=== PATIENT | female | born 1980 | race Caucasian/White ===

== ENCOUNTER 2019-10-17 09:12 | Emergency (ER) | payer OTHER ==
--- NOTE | 2019-10-17 09:59 | EDM.PDOC ---
ED [facility] GENERAL MEDICAL PROBLEM - General Chief Complaint: General Stated Complaint: DETOX Time Seen by Provider: 10/17/19 09:40 Source of Information: Reports: Patient History Limitations: Reports: No Limitations - History of Present Illness INITIAL COMMENTS - FREE TEXT/NARRATIVE: Patient is a 38-year-old female with a past medical history of pancreatitis and alcohol abuse. Patient is here requesting alcohol detox. Patient states that she is a recovering alcoholic and recently relapsed 5 days ago. Patient states that she is been dealing with anxiety from a recent move and job change. Patient states that she trinity with her anxiety by drinking alcohol. Patient states she has been drinking 2 pints of alcohol per day and her most recent drink was 5 hours ago. Patient states that outpatient detox does not work for her and that she needs inpatient. Patient is denying headaches, nausea, vomiting, paresthesias, depression, suicidal ideations, homicidal ideations. Pmhx: Pancreatitis Pshx: None Family Hx: noncontributory Smoking history? no Etoh use? No daily alcohol Drug use? none In addition to that documented in the HPI above, the additional ROS was obtained : Constitutional: Denies fevers or chills Eyes: Denies vision changes ENMT: Denies sore throat CV: Denies chest pain Resp: Denies SOB GI: Denies vomiting or diarrhea : Denies painful urination MSK: Denies recent trauma Skin: Denies new rashes Neuro: Denies new numbness or tingling or weakness Endocrine: Denies unexpected weight loss Heme: Denies bleeding disorders I have reviewed the triage vital signs Const: Well nourished, well developed, appears stated age. No slurring of speech no alcohol on breath. Eyes: PERRL, no conjunctival injection HENT: NCAT, Neck supple without meningismus CV: RRR, Warm, well-perfused extremities RESP: CTAB, Unlabored respiratory effort GI: soft, non-tender, non-distended, no masses MSK: No gross deformities appreciated Skin: Warm, dry. No rashes Neuro: Alert and oriented x3., professor of surgery II-XII grossly intact. Sensation and motor function of extremities grossly intact. No tremors noted. Gait is normal Psych: Appropriate mood and affect Assessment and plan: Patient is 38-year-old female presenting with a chief complaint of alcohol dependence requesting detox. Patient is not demonstrating any evidence of alcohol withdrawal at this time and is clinically sober. Patient is slightly tachycardic but is regular rate. At this point, patient has no indication for inpatient admission for alcohol withdrawal. There are no inpatient detox beds at this facility. Patient was educated on the importance of cessation of alcohol. Patient was referred to [facility] for inpatient detox. At this period in time, patient does not have any other evidence of medical emergency requiring intervention. Patient is medically stable and cleared for discharge. - Related Data Allergies Allergy/AdvReac Type Severity Reaction Status Date / Time No Known Allergies Allergy Verified 10/17/19 09:30 Home Meds: Home Meds Desvenlafaxine Succinate [Pristiq ER] 25 mg PO ASDIRECTED 10/17/19 [History] Ibuprofen [Motrin] 800 mg PO DAILY 10/17/19 [History] Past Medical History HEENT History: Reports: None Cardiovascular History: Reports: None Respiratory History: Reports: None Gastrointestinal History: Reports: Cirrhosis, Pancreatitis WIRE TESTER History: Reports: Other WIRE TESTER History: X2 Musculoskeletal History: Reports: None Neurological History: Reports: None Psychiatric History: Reports: Anxiety, Depression Endocrine/Metabolic History: Reports: None Hematologic History: Reports: None Immunologic History: Reports: None Oncologic (Cancer) History: Reports: None Dermatologic History: Reports: None - Infectious Disease History Infectious Disease History: Reports: C-Difficile - Past Surgical History Head Surgeries/Procedures: Reports: None Social & Family History - Family History Family Medical History: Noncontributory - Tobacco Use Smoking Status *Q: Current Every Day Smoker Years of Tobacco use: 20 Packs/Tins Daily: 1 Used Tobacco, but Quit: No Second Hand Smoke Exposure: Yes - Caffeine Use Caffeine Use: Reports: Tea - Alcohol Use Days Per Week of Alcohol Use: 5 Number of Drinks Per Day: 10 Total Drinks Per Week: 50 - Recreational Drug Use Recreational Drug Use: No ED ROS GENERAL - Review of Systems Review Of Systems: See Below ED EXAM, GENERAL - Physical Exam Exam: See Below Course - Vital Signs Last Recorded V/S: Last Vital Signs Temp 35.6 C L 10/17/19 09:32 Pulse 108 H 10/17/19 09:32 Resp 18 10/17/19 09:32 BP 127/88 10/17/19 09:32 Pulse Ox 96 10/17/19 09:32 Departure - Departure Time of Disposition: 09:58 Disposition: Home, Self-Care 01 Clinical Impression: Alcohol abuse - Discharge Information Instructions: Alcohol Use Disorder Referrals: PCP,None [Primary Care Provider] - Forms: ED Department Discharge Additional Instructions: The following information is given to patients seen in the emergency department who are being discharged to home. This information is to outline your options for follow-up care. We provide all patients seen in our emergency department with a follow-up referral. The need for follow-up, as well as the timing and circumstances, are variable depending upon the specifics of your emergency department visit. If you don't have a primary care physician on staff, we will provide you with a referral. We always advise you to contact your personal physician following an emergency department visit to inform them of the circumstance of the visit and for follow-up with them and/or the need for any referrals to a consulting specialist. The emergency department will also refer you to a specialist when appropriate. This referral assures that you have the opportunity for follow-up care with a specialist. All of these measure are taken in an effort to provide you with optimal care, which includes your follow-up. Under all circumstances we always encourage you to contact your private physician who remains a resource for coordinating your care. When calling for follow-up care, please make the office aware that this follow-up is from your recent emergency room visit. If for any reason you are refused follow-up, please contact the [facility] Emergency Department at and asked to speak to the emergency department charge nurse. The closest facility for inpatient detox is in [facility]. Please go there soon as possible for treatment of your alcohol use disorder. Please return to the ER since possible if symptoms worsen or if you have any additional concerns. Sepsis Event Note - Evaluation Sepsis Screening Result: No Definite Risk - Focused Exam Vital Signs: Vital Signs Temp Pulse Resp BP Pulse Ox 10/17/19 09:32 35.6 C L 108 H 18 127/88 96 Date Exam was Performed: 10/17/19 Time Exam was Performed: 10:01
== END 2019-10-17 10:07 | disposition home or self-care (01) ==
LOC: MW.ED 09:12
DX: F10.10 Alcohol abuse, uncomplicated (principal); F41.9 Anxiety disorder, unspecified; F32.9 Major depressive disorder, single episode, unspecified; F17.210 Nicotine dependence, cigarettes, uncomplicated; Z79.899 Other long term (current) drug therapy
CPT/HCPCS: 99282; 99283

== ENCOUNTER 2019-12-16 12:30 | Inpatient (IN) | payer OTHER ==
[2019-12-16] MEDS ORDERED: Ondansetron 4 MG/2 ML SDV IVPUSH ONE (12:49)
[2019-12-16] MEDS ORDERED: Sodium Chloride 0.9% 10 ML Syringe FLUSH PRN (12:49)
[2019-12-16] MEDS ORDERED: Morphine 4 MG/ML Syringe IVPUSH ONE ×4 (12:49→16:26)
[2019-12-16] MEDS ORDERED: Ketorolac 15 MG/ML SDV IVPUSH ONE (12:49)
[2019-12-16] MEDS ORDERED: Sodium Chloride 0.9% 1,000 ML IV ONE ×3 (12:49→17:46)
[2019-12-16] MEDS ORDERED: Sodium Chloride 0.9% 2.5 ML Syringe FLUSH PRN (12:49)
--- NOTE | 2019-12-16 12:53 | EDM.PDOC ---
ED [facility]PI GENERAL MEDICAL PROBLEM - General Chief Complaint: Gastrointestinal Problem Stated Complaint: PANCREATITIS Time Seen by Provider: 12/16/19 12:43 - History of Present Illness INITIAL COMMENTS - FREE TEXT/NARRATIVE: History of present illness: 39-year-old female presenting with right upper quadrant pain radiating to the epigastric area that has been worsening over the last 3 days. She has also been nauseated and vomited 7 times today. She reports that she is an alcoholic and a heavy daily drinker and that she has had prior episodes of pancreatitis which have felt exactly like this episode. She also reports that she knows pancreatitis because every time that happens she notices her urine has a color change and smells differently. Last menstrual period started 2 days ago. No diarrhea. No fevers or chills. Review of systems: As per history of present illness and below otherwise all systems reviewed and negative. Past medical history: As per history of present illness and as reviewed below otherwise nonc ontributory. Alcoholic hepatitis, pancreatitis Surgical history: As per history of present illness and as reviewed below otherwise noncontributory. Social history: No reported history of drug abuse. Does report daily alcohol abuse and tobacco Family history: As per history of present illness and as reviewed below otherwise noncontributory. Physical exam: GEN: no acute distress, well appearing HEENT: Atraumatic, normocephalic, mucous membranes moist, Neck: supple, nontender, trachea midline. Lungs: No respiratory distress. Heart: RRR Abdomen: Soft, nondistended, tender to palpation right upper quadrant and epigastric area. No rebound or guarding Back: nontender Extremities: Atraumatic. Neurovascularly intact. Neuro: Awake, alert, oriented. Neuro Exam nonfocal. Skin: warm, dry, no lesions Diagnostics: Labs Therapeutics: IV fluids, Zofran, morphine for pain MDM: Symptoms similar to prior episodes of pancreatitis. She is a daily drinker. At risk for pancreatitis. Will check labs. Impression: [] Plan: [] Definitive disposition and diagnosis as appropriate pending reevaluation and review of above. Right Upper Abdomen Pain Score (Numeric/FACES): 10 - Related Data Allergies Allergy/AdvReac Type Severity Reaction Status Date / Time No Known Allergies Allergy Verified 12/16/19 17:47 Home Meds: Home Meds Desvenlafaxine Succinate [Pristiq ER] 100 mg PO ASDIRECTED 10/17/19 [History] Past Medical History HEENT History: Reports: None Cardiovascular History: Reports: None Respiratory History: Reports: None Gastrointestinal History: Reports: Cirrhosis, Hepatitis, Pancreatitis Genitourinary History: Reports: None RN GYN History: Reports: Other RN GYN History: X2 Musculoskeletal History: Reports: None Neurological History: Reports: None Psychiatric History: Reports: Anxiety, Depression Endocrine/Metabolic History: Reports: None Hematologic History: Reports: None Immunologic History: Reports: None Oncologic (Cancer) History: Reports: None Dermatologic History: Reports: None - Infectious Disease History Infectious Disease History: Reports: Chicken Pox, Hepatitis non A,B,C - Past Surgical History Head Surgeries/Procedures: Reports: None Female Surgical History: Reports: Tubal Ligation Social & Family History - Family History Family Medical History: Noncontributory - Tobacco Use Smoking Status *Q: Current Every Day Smoker Years of Tobacco use: 20 Packs/Tins Daily: 1.5 - Caffeine Use Caffeine Use: Reports: Tea - Recreational Drug Use Recreational Drug Use: No ED ROS GENERAL - Review of Systems Review Of Systems: See Below (See HPI) ED EXAM, GI/ABD - Physical Exam Exam: See Below (See HPI) Course - Vital Signs Text/Narrative:: Upper abdominal pain, primarily epigastric and right upper quadrant. History of alcohol abuse and pancreatitis with similar symptoms. Lipase 4000. LFTs and bilirubin also elevated. Patient afebrile and otherwise well-appearing. Given IV fluids and multiple doses of pain medications. Will admit the patient. Patient agrees with the plan. Last Recorded V/S: Last Vital Signs Temp 99.4 F 12/17/19 07:00 Pulse 119 H 12/17/19 07:00 Resp 16 12/17/19 07:00 BP 119/87 12/17/19 07:00 Pulse Ox 97 12/17/19 07:00 - Orders/Labs/Meds Orders: Active Orders 24 hr Category Date Time Status CIWAA Assessment [RC] Q4H Care 12/16/19 15:56 Active Up ad Vanessa [RC] ASDIRECTED Care 12/16/19 15:56 Active Vital Signs [RC] Q4H Care 12/16/19 15:56 Active Nothing Per Oral Diet [DIET] Diet 12/16/19 Dinner Active Folic Acid Med 12/16/19 16:00 Active 1 mg IV DAILY LORazepam [Ativan] Med 12/16/19 15:56 Active See Protocol IVPUSH Q4H PRN Morphine Med 12/16/19 15:56 Active 2 mg IVPUSH Q3H PRN Sodium Chloride 0.9% [Normal Saline] 1,000 ml Med 12/16/19 16:00 Active IV ASDIRECTED Sodium Chloride 0.9% [Saline Flush] Med 12/16/19 12:49 Active 10 ml FLUSH ASDIRECTED PRN Sodium Chloride 0.9% [Saline Flush] Med 12/16/19 12:49 Active 2.5 ml FLUSH ASDIRECTED PRN Thiamine [Vitamin B-1] 100 mg Med 12/16/19 16:00 Active Sodium Chloride 0.9% [Normal Saline] 100 ml IV DAILY Saline Lock Insert [OM.PC] Stat Oth 12/16/19 12:49 Ordered Medication Orders Folic Acid (Folic Acid) 1 mg IV DAILY [facility] Last Admin: 12/16/19 17:26 Dose: 1 mg Documented by: RENATO Sodium Chloride (Normal Saline) 1,000 mls @ 200 mls/hr IV ASDIRECTED [facility] Last Admin: 12/17/19 05:37 Dose: 200 mls/hr Documented by: Infusion: 12/17/19 05:37 Dose: 200 mls/hr Documented by: Admin: 12/17/19 00:45 Dose: 200 mls/hr Documented by: Infusion: 12/16/19 22:10 Dose: 200 mls/hr Documented by: Admin: 12/16/19 17:10 Dose: 200 mls/hr Documented by: RENATO Thiamine HCl 100 mg/ Sodium (Chloride) 101 mls @ 202 mls/hr IV DAILY [facility] Last Admin: 12/16/19 17:38 Dose: Not Given Documented by: CELESTINOFRYosi Lorazepam (Ativan) 0 mg IVPUSH Q4H PRN; Protocol PRN Reason: Agitation Last Admin: 12/17/19 07:32 Dose: 1 mg Documented by: Admin: 12/17/19 03:20 Dose: 1 mg Documented by: Admin: 12/16/19 21:40 Dose: 1 mg Documented by: Admin: 12/16/19 17:22 Dose: 2 mg Documented by: RENATO Morphine Sulfate (Morphine) 2 mg IVPUSH Q3H PRN PRN Reason: Pain Last Admin: 12/17/19 05:12 Dose: 2 mg Documented by: Admin: 12/17/19 01:43 Dose: 2 mg Documented by: Admin: 12/16/19 22:33 Dose: 2 mg Documented by: Admin: 12/16/19 19:28 Dose: 2 mg Documented by: RENATO Nicotine (Habitrol) 14 mg TRDERM DAILY [facility] Last Admin: 12/16/19 21:26 Dose: 14 mg Documented by: BRITT Ondansetron HCl (Zofran) 4 mg IVPUSH Q4H PRN PRN Reason: Nausea/Vomiting Last Admin: 12/17/19 05:17 Dose: 4 mg Documented by: Admin: 12/16/19 21:20 Dose: 4 mg Documented by: BRITT Sodium Chloride (Saline Flush) 10 ml FLUSH ASDIRECTED PRN PRN Reason: Keep Vein Open Last Admin: 12/16/19 13:16 Dose: 10 ml Documented by: JOHN Sodium Chloride (Saline Flush) 2.5 ml FLUSH ASDIRECTED PRN PRN Reason: Keep Vein Open Last Admin: 12/16/19 13:16 Dose: 2.5 ml Documented by: [email or web address] Labs: Laboratory Tests 12/16/19 12/16/19 12/16/19 Range/Units 13:05 13:05 13:05 WBC 9.22 (4.0-11.0) K/uL RBC 3.99 L (4.30-5.90) M/uL Hgb 14.3 (12.0-16.0) g/dL Hct 40.9 (36.0-46.0) % MCV 102.5 H (80.0-98.0) fL MCH 35.8 H (27.0-32.0) pg MCHC 35.0 (31.0-37.0) g/dL RDW Std Deviation 70.1 H (28.0-62.0) fl RDW Coeff of Tea 19 H (11.0-15.0) % Plt Count 148 L (150-400) K/uL MPV 10.00 (7.40-12.00) fL Neut % (Auto) 81.3 H (48.0-80.0) % Lymph % (Auto) 10.2 L (16.0-40.0) % [place] % (Auto) 7.9 (0.0-15.0) % Eos % (Auto) 0.1 (0.0-7.0) % Baso % (Auto) 0.5 (0.0-1.5) % Neut # (Auto) 7.5 H (1.4-5.7) K/uL Lymph # (Auto) 0.9 (0.6-2.4) K/uL [place] # (Auto) 0.7 (0.0-0.8) K/uL Eos # (Auto) 0.0 (0.0-0.7) K/uL Baso # (Auto) 0.1 (0.0-0.1) K/uL Nucleated RBC % 0.0 /100WBC Nucleated RBCs # 0 K/uL Sodium 136 (136-145) mmol/L Potassium 3.1 L (3.5-5.1) mmol/L Chloride 95 L (98-107) mmol/L Carbon Dioxide 15.1 L (21.0-32.0) mmol/L BUN 10 (7.0-18.0) mg/dL Creatinine 0.7 (0.6-1.0) mg/dL Est Cr Clr Drug Dosing 89.98 mL/min Estimated GFR (MDRD) > 60.0 ml/min Glucose 121 H (74-106) mg/dL Calcium 8.7 (8.5-10.1) mg/dL Total Bilirubin 2.2 H (0.2-1.0) mg/dL AST 410 H (15-37) IU/L ALT 204 H (14-63) IU/L Alkaline Phosphatase 122 H (46-116) U/L Total Protein 8.2 (6.4-8.2) g/dL Albumin 4.1 (3.4-5.0) g/dL Globulin 4.1 H (2.6-4.0) g/dL Albumin/Globulin Ratio 1.0 (0.9-1.6) Lipase 4164 H (73-393) U/L HCG, Qual NEGATIVE (NEG) SARS Virus RNA (PCR) (NEGATIVE) 12/16/19 Range/Units 14:45 WBC (4.0-11.0) K/uL RBC (4.30-5.90) M/uL Hgb (12.0-16.0) g/dL Hct (36.0-46.0) % MCV (80.0-98.0) fL MCH (27.0-32.0) pg MCHC (31.0-37.0) g/dL RDW Std Deviation (28.0-62.0) fl RDW Coeff of Tea (11.0-15.0) % Plt Count (150-400) K/uL MPV (7.40-12.00) fL Neut % (Auto) (48.0-80.0) % Lymph % (Auto) (16.0-40.0) % [place] % (Auto) (0.0-15.0) % Eos % (Auto) (0.0-7.0) % Baso % (Auto) (0.0-1.5) % Neut # (Auto) (1.4-5.7) K/uL Lymph # (Auto) (0.6-2.4) K/uL [place] # (Auto) (0.0-0.8) K/uL Eos # (Auto) (0.0-0.7) K/uL Baso # (Auto) (0.0-0.1) K/uL Nucleated RBC % /100WBC Nucleated RBCs # K/uL Sodium (136-145) mmol/L Potassium (3.5-5.1) mmol/L Chloride (98-107) mmol/L Carbon Dioxide (21.0-32.0) mmol/L BUN (7.0-18.0) mg/dL Creatinine (0.6-1.0) mg/dL Est Cr Clr Drug Dosing mL/min Estimated GFR (MDRD) ml/min Glucose (74-106) mg/dL Calcium (8.5-10.1) mg/dL Total Bilirubin (0.2-1.0) mg/dL AST (15-37) IU/L ALT (14-63) IU/L Alkaline Phosphatase (46-116) U/L Total Protein (6.4-8.2) g/dL Albumin (3.4-5.0) g/dL Globulin (2.6-4.0) g/dL Albumin/Globulin Ratio (0.9-1.6) Lipase (73-393) U/L HCG, Qual (NEG) SARS Virus RNA (PCR) NEGATIVE (NEGATIVE) Meds: Medications Generic Name Dose Route Start Last Admin Trade Name Ry PRN Reason Stop Dose Admin Folic Acid 1 mg 12/16/19 16:00 12/16/19 17:26 Folic Acid IV 1 mg DAILY [facility] Administration Sodium Chloride 1,000 mls @ 200 mls/hr 12/16/19 16:00 12/17/19 05:37 Normal Saline IV 200 mls/hr ASDIRECTED [facility] Administration Thiamine HCl 100 mg/ Sodium 101 mls @ 202 mls/hr 12/16/19 16:00 12/16/19 17:38 Chloride IV Not Given DAILY [facility] Lorazepam 0 mg 12/16/19 15:56 12/17/19 07:32 Ativan IVPUSH 1 mg Q4H PRN Administration Agitation Protocol Morphine Sulfate 2 mg 12/16/19 15:56 12/17/19 05:12 Morphine IVPUSH 2 mg Q3H PRN Administration Pain Nicotine 14 mg 12/16/19 21:15 12/16/19 21:26 Habitrol TRDERM 14 mg DAILY [facility] Administration Ondansetron HCl 4 mg 12/16/19 21:12 12/17/19 05:17 Zofran IVPUSH 4 mg Q4H PRN Administration Nausea/Vomiting Sodium Chloride 10 ml 12/16/19 12:49 12/16/19 13:16 Saline Flush FLUSH 10 ml ASDIRECTED PRN Administration Keep Vein Open Sodium Chloride 2.5 ml 12/16/19 12:49 12/16/19 13:16 Saline Flush FLUSH 2.5 ml ASDIRECTED PRN Administration Keep Vein Open Discontinued Medications Generic Name Dose Route Start Last Admin Trade Name Ry PRN Reason Stop Dose Admin Sodium Chloride 1,000 mls @ 999 mls/hr 12/16/19 12:49 12/16/19 13:15 Normal Saline IV 12/16/19 13:49 999 mls/hr .Bolus ONE Administration Sodium Chloride 1,000 mls @ 999 mls/hr 12/16/19 14:50 12/16/19 16:12 Normal Saline IV 12/16/19 15:50 999 mls/hr .Bolus ONE Administration Sodium Chloride 1,000 mls @ 999 mls/hr 12/16/19 17:46 12/16/19 18:18 Normal Saline IV 12/16/19 18:46 999 mls/hr .Bolus ONE Administration Potassium Chloride/Sodium Chloride 1,000 mls @ 200 mls/hr 12/16/19 18:00 12/16/19 19:35 Normal Saline With 40 Meq Kcl IV 12/16/19 22:59 200 mls/hr ASDIRECTED [facility] Administration Magnesium Sulfate 2 gm/ Premix 50 mls @ 50 mls/hr 12/16/19 23:08 12/17/19 00:19 IV 12/17/19 00:07 50 mls/hr ONETIME ONE Administration Ketorolac Tromethamine 15 mg 12/16/19 12:49 12/16/19 13:15 Toradol IVPUSH 12/16/19 12:50 15 mg ONETIME ONE Administration Lidocaine HCl 5 ml 12/16/19 15:26 12/16/19 15:58 Xylocaine-Mpf 4% NEB 12/16/19 15:27 Not Given ONETIME ONE Morphine Sulfate 4 mg 12/16/19 12:49 12/16/19 13:15 Morphine IVPUSH 12/16/19 12:50 4 mg ONETIME ONE Administration Morphine Sulfate 4 mg 12/16/19 13:50 12/16/19 14:23 Morphine IVPUSH 12/16/19 13:51 4 mg ONETIME ONE Administration Morphine Sulfate 4 mg 12/16/19 16:04 12/16/19 16:13 Morphine IVPUSH 12/16/19 16:05 4 mg ONETIME ONE Administration Morphine Sulfate Confirm 12/16/19 16:06 12/16/19 16:17 Morphine Administered 12/16/19 16:07 Not Given Dose 4 mg .ROUTE .STK-MED ONE Morphine Sulfate 4 mg 12/16/19 16:26 12/16/19 17:26 Morphine IVPUSH 12/16/19 16:27 Not Given ONETIME ONE Ondansetron HCl 4 mg 12/16/19 12:49 12/16/19 13:15 Zofran IVPUSH 12/16/19 12:50 4 mg ONETIME ONE Administration Ondansetron HCl Confirm 12/16/19 21:16 12/16/19 21:20 Zofran Administered 12/16/19 21:17 Not Given Dose 4 mg .ROUTE .STK-MED ONE Thiamine HCl Confirm 12/16/19 17:17 12/16/19 17:35 Vitamin B-1 Administered 12/16/19 17:18 100 mg Dose Administration 200 mg .ROUTE .STK-MED ONE - Re-Assessments/Exams Free Text/Narrative Re-Assessment/Exam: 12/16/19 14:57 Dr. Gross called back, we discussed the case, he agrees with plan for admission. Requests to make the patient observation. I reevaluated the patient. She is feeling better. Discussed need for admission. She agrees with this plan. She is still having pain. Additional pain medication will be ordered. Departure - Departure Time of Disposition: 15:05 Disposition: Refer to Observation Clinical Impression: Pancreatitis, alcoholic, acute - Discharge Information Sepsis Event Note (ED) - Evaluation Sepsis Screening Result: No Definite Risk - My Orders Last 24 Hours: My Active Orders 12/16/19 12:49 Sodium Chloride 0.9% [Saline Flush] 10 ml FLUSH ASDIRECTED PRN Sodium Chloride 0.9% [Saline Flush] 2.5 ml FLUSH ASDIRECTED PRN Saline Lock Insert [OM.PC] Stat - Assessment/Plan Last 24 Hours: My Active Orders 12/16/19 12:49 Sodium Chloride 0.9% [Saline Flush] 10 ml FLUSH ASDIRECTED PRN Sodium Chloride 0.9% [Saline Flush] 2.5 ml FLUSH ASDIRECTED PRN Saline Lock Insert [OM.PC] Stat
[2019-12-16 13:36] LABS: BLOOD UREA NITROGEN,BUN 10 mg/dL (7.0-18.0); CARBON DIOXIDE,CO2 15.1 mmol/L (21.0-32.0); CHLORIDE,CL 95 mmol/L (98-107); GLUCOSE RANDOM 121 mg/dL (74-106); POTASSIUM,K 3.1 mmol/L (3.5-5.1); SODIUM,NA 136 mmol/L (136-145)
[2019-12-16 13:52] LABS: LIPASE 4164 U/L (73-393)
[2019-12-16] MEDS ORDERED: Lidocaine 4% 5 ML Amp NEB ONE (15:26)
[2019-12-16] MEDS ORDERED: Morphine 4 MG/ML Syringe ONE (16:06)
[2019-12-16] MEDS: Sodium Chloride 0.9% 1,000 ML IV SCH (17:10)
[2019-12-16] MEDS ORDERED: Thiamine 200 MG/2 ML MDV ONE (17:17)
[2019-12-16] MEDS: LORazepam 2 MG/ML SDV IVPUSH PRN ×2 (17:22→21:40)
[2019-12-16] MEDS: Folic Acid 50 MG/10 ML MDV IV SCH (17:26)
[2019-12-16] MEDS: Thiamine 100 MG in Sodium Chloride 0.9% 100 ML IV SCH ×2 (17:29→17:38)
--- NOTE | 2019-12-16 17:54 | PCM.HP.2 ---
H&P History of Present Illness - General Date of Service: 12/16/19 Admit Problem/Dx: Admission Diagnosis/Problem Admission Diagnosis/Problem Pancreatitis - History of Present Illness Initial Comments - Free Text/Narative: 39 yo female with pmh of pancreatitis and ETOH abuse who presents to the ED with complaints of abdominal pain. Abdominal pain started several days ago and is epigastric and radiates to RUQ. Patient denied any fever, diarrhea or shortness of breath. Patient reports she has been trying to quit drinking for two months. She drinks a pint of liquor a day. Her last drink was this morning. Right Upper Abdomen Pain Score (Numeric/FACES): 10 - Related Data Allergies/Adverse Reactions: Allergies Allergy/AdvReac Type Severity Reaction Status Date / Time No Known Allergies Allergy Verified 12/16/19 17:47 Home Medications: Home Meds Desvenlafaxine [Desvenlafaxine ER] 50 mg PO DAILY 12/17/19 [History] Past Medical History HEENT History: Reports: None Cardiovascular History: Reports: None Respiratory History: Reports: None Gastrointestinal History: Reports: Cirrhosis, Hepatitis, Pancreatitis Genitourinary History: Reports: None STONEHAND History: Reports: Other OB/BYN History: X2 Musculoskeletal History: Reports: None Neurological History: Reports: None Psychiatric History: Reports: Anxiety, Depression Endocrine/Metabolic History: Reports: None Hematologic History: Reports: None Immunologic History: Reports: None Oncologic (Cancer) History: Reports: None Dermatologic History: Reports: None - Infectious Disease History Infectious Disease History: Reports: Chicken Pox, Hepatitis non A,B,C - Past Surgical History Head Surgeries/Procedures: Reports: None Female Surgical History: Reports: Tubal Ligation Social & Family History - Family History Family Medical History: Noncontributory - Tobacco Use Smoking Status *Q: Current Every Day Smoker Years of Tobacco use: 20 Packs/Tins Daily: 1.5 - Caffeine Use Caffeine Use: Reports: Tea - Recreational Drug Use Recreational Drug Use: No H&P Review of Systems - Review of Systems: Review Of Systems: Comprehensive ROS is negative, except as noted in HPI. Exam - Exam Exam: See Below - Vital Signs Vital Signs: Last Vital Signs Temp 35.9 C L 12/16/19 12:38 Pulse 96 12/16/19 16:00 Resp 16 12/16/19 16:00 BP 119/74 12/16/19 16:00 Pulse Ox 95 12/16/19 16:00 Weight: 51.8 kg - Exam General: Alert, Oriented HEENT: Conjunctiva Clear, Mucosa Moist & [place] Neck: Supple Lungs: Clear to Auscultation, Normal Respiratory Effort Cardiovascular: Regular Rate, Regular Rhythm GI/Abdominal Exam: Normal Bowel Sounds, Soft, Non-Tender, No Organomegaly, No Distention, Tender (mild tenderness in episatrum). No: Guarding, Rigid, Rebound Extremities: Non-Tender, No Pedal Edema Skin: Warm, Dry, Intact - Patient Data Lab Results Last 24 hrs: Laboratory Results - last 24 hr 12/16/19 12/16/19 12/16/19 Range/Units 13:05 13:05 13:05 WBC 9.22 (4.0-11.0) K/uL RBC 3.99 L (4.30-5.90) M/uL Hgb 14.3 (12.0-16.0) g/dL Hct 40.9 (36.0-46.0) % MCV 102.5 H (80.0-98.0) fL MCH 35.8 H (27.0-32.0) pg MCHC 35.0 (31.0-37.0) g/dL RDW Std Deviation 70.1 H (28.0-62.0) fl RDW Coeff of Tea 19 H (11.0-15.0) % Plt Count 148 L (150-400) K/uL MPV 10.00 (7.40-12.00) fL Neut % (Auto) 81.3 H (48.0-80.0) % Lymph % (Auto) 10.2 L (16.0-40.0) % [place] % (Auto) 7.9 (0.0-15.0) % Eos % (Auto) 0.1 (0.0-7.0) % Baso % (Auto) 0.5 (0.0-1.5) % Neut # (Auto) 7.5 H (1.4-5.7) K/uL Lymph # (Auto) 0.9 (0.6-2.4) K/uL [place] # (Auto) 0.7 (0.0-0.8) K/uL Eos # (Auto) 0.0 (0.0-0.7) K/uL Baso # (Auto) 0.1 (0.0-0.1) K/uL Nucleated RBC % 0.0 /100WBC Nucleated RBCs # 0 K/uL Sodium 136 (136-145) mmol/L Potassium 3.1 L (3.5-5.1) mmol/L Chloride 95 L (98-107) mmol/L Carbon Dioxide 15.1 L (21.0-32.0) mmol/L BUN 10 (7.0-18.0) mg/dL Creatinine 0.7 (0.6-1.0) mg/dL Est Cr Clr Drug Dosing 89.98 mL/min Estimated GFR (MDRD) > 60.0 ml/min Glucose 121 H (74-106) mg/dL Calcium 8.7 (8.5-10.1) mg/dL Total Bilirubin 2.2 H (0.2-1.0) mg/dL AST 410 H (15-37) IU/L ALT 204 H (14-63) IU/L Alkaline Phosphatase 122 H (46-116) U/L Total Protein 8.2 (6.4-8.2) g/dL Albumin 4.1 (3.4-5.0) g/dL Globulin 4.1 H (2.6-4.0) g/dL Albumin/Globulin Ratio 1.0 (0.9-1.6) Lipase 4164 H (73-393) U/L HCG, Qual NEGATIVE (NEG) SARS Virus RNA (PCR) (NEGATIVE) 12/16/19 Range/Units 14:45 WBC (4.0-11.0) K/uL RBC (4.30-5.90) M/uL Hgb (12.0-16.0) g/dL Hct (36.0-46.0) % MCV (80.0-98.0) fL MCH (27.0-32.0) pg MCHC (31.0-37.0) g/dL RDW Std Deviation (28.0-62.0) fl RDW Coeff of Tea (11.0-15.0) % Plt Count (150-400) K/uL MPV (7.40-12.00) fL Neut % (Auto) (48.0-80.0) % Lymph % (Auto) (16.0-40.0) % [place] % (Auto) (0.0-15.0) % Eos % (Auto) (0.0-7.0) % Baso % (Auto) (0.0-1.5) % Neut # (Auto) (1.4-5.7) K/uL Lymph # (Auto) (0.6-2.4) K/uL [place] # (Auto) (0.0-0.8) K/uL Eos # (Auto) (0.0-0.7) K/uL Baso # (Auto) (0.0-0.1) K/uL Nucleated RBC % /100WBC Nucleated RBCs # K/uL Sodium (136-145) mmol/L Potassium (3.5-5.1) mmol/L Chloride (98-107) mmol/L Carbon Dioxide (21.0-32.0) mmol/L BUN (7.0-18.0) mg/dL Creatinine (0.6-1.0) mg/dL Est Cr Clr Drug Dosing mL/min Estimated GFR (MDRD) ml/min Glucose (74-106) mg/dL Calcium (8.5-10.1) mg/dL Total Bilirubin (0.2-1.0) mg/dL AST (15-37) IU/L ALT (14-63) IU/L Alkaline Phosphatase (46-116) U/L Total Protein (6.4-8.2) g/dL Albumin (3.4-5.0) g/dL Globulin (2.6-4.0) g/dL Albumin/Globulin Ratio (0.9-1.6) Lipase (73-393) U/L HCG, Qual (NEG) SARS Virus RNA (PCR) NEGATIVE (NEGATIVE) Result Diagrams: 12/18/19 05:30 12/18/19 05:30 Sepsis Event Note - Evaluation Sepsis Screening Result: No Definite Risk - Focused Exam Vital Signs: Vital Signs Temp Pulse Resp BP Pulse Ox 12/16/19 16:00 96 16 119/74 95 12/16/19 14:41 100 16 91 L 12/16/19 12:38 35.9 C L 112 H 20 145/93 H 97 Date Exam was Performed: 12/18/19 Time Exam was Performed: 10:03 Problem List Initiated/Reviewed/Updated: Yes Orders Last 24hrs: Active Orders 24 hr Category Date Time Status Patient Status [ADT] Routine ADT 12/16/19 17:52 Ordered Antiembolic Devices [RC] PER UNIT ROUTINE Care 12/16/19 17:52 Ordered CIWAA Assessment [RC] Q4H Care 12/16/19 15:56 Active Oxygen Therapy [RC] PRN Care 12/16/19 17:52 Ordered Up ad Vanessa [RC] ASDIRECTED Care 12/16/19 15:56 Active Up to Chair [RC] ASDIRECTED Care 12/16/19 17:51 Ordered VTE/DVT Education [RC] PER UNIT ROUTINE Care 12/16/19 17:52 Ordered Vital Signs [RC] Q4H Care 12/16/19 15:56 Active Vital Signs [RC] Q4H Care 12/16/19 17:52 Ordered Nothing Per Oral Diet [DIET] Diet 12/16/19 Dinner Active CBC WITH AUTO DIFF [HEME] AM Lab 12/17/19 05:11 Ordered CMP [COMPREHENSIVE METABOLIC PN,CMP] [CHEM] AM Lab 12/17/19 05:11 Ordered INR,PT,PROTHROMBIN TIME [COAG] Routine Lab 12/16/19 17:48 Ordered LACTATE WITH REFLEX [BG] Stat Lab 12/16/19 17:48 Ordered MAGNESIUM [CHEM] AM Lab 12/16/19 05:11 Ordered MAGNESIUM [CHEM] AM Lab 12/17/19 05:11 Ordered MAGNESIUM [CHEM] Routine Lab 12/16/19 17:50 Ordered PHOSPHORUS [CHEM] AM Lab 12/17/19 05:11 Ordered PHOSPHORUS [CHEM] Routine Lab 12/16/19 17:49 Ordered UA W/RENE RFLX IF INDICATED [URIN] Stat Lab 12/16/19 12:49 Ordered Folic Acid Med 12/16/19 16:00 Active 1 mg IV DAILY LORazepam [Ativan] Med 12/16/19 15:56 Active See Protocol IVPUSH Q4H PRN Morphine Med 12/16/19 15:56 Active 2 mg IVPUSH Q3H PRN Sodium Chloride 0.9% [Normal Saline] 1,000 ml Med 12/16/19 17:46 Ordered IV .Bolus Sodium Chloride 0.9% [Normal Saline] 1,000 ml Med 12/16/19 16:00 Active IV ASDIRECTED Sodium Chloride 0.9% [Saline Flush] Med 12/16/19 12:49 Active 10 ml FLUSH ASDIRECTED PRN Sodium Chloride 0.9% [Saline Flush] Med 12/16/19 12:49 Active 2.5 ml FLUSH ASDIRECTED PRN Sodium Chloride 0.9% with KCl [Normal Saline with 40 Med 12/16/19 18:00 Ordered mEq KCl] 1,000 ml IV ASDIRECTED Thiamine [Vitamin B-1] 100 mg Med 12/16/19 16:00 Active Sodium Chloride 0.9% [Normal Saline] 100 ml IV DAILY Saline Lock Insert [OM.PC] Stat Ot 12/16/19 12:49 Ordered Sequential Compression Device [OM.PC] Per Unit Routine Oth 12/16/19 17:52 Ordered Resuscitation Status Routine Resus Stat 12/16/19 17:51 Ordered Medication Orders Folic Acid (Folic Acid) 1 mg IV DAILY [facility] Last Admin: 12/16/19 17:26 Dose: 1 mg Documented by: MENSFRA Sodium Chloride (Normal Saline) 1,000 mls @ 200 mls/hr IV ASDIRECTED [facility] Last Admin: 12/16/19 17:10 Dose: 200 mls/hr Documented by: MENSFRA Thiamine HCl 100 mg/ Sodium (Chloride) 101 mls @ 202 mls/hr IV DAILY [facility] Last Admin: 12/16/19 17:38 Dose: Not Given Documented by: MENSFRA Sodium Chloride (Normal Saline) 1,000 mls @ 999 mls/hr IV .Bolus ONE Stop: 12/16/19 18:46 Potassium Chloride/Sodium Chloride (Normal Saline With 40 Meq Kcl) 1,000 mls @ 200 mls/hr IV ASDIRECTED LESLY Stop: 12/16/19 22:59 Lorazepam (Ativan) 0 mg IVPUSH Q4H PRN; Protocol PRN Reason: Agitation Last Admin: 12/16/19 17:22 Dose: 2 mg Documented by: MENSFRA Morphine Sulfate (Morphine) 2 mg IVPUSH Q3H PRN PRN Reason: Pain Sodium Chloride (Saline Flush) 10 ml FLUSH ASDIRECTED PRN PRN Reason: Keep Vein Open Last Admin: 12/16/19 13:16 Dose: 10 ml Documented by: JOHN Sodium Chloride (Saline Flush) 2.5 ml FLUSH ASDIRECTED PRN PRN Reason: Keep Vein Open Last Admin: 12/16/19 13:16 Dose: 2.5 ml Documented by: [id number] Assessment/Plan Comment:: 39 yo female admitted for acute ETOH pancreatitis. Pancreatitis: will check RUQ ultrasound, hydrate with IV fluids and bowel rest ETOH abuse: thiamin and folic acid. Patient is wanting detox. Will place on CIWA protocol.
[2019-12-16] MEDS ORDERED: Sodium Chloride 0.9% with KCl 1,000 ML IV SCH (18:00)
[2019-12-16] MEDS: Morphine 2 MG/ML SYRINGE IVPUSH PRN ×2 (19:28→22:33)
[2019-12-16] MEDS ORDERED: Ondansetron 4 MG/2 ML SDV ONE (21:16)
[2019-12-16] MEDS: Ondansetron 4 MG/2 ML SDV IVPUSH PRN (21:20)
[2019-12-16] MEDS: Nicotine 14 MG/24 Hr Patch TRDERM SCH (21:26)
[2019-12-16] MEDS ORDERED: Magnesium Sulfate/Water 2 GM in Premix Bag 1 BAG IV ONE (23:08)
--- NOTE | 2019-12-17 00:29 | CT ---
INDICATION: Abdominal pain TECHNIQUE: Axial images were obtained from the diaphragm to the pubic symphysis. Reformats were obtained in the coronal and sagittal plane. IV Contrast: None Oral Contrast: None COMPARISON: None. FINDINGS: Lower chest: No acute consolidation. Bilateral breast implants. Liver: Markedly decreased density of the liver without focal lesion. Hepatomegaly. Gallbladder and bile ducts: Unremarkable. No stones or inflammation. No biliary dilatation. Spleen: Unremarkable. Normal in size without mass. Pancreas: Mild peripancreatic fat stranding with trace fluid extending into the pericolic gutter. 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 Inseparable from the pancreatic tail is a focal fluid collection which is seen to the level of the left hemidiaphragm medial to the spleen and posterior to the stomach measuring up to 6.1 x 4.1 x 5.6 centimeters (201, 23; 203, 61). Adrenal glands: Unremarkable. No nodules. Kidneys: Unremarkable. No masses, stones, or hydronephrosis. GI tract: Stomach is unremarkable. No dilated loops of large or small intestine. Vasculature: No evidence of abdominal aortic aneurysm. Pelvis: Unremarkable. Bones: Unremarkable for age. IMPRESSION: 1. Peripancreatic fat stranding consistent with pancreatitis with an irregular, likely loculated, fluid collection extending from the level of the pancreatic tail to the left hemidiaphragm measuring up to 6.1 centimeters. Appearance is suggestive of a pseudocyst. 2. Hepatomegaly with fatty infiltration of the liver. Please note that all CT scans at this facility use dose modulation, iterative reconstruction, and/or weight-based dosing when appropriate to reduce radiation dose to as low as reasonably achievable. Dictated by Sean Lan MD @ Dec 17 2019 12:19AM Signed by Dr. Sean Lan @ Dec 17 2019 12:28AM
[2019-12-17] MEDS: Sodium Chloride 0.9% 1,000 ML IV SCH ×5 (00:45→22:08)
[2019-12-17] MEDS: Morphine 2 MG/ML SYRINGE IVPUSH PRN ×4 (01:43→20:34)
[2019-12-17] MEDS: LORazepam 2 MG/ML SDV IVPUSH PRN ×3 (03:20→11:55)
[2019-12-17] MEDS: Ondansetron 4 MG/2 ML SDV IVPUSH PRN ×2 (05:17→11:54)
[2019-12-17 05:52] LABS: BLOOD UREA NITROGEN,BUN 2 mg/dL (7.0-18.0); CARBON DIOXIDE,CO2 18.8 mmol/L (21.0-32.0); CHLORIDE,CL 96 mmol/L (98-107); GLUCOSE RANDOM 90 mg/dL (74-106); POTASSIUM,K 3.8 mmol/L (3.5-5.1); SODIUM,NA 131 mmol/L (136-145)
[2019-12-17] MEDS: Folic Acid 50 MG/10 ML MDV IV SCH (08:46)
[2019-12-17] MEDS: Nicotine 14 MG/24 Hr Patch TRDERM SCH (08:46)
[2019-12-17] MEDS: Thiamine 100 MG in Sodium Chloride 0.9% 100 ML IV SCH (08:47)
[2019-12-17] MEDS ORDERED: Magnesium Sulfate/Water 2 GM in Premix Bag 1 BAG IV ONE (11:04)
--- NOTE | 2019-12-17 11:08 | PCM.PN ---
- General Info Date of Service: 12/17/19 - Review of Systems Systems Review Comment:: abdominal pain improving - Patient Data Vitals - Most Recent: Last Vital Signs Temp 37.4 C 12/17/19 07:00 Pulse 119 H 12/17/19 07:00 Resp 16 12/17/19 07:00 BP 119/87 12/17/19 07:00 Pulse Ox 97 12/17/19 07:00 Weight - Most Recent: 51.8 kg I&O - Last 24 Hours: Intake & Output 12/16/19 12/17/19 12/17/19 22:59 06:59 14:59 Intake Total 1040 100 Output Total 2650 Balance -1610 100 Lab Results Last 24 Hours: Laboratory Results - last 24 hr 12/16/19 12/16/19 12/16/19 Range/Units 13:05 13:05 13:05 WBC 9.22 (4.0-11.0) K/uL RBC 3.99 L (4.30-5.90) M/uL Hgb 14.3 (12.0-16.0) g/dL Hct 40.9 (36.0-46.0) % MCV 102.5 H (80.0-98.0) fL MCH 35.8 H (27.0-32.0) pg MCHC 35.0 (31.0-37.0) g/dL RDW Std Deviation 70.1 H (28.0-62.0) fl RDW Coeff of Tea 19 H (11.0-15.0) % Plt Count 148 L (150-400) K/uL MPV 10.00 (7.40-12.00) fL Neut % (Auto) 81.3 H (48.0-80.0) % Lymph % (Auto) 10.2 L (16.0-40.0) % [place] % (Auto) 7.9 (0.0-15.0) % Eos % (Auto) 0.1 (0.0-7.0) % Baso % (Auto) 0.5 (0.0-1.5) % Neut # (Auto) 7.5 H (1.4-5.7) K/uL Lymph # (Auto) 0.9 (0.6-2.4) K/uL Marin # (Auto) 0.7 (0.0-0.8) K/uL Eos # (Auto) 0.0 (0.0-0.7) K/uL Baso # (Auto) 0.1 (0.0-0.1) K/uL Nucleated RBC % 0.0 /100WBC Nucleated RBCs # 0 K/uL INR Lactate (0.20-2.00) mmol/L Sodium 136 (136-145) mmol/L Potassium 3.1 L (3.5-5.1) mmol/L Chloride 95 L (98-107) mmol/L Carbon Dioxide 15.1 L (21.0-32.0) mmol/L BUN 10 (7.0-18.0) mg/dL Creatinine 0.7 (0.6-1.0) mg/dL Est Cr Clr Drug Dosing 89.98 mL/min Estimated GFR (MDRD) > 60.0 ml/min Glucose 121 H (74-106) mg/dL Calcium 8.7 (8.5-10.1) mg/dL Phosphorus (2.6-4.7) mg/dL Magnesium (1.8-2.4) mg/dL Total Bilirubin 2.2 H (0.2-1.0) mg/dL AST 410 H (15-37) IU/L ALT 204 H (14-63) IU/L Alkaline Phosphatase 122 H (46-116) U/L Total Protein 8.2 (6.4-8.2) g/dL Albumin 4.1 (3.4-5.0) g/dL Globulin 4.1 H (2.6-4.0) g/dL Albumin/Globulin Ratio 1.0 (0.9-1.6) Lipase 4164 H (73-393) U/L HCG, Qual NEGATIVE (NEG) Urine Color Urine Appearance Urine pH (5.0-8.0) Ur Specific [place] (1.001-1.035) Urine Protein (NEGATIVE) mg/dL Urine Glucose (UA) (NEGATIVE) mg/dL Urine Ketones (NEGATIVE) mg/dL Urine Occult Blood (NEGATIVE) Urine Nitrite (NEGATIVE) Urine Bilirubin (NEGATIVE) Urine Urobilinogen (<2.0) EU/dL Ur Leukocyte Esterase (NEGATIVE) Urine RBC (0-2/HPF) Urine WBC (0-5/HPF) Ur Epithelial Cells (NONE-FEW) Urine Bacteria (NEGATIVE) Urine Mucus (NONE-MOD) SARS Virus RNA (PCR) (NEGATIVE) 12/16/19 12/16/19 12/16/19 Range/Units 14:45 18:07 18:07 WBC (4.0-11.0) K/uL RBC (4.30-5.90) M/uL Hgb (12.0-16.0) g/dL Hct (36.0-46.0) % MCV (80.0-98.0) fL MCH (27.0-32.0) pg MCHC (31.0-37.0) g/dL RDW Std Deviation (28.0-62.0) fl RDW Coeff of Tea (11.0-15.0) % Plt Count (150-400) K/uL MPV (7.40-12.00) fL Neut % (Auto) (48.0-80.0) % Lymph % (Auto) (16.0-40.0) % Marin % (Auto) (0.0-15.0) % Eos % (Auto) (0.0-7.0) % Baso % (Auto) (0.0-1.5) % Neut # (Auto) (1.4-5.7) K/uL Lymph # (Auto) (0.6-2.4) K/uL Marin # (Auto) (0.0-0.8) K/uL Eos # (Auto) (0.0-0.7) K/uL Baso # (Auto) (0.0-0.1) K/uL Nucleated RBC % /100WBC Nucleated RBCs # K/uL INR 1.16 Lactate 2.3 H* (0.20-2.00) mmol/L Sodium (136-145) mmol/L Potassium (3.5-5.1) mmol/L Chloride (98-107) mmol/L Carbon Dioxide (21.0-32.0) mmol/L BUN (7.0-18.0) mg/dL Creatinine (0.6-1.0) mg/dL Est Cr Clr Drug Dosing mL/min Estimated GFR (MDRD) ml/min Glucose (74-106) mg/dL Calcium (8.5-10.1) mg/dL Phosphorus (2.6-4.7) mg/dL Magnesium (1.8-2.4) mg/dL Total Bilirubin (0.2-1.0) mg/dL AST (15-37) IU/L ALT (14-63) IU/L Alkaline Phosphatase (46-116) U/L Total Protein (6.4-8.2) g/dL Albumin (3.4-5.0) g/dL Globulin (2.6-4.0) g/dL Albumin/Globulin Ratio (0.9-1.6) Lipase (73-393) U/L HCG, Qual (NEG) Urine Color Urine Appearance Urine pH (5.0-8.0) Ur Specific [place] (1.001-1.035) Urine Protein (NEGATIVE) mg/dL Urine Glucose (UA) (NEGATIVE) mg/dL Urine Ketones (NEGATIVE) mg/dL Urine Occult Blood (NEGATIVE) Urine Nitrite (NEGATIVE) Urine Bilirubin (NEGATIVE) Urine Urobilinogen (<2.0) EU/dL Ur Leukocyte Esterase (NEGATIVE) Urine RBC (0-2/HPF) Urine WBC (0-5/HPF) Ur Epithelial Cells (NONE-FEW) Urine Bacteria (NEGATIVE) Urine Mucus (NONE-MOD) SARS Virus RNA (PCR) NEGATIVE (NEGATIVE) 12/16/19 12/16/19 12/16/19 Range/Units 18:07 19:18 22:39 WBC (4.0-11.0) K/uL RBC (4.30-5.90) M/uL Hgb (12.0-16.0) g/dL Hct (36.0-46.0) % MCV (80.0-98.0) fL MCH (27.0-32.0) pg MCHC (31.0-37.0) g/dL RDW Std Deviation (28.0-62.0) fl RDW Coeff of Tea (11.0-15.0) % Plt Count (150-400) K/uL MPV (7.40-12.00) fL Neut % (Auto) (48.0-80.0) % Lymph % (Auto) (16.0-40.0) % Marin % (Auto) (0.0-15.0) % Eos % (Auto) (0.0-7.0) % Baso % (Auto) (0.0-1.5) % Neut # (Auto) (1.4-5.7) K/uL Lymph # (Auto) (0.6-2.4) K/uL Marin # (Auto) (0.0-0.8) K/uL Eos # (Auto) (0.0-0.7) K/uL Baso # (Auto) (0.0-0.1) K/uL Nucleated RBC % /100WBC Nucleated RBCs # K/uL INR Lactate 2.4 H* (0.20-2.00) mmol/L Sodium (136-145) mmol/L Potassium (3.5-5.1) mmol/L Chloride (98-107) mmol/L Carbon Dioxide (21.0-32.0) mmol/L BUN (7.0-18.0) mg/dL Creatinine (0.6-1.0) mg/dL Est Cr Clr Drug Dosing mL/min Estimated GFR (MDRD) ml/min Glucose (74-106) mg/dL Calcium (8.5-10.1) mg/dL Phosphorus 3.6 (2.6-4.7) mg/dL Magnesium 1.6 L (1.8-2.4) mg/dL Total Bilirubin (0.2-1.0) mg/dL AST (15-37) IU/L ALT (14-63) IU/L Alkaline Phosphatase (46-116) U/L Total Protein (6.4-8.2) g/dL Albumin (3.4-5.0) g/dL Globulin (2.6-4.0) g/dL Albumin/Globulin Ratio (0.9-1.6) Lipase (73-393) U/L HCG, Qual (NEG) Urine Color YELLOW Urine Appearance SLT CLOUDY Urine pH 6.0 (5.0-8.0) Ur Specific [place] >= 1.030 (1.001-1.035) Urine Protein TRACE H (NEGATIVE) mg/dL Urine Glucose (UA) NEGATIVE (NEGATIVE) mg/dL Urine Ketones >=80 (NEGATIVE) mg/dL Urine Occult Blood LARGE H (NEGATIVE) Urine Nitrite NEGATIVE (NEGATIVE) Urine Bilirubin NEGATIVE (NEGATIVE) Urine Urobilinogen 1.0 (<2.0) EU/dL Ur Leukocyte Esterase NEGATIVE (NEGATIVE) Urine RBC 1-3 (0-2/HPF) Urine WBC 0-4 (0-5/HPF) Ur Epithelial Cells FEW (NONE-FEW) Urine Bacteria FEW (NEGATIVE) Urine Mucus LIGHT (NONE-MOD) SARS Virus RNA (PCR) (NEGATIVE) 12/17/19 12/17/19 12/17/19 Range/Units 00:20 05:17 05:17 WBC 9.89 (4.0-11.0) K/uL RBC 3.38 L (4.30-5.90) M/uL Hgb 11.8 L (12.0-16.0) g/dL Hct 35.5 L (36.0-46.0) % MCV 105.0 H (80.0-98.0) fL MCH 34.9 H (27.0-32.0) pg MCHC 33.2 (31.0-37.0) g/dL RDW Std Deviation 70.8 H (28.0-62.0) fl RDW Coeff of Tea 19 H (11.0-15.0) % Plt Count 105 L (150-400) K/uL MPV 10.30 (7.40-12.00) fL Neut % (Auto) 82.3 H (48.0-80.0) % Lymph % (Auto) 8.5 L (16.0-40.0) % [place] % (Auto) 8.6 (0.0-15.0) % Eos % (Auto) 0.4 (0.0-7.0) % Baso % (Auto) 0.2 (0.0-1.5) % Neut # (Auto) 8.1 H (1.4-5.7) K/uL Lymph # (Auto) 0.8 (0.6-2.4) K/uL Marin # (Auto) 0.9 H (0.0-0.8) K/uL Eos # (Auto) 0.0 (0.0-0.7) K/uL Baso # (Auto) 0.0 (0.0-0.1) K/uL Nucleated RBC % 0.0 /100WBC Nucleated RBCs # 0 K/uL INR Lactate 1.3 (0.20-2.00) mmol/L Sodium 131 L (136-145) mmol/L Potassium 3.8 (3.5-5.1) mmol/L Chloride 96 L (98-107) mmol/L Carbon Dioxide 18.8 L (21.0-32.0) mmol/L BUN 2 L (7.0-18.0) mg/dL Creatinine 0.6 (0.6-1.0) mg/dL Est Cr Clr Drug Dosing 104.98 mL/min Estimated GFR (MDRD) > 60.0 ml/min Glucose 90 (74-106) mg/dL Calcium 6.8 L (8.5-10.1) mg/dL Phosphorus 1.9 L (2.6-4.7) mg/dL Magnesium 1.8 (1.8-2.4) mg/dL Total Bilirubin 2.5 H (0.2-1.0) mg/dL AST 227 H (15-37) IU/L ALT 139 H (14-63) IU/L Alkaline Phosphatase 98 (46-116) U/L Total Protein 6.8 (6.4-8.2) g/dL Albumin 3.4 (3.4-5.0) g/dL Globulin 3.4 (2.6-4.0) g/dL Albumin/Globulin Ratio 1.0 (0.9-1.6) Lipase (73-393) U/L HCG, Qual (NEG) Urine Color Urine Appearance Urine pH (5.0-8.0) Ur Specific [place] (1.001-1.035) Urine Protein (NEGATIVE) mg/dL Urine Glucose (UA) (NEGATIVE) mg/dL Urine Ketones (NEGATIVE) mg/dL Urine Occult Blood (NEGATIVE) Urine Nitrite (NEGATIVE) Urine Bilirubin (NEGATIVE) Urine Urobilinogen (<2.0) EU/dL Ur Leukocyte Esterase (NEGATIVE) Urine RBC (0-2/HPF) Urine WBC (0-5/HPF) Ur Epithelial Cells (NONE-FEW) Urine Bacteria (NEGATIVE) Urine Mucus (NONE-MOD) SARS Virus RNA (PCR) (NEGATIVE) 12/17/19 Range/Units 05:17 WBC (4.0-11.0) K/uL RBC (4.30-5.90) M/uL Hgb (12.0-16.0) g/dL Hct (36.0-46.0) % MCV (80.0-98.0) fL MCH (27.0-32.0) pg MCHC (31.0-37.0) g/dL RDW Std Deviation (28.0-62.0) fl RDW Coeff of Tea (11.0-15.0) % Plt Count (150-400) K/uL MPV (7.40-12.00) fL Neut % (Auto) (48.0-80.0) % Lymph % (Auto) (16.0-40.0) % [place] % (Auto) (0.0-15.0) % Eos % (Auto) (0.0-7.0) % Baso % (Auto) (0.0-1.5) % Neut # (Auto) (1.4-5.7) K/uL Lymph # (Auto) (0.6-2.4) K/uL [place] # (Auto) (0.0-0.8) K/uL Eos # (Auto) (0.0-0.7) K/uL Baso # (Auto) (0.0-0.1) K/uL Nucleated RBC % /100WBC Nucleated RBCs # K/uL INR Lactate (0.20-2.00) mmol/L Sodium (136-145) mmol/L Potassium (3.5-5.1) mmol/L Chloride (98-107) mmol/L Carbon Dioxide (21.0-32.0) mmol/L BUN (7.0-18.0) mg/dL Creatinine (0.6-1.0) mg/dL Est Cr Clr Drug Dosing mL/min Estimated GFR (MDRD) ml/min Glucose (74-106) mg/dL Calcium (8.5-10.1) mg/dL Phosphorus (2.6-4.7) mg/dL Magnesium (1.8-2.4) mg/dL Total Bilirubin (0.2-1.0) mg/dL AST (15-37) IU/L ALT (14-63) IU/L Alkaline Phosphatase (46-116) U/L Total Protein (6.4-8.2) g/dL Albumin (3.4-5.0) g/dL Globulin (2.6-4.0) g/dL Albumin/Globulin Ratio (0.9-1.6) Lipase 3608 H (73-393) U/L HCG, Qual (NEG) Urine Color Urine Appearance Urine pH (5.0-8.0) Ur Specific [place] (1.001-1.035) Urine Protein (NEGATIVE) mg/dL Urine Glucose (UA) (NEGATIVE) mg/dL Urine Ketones (NEGATIVE) mg/dL Urine Occult Blood (NEGATIVE) Urine Nitrite (NEGATIVE) Urine Bilirubin (NEGATIVE) Urine Urobilinogen (<2.0) EU/dL Ur Leukocyte Esterase (NEGATIVE) Urine RBC (0-2/HPF) Urine WBC (0-5/HPF) Ur Epithelial Cells (NONE-FEW) Urine Bacteria (NEGATIVE) Urine Mucus (NONE-MOD) SARS Virus RNA (PCR) (NEGATIVE) Med Orders - Current: Current Medications Folic Acid (Folic Acid) 1 mg IV DAILY [facility] Last Admin: 12/17/19 08:46 Dose: 1 mg Documented by: Sodium Chloride (Normal Saline) 1,000 mls @ 200 mls/hr IV ASDIRECTED [facility] Last Admin: 12/17/19 05:37 Dose: 200 mls/hr Documented by: Thiamine HCl 100 mg/ Sodium (Chloride) 101 mls @ 202 mls/hr IV DAILY [facility] Last Admin: 12/17/19 08:47 Dose: 202 mls/hr Documented by: Magnesium Sulfate 2 gm/ Premix 50 mls @ 50 mls/hr IV ONETIME ONE Stop: 12/17/19 12:03 Lorazepam (Ativan) 0 mg IVPUSH Q4H PRN; Protocol PRN Reason: Agitation Last Admin: 12/17/19 07:32 Dose: 1 mg Documented by: Morphine Sulfate (Morphine) 2 mg IVPUSH Q3H PRN PRN Reason: Pain Last Admin: 12/17/19 08:47 Dose: 2 mg Documented by: Nicotine (Habitrol) 14 mg TRDERM DAILY [facility] Last Admin: 12/17/19 08:46 Dose: 14 mg Documented by: Ondansetron HCl (Zofran) 4 mg IVPUSH Q4H PRN PRN Reason: Nausea/Vomiting Last Admin: 12/17/19 05:17 Dose: 4 mg Documented by: Sodium Chloride (Saline Flush) 10 ml FLUSH ASDIRECTED PRN PRN Reason: Keep Vein Open Last Admin: 12/16/19 13:16 Dose: 10 ml Documented by: Sodium Chloride (Saline Flush) 2.5 ml FLUSH ASDIRECTED PRN PRN Reason: Keep Vein Open Last Admin: 12/16/19 13:16 Dose: 2.5 ml Documented by: Sodium Phosphate (Neutra-Phos) 250 mg PO QID LESLY Discontinued Medications Sodium Chloride (Normal Saline) 1,000 mls @ 999 mls/hr IV .Bolus ONE Stop: 12/16/19 13:49 Last Admin: 12/16/19 13:15 Dose: 999 mls/hr Documented by: Sodium Chloride (Normal Saline) 1,000 mls @ 999 mls/hr IV .Bolus ONE Stop: 12/16/19 15:50 Last Admin: 12/16/19 16:12 Dose: 999 mls/hr Documented by: Sodium Chloride (Normal Saline) 1,000 mls @ 999 mls/hr IV .Bolus ONE Stop: 12/16/19 18:46 Last Admin: 12/16/19 18:18 Dose: 999 mls/hr Documented by: Potassium Chloride/Sodium Chloride (Normal Saline With 40 Meq Kcl) 1,000 mls @ 200 mls/hr IV ASDIRECTED LESLY Stop: 12/16/19 22:59 Last Admin: 12/16/19 19:35 Dose: 200 mls/hr Documented by: Magnesium Sulfate 2 gm/ Premix 50 mls @ 50 mls/hr IV ONETIME ONE Stop: 12/17/19 00:07 Last Admin: 12/17/19 00:19 Dose: 50 mls/hr Documented by: Ketorolac Tromethamine (Toradol) 15 mg IVPUSH ONETIME ONE Stop: 12/16/19 12:50 Last Admin: 12/16/19 13:15 Dose: 15 mg Documented by: Lidocaine HCl (Xylocaine-Mpf 4%) 5 ml NEB ONETIME ONE Stop: 12/16/19 15:27 Last Admin: 12/16/19 15:58 Dose: Not Given Documented by: Morphine Sulfate (Morphine) 4 mg IVPUSH ONETIME ONE Stop: 12/16/19 12:50 Last Admin: 12/16/19 13:15 Dose: 4 mg Documented by: Morphine Sulfate (Morphine) 4 mg IVPUSH ONETIME ONE Stop: 12/16/19 13:51 Last Admin: 12/16/19 14:23 Dose: 4 mg Documented by: Morphine Sulfate (Morphine) 4 mg IVPUSH ONETIME ONE Stop: 12/16/19 16:05 Last Admin: 12/16/19 16:13 Dose: 4 mg Documented by: Morphine Sulfate (Morphine) Confirm Administered Dose 4 mg .ROUTE .STK-MED ONE Stop: 12/16/19 16:07 Last Admin: 12/16/19 16:17 Dose: Not Given Documented by: Morphine Sulfate (Morphine) 4 mg IVPUSH ONETIME ONE Stop: 12/16/19 16:27 Last Admin: 12/16/19 17:26 Dose: Not Given Documented by: Ondansetron HCl (Zofran) 4 mg IVPUSH ONETIME ONE Stop: 12/16/19 12:50 Last Admin: 12/16/19 13:15 Dose: 4 mg Documented by: Ondansetron HCl (Zofran) Confirm Administered Dose 4 mg .ROUTE .STK-MED ONE Stop: 12/16/19 21:17 Last Admin: 12/16/19 21:20 Dose: Not Given Documented by: Thiamine HCl (Vitamin B-1) Confirm Administered Dose 200 mg .ROUTE .STK-MED ONE Stop: 12/16/19 17:18 Last Admin: 12/16/19 17:35 Dose: 100 mg Documented by: - Exam General: Alert, Oriented Neck: Supple Lungs: Clear to Auscultation, Normal Respiratory Effort Cardiovascular: Regular Rate, Regular Rhythm GI/Abdominal Exam: Normal Bowel Sounds, Soft, Non-Tender, No Distention Extremities: Non-Tender, No Pedal Edema Skin: Warm, Dry, Intact Neurological: No New Focal Deficit Sepsis Event Note - Evaluation Sepsis Screening Result: No Definite Risk - Focused Exam Vital Signs: Vital Signs Temp Pulse Resp BP Pulse Ox 12/17/19 07:00 37.4 C 119 H 16 119/87 97 12/17/19 03:10 36.7 C 118 H 15 140/88 96 12/16/19 23:42 37.3 C 109 H 14 145/90 H 96 Date Exam was Performed: 12/17/19 Time Exam was Performed: 11:06 - Problem List Review Problem List Initiated/Reviewed/Updated: Yes - My Orders Last 24 Hours: My Active Orders 12/16/19 15:56 CIWAA Assessment [RC] Q4H Up ad Vanessa [RC] ASDIRECTED Vital Signs [RC] Q4H LORazepam [Ativan] See Protocol IVPUSH Q4H PRN Morphine 2 mg IVPUSH Q3H PRN 12/16/19 Dinner Nothing Per Oral Diet [DIET] Folic Acid 1 mg IV DAILY Sodium Chloride 0.9% [Normal Saline] 1,000 ml IV ASDIRECTED Thiamine [Vitamin B-1] 100 mg Sodium Chloride 0.9% [Normal Saline] 100 ml IV DAILY 12/16/19 17:51 Up to Chair [RC] ASDIRECTED Resuscitation Status Routine 12/16/19 17:52 Patient Status [ADT] Routine Antiembolic Devices [RC] PER UNIT ROUTINE Oxygen Therapy [RC] PRN VTE/DVT Education [RC] PER UNIT ROUTINE Vital Signs [RC] Q4H Sequential Compression Device [OM.PC] Per Unit Routine 12/16/19 21:12 Ondansetron [Zofran] 4 mg IVPUSH Q4H PRN 12/16/19 21:15 Nicotine [Habitrol] 14 mg TRDERM DAILY 12/17/19 Abdomen Comp [US] Routine 12/17/19 11:04 Magnesium Sulfate/Water [Magnesium Sulfate in Water Premix] 2 gm Premix Bag 1 bag IV ONETIME 12/17/19 12:00 Phosphorus #1 [Neutra-Phos] 250 mg PO QID 12/18/19 05:11 CBC WITH AUTO DIFF [HEME] AM CMP [COMPREHENSIVE METABOLIC PN,CMP] [CHEM] AM MAGNESIUM [CHEM] AM PHOSPHORUS [CHEM] AM 12/19/19 05:11 CBC WITH AUTO DIFF [HEME] AM CMP [COMPREHENSIVE METABOLIC PN,CMP] [CHEM] AM MAGNESIUM [CHEM] AM PHOSPHORUS [CHEM] AM 12/20/19 05:11 CBC WITH AUTO DIFF [HEME] AM CMP [COMPREHENSIVE METABOLIC PN,CMP] [CHEM] AM MAGNESIUM [CHEM] AM PHOSPHORUS [CHEM] AM - Plan Plan:: 39 yo female admitted for acute ETOH pancreatitis. Pancreatitis: RUQ ultrasound pending, hydrate with IV fluids, bowel rest, morphine prn. replacing electrolytes as needed. ETOH abuse: thiamin and folic acid. Will continue on CIWA protocol. patient received Ativan this morning
[2019-12-17] MEDS: Phosphorus #1 250 MG Tab PO SCH ×3 (11:54→23:46)
--- NOTE | 2019-12-17 11:58 | US ---
Abdominal ultrasound: Multiple real-time images of the abdomen were obtained. Comparison: No previous abdominal imaging is available. Findings: Liver is enlarged and shows a coarse echo pattern most likely representing severe fatty infiltration. Spleen size is normal. Inferior vena cava is patent. Complicated cyst or solid abnormality is noted off the left kidney measuring 3.8 cm. Kidneys are otherwise unremarkable. Right kidney length is 11.6 cm and left kidney length is 10.0 cm. Pancreas not seen due to bowel gas. Gallbladder shows no gallstones. No gallbladder wall thickening or biliary duct dilatation is seen. Aorta shows no aneurysm. Impression: 1. Enlarged liver showing very coarse echo pattern presumably representing severe fatty infiltration. 2. Complicated cyst or solid abnormality off the left kidney measuring 3.8 cm. MRI without and with contrast is recommended to further evaluate. 3. Nonvisualized pancreas. Other portions of the abdominal ultrasound are unremarkable. Diagnostic code #9 This report was dictated in MDT
[2019-12-17] MEDS ORDERED: Calcium Gluconate 10% 1 GM/10 ML SDV IV ONE (17:28)
[2019-12-18] MEDS: Sodium Chloride 0.9% 1,000 ML IV SCH (03:16)
[2019-12-18] MEDS: Morphine 2 MG/ML SYRINGE IVPUSH PRN (03:51)
[2019-12-18] MEDS: Phosphorus #1 250 MG Tab PO SCH ×2 (05:36→12:19)
[2019-12-18 06:35] LABS: BLOOD UREA NITROGEN,BUN 2 mg/dL (7.0-18.0); CARBON DIOXIDE,CO2 14.6 mmol/L (21.0-32.0); CHLORIDE,CL 98 mmol/L (98-107); GLUCOSE RANDOM 74 mg/dL (74-106); SODIUM,NA 136 mmol/L (136-145)
[2019-12-18 06:39] LABS: POTASSIUM,K 2.4 mmol/L (3.5-5.1)
[2019-12-18] MEDS ORDERED: Potassium Chloride 20 MEQ Tab.ER PO ONE (06:44)
[2019-12-18] MEDS ORDERED: Sodium Chloride 0.9% with KCl 1,000 ML IV SCH (06:45)
[2019-12-18] MEDS: Folic Acid 50 MG/10 ML MDV IV SCH (09:15)
[2019-12-18] MEDS: Nicotine 14 MG/24 Hr Patch TRDERM SCH (09:15)
[2019-12-18] MEDS: Thiamine 100 MG in Sodium Chloride 0.9% 100 ML IV SCH (09:42)
--- NOTE | 2019-12-18 10:03 | PCM.PN ---
- General Info Date of Service: 12/18/19 - Review of Systems Systems Review Comment:: abdominal pain improved - Patient Data Vitals - Most Recent: Last Vital Signs Temp 37.0 C 12/18/19 07:15 Pulse 100 12/18/19 07:15 Resp 16 12/18/19 07:15 BP 127/56 L 12/18/19 07:15 Pulse Ox 96 12/18/19 07:15 Weight - Most Recent: 51.8 kg I&O - Last 24 Hours: Intake & Output 12/17/19 12/18/19 12/18/19 22:59 06:59 14:59 Intake Total 2965 2050 Output Total 2650 1850 Balance 315 200 Lab Results Last 24 Hours: Laboratory Results - last 24 hr 12/17/19 12/18/19 12/18/19 Range/Units 17:18 05:30 05:30 WBC 6.49 (4.0-11.0) K/uL RBC 3.10 L (4.30-5.90) M/uL Hgb 10.9 L (12.0-16.0) g/dL Hct 32.4 L (36.0-46.0) % MCV 104.5 H (80.0-98.0) fL MCH 35.2 H (27.0-32.0) pg MCHC 33.6 (31.0-37.0) g/dL RDW Std Deviation 69.2 H (28.0-62.0) fl RDW Coeff of Tea 18 H (11.0-15.0) % Plt Count 96 L (150-400) K/uL MPV 10.60 (7.40-12.00) fL Neut % (Auto) 72.7 (48.0-80.0) % Lymph % (Auto) 16.2 (16.0-40.0) % [place] % (Auto) 7.9 (0.0-15.0) % Eos % (Auto) 2.9 (0.0-7.0) % Baso % (Auto) 0.3 (0.0-1.5) % Neut # (Auto) 4.7 (1.4-5.7) K/uL Lymph # (Auto) 1.1 (0.6-2.4) K/uL [place] # (Auto) 0.5 (0.0-0.8) K/uL Eos # (Auto) 0.2 (0.0-0.7) K/uL Baso # (Auto) 0.0 (0.0-0.1) K/uL Nucleated RBC % 0.0 /100WBC Nucleated RBCs # 0 K/uL Ionized Calcium 3.7 L (4.6-5.1) mg/dL Sodium 136 (136-145) mmol/L Potassium 2.4 L* (3.5-5.1) mmol/L Chloride 98 (98-107) mmol/L Carbon Dioxide 14.6 L (21.0-32.0) mmol/L BUN 2 L (7.0-18.0) mg/dL Creatinine 0.5 L (0.6-1.0) mg/dL Est Cr Clr Drug Dosing 125.97 mL/min Estimated GFR (MDRD) > 60.0 ml/min Glucose 74 (74-106) mg/dL Calcium 7.4 L (8.5-10.1) mg/dL Phosphorus 1.6 L (2.6-4.7) mg/dL Magnesium 1.8 (1.8-2.4) mg/dL Total Bilirubin 2.2 H (0.2-1.0) mg/dL AST 171 H (15-37) IU/L ALT 107 H (14-63) IU/L Alkaline Phosphatase 92 (46-116) U/L Total Protein 6.1 L (6.4-8.2) g/dL Albumin 2.9 L (3.4-5.0) g/dL Globulin 3.2 (2.6-4.0) g/dL Albumin/Globulin Ratio 0.9 (0.9-1.6) Med Orders - Current: Current Medications Folic Acid (Folic Acid) 1 mg IV DAILY [facility] Last Admin: 12/18/19 09:15 Dose: 1 mg Documented by: Sodium Chloride (Normal Saline) 1,000 mls @ 200 mls/hr IV ASDIRECTED [facility] Last Admin: 12/18/19 03:16 Dose: 200 mls/hr Documented by: Thiamine HCl 100 mg/ Sodium (Chloride) 101 mls @ 202 mls/hr IV DAILY [facility] Last Admin: 12/18/19 09:42 Dose: 202 mls/hr Documented by: Potassium Chloride/Sodium Chloride (Normal Saline With 40 Meq Kcl) 1,000 mls @ 150 mls/hr IV ASDIRECTED [facility] Last Admin: 12/18/19 07:27 Dose: 150 mls/hr Documented by: Lorazepam (Ativan) 0 mg IVPUSH Q4H PRN; Protocol PRN Reason: Agitation Last Admin: 12/17/19 11:55 Dose: 1 mg Documented by: Nicotine (Habitrol) 14 mg TRDERM DAILY [facility] Last Admin: 12/18/19 09:15 Dose: 14 mg Documented by: Ondansetron HCl (Zofran) 4 mg IVPUSH Q4H PRN PRN Reason: Nausea/Vomiting Last Admin: 12/17/19 11:54 Dose: 4 mg Documented by: Sodium Chloride (Saline Flush) 10 ml FLUSH ASDIRECTED PRN PRN Reason: Keep Vein Open Last Admin: 12/16/19 13:16 Dose: 10 ml Documented by: Sodium Chloride (Saline Flush) 2.5 ml FLUSH ASDIRECTED PRN PRN Reason: Keep Vein Open Last Admin: 12/16/19 13:16 Dose: 2.5 ml Documented by: Sodium Phosphate (Neutra-Phos) 250 mg PO QID [facility] Last Admin: 12/18/19 05:36 Dose: 250 mg Documented by: Discontinued Medications Calcium Gluconate (Calcium Gluconate) 1 gm IV ONETIME ONE Stop: 12/17/19 17:29 Last Admin: 12/17/19 18:24 Dose: 1 gm Documented by: Sodium Chloride (Normal Saline) 1,000 mls @ 999 mls/hr IV .Bolus ONE Stop: 12/16/19 13:49 Last Admin: 12/16/19 13:15 Dose: 999 mls/hr Documented by: Sodium Chloride (Normal Saline) 1,000 mls @ 999 mls/hr IV .Bolus ONE Stop: 12/16/19 15:50 Last Admin: 12/16/19 16:12 Dose: 999 mls/hr Documented by: Sodium Chloride (Normal Saline) 1,000 mls @ 999 mls/hr IV .Bolus ONE Stop: 12/16/19 18:46 Last Admin: 12/16/19 18:18 Dose: 999 mls/hr Documented by: Potassium Chloride/Sodium Chloride (Normal Saline With 40 Meq Kcl) 1,000 mls @ 200 mls/hr IV ASDIRECTED [facility] Stop: 12/16/19 22:59 Last Admin: 12/16/19 19:35 Dose: 200 mls/hr Documented by: Magnesium Sulfate 2 gm/ Premix 50 mls @ 50 mls/hr IV ONETIME ONE Stop: 12/17/19 00:07 Last Admin: 12/17/19 00:19 Dose: 50 mls/hr Documented by: Magnesium Sulfate 2 gm/ Premix 50 mls @ 50 mls/hr IV ONETIME ONE Stop: 12/17/19 12:03 Last Admin: 12/17/19 11:54 Dose: 50 mls/hr Documented by: Ketorolac Tromethamine (Toradol) 15 mg IVPUSH ONETIME ONE Stop: 12/16/19 12:50 Last Admin: 12/16/19 13:15 Dose: 15 mg Documented by: Lidocaine HCl (Xylocaine-Mpf 4%) 5 ml NEB ONETIME ONE Stop: 12/16/19 15:27 Last Admin: 12/16/19 15:58 Dose: Not Given Documented by: Morphine Sulfate (Morphine) 4 mg IVPUSH ONETIME ONE Stop: 12/16/19 12:50 Last Admin: 12/16/19 13:15 Dose: 4 mg Documented by: Morphine Sulfate (Morphine) 4 mg IVPUSH ONETIME ONE Stop: 12/16/19 13:51 Last Admin: 12/16/19 14:23 Dose: 4 mg Documented by: Morphine Sulfate (Morphine) 2 mg IVPUSH Q3H PRN PRN Reason: Pain Last Admin: 12/17/19 08:47 Dose: 2 mg Documented by: Morphine Sulfate (Morphine) 4 mg IVPUSH ONETIME ONE Stop: 12/16/19 16:05 Last Admin: 12/16/19 16:13 Dose: 4 mg Documented by: Morphine Sulfate (Morphine) Confirm Administered Dose 4 mg .ROUTE .STK-MED ONE Stop: 12/16/19 16:07 Last Admin: 12/16/19 16:17 Dose: Not Given Documented by: Morphine Sulfate (Morphine) 4 mg IVPUSH ONETIME ONE Stop: 12/16/19 16:27 Last Admin: 12/16/19 17:26 Dose: Not Given Documented by: Morphine Sulfate (Morphine) 1 mg IVPUSH Q4H PRN PRN Reason: Severe pain Last Admin: 12/18/19 03:51 Dose: 1 mg Documented by: Ondansetron HCl (Zofran) 4 mg IVPUSH ONETIME ONE Stop: 12/16/19 12:50 Last Admin: 12/16/19 13:15 Dose: 4 mg Documented by: Ondansetron HCl (Zofran) Confirm Administered Dose 4 mg .ROUTE .STK-MED ONE Stop: 12/16/19 21:17 Last Admin: 12/16/19 21:20 Dose: Not Given Documented by: Potassium Chloride (Klor-Con M20) 40 meq PO ONETIME ONE Stop: 12/18/19 06:45 Last Admin: 12/18/19 07:27 Dose: 40 meq Documented by: Thiamine HCl (Vitamin B-1) Confirm Administered Dose 200 mg .ROUTE .STK-MED ONE Stop: 12/16/19 17:18 Last Admin: 12/16/19 17:35 Dose: 100 mg Documented by: - Exam General: Alert, Oriented Neck: Supple Lungs: Clear to Auscultation, Normal Respiratory Effort Cardiovascular: Regular Rate, Regular Rhythm Extremities: Non-Tender, No Pedal Edema Skin: Warm, Dry, Intact Neurological: No New Focal Deficit Sepsis Event Note - Evaluation Sepsis Screening Result: No Definite Risk - Focused Exam Vital Signs: Vital Signs Temp Pulse Resp BP Pulse Ox 12/18/19 07:15 37.0 C 100 16 127/56 L 96 12/18/19 04:00 36.9 C 95 16 127/81 98 12/18/19 00:00 36.9 C 94 15 123/86 99 Date Exam was Performed: 12/18/19 Time Exam was Performed: 09:59 - Problem List Review Problem List Initiated/Reviewed/Updated: Yes - My Orders Last 24 Hours: My Active Orders 12/17/19 12:00 Phosphorus #1 [Neutra-Phos] 250 mg PO QID 12/18/19 06:45 Sodium Chloride 0.9% with KCl [Normal Saline with 40 mEq KCl] 1,000 ml IV ASDIRECTED 12/19/19 05:11 CBC WITH AUTO DIFF [HEME] AM CMP [COMPREHENSIVE METABOLIC PN,CMP] [CHEM] AM MAGNESIUM [CHEM] AM PHOSPHORUS [CHEM] AM 12/20/19 05:11 CBC WITH AUTO DIFF [HEME] AM CMP [COMPREHENSIVE METABOLIC PN,CMP] [CHEM] AM MAGNESIUM [CHEM] AM PHOSPHORUS [CHEM] AM - Plan Plan:: 39 yo female admitted for acute ETOH pancreatitis. Pancreatitis: Improving, will advance diet today Hypokalemia: replacing, will recheck this afternoon. ETOH abuse: thiamin and folic acid. Will continue on CIWA protocol.
--- NOTE | 2019-12-19 11:48 | PCM.DCSUM1 ---
Discharge Summary - Discharge Data Discharge Date: 12/18/19 Discharge Disposition: Against Medical Advice 07 Condition: Fair - Referral to Home Health Primary Care Physician: PCP Not In Area - Patient Summary/Data Hospital Course: 39 yo female with pmh of pancreatitis and ETOH abuse who was admitted for acute alcoholic pancreatitis. She presents to the ED with complaint of abdominal pain for several days. She . Patient reports she has been trying to quit drinking for two months. She consumes a pint of liquor a day. Initial work up with significant for a lipase of 4,[address] scan of abdomen reported peripancreatic fat stranding, likley loculate fluid collection extending from the pancreatic tail measuring up to 6.1 cm. She was treated with IV fluids and bowel rest. Her abdominal pain did resolve after two days and she was advance to a soft diet which she tolerated. During her stay she did require several doses of ativan, but her withdrawal symptoms were relative mild after first day. She was noted to have hypokalemia which was supplemented IV and orally. Today she had a low potassium of 2.4 she was given oral supplementation but she refused to stay for further treatment of her hypokalemia and left AMA. - Discharge Plan Home Medications: Home Meds Desvenlafaxine [Desvenlafaxine ER] 50 mg PO DAILY 12/17/19 [History] Patient Handouts: Alcohol Use Disorder, Alcohol Abuse and Dependence Information, Adult, Acute Pancreatitis, [id number] Referrals: Edith Martin NP [Nurse Practitioner] - 12/25/19 10:30 am (Arrive 15 minutes early with a photo ID, insurance card, and a mask. ) - Discharge Summary/Plan Comment DC Time >30 min.: No - Patient Data Vitals - Most Recent: Last Vital Signs Temp 37.2 C 12/18/19 11:20 Pulse 97 12/18/19 11:20 Resp 17 12/18/19 11:20 BP 127/82 12/18/19 11:20 Pulse Ox 95 12/18/19 11:20 Weight - Most Recent: 51.8 kg Med Orders - Current: Current Medications Discontinued Medications Calcium Gluconate (Calcium Gluconate) 1 gm IV ONETIME ONE Stop: 12/17/19 17:29 Last Admin: 12/17/19 18:24 Dose: 1 gm Documented by: Folic Acid (Folic Acid) 1 mg IV DAILY [facility] Last Admin: 12/18/19 09:15 Dose: 1 mg Documented by: Sodium Chloride (Normal Saline) 1,000 mls @ 999 mls/hr IV .Bolus ONE Stop: 12/16/19 13:49 Last Admin: 12/16/19 13:15 Dose: 999 mls/hr Documented by: Sodium Chloride (Normal Saline) 1,000 mls @ 999 mls/hr IV .Bolus ONE Stop: 12/16/19 15:50 Last Admin: 12/16/19 16:12 Dose: 999 mls/hr Documented by: Sodium Chloride (Normal Saline) 1,000 mls @ 200 mls/hr IV ASDIRECTED [facility] Last Admin: 12/18/19 03:16 Dose: 200 mls/hr Documented by: Thiamine HCl 100 mg/ Sodium (Chloride) 101 mls @ 202 mls/hr IV DAILY [facility] Last Admin: 12/18/19 09:42 Dose: 202 mls/hr Documented by: Sodium Chloride (Normal Saline) 1,000 mls @ 999 mls/hr IV .Bolus ONE Stop: 12/16/19 18:46 Last Admin: 12/16/19 18:18 Dose: 999 mls/hr Documented by: Potassium Chloride/Sodium Chloride (Normal Saline With 40 Meq Kcl) 1,000 mls @ 200 mls/hr IV ASDIRECTED [facility] Stop: 12/16/19 22:59 Last Admin: 12/16/19 19:35 Dose: 200 mls/hr Documented by: Magnesium Sulfate 2 gm/ Premix 50 mls @ 50 mls/hr IV ONETIME ONE Stop: 12/17/19 00:07 Last Admin: 12/17/19 00:19 Dose: 50 mls/hr Documented by: Magnesium Sulfate 2 gm/ Premix 50 mls @ 50 mls/hr IV ONETIME ONE Stop: 12/17/19 12:03 Last Admin: 12/17/19 11:54 Dose: 50 mls/hr Documented by: Potassium Chloride/Sodium Chloride (Normal Saline With 40 Meq Kcl) 1,000 mls @ 150 mls/hr IV ASDIRECTED [facility] Last Admin: 12/18/19 07:27 Dose: 150 mls/hr Documented by: Ketorolac Tromethamine (Toradol) 15 mg IVPUSH ONETIME ONE Stop: 12/16/19 12:50 Last Admin: 12/16/19 13:15 Dose: 15 mg Documented by: Lidocaine HCl (Xylocaine-Mpf 4%) 5 ml NEB ONETIME ONE Stop: 12/16/19 15:27 Last Admin: 12/16/19 15:58 Dose: Not Given Documented by: Lorazepam (Ativan) 0 mg IVPUSH Q4H PRN; Protocol PRN Reason: Agitation Last Admin: 12/17/19 11:55 Dose: 1 mg Documented by: Morphine Sulfate (Morphine) 4 mg IVPUSH ONETIME ONE Stop: 12/16/19 12:50 Last Admin: 12/16/19 13:15 Dose: 4 mg Documented by: Morphine Sulfate (Morphine) 4 mg IVPUSH ONETIME ONE Stop: 12/16/19 13:51 Last Admin: 12/16/19 14:23 Dose: 4 mg Documented by: Morphine Sulfate (Morphine) 2 mg IVPUSH Q3H PRN PRN Reason: Pain Last Admin: 12/17/19 08:47 Dose: 2 mg Documented by: Morphine Sulfate (Morphine) 4 mg IVPUSH ONETIME ONE Stop: 12/16/19 16:05 Last Admin: 12/16/19 16:13 Dose: 4 mg Documented by: Morphine Sulfate (Morphine) Confirm Administered Dose 4 mg .ROUTE .STK-MED ONE Stop: 12/16/19 16:07 Last Admin: 12/16/19 16:17 Dose: Not Given Documented by: Morphine Sulfate (Morphine) 4 mg IVPUSH ONETIME ONE Stop: 12/16/19 16:27 Last Admin: 12/16/19 17:26 Dose: Not Given Documented by: Morphine Sulfate (Morphine) 1 mg IVPUSH Q4H PRN PRN Reason: Severe pain Last Admin: 12/18/19 03:51 Dose: 1 mg Documented by: Nicotine (Habitrol) 14 mg TRDERM DAILY [facility] Last Admin: 12/18/19 09:15 Dose: 14 mg Documented by: Ondansetron HCl (Zofran) 4 mg IVPUSH ONETIME ONE Stop: 12/16/19 12:50 Last Admin: 12/16/19 13:15 Dose: 4 mg Documented by: Ondansetron HCl (Zofran) 4 mg IVPUSH Q4H PRN PRN Reason: Nausea/Vomiting Last Admin: 12/17/19 11:54 Dose: 4 mg Documented by: Ondansetron HCl (Zofran) Confirm Administered Dose 4 mg .ROUTE .STK-MED ONE Stop: 12/16/19 21:17 Last Admin: 12/16/19 21:20 Dose: Not Given Documented by: Potassium Chloride (Klor-Con M20) 40 meq PO ONETIME ONE Stop: 12/18/19 06:45 Last Admin: 12/18/19 07:27 Dose: 40 meq Documented by: Sodium Chloride (Saline Flush) 10 ml FLUSH ASDIRECTED PRN PRN Reason: Keep Vein Open Last Admin: 12/16/19 13:16 Dose: 10 ml Documented by: Sodium Chloride (Saline Flush) 2.5 ml FLUSH ASDIRECTED PRN PRN Reason: Keep Vein Open Last Admin: 12/16/19 13:16 Dose: 2.5 ml Documented by: Sodium Phosphate (Neutra-Phos) 250 mg PO QID [facility] Last Admin: 12/18/19 12:19 Dose: Not Given Documented by: Thiamine HCl (Vitamin B-1) Confirm Administered Dose 200 mg .ROUTE .STK-MED ONE Stop: 12/16/19 17:18 Last Admin: 12/16/19 17:35 Dose: 100 mg Documented by:
== END 2019-12-18 12:00 | disposition left against medical advice (07) | DRG 440 ==
LOC: MW.ED 12:30 → MW.MS 14:52 → UNDOADMOB 15:26 → OBSVTOIN 17:51 → MW.MS 23:38
PROVIDERS: ADMIT Internal Medicine; ATTEND Internal Medicine
DX: K85.20 Alcohol induced acute pancreatitis without necrosis or infection (principal); F10.10 Alcohol abuse, uncomplicated; E87.6 Hypokalemia; K74.60 Unspecified cirrhosis of liver; F41.9 Anxiety disorder, unspecified; F32.9 Major depressive disorder, single episode, unspecified; F17.210 Nicotine dependence, cigarettes, uncomplicated; Z79.899 Other long term (current) drug therapy; Z98.51 Tubal ligation status; Z20.828 Contact with and (suspected) exposure to other viral communicable diseases
CPT/HCPCS: 36415; 74176; 74176-26; 76700; 76700-26; 80053; 81001; 82330; 83605; 83690; 83735; 84100; 84703; 85025; 85610; 96361; 96374; 96375; 96376; 99285-25; A9270-GY; J0610; J1885; J2060; J2270; J2405; J3411; J3475; J3480; J7030; J7050; U0002

== ENCOUNTER 2020-03-03 19:00 | Emergency (ER) | payer OTHER ==
[2020-03-03] MEDS ORDERED: Sodium Chloride 0.9% 10 ML Syringe FLUSH PRN (19:21)
[2020-03-03] MEDS ORDERED: Sodium Chloride 0.9% 2.5 ML Syringe FLUSH PRN (19:21)
[2020-03-03] MEDS ORDERED: MVI, Adult with Vitamin K 10 ML, Thiamine 100 MG, Folic Acid 1 MG in Sodium Chloride 0.... IV ONE ×4 (19:22)
[2020-03-03] MEDS ORDERED: LORazepam 2 MG/ML SDV IVPUSH ONE (19:23)
[2020-03-03 20:54] LABS: BLOOD UREA NITROGEN,BUN 8 mg/dL (7.0-18.0); CARBON DIOXIDE,CO2 21.8 mmol/L (21.0-32.0); CHLORIDE,CL 90 mmol/L (98-107); GLUCOSE RANDOM 73 mg/dL (74-106); LIPASE 411 U/L (73-393); POTASSIUM,K 3.1 mmol/L (3.5-5.1); SODIUM,NA 130 mmol/L (136-145)
[2020-03-03] MEDS ORDERED: 50% Dextrose in Water 50 ML Syringe ONE (21:33)
[2020-03-03] MEDS ORDERED: 50% Dextrose in Water 50 ML Syringe IVPUSH ONE (21:37)
[2020-03-03 21:57] LABS: ACETAMINOPHEN <2.0 ug/mL
[2020-03-03] MEDS ORDERED: Dextrose 5%-0.9% NaCl 1,000 ML IV SCH (22:15)
[2020-03-03] MEDS ORDERED: Iopamidol 755 Mg/ML 100 ML Bottle IVPUSH STA (22:43)
--- NOTE | 2020-03-03 23:22 | EDM.PDOC ---
ED HPI GENERAL MEDICAL PROBLEM - General Chief Complaint: General Stated Complaint: SICK Time Seen by Provider: 03/03/20 19:03 Source of Information: Reports: Patient History Limitations: Reports: No Limitations - History of Present Illness INITIAL COMMENTS - FREE TEXT/NARRATIVE: HISTORY AND PHYSICAL: History of present illness: Patient is a 39-year-old female who presents to the ED today via EMS for concern of not feeling well, abdominal pain, and per her boyfriend's report to EMS "acting funny ". Patient states that she has a history of alcoholic hepatitis and states that over the past 1 to 2 days she has noticed her abdomen beginning to swell. Patient states she does have a history of pancreatitis in the past and that her symptoms today do feel similar to past pancreatitis episodes. Patient states she drinks about 10 large alcoholic beverages per day and states that her last drink was 3 to 4 hours prior to arrival to the ED. Patient states she does get withdraw symptoms if she does not continue to drink alcohol. Patient states her last drink of alcohol was approximately 8 ounces of vodka 3 to 4 hours prior to arrival to the ED. Denies any hematemesis or blood in her stools. Denies any other symptoms or concerns. Patient denies fever, chills, chest pain, shortness of breath, or cough. Denies headache, neck stiff ness, change in vision, syncope, or near syncope. Denies nausea, vomiting, abdominal pain, diarrhea, constipation, or dysuria. Has not noted any blood in urine or stool. Patient has been eating and drinking appropriately. Review of systems: As per history of present illness and below otherwise all systems reviewed and negative. Past medical history: As per history of present illness and as reviewed below otherwise noncontributory. Surgical history: As per history of present illness and as reviewed below otherwise noncontributory. Social history: See social history for further information Family history: As per history of present illness and as reviewed below otherwise noncontributory. Physical exam: General: Patient is alert, oriented, and in no acute distress. Patient laying comfortably on exam table but ill appearing. Vitals stable and reviewed by me. HEENT: Atraumatic, normocephalic, pupils equal and reactive bilaterally, negative for conjunctival pallor but scleral icterus is present, mucous membranes moist, throat clear, neck supple, nontender, trachea midline. No drooling or trismus noted. No meningeal signs. No hot potato voice noted. Lungs: Patient speaking clearly without breathlessness, no wheezing or stridor, no accessory muscle use or respiratory distress. Auscultation deferred due to current COV-ID 19 outbreak. Heart: Auscultation deferred due to current COV-ID 19 outbreak. Abdomen: Distended with diffuse tenderness of the abdomen. Negative for costovertebral tenderness. Pelvis: Stable nontender. Genitourinary: Deferred. Rectal: Deferred. Skin: Diffuse jaundice. Otherwise, Intact, warm, dry. No lesions or rashes noted. Extremities: Atraumatic, negative for cords or calf pain. Neurovascular unremarkable. Neuro: Awake, alert, oriented. Cranial nerves II through XII unremarkable. Cereb ellum unremarkable. Motor and sensory unremarkable throughout. Exam nonfocal. Notes: Initial arrival to the ED, patient was alert and fully orientated to person, place, time, and situation. She is tired appearing, severely jaundice, and does appear ill but comfortable on exam. Pending diagnostics, I was called back into patient room by nursing staff as patient attempted to ambulate and fell and hit her head on the side of the bed. At this time of reassessment, patient is confused, altered, but protecting airway. No longer answering questions appropriately but is making incoherent sentences. Additional labwork added and head CT put in for altered mental status. Dr. España made aware and asked to co-manage patient and directly involved in patient care. Imaging delayed, however labwork shows marked transaminitis, elevated bilirubin, elevated lactate. Blood cultures obtained and antibiotics started empirically for presumed SBP at this time. She is having intermittent hypoglycemia so d5NS started with close monitoring of blood glucose. While pending imaging results, I did call multiple hospitals with anticipated transfer of patient with flight on stand by. After being directed to the [facility], I spoke to test tech, Dr. Weber, at [facility] who does not feel that patient needs transplant consideration at this time. Dr. Weber suggest starting GILLES empirically for possible tylenol overdose as patient has underlying liver disease and labwork is suggestive of possible tylenol overdose. Dr. Weber does not feel that patient needs to be transferred for transplant consideration and the hospital there is currently at capacity and unable to accept transfers. Dr. España approval starting NAC. Call to who will return call with possibility of transfer. Dr. España has assumed care of patient at 23:00 pending all imaging and further treatment/disposition, patient stable at this time. Diagnostics: CBC, CMP, UA, lipase, ammonia, PT/INR, abd/pelvic ct w cont, RUQ US, TSH, salicylate, acetaminophen, head ct,cxr, EKG, lactate, blood culture x 2, UDS, ethanol, Magnesium Therapeutics: Banana bag, D5NS, Rocephin, N-acetylcysteine, Ativan Impression: Alcoholic hepatitis, acute Altered mental status, presumed hepatic encephalopathy Pancreatitis Microcytic anemia Thrombocytopenia Lactic acidosis, acute Critical care time in addition to Dr. España 60minutes. Plan: Definitive disposition and diagnosis as appropriate pending reevaluation and review of above. - Related Data Allergies Allergy/AdvReac Type Severity Reaction Status Date / Time No Known Allergies Allergy Verified 03/03/20 19:02 Home Meds: Home Meds QUEtiapine Fumarate [Seroquel] 100 mg PO BEDTIME 03/03/20 [History] Past Medical History HEENT History: Reports: None Cardiovascular History: Reports: None Respiratory History: Reports: None Gastrointestinal History: Reports: Cirrhosis, Hepatitis, Pancreatitis Genitourinary History: Reports: None HEALTH PROGRAM MANAGER History: Reports: Other HEALTH PROGRAM MANAGER History: X2 Musculoskeletal History: Reports: None Neurological History: Reports: None Psychiatric History: Reports: Anxiety, Depression Endocrine/Metabolic History: Reports: None Hematologic History: Reports: None Immunologic History: Reports: None Oncologic (Cancer) History: Reports: None Dermatologic History: Reports: None - Infectious Disease History Infectious Disease History: Reports: Chicken Pox, Hepatitis non A,B,C - Past Surgical History Head Surgeries/Procedures: Reports: None Female Surgical History: Reports: Tubal Ligation Social & Family History - Family History Family Medical History: Noncontributory - Tobacco Use Smoking Status *Q: Current Every Day Smoker Years of Tobacco use: 12 Packs/Tins Daily: 1 - Caffeine Use Caffeine Use: Reports: Tea - Recreational Drug Use Recreational Drug Use: No ED ROS GENERAL - Review of Systems Review Of Systems: Comprehensive ROS is negative, except as noted in HPI. ED EXAM, GENERAL - Physical Exam Exam: See Below (see dictation) Course - Vital Signs Last Recorded V/S: Last Vital Signs Temp 99.6 F 10/06/20 00:18 Pulse 122 H 03/04/20 00:18 Resp 16 03/04/20 00:18 BP 115/69 03/04/20 00:18 Pulse Ox 96 03/04/20 00:18 - Orders/Labs/Meds Orders: Active Orders 24 hr Category Date Time Status CULTURE BLOOD [BC] Stat Lab 03/03/20 21:50 Results CULTURE BLOOD [BC] Stat Lab 03/03/20 23:50 Received CULTURE URINE [RM] Stat Lab 03/04/20 00:09 Received Blood Culture x2 Reflex Set [OM.PC] Stat Oth 03/03/20 21:31 Ordered Saline Lock Insert [OM.PC] Stat Oth 03/03/20 19:21 Ordered Labs: Laboratory Tests 03/03/20 03/03/20 03/03/20 Range/Units 20:00 20:00 20:00 WBC 8.34 (4.0-11.0) K/uL RBC 2.36 L (4.30-5.90) M/uL Hgb 9.7 L (12.0-16.0) g/dL Hct 27.8 L (36.0-46.0) % MCV 117.8 H (80.0-98.0) fL MCH 41.1 H (27.0-32.0) pg MCHC 34.9 (31.0-37.0) g/dL RDW Std Deviation 86.9 H (28.0-62.0) fl RDW Coeff of Tea 20 H (11.0-15.0) % Plt Count 144 L (150-400) K/uL MPV 10.80 (7.40-12.00) fL Neut % (Auto) 80.0 (48.0-80.0) % Lymph % (Auto) 9.0 L (16.0-40.0) % [place] % (Auto) 10.7 (0.0-15.0) % Eos % (Auto) 0.1 (0.0-7.0) % Baso % (Auto) 0.2 (0.0-1.5) % Neut # (Auto) 6.7 H (1.4-5.7) K/uL Lymph # (Auto) 0.8 (0.6-2.4) K/uL [place] # (Auto) 0.9 H (0.0-0.8) K/uL Eos # (Auto) 0.0 (0.0-0.7) K/uL Baso # (Auto) 0.0 (0.0-0.1) K/uL Nucleated RBC % 0.0 /100WBC Nucleated RBCs # 0 K/uL INR Lactate (0.20-2.00) mmol/L Sodium (136-145) mmol/L Potassium (3.5-5.1) mmol/L Chloride (98-107) mmol/L Carbon Dioxide (21.0-32.0) mmol/L BUN (7.0-18.0) mg/dL Creatinine (0.6-1.0) mg/dL Est Cr Clr Drug Dosing mL/min Estimated GFR (MDRD) ml/min Glucose (74-106) mg/dL POC Glucose (60-110) mg/dL Calcium (8.5-10.1) mg/dL Magnesium 2.0 (1.8-2.4) mg/dL Total Bilirubin (0.2-1.0) mg/dL AST (15-37) IU/L ALT (14-63) IU/L Alkaline Phosphatase (46-116) U/L Ammonia 46 (19-54) ug/dL Total Protein (6.4-8.2) g/dL Albumin (3.4-5.0) g/dL Globulin (2.6-4.0) g/dL Albumin/Globulin Ratio (0.9-1.6) Lipase (73-393) U/L TSH 3rd Generation 0.86 (0.36-3.74) uIU/mL Urine Color Urine Appearance Urine pH (5.0-8.0) Ur Specific [place] (1.001-1.035) Urine Protein (NEGATIVE) mg/dL Urine Glucose (UA) (NEGATIVE) mg/dL Urine Ketones (NEGATIVE) mg/dL Urine Occult Blood (NEGATIVE) Urine Nitrite (NEGATIVE) Urine Bilirubin (NEGATIVE) Urine Ictotest Urine Urobilinogen (<2.0) EU/dL Ur Leukocyte Esterase (NEGATIVE) Urine RBC (0-2/HPF) Urine WBC (0-5/HPF) Ur Epithelial Cells (NONE-FEW) Urine Bacteria (NEGATIVE) Urine Mucus (NONE-MOD) Urine HCG, Qual (NEGATIVE) Salicylates <0.2 (0-20) mg/dL Urine Opiates Screen (NEGATIVE) Ur Oxycodone Screen (NEGATIVE) Urine Methadone Screen (NEGATIVE) Acetaminophen <2.0 ug/mL Ur Barbiturates Screen (NEGATIVE) Ur Phencyclidine Scrn (NEGATIVE) Ur Amphetamine Screen (NEGATIVE) U Methamphetamines Scrn (NEGATIVE) U Benzodiazepines Scrn (NEGATIVE) U Cocaine Metab Screen (NEGATIVE) U Marijuana (THC) Screen (NEGATIVE) Ethyl Alcohol 80 mg/dL SARS CoV-2 RNA Rapid CLAUDIA (NEGATIVE) 03/03/20 03/03/20 03/03/20 Range/Units 20:19 20:19 21:50 WBC (4.0-11.0) K/uL RBC (4.30-5.90) M/uL Hgb (12.0-16.0) g/dL Hct (36.0-46.0) % MCV (80.0-98.0) fL MCH (27.0-32.0) pg MCHC (31.0-37.0) g/dL RDW Std Deviation (28.0-62.0) fl RDW Coeff of Tea (11.0-15.0) % Plt Count (150-400) K/uL MPV (7.40-12.00) fL Neut % (Auto) (48.0-80.0) % Lymph % (Auto) (16.0-40.0) % [place] % (Auto) (0.0-15.0) % Eos % (Auto) (0.0-7.0) % Baso % (Auto) (0.0-1.5) % Neut # (Auto) (1.4-5.7) K/uL Lymph # (Auto) (0.6-2.4) K/uL [place] # (Auto) (0.0-0.8) K/uL Eos # (Auto) (0.0-0.7) K/uL Baso # (Auto) (0.0-0.1) K/uL Nucleated RBC % /100WBC Nucleated RBCs # K/uL INR 1.85 Lactate 4.6 H* (0.20-2.00) mmol/L Sodium 130 L (136-145) mmol/L Potassium 3.1 L (3.5-5.1) mmol/L Chloride 90 L (98-107) mmol/L Carbon Dioxide 21.8 (21.0-32.0) mmol/L BUN 8 (7.0-18.0) mg/dL Creatinine 0.5 L (0.6-1.0) mg/dL Est Cr Clr Drug Dosing 138.62 mL/min Estimated GFR (MDRD) > 60.0 ml/min Glucose 73 L (74-106) mg/dL POC Glucose (60-110) mg/dL Calcium 7.3 L (8.5-10.1) mg/dL Magnesium (1.8-2.4) mg/dL Total Bilirubin 10.7 H (0.2-1.0) mg/dL AST 697 H (15-37) IU/L ALT 257 H (14-63) IU/L Alkaline Phosphatase 354 H (46-116) U/L Ammonia (19-54) ug/dL Total Protein 5.1 L (6.4-8.2) g/dL Albumin 1.9 L (3.4-5.0) g/dL Globulin 3.2 (2.6-4.0) g/dL Albumin/Globulin Ratio 0.6 L (0.9-1.6) Lipase 411 H (73-393) U/L TSH 3rd Generation (0.36-3.74) uIU/mL Urine Color Urine Appearance Urine pH (5.0-8.0) Ur Specific [place] (1.001-1.035) Urine Protein (NEGATIVE) mg/dL Urine Glucose (UA) (NEGATIVE) mg/dL Urine Ketones (NEGATIVE) mg/dL Urine Occult Blood (NEGATIVE) Urine Nitrite (NEGATIVE) Urine Bilirubin (NEGATIVE) Urine Ictotest Urine Urobilinogen (<2.0) EU/dL Ur Leukocyte Esterase (NEGATIVE) Urine RBC (0-2/HPF) Urine WBC (0-5/HPF) Ur Epithelial Cells (NONE-FEW) Urine Bacteria (NEGATIVE) Urine Mucus (NONE-MOD) Urine HCG, Qual (NEGATIVE) Salicylates (0-20) mg/dL Urine Opiates Screen (NEGATIVE) Ur Oxycodone Screen (NEGATIVE) Urine Methadone Screen (NEGATIVE) Acetaminophen ug/mL Ur Barbiturates Screen (NEGATIVE) Ur Phencyclidine Scrn (NEGATIVE) Ur Amphetamine Screen (NEGATIVE) U Methamphetamines Scrn (NEGATIVE) U Benzodiazepines Scrn (NEGATIVE) U Cocaine Metab Screen (NEGATIVE) U Marijuana (THC) Screen (NEGATIVE) Ethyl Alcohol mg/dL SARS CoV-2 RNA Rapid CLAUDIA (NEGATIVE) 03/03/20 03/04/20 03/04/20 Range/Units 22:57 00:09 00:09 WBC (4.0-11.0) K/uL RBC (4.30-5.90) M/uL Hgb (12.0-16.0) g/dL Hct (36.0-46.0) % MCV (80.0-98.0) fL MCH (27.0-32.0) pg MCHC (31.0-37.0) g/dL RDW Std Deviation (28.0-62.0) fl RDW Coeff of Tea (11.0-15.0) % Plt Count (150-400) K/uL MPV (7.40-12.00) fL Neut % (Auto) (48.0-80.0) % Lymph % (Auto) (16.0-40.0) % [place] % (Auto) (0.0-15.0) % Eos % (Auto) (0.0-7.0) % Baso % (Auto) (0.0-1.5) % Neut # (Auto) (1.4-5.7) K/uL Lymph # (Auto) (0.6-2.4) K/uL [place] # (Auto) (0.0-0.8) K/uL Eos # (Auto) (0.0-0.7) K/uL Baso # (Auto) (0.0-0.1) K/uL Nucleated RBC % /100WBC Nucleated RBCs # K/uL INR Lactate (0.20-2.00) mmol/L Sodium (136-145) mmol/L Potassium (3.5-5.1) mmol/L Chloride (98-107) mmol/L Carbon Dioxide (21.0-32.0) mmol/L BUN (7.0-18.0) mg/dL Creatinine (0.6-1.0) mg/dL Est Cr Clr Drug Dosing mL/min Estimated GFR (MDRD) ml/min Glucose (74-106) mg/dL POC Glucose 89 (60-110) mg/dL Calcium (8.5-10.1) mg/dL Magnesium (1.8-2.4) mg/dL Total Bilirubin (0.2-1.0) mg/dL AST (15-37) IU/L ALT (14-63) IU/L Alkaline Phosphatase (46-116) U/L Ammonia (19-54) ug/dL Total Protein (6.4-8.2) g/dL Albumin (3.4-5.0) g/dL Globulin (2.6-4.0) g/dL Albumin/Globulin Ratio (0.9-1.6) Lipase (73-393) U/L TSH 3rd Generation (0.36-3.74) uIU/mL Urine Color YELLOW Urine Appearance SLT CLOUDY Urine pH 6.0 (5.0-8.0) Ur Specific [place] 1.020 (1.001-1.035) Urine Protein NEGATIVE (NEGATIVE) mg/dL Urine Glucose (UA) NEGATIVE (NEGATIVE) mg/dL Urine Ketones >=80 (NEGATIVE) mg/dL Urine Occult Blood TRACE-INTACT H (NEGATIVE) Urine Nitrite POSITIVE H (NEGATIVE) Urine Bilirubin LARGE H (NEGATIVE) Urine Ictotest POSITIVE Urine Urobilinogen 0.2 (<2.0) EU/dL Ur Leukocyte Esterase NEGATIVE (NEGATIVE) Urine RBC NONE SEEN (0-2/HPF) Urine WBC 0-1 (0-5/HPF) Ur Epithelial Cells RARE (NONE-FEW) Urine Bacteria 3+ H (NEGATIVE) Urine Mucus LIGHT (NONE-MOD) Urine HCG, Qual NEGATIVE (NEGATIVE) Salicylates (0-20) mg/dL Urine Opiates Screen (NEGATIVE) Ur Oxycodone Screen (NEGATIVE) Urine Methadone Screen (NEGATIVE) Acetaminophen ug/mL Ur Barbiturates Screen (NEGATIVE) Ur Phencyclidine Scrn (NEGATIVE) Ur Amphetamine Screen (NEGATIVE) U Methamphetamines Scrn (NEGATIVE) U Benzodiazepines Scrn (NEGATIVE) U Cocaine Metab Screen (NEGATIVE) U Marijuana (THC) Screen (NEGATIVE) Ethyl Alcohol mg/dL SARS CoV-2 RNA Rapid CLAUDIA (NEGATIVE) 03/04/20 03/04/20 03/04/20 Range/Units 00:09 00:36 00:51 WBC (4.0-11.0) K/uL RBC (4.30-5.90) M/uL Hgb (12.0-16.0) g/dL Hct (36.0-46.0) % MCV (80.0-98.0) fL MCH (27.0-32.0) pg MCHC (31.0-37.0) g/dL RDW Std Deviation (28.0-62.0) fl RDW Coeff of Tea (11.0-15.0) % Plt Count (150-400) K/uL MPV (7.40-12.00) fL Neut % (Auto) (48.0-80.0) % Lymph % (Auto) (16.0-40.0) % [place] % (Auto) (0.0-15.0) % Eos % (Auto) (0.0-7.0) % Baso % (Auto) (0.0-1.5) % Neut # (Auto) (1.4-5.7) K/uL Lymph # (Auto) (0.6-2.4) K/uL [place] # (Auto) (0.0-0.8) K/uL Eos # (Auto) (0.0-0.7) K/uL Baso # (Auto) (0.0-0.1) K/uL Nucleated RBC % /100WBC Nucleated RBCs # K/uL INR Lactate (0.20-2.00) mmol/L Sodium (136-145) mmol/L Potassium (3.5-5.1) mmol/L Chloride (98-107) mmol/L Carbon Dioxide (21.0-32.0) mmol/L BUN (7.0-18.0) mg/dL Creatinine (0.6-1.0) mg/dL Est Cr Clr Drug Dosing mL/min Estimated GFR (MDRD) ml/min Glucose (74-106) mg/dL POC Glucose 164 H (60-110) mg/dL Calcium (8.5-10.1) mg/dL Magnesium (1.8-2.4) mg/dL Total Bilirubin (0.2-1.0) mg/dL AST (15-37) IU/L ALT (14-63) IU/L Alkaline Phosphatase (46-116) U/L Ammonia (19-54) ug/dL Total Protein (6.4-8.2) g/dL Albumin (3.4-5.0) g/dL Globulin (2.6-4.0) g/dL Albumin/Globulin Ratio (0.9-1.6) Lipase (73-393) U/L TSH 3rd Generation (0.36-3.74) uIU/mL Urine Color Urine Appearance Urine pH (5.0-8.0) Ur Specific [place] (1.001-1.035) Urine Protein (NEGATIVE) mg/dL Urine Glucose (UA) (NEGATIVE) mg/dL Urine Ketones (NEGATIVE) mg/dL Urine Occult Blood (NEGATIVE) Urine Nitrite (NEGATIVE) Urine Bilirubin (NEGATIVE) Urine Ictotest Urine Urobilinogen (<2.0) EU/dL Ur Leukocyte Esterase (NEGATIVE) Urine RBC (0-2/HPF) Urine WBC (0-5/HPF) Ur Epithelial Cells (NONE-FEW) Urine Bacteria (NEGATIVE) Urine Mucus (NONE-MOD) Urine HCG, Qual (NEGATIVE) Salicylates (0-20) mg/dL Urine Opiates Screen NEGATIVE (NEGATIVE) Ur Oxycodone Screen NEGATIVE (NEGATIVE) Urine Methadone Screen NEGATIVE (NEGATIVE) Acetaminophen ug/mL Ur Barbiturates Screen NEGATIVE (NEGATIVE) Ur Phencyclidine Scrn NEGATIVE (NEGATIVE) Ur Amphetamine Screen NEGATIVE (NEGATIVE) U Methamphetamines Scrn NEGATIVE (NEGATIVE) U Benzodiazepines Scrn NEGATIVE (NEGATIVE) U Cocaine Metab Screen NEGATIVE (NEGATIVE) U Marijuana (THC) Screen NEGATIVE (NEGATIVE) Ethyl Alcohol mg/dL SARS CoV-2 RNA Rapid CLAUDIA NEGATIVE (NEGATIVE) Meds: Medications Discontinued Medications Generic Name Dose Route Start Last Admin Trade Name Ry PRN Reason Stop Dose Admin Dextrose/Water Confirm 03/03/20 21:33 03/03/20 21:38 Dextrose 50% In Water Administered 03/03/20 21:34 Not Given Dose 50 ml .ROUTE .STK-MED ONE Dextrose/Water 25 ml 03/03/20 21:37 03/03/20 21:40 Dextrose 50% In Water IVPUSH 03/03/20 21:38 25 ml ONETIME ONE Administration Multivitamins/Minerals 10 ml/ 1,011.2 mls @ 999 mls/hr 03/03/20 19:22 03/03/20 20:11 Thiamine HCl 100 mg/ Folic IV 03/03/20 20:22 999 mls/hr Acid 1 mg/ Sodium Chloride ONETIME ONE Administration Dextrose/Sodium Chloride 1,000 mls @ 100 mls/hr 03/03/20 22:15 03/03/20 23:09 Dextrose 5%-Normal Saline IV 100 mls/hr ASDIRECTED LESLY Administration Acetylcysteine 3,000 mg/ 515 mls @ 128.75 mls/hr 03/03/20 23:53 03/04/20 00:39 Dextrose/Water IV 03/04/20 03:52 128.75 mls/hr ONETIME ONE Administration Protocol Acetylcysteine 6,000 mg/ 1,030 mls @ 64.375 mls/hr 03/04/20 04:00 Dextrose/Water IV 03/04/20 19:59 ONETIME ONE Protocol Acetylcysteine 8,800 mg/ 244 mls @ 244 mls/hr 03/03/20 22:53 03/03/20 23:25 Dextrose/Water IV 03/03/20 23:52 244 mls/hr STAT STA Administration Protocol Iopamidol 75 ml 03/03/20 22:43 03/03/20 22:44 Isovue-370 (76%) IVPUSH 03/03/20 22:44 75 ml ONETIME STA Administration Lorazepam 1 mg 03/03/20 19:23 03/03/20 20:15 Ativan IVPUSH 03/03/20 19:24 1 mg ONETIME ONE Administration Sodium Chloride 10 ml 03/03/20 19:21 03/03/20 21:37 Saline Flush FLUSH 10 ml ASDIRECTED PRN Administration Keep Vein Open Sodium Chloride 2.5 ml 03/03/20 19:21 03/03/20 21:37 Saline Flush FLUSH 2.5 ml ASDIRECTED PRN Administration Keep Vein Open Departure - Departure Time of Disposition: 11:08 Disposition: DC/Tfer to [facility] 02 Clinical Impression: Alcohol abuse, Acute alcoholic hepatitis, Microcytic anemia, Thrombocytopenia, Lactic acidosis Pancreatitis, alcoholic, acute Qualifiers: Acute pancreatitis complication: unspecified Qualified Code(s): K85.20 - Alcohol induced acute pancreatitis without necrosis or infection Altered mental status Qualifiers: Altered mental status type: unspecified Qualified Code(s): R41.82 - Altered mental status, unspecified - Discharge Information Referrals: PCP,Unknown [Ordering Only Provider] - Forms: ED Department Discharge Sepsis Event Note (ED) - Evaluation Sepsis Screening Result: No Definite Risk - Focused Exam Vital Signs: Vital Signs Temp Pulse Resp BP Pulse Ox 03/04/20 00:18 99.6 F 122 H 16 115/69 96 - My Orders Last 24 Hours: My Active Orders 03/03/20 19:21 Saline Lock Insert [OM.PC] Stat 03/03/20 21:31 Blood Culture x2 Reflex Set [OM.PC] Stat 03/03/20 21:50 CULTURE BLOOD [BC] Stat 03/03/20 23:50 CULTURE BLOOD [BC] Stat 03/04/20 00:09 CULTURE URINE [RM] Stat - Assessment/Plan Last 24 Hours: My Active Orders 03/03/20 19:21 Saline Lock Insert [OM.PC] Stat 03/03/20 21:31 Blood Culture x2 Reflex Set [OM.PC] Stat 03/03/20 21:50 CULTURE BLOOD [BC] Stat 03/03/20 23:50 CULTURE BLOOD [BC] Stat 03/04/20 00:09 CULTURE URINE [RM] Stat
--- NOTE | 2020-03-03 23:34 | CT ---
INDICATION: Transient alteration of awareness TECHNIQUE: CT Head without i.v. contrast. COMPARISON: None FINDINGS: CSF space: The ventricles are normal for age. Brain: No evidence of mass, acute infarction or hemorrhage is seen. No mass-effect or midline shift is seen. The brain parenchyma is otherwise normal in appearance with preservation of the romano-white matter junction. Calvarium: The visualized paranasal sinuses are well aerated. The mastoid air cells are clear. The visualized orbits are grossly unremarkable. The calvarium is unremarkable in appearance with no fractures identified. IMPRESSION: 1. No evidence of acute infarction, intracranial hemorrhage, or mass-effect seen. Please note that all CT scans at this facility use dose modulation, iterative reconstruction, and/or weight-based dosing when appropriate to reduce radiation dose to as low as reasonably achievable. Dictated by: Tee Correa MD @ 03/03/2020 23:32:40 (Electronically Signed)
--- NOTE | 2020-03-03 23:42 | CT ---
INDICATION: Abdominal pain TECHNIQUE: CT Abdomen and pelvis with i.v. contrast. Coronal and sagittal reformats were obtained. CONTRAST: 75 mL Isovue 370 COMPARISON: 12/16/2019 FINDINGS: Lower chest: Patchy areas of ground-glass infiltrates are present in both lower lobes. Bilateral breast implants are present and unremarkable in appearancebut only partially visualized. Liver: Profound diffuse fatty infiltration of the liver and hepatomegaly noted without interval change. Spleen: Unremarkable. Pancreas: There is a multiloculated, septated and heterogeneous density extending from the pancreatic tail to the bare area of the spleen. There is a lobulated collection anterior to the pancreatic body measuring 5.8 x 4 cm. Gallbladder: Unremarkable. Kidney: Unremarkable. No kidney or ureteral stones or obstruction seen. Adrenal: Unremarkable. Bowel: Mild wall thickening of the ascending colon and hepatic flexure are present. The appendix is normal in appearance and size. Vascular: Unremarkable. Lymph: Multiple peripancreatic lymph nodes are present, similar to prior exam measuring up to 1.2 cm. Peritoneum: Unremarkable. No pneumoperitoneum is seen. A small amount of abdominal ascites is present. Pelvis: Massive distention of the bladder is noted. Soft tissue: Unremarkable. Bone: Unremarkable for age. IMPRESSIONS: 1. Patchy areas of ground-glass infiltrates are present in both lower lobes. Clinical correlation is recommended to exclude COVID-19 infection. 2. Profound diffuse fatty infiltration of the liver and hepatomegaly noted without interval change. 3. There is a multiloculated, septated and heterogeneous density extending from the pancreatic tail to the bare area of the spleen. There is a lobulated collection anterior to the pancreatic body measuring 5.8 x 4 cm. The appearance is similar to prior examination and may represent a pancreatic pseudocyst. 4. Mild wall thickening of the ascending colon and hepatic flexure are present. Findings may be due to infectious colitis or inflammatory bowel disease. 5. A small amount of abdominal ascites is present. 6. Massive distention of the bladder is noted. 7. Multiple peripancreatic lymph nodes are present, similar to prior exam measuring up to 1.2 cm. The findings were discussed with Dr. Higgins at 11:41 PM. Dictated by Tee Correa MD @ 03/03/2020 11:38:02 PM Please note that all CT scans at this facility use dose modulation, iterative reconstruction, and/or weight-based dosing when appropriate to reduce radiation dose to as low as reasonably achievable. Dictated by: Tee Correa MD @ 03/03/2020 23:41:23 (Electronically Signed)
--- NOTE | 2020-03-03 23:48 | US ---
INDICATION: Abdominal pain. Jaundice. TECHNIQUE: Ultrasound abdomen limited. Sonographic images of the right upper quadrant were obtained using romano-scale and color Doppler images. COMPARISON: None FINDINGS: Liver: The liver is enlarged. Echotexture is diffusely increased consistent with fatty infiltration.. No masses. No intrahepatic biliary dilatation. Gallbladder: No gallstones identified. There does appear to be sludge. Wall thickness is upper limits of normal measuring nearly 3 mm. Small amount of pericholecystic fluid.. Sonographic Gomez sign could not be assessed. Common bile duct: Normal in caliber measuring 4-5 mm. Pancreas: Obscured Right kidney: Measures 12.5 cm in length. Normal echotexture and cortex. No masses, stones, or hydronephrosis. Miscellaneous: The bladder is distended. There is debris within the bladder. IMPRESSION: 1. Gallbladder sludge without gallstones. Wall thickness is upper limits of normal. Small amount of pericholecystic fluid is nonspecific and could be secondary to generalized free fluid in the abdomen. The sonographic Gomez sign could not be accessed secondary to non communicative patient. 2. Hepatomegaly with steatosis. 3. Distention of the urinary bladder which contains debris. Dictated by Terry Parra MD @ Mar 03 2020 11:40PM Signed by Dr. Terry Parra @ Mar 03 2020 11:47PM
--- NOTE | 2020-03-04 00:09 | CR ---
INDICATION: Chest pain, shortness of breath. Sent TECHNIQUE: Chest radiograph 1 view COMPARISON: None FINDINGS: Mediastinum: The mediastinum is normal in appearance. The heart silhouette is normal in size and morphology. Lung: Both lungs are unremarkable in appearance with small lung volumes. No sign of pleural effusion seen. No pneumothorax is identified. Bone and Soft tissue: Unremarkable for age. IMPRESSION: 1. No acute cardiopulmonary disease is seen. Dictated by: Tee Correa MD @ 03/04/2020 00:07:19 (Electronically Signed)
--- NOTE | 2020-03-04 05:20 | PCM.SN.2 ---
- Free Text/Narrative Note: Patient was signed out to me by MIRA Shea pending CT abdomen pelvis and transfer. [facility] was pending at this time. This is a 39-year-old woman who presented and was seen by PA for abdominal pain and distention. Per the boyfriend the patient was acting funny. On my evaluation the patient was drowsy and intermittently arousable but protecting her airway. She was severely jaundiced. The radiological images were viewed by myself along with reading the report from the radiologist. CT head without contrast does not reveal any acute intracranial abnormality. CT abdomen pelvis with IV contrast reveals patchy groundglass infiltrates in the lower lobes. There is profound diffusely fatty infiltration of the liver and hepatomegaly. There is a multiloculated septated heterogenous density extending from the pancreatic tail to the bare area of the spleen. There is a locked related collection anterior to the pancreatic body measuring 5.8 x 4 cm this appears similar to prior exam however may represent pancreatic pseudocyst. There is mild wall thickening of the ascending colon and hepatic flexure. There is a small amount of abdominal ascites and distention of the bladder is noted. Abdominal ultrasound reveals hepatomegaly with gallbladder sludge without any evidence of cholecystitis. Patient has acute alcoholic hepatitis and pancreatitis with a CT showing possible pseudocyst formation and colitis. Disposition was pending at this time per [place]. The PA did contact train operations manager there who recommended N- acetylcysteine. The patient will need to be transfered to higher institution secondary to no GI or Hepatology services here. Laboratory analysis was reviewed which did reveal a macrocytic anemia with a hemoglobin of 9.7 and hematocrit of 27.8, thrombocytopenia at 144. INR was normal at 1.85. Lactic acid was elevated at 4.6. CMP reveals hyponatremia at 130, hypokalemia 3.1, hypochloremia at 90, hypoglycemia at 73, transaminitis with an AST of 697 and ALT of 257. Lipase is elevated at 411. Urinalysis was found to be positive for hyperbilirubinemia. UDS, Tylenol, and salicylates were negative. Serum alcohol level was 80. Patient was COVID negative. [facility] did contact us and they do not have an available bed for the patient. Therefore I contacted [facility] and spoke with Dr. Mcallister and Dr. Epps who accepted the transfer. The patient will be transferred via fixed wing. DISPOSITION: The patient was transferred to [facility] emergency department in stable but serious condition CONDITION: Serious PROCEDURES: None FINAL IMPRESSION(S)/DIAGNOSES: 1. Acute alcoholic hepatitis 2. Acute pancreatitis with possible pseudocyst formation 3. Acute encephalopathy likely secondary to hepatic encephalopathy 4. Microcytic anemia likely secondary to chronic liver dysfunction 5. Thrombocytopenia likely secondary to liver dysfunction 6. Acute lactic acidosis likely secondary to liver dysfunction 7. Acute hyperbilirubinemia likely secondary to alcoholic hepatitis 8. Acute transaminitis likely secondary to alcoholic hepatitis 9. Acute alcohol intoxication Andre España M.D.
== END 2020-03-04 01:25 ==
LOC: MW.ED 19:00
DX: K70.10 Alcoholic hepatitis without ascites (principal); R41.82 Altered mental status, unspecified; K85.20 Alcohol induced acute pancreatitis without necrosis or infection; D69.6 Thrombocytopenia, unspecified; E87.2 Acidosis; F41.9 Anxiety disorder, unspecified; F32.9 Major depressive disorder, single episode, unspecified; F17.210 Nicotine dependence, cigarettes, uncomplicated; Z79.899 Other long term (current) drug therapy; Z20.828 Contact with and (suspected) exposure to other viral communicable diseases
CPT/HCPCS: 36415; 70450; 71045; 74177; 76705; 80053; 80305; 80307; 81001; 81025; 82140; 82962; 83605; 83690; 83735; 84443; 85025; 85610; 87040; 87086; 87088; 87186; 87635; 93005; 96365; 96366; 96367; 96375; 99285; J0132; J2060; J3411; J7030; J7042; J7060; Q9967; 99291; U0002

== ENCOUNTER 2020-04-01 16:29 | Inpatient (IN) | payer BC ==
[2020-04-01] MEDS ORDERED: Sodium Chloride 0.9% 10 ML Syringe FLUSH PRN (16:40)
[2020-04-01] MEDS ORDERED: HYDROmorphone 1 MG/ML Syringe IVPUSH ONE ×2 (16:40→17:59)
--- NOTE | 2020-04-01 16:45 | EDM.PDOC ---
ED HPI GENERAL MEDICAL PROBLEM - General Chief Complaint: General Stated Complaint: PAIN IN BOTH THIGHS Time Seen by Provider: 04/01/20 16:29 Source of Information: Reports: Patient History Limitations: Reports: No Limitations - History of Present Illness INITIAL COMMENTS - FREE TEXT/NARRATIVE: 39-year-old female past medical history alcohol abuse, alcoholic liver failure, alcoholic pancreatitis, ascites, jaundice recently discharged from [facility] 2 days ago after extended stay presents for leg pain. Patient is very poor historian. She is crying and screaming that her legs hurt. She states this started this afternoon. She denies any chest pain or shortness of breath. She denies fevers. She notes extensive swelling and pain in her abdomen. Bilateral Leg Pain Score (Numeric/FACES): 10 Generalized Pain Score (Numeric/FACES): 5 - Related Data Allergies Allergy/AdvReac Type Severity Reaction Status Date / Time No Known Allergies Allergy Verified 04/01/20 16:48 Home Meds: Home Meds Cholecalciferol (Vitamin D3) [Vitamin D] 5,000 unit PO DAILY 04/01/20 [History] Enoxaparin [Lovenox] 40 mg SQ BID 04/01/20 [History] Ferrous Sulfate [Iron] 325 mg PO DAILY 04/01/20 [History] Fluconazole [Diflucan] 400 mg PO DAILY 04/01/20 [History] Folic Acid 1 mg PO DAILY 04/01/20 [History] Furosemide 20 mg PO DAILY 04/01/20 [History] Hydrocodone/Acetaminophen [[place] 5-325 Tablet] 1 each PO BID PRN 04/01/20 [History] Lactulose 10 gm PO BID 04/01/20 [History] Lipase/Protease/Amylase [[place] Dr 36,000 Units Capsule] 2 each PO TID 04/01/20 [History] Magnesium Oxide 400 mg PO DAILY 04/01/20 [History] Pantoprazole [ProTONIX] 40 mg PO DAILY 04/01/20 [History] Potassium Chloride [Klor-Con 10] 20 meq PO DAILY 04/01/20 [History] QUEtiapine [SEROquel] 100 mg PO BEDTIME 04/01/20 [History] Rifaximin [Xifaxan] 550 mg PO BID 04/01/20 [History] Spironolactone [Aldactone] 50 mg PO DAILY 04/01/20 [History] Thiamine [Vitamin B-1] 100 mg PO DAILY 04/01/20 [History] Lactulose [Chronulac] 10 gm PO Q4H cup 04/06/20 [Rx] Morphine 2 mg IVPUSH Q4H PRN syringe 04/06/20 [Rx] Pharmacy to Dose - Vancomycin 1 dose .XX ASDIRECTED 10 Days each 04/06/20 [Rx] Past Medical History HEENT History: Reports: None Cardiovascular History: Reports: None Respiratory History: Reports: None Gastrointestinal History: Reports: Cirrhosis, Hepatitis, Pancreatitis Genitourinary History: Reports: None [place] History: Reports: Other [place] History: X2 Musculoskeletal History: Reports: None Neurological History: Reports: None Psychiatric History: Reports: Anxiety, Depression Endocrine/Metabolic History: Reports: None Hematologic History: Reports: None Immunologic History: Reports: None Oncologic (Cancer) History: Reports: None Dermatologic History: Reports: None - Infectious Disease History Infectious Disease History: Reports: Chicken Pox, Hepatitis non A,B,C - Past Surgical History Head Surgeries/Procedures: Reports: None Female Surgical History: Reports: Tubal Ligation Social & Family History - Family History Family Medical History: Noncontributory - Caffeine Use Caffeine Use: Reports: Tea ED ROS GENERAL - Review of Systems Review Of Systems: Comprehensive ROS is negative, except as noted in HPI. ED EXAM, GENERAL - Physical Exam Exam: See Below Exam Limited By: Uncooperative General Appearance: Alert, WD/WN, Anxious Throat/Mouth: Normal Voice, No Airway Compromise Head: Atraumatic, Normocephalic Neck: Normal Inspection Respiratory/Chest: No Respiratory Distress, Lungs Clear, Normal Breath Sounds, No Accessory Muscle Use Cardiovascular: Normal Peripheral Pulses, Regular Rate, Rhythm GI/Abdominal: Other (Distended, positive fluid wave) Extremities: Normal Inspection Neurological: Alert, Oriented Psychiatric: Anxious Skin Exam: Warm, Dry, Other (Jaundice, extensive bruising) #1 Interpretation EKG Date: 04/01/20 Time: 17:25 Rhythm: Other (sinus tachycardia) Rate (Beats/Min): 115 [place]: Normal P-Wave: Present QRS: Normal ST-T: Normal QT: Prolonged (536) DC/PQ Interval: 112 Comparison: NA - No Prior EKG Course - Vital Signs Last Recorded V/S: Last Vital Signs Temp 99 F 04/06/20 15:33 Pulse 115 H 04/06/20 16:21 Resp 29 H 04/06/20 16:21 BP 105/47 L 04/06/20 16:21 Pulse Ox 90 L 04/06/20 16:21 - Orders/Labs/Meds Labs: Laboratory Tests 04/01/20 04/01/20 04/01/20 Range/Units 16:56 17:07 17:07 WBC 32.52 H (4.0-11.0) K/uL RBC 2.77 L (4.30-5.90) M/uL Hgb 9.9 L (12.0-16.0) g/dL Hct 30.7 L (36.0-46.0) % MCV 110.8 H (80.0-98.0) fL MCH 35.7 H (27.0-32.0) pg MCHC 32.2 (31.0-37.0) g/dL RDW Std Deviation 70.0 H (28.0-62.0) fl RDW Coeff of Tea 17 H (11.0-15.0) % Plt Count 263 (150-400) K/uL MPV 11.30 (7.40-12.00) fL Add Manual Diff YES Neutrophils % (Manual) 82 H (48.0-80.0) % Band Neutrophils % 4 % Lymphocytes % (Manual) 10 L (16.0-40.0) % Monocytes % (Manual) 4 (0.0-15.0) % Nucleated RBC % 0.2 /100WBC Absolute Seg Neuts 26.7 H (1.4-5.7) Band Neutrophils # 1.3 Lymphocytes # (Manual) 3.3 H (0.6-2.4) Monocytes # (Manual) 1.3 H (0.0-0.8) Nucleated RBCs # 0 K/uL INR APTT (18.6-31.3) SEC ABG pH (7.35-7.45) ABG pCO2 (35-45) mmHG ABG pO2 (75-100) mmHG ABG HCO3 (22-26) mEq/L ABG Total CO2 ABG Base Excess (-2.0-2.0) Lactate 8.6 H* (0.20-2.00) mmol/L Sodium (136-145) mmol/L Potassium (3.5-5.1) mmol/L Chloride (98-107) mmol/L Carbon Dioxide (21.0-32.0) mmol/L BUN (7.0-18.0) mg/dL Creatinine (0.6-1.0) mg/dL Est Cr Clr Drug Dosing mL/min Estimated GFR (MDRD) ml/min Glucose (74-106) mg/dL POC Glucose 113 H (60-110) mg/dL Calcium (8.5-10.1) mg/dL Magnesium (1.8-2.4) mg/dL Total Bilirubin (0.2-1.0) mg/dL AST (15-37) IU/L ALT (14-63) IU/L Alkaline Phosphatase (46-116) U/L Ammonia (19-54) ug/dL Troponin I (0.000-0.056) ng/mL Total Protein (6.4-8.2) g/dL Albumin (3.4-5.0) g/dL Globulin (2.6-4.0) g/dL Albumin/Globulin Ratio (0.9-1.6) Lipase (73-393) U/L HCG, Qual (NEG) Urine Color Urine Appearance Urine pH (5.0-8.0) Ur Specific [place] (1.001-1.035) Urine Protein (NEGATIVE) mg/dL Urine Glucose (UA) (NEGATIVE) mg/dL Urine Ketones (NEGATIVE) mg/dL Urine Occult Blood (NEGATIVE) Urine Nitrite (NEGATIVE) Urine Bilirubin (NEGATIVE) Urine Ictotest Urine Urobilinogen (<2.0) EU/dL Ur Leukocyte Esterase (NEGATIVE) Urine RBC (0-2/HPF) Urine WBC (0-5/HPF) Ur Epithelial Cells (NONE-FEW) Urine Bacteria (NEGATIVE) Fluid Type Fluid Color Fluid Appearance Fluid WBC /uL Fluid RBC /uL Fluid Mononuclear Cell % Fl Polymorphonucl Cell % Fluid Glucose mg/dL Fluid Total Protein g/dL Urine Opiates Screen (NEGATIVE) Ur Oxycodone Screen (NEGATIVE) Urine Methadone Screen (NEGATIVE) Ur Barbiturates Screen (NEGATIVE) Ur Phencyclidine Scrn (NEGATIVE) Ur Amphetamine Screen (NEGATIVE) U Methamphetamines Scrn (NEGATIVE) U Benzodiazepines Scrn (NEGATIVE) U Cocaine Metab Screen (NEGATIVE) U Marijuana (THC) Screen (NEGATIVE) Ethyl Alcohol mg/dL SARS-CoV-2 (PCR) (NOT DETECT) SARS CoV-2 RNA Rapid CLAUDIA (NEGATIVE) 04/01/20 04/01/20 04/01/20 Range/Units 17:07 17:07 17:07 WBC (4.0-11.0) K/uL RBC (4.30-5.90) M/uL Hgb (12.0-16.0) g/dL Hct (36.0-46.0) % MCV (80.0-98.0) fL MCH (27.0-32.0) pg MCHC (31.0-37.0) g/dL RDW Std Deviation (28.0-62.0) fl RDW Coeff of Tea (11.0-15.0) % Plt Count (150-400) K/uL MPV (7.40-12.00) fL Add Manual Diff Neutrophils % (Manual) (48.0-80.0) % Band Neutrophils % % Lymphocytes % (Manual) (16.0-40.0) % Monocytes % (Manual) (0.0-15.0) % Nucleated RBC % /100WBC Absolute Seg Neuts (1.4-5.7) Band Neutrophils # Lymphocytes # (Manual) (0.6-2.4) Monocytes # (Manual) (0.0-0.8) Nucleated RBCs # K/uL INR 1.93 APTT 40.9 H (18.6-31.3) SEC ABG pH (7.35-7.45) ABG pCO2 (35-45) mmHG ABG pO2 (75-100) mmHG ABG HCO3 (22-26) mEq/L ABG Total CO2 ABG Base Excess (-2.0-2.0) Lactate (0.20-2.00) mmol/L Sodium 131 L (136-145) mmol/L Potassium 4.6 (3.5-5.1) mmol/L Chloride 94 L (98-107) mmol/L Carbon Dioxide 16.2 L (21.0-32.0) mmol/L BUN 7 (7.0-18.0) mg/dL Creatinine 1.8 H (0.6-1.0) mg/dL Est Cr Clr Drug Dosing 35.85 mL/min Estimated GFR (MDRD) 31.7 ml/min Glucose 102 (74-106) mg/dL POC Glucose (60-110) mg/dL Calcium 8.2 L (8.5-10.1) mg/dL Magnesium 2.0 (1.8-2.4) mg/dL Total Bilirubin 4.3 H (0.2-1.0) mg/dL AST 190 H (15-37) IU/L ALT 64 H (14-63) IU/L Alkaline Phosphatase 263 H (46-116) U/L Ammonia (19-54) ug/dL Troponin I < 0.050 (0.000-0.056) ng/mL Total Protein 5.7 L (6.4-8.2) g/dL Albumin 0.7 L (3.4-5.0) g/dL Globulin 5.0 H (2.6-4.0) g/dL Albumin/Globulin Ratio 0.1 L (0.9-1.6) Lipase 47 L (73-393) U/L HCG, Qual NEGATIVE (NEG) Urine Color Urine Appearance Urine pH (5.0-8.0) Ur Specific [place] (1.001-1.035) Urine Protein (NEGATIVE) mg/dL Urine Glucose (UA) (NEGATIVE) mg/dL Urine Ketones (NEGATIVE) mg/dL Urine Occult Blood (NEGATIVE) Urine Nitrite (NEGATIVE) Urine Bilirubin (NEGATIVE) Urine Ictotest Urine Urobilinogen (<2.0) EU/dL Ur Leukocyte Esterase (NEGATIVE) Urine RBC (0-2/HPF) Urine WBC (0-5/HPF) Ur Epithelial Cells (NONE-FEW) Urine Bacteria (NEGATIVE) Fluid Type Fluid Color Fluid Appearance Fluid WBC /uL Fluid RBC /uL Fluid Mononuclear Cell % Fl Polymorphonucl Cell % Fluid Glucose mg/dL Fluid Total Protein g/dL Urine Opiates Screen (NEGATIVE) Ur Oxycodone Screen (NEGATIVE) Urine Methadone Screen (NEGATIVE) Ur Barbiturates Screen (NEGATIVE) Ur Phencyclidine Scrn (NEGATIVE) Ur Amphetamine Screen (NEGATIVE) U Methamphetamines Scrn (NEGATIVE) U Benzodiazepines Scrn (NEGATIVE) U Cocaine Metab Screen (NEGATIVE) U Marijuana (THC) Screen (NEGATIVE) Ethyl Alcohol < 3.0 mg/dL SARS-CoV-2 (PCR) (NOT DETECT) SARS CoV-2 RNA Rapid CLAUDIA (NEGATIVE) 04/01/20 04/01/20 04/01/20 Range/Units 17:35 18:28 18:28 WBC (4.0-11.0) K/uL RBC (4.30-5.90) M/uL Hgb (12.0-16.0) g/dL Hct (36.0-46.0) % MCV (80.0-98.0) fL MCH (27.0-32.0) pg MCHC (31.0-37.0) g/dL RDW Std Deviation (28.0-62.0) fl RDW Coeff of Tea (11.0-15.0) % Plt Count (150-400) K/uL MPV (7.40-12.00) fL Add Manual Diff Neutrophils % (Manual) (48.0-80.0) % Band Neutrophils % % Lymphocytes % (Manual) (16.0-40.0) % Monocytes % (Manual) (0.0-15.0) % Nucleated RBC % /100WBC Absolute Seg Neuts (1.4-5.7) Band Neutrophils # Lymphocytes # (Manual) (0.6-2.4) Monocytes # (Manual) (0.0-0.8) Nucleated RBCs # K/uL INR APTT (18.6-31.3) SEC ABG pH (7.35-7.45) ABG pCO2 (35-45) mmHG ABG pO2 (75-100) mmHG ABG HCO3 (22-26) mEq/L ABG Total CO2 ABG Base Excess (-2.0-2.0) Lactate (0.20-2.00) mmol/L Sodium (136-145) mmol/L Potassium (3.5-5.1) mmol/L Chloride (98-107) mmol/L Carbon Dioxide (21.0-32.0) mmol/L BUN (7.0-18.0) mg/dL Creatinine (0.6-1.0) mg/dL Est Cr Clr Drug Dosing mL/min Estimated GFR (MDRD) ml/min Glucose (74-106) mg/dL POC Glucose (60-110) mg/dL Calcium (8.5-10.1) mg/dL Magnesium (1.8-2.4) mg/dL Total Bilirubin (0.2-1.0) mg/dL AST (15-37) IU/L ALT (14-63) IU/L Alkaline Phosphatase (46-116) U/L Ammonia (19-54) ug/dL Troponin I (0.000-0.056) ng/mL Total Protein (6.4-8.2) g/dL Albumin (3.4-5.0) g/dL Globulin (2.6-4.0) g/dL Albumin/Globulin Ratio (0.9-1.6) Lipase (73-393) U/L HCG, Qual (NEG) Urine Color Urine Appearance Urine pH (5.0-8.0) Ur Specific [place] (1.001-1.035) Urine Protein (NEGATIVE) mg/dL Urine Glucose (UA) (NEGATIVE) mg/dL Urine Ketones (NEGATIVE) mg/dL Urine Occult Blood (NEGATIVE) Urine Nitrite (NEGATIVE) Urine Bilirubin (NEGATIVE) Urine Ictotest Urine Urobilinogen (<2.0) EU/dL Ur Leukocyte Esterase (NEGATIVE) Urine RBC (0-2/HPF) Urine WBC (0-5/HPF) Ur Epithelial Cells (NONE-FEW) Urine Bacteria (NEGATIVE) Fluid Type PER Fluid Color YELLOW Fluid Appearance CLOUDY Fluid WBC 1094 /uL Fluid RBC < 3000 /uL Fluid Mononuclear Cell 29 % Fl Polymorphonucl Cell 71 % Fluid Glucose 101 mg/dL Fluid Total Protein 0.4 g/dL Urine Opiates Screen (NEGATIVE) Ur Oxycodone Screen (NEGATIVE) Urine Methadone Screen (NEGATIVE) Ur Barbiturates Screen (NEGATIVE) Ur Phencyclidine Scrn (NEGATIVE) Ur Amphetamine Screen (NEGATIVE) U Methamphetamines Scrn (NEGATIVE) U Benzodiazepines Scrn (NEGATIVE) U Cocaine Metab Screen (NEGATIVE) U Marijuana (THC) Screen (NEGATIVE) Ethyl Alcohol mg/dL SARS-CoV-2 (PCR) NOT DETECTED (NOT DETECT) SARS CoV-2 RNA Rapid CLAUDIA NEGATIVE (NEGATIVE) 04/01/20 04/01/20 04/01/20 Range/Units 19:31 19:31 20:25 WBC (4.0-11.0) K/uL RBC (4.30-5.90) M/uL Hgb (12.0-16.0) g/dL Hct (36.0-46.0) % MCV (80.0-98.0) fL MCH (27.0-32.0) pg MCHC (31.0-37.0) g/dL RDW Std Deviation (28.0-62.0) fl RDW Coeff of Tea (11.0-15.0) % Plt Count (150-400) K/uL MPV (7.40-12.00) fL Add Manual Diff Neutrophils % (Manual) (48.0-80.0) % Band Neutrophils % % Lymphocytes % (Manual) (16.0-40.0) % Monocytes % (Manual) (0.0-15.0) % Nucleated RBC % /100WBC Absolute Seg Neuts (1.4-5.7) Band Neutrophils # Lymphocytes # (Manual) (0.6-2.4) Monocytes # (Manual) (0.0-0.8) Nucleated RBCs # K/uL INR APTT (18.6-31.3) SEC ABG pH 7.347 L (7.35-7.45) ABG pCO2 29 L (35-45) mmHG ABG pO2 71 L (75-100) mmHG ABG HCO3 16 L (22-26) mEq/L ABG Total CO2 15.2 ABG Base Excess -8.6 L (-2.0-2.0) Lactate 6.0 H* (0.20-2.00) mmol/L Sodium (136-145) mmol/L Potassium (3.5-5.1) mmol/L Chloride (98-107) mmol/L Carbon Dioxide (21.0-32.0) mmol/L BUN (7.0-18.0) mg/dL Creatinine (0.6-1.0) mg/dL Est Cr Clr Drug Dosing mL/min Estimated GFR (MDRD) ml/min Glucose (74-106) mg/dL POC Glucose (60-110) mg/dL Calcium (8.5-10.1) mg/dL Magnesium (1.8-2.4) mg/dL Total Bilirubin (0.2-1.0) mg/dL AST (15-37) IU/L ALT (14-63) IU/L Alkaline Phosphatase (46-116) U/L Ammonia (19-54) ug/dL Troponin I (0.000-0.056) ng/mL Total Protein (6.4-8.2) g/dL Albumin (3.4-5.0) g/dL Globulin (2.6-4.0) g/dL Albumin/Globulin Ratio (0.9-1.6) Lipase (73-393) U/L HCG, Qual (NEG) Urine Color YELLOW Urine Appearance CLEAR Urine pH 6.0 (5.0-8.0) Ur Specific [place] 1.020 (1.001-1.035) Urine Protein NEGATIVE (NEGATIVE) mg/dL Urine Glucose (UA) NEGATIVE (NEGATIVE) mg/dL Urine Ketones NEGATIVE (NEGATIVE) mg/dL Urine Occult Blood TRACE-INTACT H (NEGATIVE) Urine Nitrite POSITIVE H (NEGATIVE) Urine Bilirubin MODERATE H (NEGATIVE) Urine Ictotest POSITIVE Urine Urobilinogen 0.2 (<2.0) EU/dL Ur Leukocyte Esterase SMALL H (NEGATIVE) Urine RBC 1-2 (0-2/HPF) Urine WBC 8-10 (0-5/HPF) Ur Epithelial Cells MODERATE (NONE-FEW) Urine Bacteria 2+ H (NEGATIVE) Fluid Type Fluid Color Fluid Appearance Fluid WBC /uL Fluid RBC /uL Fluid Mononuclear Cell % Fl Polymorphonucl Cell % Fluid Glucose mg/dL Fluid Total Protein g/dL Urine Opiates Screen (NEGATIVE) Ur Oxycodone Screen (NEGATIVE) Urine Methadone Screen (NEGATIVE) Ur Barbiturates Screen (NEGATIVE) Ur Phencyclidine Scrn (NEGATIVE) Ur Amphetamine Screen (NEGATIVE) U Methamphetamines Scrn (NEGATIVE) U Benzodiazepines Scrn (NEGATIVE) U Cocaine Metab Screen (NEGATIVE) U Marijuana (THC) Screen (NEGATIVE) Ethyl Alcohol mg/dL SARS-CoV-2 (PCR) (NOT DETECT) SARS CoV-2 RNA Rapid CLAUDIA (NEGATIVE) 04/01/20 04/01/20 Range/Units 20:25 22:03 WBC (4.0-11.0) K/uL RBC (4.30-5.90) M/uL Hgb (12.0-16.0) g/dL Hct (36.0-46.0) % MCV (80.0-98.0) fL MCH (27.0-32.0) pg MCHC (31.0-37.0) g/dL RDW Std Deviation (28.0-62.0) fl RDW Coeff of Tea (11.0-15.0) % Plt Count (150-400) K/uL MPV (7.40-12.00) fL Add Manual Diff Neutrophils % (Manual) (48.0-80.0) % Band Neutrophils % % Lymphocytes % (Manual) (16.0-40.0) % Monocytes % (Manual) (0.0-15.0) % Nucleated RBC % /100WBC Absolute Seg Neuts (1.4-5.7) Band Neutrophils # Lymphocytes # (Manual) (0.6-2.4) Monocytes # (Manual) (0.0-0.8) Nucleated RBCs # K/uL INR APTT (18.6-31.3) SEC ABG pH (7.35-7.45) ABG pCO2 (35-45) mmHG ABG pO2 (75-100) mmHG ABG HCO3 (22-26) mEq/L ABG Total CO2 ABG Base Excess (-2.0-2.0) Lactate (0.20-2.00) mmol/L Sodium (136-145) mmol/L Potassium (3.5-5.1) mmol/L Chloride (98-107) mmol/L Carbon Dioxide (21.0-32.0) mmol/L BUN (7.0-18.0) mg/dL Creatinine (0.6-1.0) mg/dL Est Cr Clr Drug Dosing mL/min Estimated GFR (MDRD) ml/min Glucose (74-106) mg/dL POC Glucose (60-110) mg/dL Calcium (8.5-10.1) mg/dL Magnesium (1.8-2.4) mg/dL Total Bilirubin (0.2-1.0) mg/dL AST (15-37) IU/L ALT (14-63) IU/L Alkaline Phosphatase (46-116) U/L Ammonia 80 H (19-54) ug/dL Troponin I (0.000-0.056) ng/mL Total Protein (6.4-8.2) g/dL Albumin (3.4-5.0) g/dL Globulin (2.6-4.0) g/dL Albumin/Globulin Ratio (0.9-1.6) Lipase (73-393) U/L HCG, Qual (NEG) Urine Color Urine Appearance Urine pH (5.0-8.0) Ur Specific [place] (1.001-1.035) Urine Protein (NEGATIVE) mg/dL Urine Glucose (UA) (NEGATIVE) mg/dL Urine Ketones (NEGATIVE) mg/dL Urine Occult Blood (NEGATIVE) Urine Nitrite (NEGATIVE) Urine Bilirubin (NEGATIVE) Urine Ictotest Urine Urobilinogen (<2.0) EU/dL Ur Leukocyte Esterase (NEGATIVE) Urine RBC (0-2/HPF) Urine WBC (0-5/HPF) Ur Epithelial Cells (NONE-FEW) Urine Bacteria (NEGATIVE) Fluid Type Fluid Color Fluid Appearance Fluid WBC /uL Fluid RBC /uL Fluid Mononuclear Cell % Fl Polymorphonucl Cell % Fluid Glucose mg/dL Fluid Total Protein g/dL Urine Opiates Screen NEGATIVE (NEGATIVE) Ur Oxycodone Screen NEGATIVE (NEGATIVE) Urine Methadone Screen NEGATIVE (NEGATIVE) Ur Barbiturates Screen NEGATIVE (NEGATIVE) Ur Phencyclidine Scrn NEGATIVE (NEGATIVE) Ur Amphetamine Screen NEGATIVE (NEGATIVE) U Methamphetamines Scrn NEGATIVE (NEGATIVE) U Benzodiazepines Scrn NEGATIVE (NEGATIVE) U Cocaine Metab Screen NEGATIVE (NEGATIVE) U Marijuana (THC) Screen NEGATIVE (NEGATIVE) Ethyl Alcohol mg/dL SARS-CoV-2 (PCR) (NOT DETECT) SARS CoV-2 RNA Rapid CLAUDIA (NEGATIVE) Meds: Medications Discontinued Medications Generic Name Dose Route Start Last Admin Trade Name Freq PRN Reason Stop Dose Admin Lipase/Protease/Amylase 3 cap 04/02/20 08:00 04/02/20 14:02 [place] 24,000 Units PO Not Given TIDMEALS [facility] Enoxaparin Sodium 40 mg 04/01/20 23:15 04/03/20 09:16 Lovenox SUBCUT 40 mg BID LESLY Administration Ferrous Sulfate 325 mg 04/03/20 09:00 04/05/20 09:34 Ferrous Sulfate PO 325 mg DAILY LESLY Administration Folic Acid 1 mg 04/03/20 09:00 04/06/20 09:18 Folic Acid PO Not Given DAILY LESLY Furosemide 40 mg 04/04/20 15:51 04/05/20 14:24 Lasix IVPUSH 04/04/20 15:52 Not Given NOW ONE Gabapentin 300 mg 04/02/20 14:00 04/05/20 21:06 Neurontin PO 300 mg TID LESLY Administration Hydromorphone HCl 1 mg 04/01/20 16:40 04/01/20 16:55 Dilaudid IVPUSH 04/01/20 16:41 1 mg ONETIME ONE Administration Hydromorphone HCl 1 mg 04/01/20 17:59 04/01/20 18:08 Dilaudid IVPUSH 04/01/20 18:00 1 mg ONETIME ONE Administration Albumin Human 12.5 gm in 50 mls @ 100 mls/hr 04/01/20 16:57 04/01/20 17:56 Flexbumin 25% IV 04/01/20 17:26 Not Given ONETIME ONE Albumin Human 12.5 gm in 50 mls @ 100 mls/hr 04/01/20 16:59 04/01/20 17:25 Flexbumin 25% IV 04/01/20 17:28 100 mls/hr ONETIME ONE Administration Sodium Chloride 1,000 mls @ 999 mls/hr 04/01/20 17:05 04/01/20 17:24 Normal Saline IV 04/01/20 18:05 999 mls/hr .Bolus ONE Administration Piperacillin Sod/Tazobactam 50 mls @ 100 mls/hr 04/01/20 18:10 04/01/20 18:48 Sod 3.375 gm/ Sodium Chloride IV 04/01/20 18:39 100 mls/hr ONETIME ONE Administration Sodium Chloride 1,000 mls @ 75 mls/hr 04/01/20 20:15 04/02/20 13:27 Normal Saline IV 75 mls/hr ASDIRECTED LESLY Administration Cefotaxime Sodium 2 gm/ Sodium 100 mls @ 200 mls/hr 04/02/20 06:00 Chloride IV Q8HR LESLY Albumin Human 12.5 gm in 50 mls @ 100 mls/hr 04/01/20 23:30 04/02/20 00:14 Flexbumin 25% IV 04/01/20 23:59 100 mls/hr ONETIME ONE Administration Albumin Human 12.5 gm in 50 mls @ 100 mls/hr 04/02/20 00:00 04/02/20 01:02 Flexbumin 25% IV 04/02/20 00:29 100 mls/hr ONETIME ONE Administration Cefepime HCl 2 gm/ Premix 50 mls @ 100 mls/hr 04/02/20 03:00 04/06/20 11:51 IV 100 mls/hr Q8H LESLY Administration Albumin Human 12.5 gm in 50 mls @ 100 mls/hr 04/02/20 09:30 04/02/20 11:22 Flexbumin 25% IV 04/03/20 09:59 100 mls/hr ASDIRECTED LESLY Administration Fluconazole/Sodium Chloride 200 mls @ 100 mls/hr 04/02/20 09:45 04/06/20 09:2 0 400 mg/ Premix IV 100 mls/hr Q24H LESLY Administration Vancomycin HCl 1.5 gm/ Premix 300 mls @ 300 mls/hr 04/02/20 20:00 04/02/20 19:42 IV 04/02/20 20:59 300 mls/hr ONETIME ONE Administration Sodium Chloride 1,000 mls @ 75 mls/hr 04/02/20 19:00 04/03/20 03:23 Normal Saline IV 75 mls/hr ASDIRECTED LESLY Administration Lactated Ringer's 1,000 mls @ 999 mls/hr 04/02/20 19:16 04/02/20 19:38 Ringers, Lactated IV 04/02/20 20:16 999 mls/hr .BOLUS ONE Administration Vancomycin HCl 1 gm/ Sodium 250 mls @ 250 mls/hr 04/03/20 08:30 04/03/20 20: 15 Chloride IV 250 mls/hr Q12H LESLY Administration Albumin Human 12.5 gm in 50 mls @ 100 mls/hr 04/03/20 10:39 04/03/20 10:59 Flexbumin 25% IV 04/03/20 11:08 100 mls/hr NOW STA Administration Albumin Human 12.5 gm in 50 mls @ 100 mls/hr 04/03/20 10:40 04/03/20 11:38 Flexbumin 25% IV 04/03/20 11:09 100 mls/hr ONETIME ONE Administration Albumin Human 12.5 gm in 50 mls @ 100 mls/hr 04/03/20 17:08 04/03/20 18:22 Flexbumin 25% IV 04/03/20 17:37 100 mls/hr ONETIME ONE Administration Vancomycin HCl 1 gm/ Sodium 250 mls @ 250 mls/hr 04/04/20 21:00 04/05/20 20:47 Chloride IV 250 mls/hr Q24H LESLY Administration Albumin Human 12.5 gm in 50 mls @ 100 mls/hr 04/04/20 13:30 Flexbumin 25% IV 04/05/20 13:59 ONETIME LESLY Levofloxacin/Dextrose 750 mg/ 150 mls @ 100 mls/hr 04/04/20 16:15 04/06/20 15:27 Premix IV 100 mls/hr Q48H LESLY Administration Albumin Human 12.5 gm in 200 mls @ 100 mls/hr 04/05/20 13:30 04/05/20 14:47 Flexbumin 25% IV 04/05/20 15:29 100 mls/hr ONETIME ONE Administration Pantoprazole Sodium 40 mg/ 10 mls @ 300 mls/hr 04/06/20 05:00 04/06/20 09:17 Sodium Chloride IV 300 mls/hr BID LESLY Administration Lactulose 10 gm 04/01/20 22:06 04/01/20 22:25 Chronulac PO 04/01/20 22:07 10 gm ONETIME ONE Administration Lactulose 10 gm 04/01/20 22:30 04/02/20 09:22 Chronulac PO 10 gm BID LESLY Administration Lactulose 10 gm 04/02/20 09:45 04/02/20 13:48 Chronulac PO 10 gm TID LESLY Administration Lactulose 10 gm 04/02/20 19:00 04/03/20 06:14 Chronulac PO 10 gm Q6H LESLY Administration Lactulose 10 gm 04/03/20 10:45 04/06/20 14:44 Chronulac PO Not Given Q4H LESLY Lactulose 10 gm 04/05/20 10:51 04/06/20 04:24 Chronulac .XX 04/05/20 10:52 Not Given ONETIME ONE Lidocaine HCl 1 ml 04/04/20 12:02 04/04/20 14:12 Xylocaine 4% Top Soln MUCMEM 04/04/20 12:03 Not Given ONETIME ONE Lidocaine HCl 30 ml 04/04/20 13:41 04/04/20 14:05 Xylocaine 2% Jelly GTUBE 1 applic ASDIRECTED PRN Administration PAIN Magnesium Oxide 400 mg 04/03/20 09:00 04/05/20 09:33 Magnesium Oxide PO 400 mg DAILY LESLY Administration Metoclopramide HCl 10 mg 04/04/20 11:42 Reglan IVPUSH Q4H PRN Other Metoclopramide HCl 10 mg 04/04/20 19:08 Reglan IVPUSH Q8H PRN Constipation Morphine Sulfate 1 mg 04/02/20 12:06 04/02/20 12:37 Morphine IVPUSH 04/02/20 12:07 1 mg ONETIME ONE Administration Morphine Sulfate 2 mg 04/03/20 10:39 04/06/20 14:22 Morphine IVPUSH 2 mg Q4H PRN Administration Pain Zinc 50mg Elemental 1 each 04/04/20 14:00 04/06/20 09:18 Tablet PO Not Given DAILY [facility] Pantoprazole Sodium 40 mg 04/02/20 09:00 04/05/20 09:35 Protonix PO 40 mg DAILY LESLY Administration Rifaximin 550 Mg Tab 1 each 04/02/20 13:36 04/06/20 09:18 PO Not Given BID LESLY Amylase/Lipase/ 2 each 04/02/20 17:30 04/06/20 12:55 Protease 36,000 Unit PO Not Given Cap.Cr TIDMEALS LESLY Polyethylene Glycol 17 gm 04/04/20 19:00 04/05/20 09:36 Miralax PO 17 gm DAILY LESLY Administration Potassium Chloride 20 meq 04/03/20 09:00 04/06/20 09:18 Klor-Con M20 PO Not Given DAILY [facility] Quetiapine Fumarate 100 mg 04/02/20 21:00 04/05/20 20:52 Seroquel PO 100 mg BEDTIME LESLY Administration Rifaximin 550 mg 04/02/20 09:00 04/02/20 10:10 Xifaxan PO Not Given BID [facility] Sodium Chloride 10 ml 04/01/20 16:40 04/01/20 16:56 Saline Flush FLUSH 10 ml ASDIRECTED PRN Administration Keep Vein Open Sodium Chloride 2.5 ml 04/01/20 16:40 04/04/20 02:56 Saline Flush FLUSH 2.5 ml ASDIRECTED PRN Administration Keep Vein Open Spironolactone 50 mg 04/03/20 09:00 Aldactone PO DAILY [facility] Thiamine HCl 100 mg 04/03/20 09:00 04/06/20 09:19 Vitamin B-1 PO Not Given DAILY [facility] Vancomycin HCl 1 dose 04/02/20 18:45 Pharmacy To Dose - Vancomycin .XX ASDIRECTED LESLY - Re-Assessments/Exams Free Text/Narrative Re-Assessment/Exam: 04/01/20 16:45 Poor historian, very unhealthy appearing patient. We will get extensive lab work, will treat pain, will perform paracentesis and analyze fluid to rule out SBP. 04/01/20 18:00 Patient tolerated paracentesis procedure without complications. Additional dose of Dilaudid ordered for analgesia. 04/01/20 18:10 Given white blood cell count of 32, will give broad-spectrum antibiotics. Zosyn is ordered. 04/01/20 19:00 Paracentesis fluid appears normal without evidence of SBP. CT scan of abdomen pelvis is pending. Patient care will be transitioned to night doctor to follow- up results and likely transfer. Departure - Departure Time of Disposition: 18:00 Disposition: Admitted As Inpatient 68 Clinical Impression: Abdominal pain - Discharge Information Paracentesis - Paracentesis Paracentesis Indication: ascites, peritoneal fluid analysis Location: RLQ Skin prep: CDC/MBT Guidelines, Sterile Drapes, Chlorhexidine Ultrasound guided: Yes Local anesthesia: lidocaine 1 % Local anesthesia volume: 5cc Number of Attempts: 1 Device Used: 8 Fr kit device Fluid: yellow Aspirated volume (mls): 1,500 Fluids sent: gram stain and culture, cell count, protein, glucose, cytology Complications: No Dressing: adhesive dressing Paracentesis comment: No immediate complications
[2020-04-01] MEDS: Sodium Chloride 0.9% 2.5 ML Syringe FLUSH PRN (16:55)
[2020-04-01] MEDS ORDERED: Albumin 25% 12.5 GM/50 ML BAG IV ONE ×5 (16:57→23:30)
[2020-04-01] MEDS ORDERED: Sodium Chloride 0.9% 1,000 ML IV ONE (17:05)
[2020-04-01 17:52] LABS: BLOOD UREA NITROGEN,BUN 7 mg/dL (7.0-18.0); CARBON DIOXIDE,CO2 16.2 mmol/L (21.0-32.0); CHLORIDE,CL 94 mmol/L (98-107); GLUCOSE RANDOM 102 mg/dL (74-106); LIPASE 47 U/L (73-393); POTASSIUM,K 4.6 mmol/L (3.5-5.1); SODIUM,NA 131 mmol/L (136-145)
[2020-04-01] MEDS ORDERED: Piperacillin/Tazobactam 3.375 GM in Sodium Chloride 0.9% 50 ML IV ONE (18:10)
--- NOTE | 2020-04-01 18:25 | CR ---
INDICATION: POOR HISTORIAN EVERYTHING HURTS. JAUNDICE TECHNIQUE: Chest 1 view. COMPARISON: 03/03/20 FINDINGS: Cardiovascular and mediastinum: Heart size and vasculature are normal in caliber and appearance. Mediastinum is within normal limits. Lungs and pleural space: Lungs are clear. No sign of infiltrate or mass. No sign of pleural effusion. No pneumothorax. Bones and soft tissues: No significant findings. IMPRESSION: Unremarkable chest. Dictated by: Heri Ho MD @ 04/01/2020 18:24:53 (Electronically Signed)
--- NOTE | 2020-04-01 18:52 | CT ---
Indication: Abdominal pain end-stage liver disease Technique: Volumetric multidetector CT images of the abdomen and pelvis were without the administration of intravenous contrast. Comparison: CT abdomen and pelvis March 03, 2020 Findings: There are patchy airspace opacities appreciated within the lung bases which may represent scattered infiltrates. The liver is again markedly enlarged with extensive hepatic steatosis. The gallbladder appears somewhat contracted without evidence of obvious radiopaque calculus. There is no significant common biliary ductal dilatation or abrupt cut off. The spleen is normal in attenuation and size. There is demonstration of a cylindrical radiopaque object along the inferior curvature of the gastric lumen of uncertain clinical etiology. The pancreas is not well visualized due to lack of contrast and body habitus. The adrenal glands are unremarkable. There is no evidence of radiopaque calculus or hydronephrosis. There is a moderate amount of stool appreciated throughout the colon. There are scattered nonspecific air filled loops of small bowel which may represent a component of ileus. The appendix is unremarkable. There is no significant mesenteric, retroperitoneal, or pelvic sidewall lymph nodes. The aorta is nonaneurysmal. There is no significant atherosclerotic disease appreciated. The solid pelvic viscera are grossly unremarkable. There is demonstration of a loculated air in fluid collection in the left upper quadrant abdomen which is decreased in size from comparison likely representing interval drainage of abscess versus pancreatic pseudocyst. There is extensive ascites fluid seen within the 4 quadrants of the abdomen predominantly in the right upper and lower quadrants. Postoperative changes of the anterior abdominal wall are appreciated. The lumbar vertebral body heights are grossly maintained with straightening of the normal lumbar lordosis. There is no significant spondylolisthesis or displaced fracture. Impression: Overall increased amount of ascites fluid from comparison exam with redemonstration of markedly enlarged liver with extensive hepatic steatosis. There is likely interval postoperative change status post placement of drainage device between the inferior aspect of the gastric lumen and a previously noted large loculated fluid collection in the left upper quadrant. There is overall decreased size of previously seen loculated fluid collection from comparison exam. Correlate with history of surgical pseudocyst drainage. Please note that all CT scans at this facility use dose modulation, iterative reconstruction, and/or weight-based dosing when appropriate to reduce radiation dose to as low as reasonably achievable. Dictated by Alexander Barriga MD @ Apr 01 2020 6:41PM Signed by Dr. Alexander Barriga @ Apr 01 2020 6:51PM
[2020-04-01] MEDS: Sodium Chloride 0.9% 1,000 ML IV SCH (20:07)
--- NOTE | 2020-04-01 20:56 | PCM.SN.2 ---
- Free Text/Narrative Note: Patient was signed out to me pending ABG and further disposition at [address] Washington. I did reevaluate the patient at this time and at the time of my evaluation her heart rate was 114, blood pressure of 98/49, respiratory rate of 20 with an oxygen saturation 96% on room air. The patient stated that she had come to the emergency department today because she was experiencing increased abdominal distention and pain. She also stated that she had them some bruising to her bilateral buttocks and that she is taking a blood thinner. She denies any falls or head injury. She stated that she has not had any hematemesis, bilious emesis, melena, or hematochezia. She states that she did have increased urinary frequency but denies any dysuria. She denies any back pain. Other than some mild abdominal pain on palpation and some bruising to the buttocks and lower extremities her physical exam is normal and the patient was alert and oriented x4 at the time of my evaluation. Labs reviewed which did reveal a CBC revealing leukocytosis of 32.52 with a neutrophilic predominance. She does have a macrocytic anemia with a hemoglobin of 9.9 and hematocrit of 30.7 which is similar to prior. INR is normal at 1.93. PTT is elevated at 40.9. CMP reveals hyponatremia at 131, hypochloremia at 94, metabolic acidosis with a bicarbonate of 16.2, acute kidney injury with a creatinine of 1.8. Calcium was 8.2. Liver function tests reveal an elevated bilirubin at 4.3, AST elevation of 190, ALT elevation of 64 and alkaline phosphatase of 263. There is hypoproteinemia with a total protein of 5.7, hypoalbuminemia with an albumin of 0.7 and a lipase of 47. hCG was negative. Coronavirus is negative. Paracentesis results reveal a WBC count of 1094 and a mononuclear cell percentage of 29% which does indicate spontaneous bacterial peritonitis. UDS is negative. Lactic acid was 8.6, repeat lactic acid was 6.0. [id number]//[id number]/16 Urinalysis was a clean catch and was positive for leukocyte esterase, positive for nitrites, and trace for blood. WBC count 8-10. Interpretation: Positive Imaging reviewed include a chest x-ray which did not reveal any acute cardiopulmonary process. CT abdomen pelvis reveals increased amount of ascites compared to prior CT with extensive hepatic steatosis. There is interval postoperative changes status post placement of drainage device between inferior aspect of the gastric lumen and a previously noted large loculated fluid collection in the left upper quadrant. This loculated fluid collection is decreased in size from prior. I contacted [facility] and spoke with Dr. Torres (GI) who works with Dr. Stewart (the surgeon who placed the pseudocyst stent) regarding the patient's presentation and CT results. I did have a discussion with Dr. Torres and he believes the patient sepsis is not secondary to the stent is likely due to the SBP as seen on the patient's laboratory analysis. I did obtain the patient's outside records and it does appear that the patient did have the Axios stent placed with drainage into the stomach for pseudocyst. 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 I did appeared that the patient did have approximately 9 L of ascites removed during her admission. The patient was instructed to follow-up in 4 weeks for removal of the stent. In addition, the patient's vitals while inpatient were in the systolics of 90s to 100. At this time I do believe the patient requires admission I did contact Dr. Gross I discussed the case with him and the patient was admitted to telemetry. DISPOSITION: The patient was admitted to telemetry in stable condition. CONDITION: Serious PROCEDURES: [None] FINAL IMPRESSION(S)/DIAGNOSES: 1. Acute sepsis secondary to spontaneous bacterial peritonitis and urinary tract infection 2. Acute spontaneous bacterial peritonitis 3. Acute urinary tract infection 4. Acute anion gap metabolic acidosis secondary to #1 and liver disease 5. Acute hypoalbuminemia likely secondary to liver disease versus multiple paracentesis 6. 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 Acute kidney injury Critical Care Procedure Note Authorized and performed by: Andre España M.D. Critical Care Time: 30 minutes Due to a high probability of clinically significant, life threatening deterioration, the patient required my highest level of preparedness to intervene emergently and I personally spent this critical care time directly and personally managing the patient. This critical care time included obtaining a history, examining the patient, pulse oximetry; ordering and review of studies; arranging urgent treatment with development of a management plan; evaluation of a patients reponse to treatment; frequent assessment; and discussions with other providers. This critical care time was performed to assess and manage the high probability of imminent, life threatening deterioration that could result in multiorgan failure. It was exclusive of separate billable procedures and treatin g other patients. Please see MDM section and rest of the note for further information on patient assessment and treatment. Please see MDM section and rest of the note for further information on patient assessment and treatment. Andre España M.D.
[2020-04-01] MEDS ORDERED: Lactulose Soln 10 GM/15 ML 15 ML UD Cup PO ONE (22:06)
--- NOTE | 2020-04-01 23:16 | PCM.HP.2 ---
H&P History of Present Illness - General Date of Service: 04/01/20 Admit Problem/Dx: Admission Diagnosis/Problem Admission Diagnosis/Problem Spontaneous bacterial peritonitis - History of Present Illness Initial Comments - Free Text/Narative: 39 yo female with pmh of ETOH abuse, cirrhosis, and pancreatitis who was recently discharged on Mar 26 after a three week admission for ETOH withdrawal and pancreatitis. Patient had a stent placed for treatment of her pancreatic pseudocysts. Patient has been placed on lovenox for DVT. Patient has been taking lactulose but she has been constipated for the past three days. Enema has not helped. Family has noted increased confusion, She reports abdominal pain and fevers. ED physician performed diagnostic paracentesis. Bilateral Leg Pain Score (Numeric/FACES): 10 - Related Data Allergies/Adverse Reactions: Allergies Allergy/AdvReac Type Severity Reaction Status Date / Time No Known Allergies Allergy Verified 04/01/20 16:48 Home Medications: Home Meds Cholecalciferol (Vitamin D3) [Vitamin D] 5,000 unit PO DAILY 04/01/20 [History] Enoxaparin [Lovenox] 40 mg SQ BID 04/01/20 [History] Ferrous Sulfate [Iron] 325 mg PO DAILY 04/01/20 [History] Fluconazole [Diflucan] 400 mg PO DAILY 04/01/20 [History] Folic Acid 1 mg PO DAILY 04/01/20 [History] Furosemide 20 mg PO DAILY 04/01/20 [History] Hydrocodone/Acetaminophen [[place] 5-325 Tablet] 1 each PO BID PRN 04/01/20 [History] Lactulose 10 gm PO BID 04/01/20 [History] Lipase/Protease/Amylase [[place] Dr 36,000 Units Capsule] 2 each PO TID 04/01/20 [History] Magnesium Oxide 400 mg PO DAILY 04/01/20 [History] Pantoprazole [ProTONIX] 40 mg PO DAILY 04/01/20 [History] Potassium Chloride [Klor-Con 10] 20 meq PO DAILY 04/01/20 [History] QUEtiapine [SEROquel] 100 mg PO BEDTIME 04/01/20 [History] Rifaximin [Xifaxan] 550 mg PO BID 04/01/20 [History] Spironolactone [Aldactone] 50 mg PO DAILY 04/01/20 [History] Thiamine [Vitamin B-1] 100 mg PO DAILY 04/01/20 [History] Past Medical History HEENT History: Reports: None Cardiovascular History: Reports: None Respiratory History: Reports: None Gastrointestinal History: Reports: Cirrhosis, Hepatitis, Pancreatitis Genitourinary History: Reports: None 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 OB/BYN History: X2 Musculoskeletal History: Reports: None Neurological History: Reports: None Psychiatric History: Reports: Anxiety, Depression Endocrine/Metabolic History: Reports: None Hematologic History: Reports: None Immunologic History: Reports: None Oncologic (Cancer) History: Reports: None Dermatologic History: Reports: None - Infectious Disease History Infectious Disease History: Reports: Chicken Pox, Hepatitis non A,B,C - Past Surgical History Head Surgeries/Procedures: Reports: None Female Surgical History: Reports: Tubal Ligation Social & Family History - Family History Family Medical History: Noncontributory - Tobacco Use Tobacco Use Status *Q: Current Every Day Tobacco User Years of Tobacco use: 10 Packs/Tins Daily: 0.3 - Caffeine Use Caffeine Use: Reports: Tea - Recreational Drug Use Recreational Drug Use: No H&P Review of Systems - Review of Systems: Review Of Systems: Unable To Obtain Reason Not Obtained: encephalopathy Exam - Exam Exam: See Below - Vital Signs Vital Signs: Last Vital Signs Temp 36.4 C 04/01/20 22:29 Pulse 114 H 04/01/20 22:29 Resp 18 04/01/20 22:29 BP 97/44 L 04/01/20 22:29 Pulse Ox 96 04/01/20 22:29 Weight: 53.07 kg - Exam General: Alert. No: Mild Distress HEENT: Conjunctiva Clear Neck: Supple, Trachea Midline Lungs: Clear to Auscultation, Normal Respiratory Effort Cardiovascular: Regular Rate, Regular Rhythm GI/Abdominal Exam: Distended. No: Guarding, Rigid, Rebound, Tender Skin: Warm, Dry, Intact Neurological: Cranial Nerves Intact, Other - Patient Data Lab Results Last 24 hrs: Laboratory Results - last 24 hr 04/01/20 04/01/20 04/01/20 Range/Units 17:07 17:07 17:07 WBC 32.52 H (4.0-11.0) K/uL RBC 2.77 L (4.30-5.90) M/uL Hgb 9.9 L (12.0-16.0) g/dL Hct 30.7 L (36.0-46.0) % MCV 110.8 H (80.0-98.0) fL MCH 35.7 H (27.0-32.0) pg MCHC 32.2 (31.0-37.0) g/dL RDW Std Deviation 70.0 H (28.0-62.0) fl RDW Coeff of Tea 17 H (11.0-15.0) % Plt Count 263 (150-400) K/uL MPV 11.30 (7.40-12.00) fL Add Manual Diff YES Neutrophils % (Manual) 82 H (48.0-80.0) % Band Neutrophils % 4 % Lymphocytes % (Manual) 10 L (16.0-40.0) % Monocytes % (Manual) 4 (0.0-15.0) % Nucleated RBC % 0.2 /100WBC Absolute Seg Neuts 26.7 H (1.4-5.7) Band Neutrophils # 1.3 Lymphocytes # (Manual) 3.3 H (0.6-2.4) Monocytes # (Manual) 1.3 H (0.0-0.8) Nucleated RBCs # 0 K/uL INR APTT (18.6-31.3) SEC ABG pH (7.35-7.45) ABG pCO2 (35-45) mmHG ABG pO2 (75-100) mmHG ABG HCO3 (22-26) mEq/L ABG Total CO2 ABG Base Excess (-2.0-2.0) Lactate 8.6 H* (0.20-2.00) mmol/L Sodium 131 L (136-145) mmol/L Potassium 4.6 (3.5-5.1) mmol/L Chloride 94 L (98-107) mmol/L Carbon Dioxide 16.2 L (21.0-32.0) mmol/L BUN 7 (7.0-18.0) mg/dL Creatinine 1.8 H (0.6-1.0) mg/dL Est Cr Clr Drug Dosing 35.85 mL/min Estimated GFR (MDRD) 31.7 ml/min Glucose 102 (74-106) mg/dL Calcium 8.2 L (8.5-10.1) mg/dL Magnesium 2.0 (1.8-2.4) mg/dL Total Bilirubin 4.3 H (0.2-1.0) mg/dL AST 190 H (15-37) IU/L ALT 64 H (14-63) IU/L Alkaline Phosphatase 263 H (46-116) U/L Ammonia (19-54) ug/dL Troponin I < 0.050 (0.000-0.056) ng/mL Total Protein 5.7 L (6.4-8.2) g/dL Albumin 0.7 L (3.4-5.0) g/dL Globulin 5.0 H (2.6-4.0) g/dL Albumin/Globulin Ratio 0.1 L (0.9-1.6) Lipase 47 L (73-393) U/L HCG, Qual (NEG) Urine Color Urine Appearance Urine pH (5.0-8.0) Ur Specific [place] (1.001-1.035) Urine Protein (NEGATIVE) mg/dL Urine Glucose (UA) (NEGATIVE) mg/dL Urine Ketones (NEGATIVE) mg/dL Urine Occult Blood (NEGATIVE) Urine Nitrite (NEGATIVE) Urine Bilirubin (NEGATIVE) Urine Ictotest Urine Urobilinogen (<2.0) EU/dL Ur Leukocyte Esterase (NEGATIVE) Urine RBC (0-2/HPF) Urine WBC (0-5/HPF) Ur Epithelial Cells (NONE-FEW) Urine Bacteria (NEGATIVE) Fluid Type Fluid Color Fluid Appearance Fluid WBC /uL Fluid RBC /uL Fluid Mononuclear Cell % Fl Polymorphonucl Cell % Fluid Glucose mg/dL Fluid Total Protein g/dL Urine Opiates Screen (NEGATIVE) Ur Oxycodone Screen (NEGATIVE) Urine Methadone Screen (NEGATIVE) Ur Barbiturates Screen (NEGATIVE) Ur Phencyclidine Scrn (NEGATIVE) Ur Amphetamine Screen (NEGATIVE) U Methamphetamines Scrn (NEGATIVE) U Benzodiazepines Scrn (NEGATIVE) U Cocaine Metab Screen (NEGATIVE) U Marijuana (THC) Screen (NEGATIVE) Ethyl Alcohol < 3.0 mg/dL SARS CoV-2 RNA Rapid CLAUDIA (NEGATIVE) 04/01/20 04/01/20 04/01/20 Range/Units 17:07 17:07 17:35 WBC (4.0-11.0) K/uL RBC (4.30-5.90) M/uL Hgb (12.0-16.0) g/dL Hct (36.0-46.0) % MCV (80.0-98.0) fL MCH (27.0-32.0) pg MCHC (31.0-37.0) g/dL RDW Std Deviation (28.0-62.0) fl RDW Coeff of Tea (11.0-15.0) % Plt Count (150-400) K/uL MPV (7.40-12.00) fL Add Manual Diff Neutrophils % (Manual) (48.0-80.0) % Band Neutrophils % % Lymphocytes % (Manual) (16.0-40.0) % Monocytes % (Manual) (0.0-15.0) % Nucleated RBC % /100WBC Absolute Seg Neuts (1.4-5.7) Band Neutrophils # Lymphocytes # (Manual) (0.6-2.4) Monocytes # (Manual) (0.0-0.8) Nucleated RBCs # K/uL INR 1.93 APTT 40.9 H (18.6-31.3) SEC ABG pH (7.35-7.45) ABG pCO2 (35-45) mmHG ABG pO2 (75-100) mmHG ABG HCO3 (22-26) mEq/L ABG Total CO2 ABG Base Excess (-2.0-2.0) Lactate (0.20-2.00) mmol/L Sodium (136-145) mmol/L Potassium (3.5-5.1) mmol/L Chloride (98-107) mmol/L Carbon Dioxide (21.0-32.0) mmol/L BUN (7.0-18.0) mg/dL Creatinine (0.6-1.0) mg/dL Est Cr Clr Drug Dosing mL/min Estimated GFR (MDRD) ml/min Glucose (74-106) mg/dL Calcium (8.5-10.1) mg/dL Magnesium (1.8-2.4) mg/dL Total Bilirubin (0.2-1.0) mg/dL AST (15-37) IU/L ALT (14-63) IU/L Alkaline Phosphatase (46-116) U/L Ammonia (19-54) ug/dL Troponin I (0.000-0.056) ng/mL Total Protein (6.4-8.2) g/dL Albumin (3.4-5.0) g/dL Globulin (2.6-4.0) g/dL Albumin/Globulin Ratio (0.9-1.6) Lipase (73-393) U/L HCG, Qual NEGATIVE (NEG) Urine Color Urine Appearance Urine pH (5.0-8.0) Ur Specific [place] (1.001-1.035) Urine Protein (NEGATIVE) mg/dL Urine Glucose (UA) (NEGATIVE) mg/dL Urine Ketones (NEGATIVE) mg/dL Urine Occult Blood (NEGATIVE) Urine Nitrite (NEGATIVE) Urine Bilirubin (NEGATIVE) Urine Ictotest Urine Urobilinogen (<2.0) EU/dL Ur Leukocyte Esterase (NEGATIVE) Urine RBC (0-2/HPF) Urine WBC (0-5/HPF) Ur Epithelial Cells (NONE-FEW) Urine Bacteria (NEGATIVE) Fluid Type PER Fluid Color YELLOW Fluid Appearance CLOUDY Fluid WBC 1094 /uL Fluid RBC < 3000 /uL Fluid Mononuclear Cell 29 % Fl Polymorphonucl Cell 71 % Fluid Glucose 101 mg/dL Fluid Total Protein 0.4 g/dL Urine Opiates Screen (NEGATIVE) Ur Oxycodone Screen (NEGATIVE) Urine Methadone Screen (NEGATIVE) Ur Barbiturates Screen (NEGATIVE) Ur Phencyclidine Scrn (NEGATIVE) Ur Amphetamine Screen (NEGATIVE) U Methamphetamines Scrn (NEGATIVE) U Benzodiazepines Scrn (NEGATIVE) U Cocaine Metab Screen (NEGATIVE) U Marijuana (THC) Screen (NEGATIVE) Ethyl Alcohol mg/dL SARS CoV-2 RNA Rapid CLAUDIA (NEGATIVE) 04/01/20 04/01/20 04/01/20 Range/Units 18:28 19:31 19:31 WBC (4.0-11.0) K/uL RBC (4.30-5.90) M/uL Hgb (12.0-16.0) g/dL Hct (36.0-46.0) % MCV (80.0-98.0) fL MCH (27.0-32.0) pg MCHC (31.0-37.0) g/dL RDW Std Deviation (28.0-62.0) fl RDW Coeff of Tea (11.0-15.0) % Plt Count (150-400) K/uL MPV (7.40-12.00) fL Add Manual Diff Neutrophils % (Manual) (48.0-80.0) % Band Neutrophils % % Lymphocytes % (Manual) (16.0-40.0) % Monocytes % (Manual) (0.0-15.0) % Nucleated RBC % /100WBC Absolute Seg Neuts (1.4-5.7) Band Neutrophils # Lymphocytes # (Manual) (0.6-2.4) Monocytes # (Manual) (0.0-0.8) Nucleated RBCs # K/uL INR APTT (18.6-31.3) SEC ABG pH 7.347 L (7.35-7.45) ABG pCO2 29 L (35-45) mmHG ABG pO2 71 L (75-100) mmHG ABG HCO3 16 L (22-26) mEq/L ABG Total CO2 15.2 ABG Base Excess -8.6 L (-2.0-2.0) Lactate 6.0 H* (0.20-2.00) mmol/L Sodium (136-145) mmol/L Potassium (3.5-5.1) mmol/L Chloride (98-107) mmol/L Carbon Dioxide (21.0-32.0) mmol/L BUN (7.0-18.0) mg/dL Creatinine (0.6-1.0) mg/dL Est Cr Clr Drug Dosing mL/min Estimated GFR (MDRD) ml/min Glucose (74-106) mg/dL Calcium (8.5-10.1) mg/dL Magnesium (1.8-2.4) mg/dL Total Bilirubin (0.2-1.0) mg/dL AST (15-37) IU/L ALT (14-63) IU/L Alkaline Phosphatase (46-116) U/L Ammonia (19-54) ug/dL Troponin I (0.000-0.056) ng/mL Total Protein (6.4-8.2) g/dL Albumin (3.4-5.0) g/dL Globulin (2.6-4.0) g/dL Albumin/Globulin Ratio (0.9-1.6) Lipase (73-393) U/L HCG, Qual (NEG) Urine Color Urine Appearance Urine pH (5.0-8.0) Ur Specific [place] (1.001-1.035) Urine Protein (NEGATIVE) mg/dL Urine Glucose (UA) (NEGATIVE) mg/dL Urine Ketones (NEGATIVE) mg/dL Urine Occult Blood (NEGATIVE) Urine Nitrite (NEGATIVE) Urine Bilirubin (NEGATIVE) Urine Ictotest Urine Urobilinogen (<2.0) EU/dL Ur Leukocyte Esterase (NEGATIVE) Urine RBC (0-2/HPF) Urine WBC (0-5/HPF) Ur Epithelial Cells (NONE-FEW) Urine Bacteria (NEGATIVE) Fluid Type Fluid Color Fluid Appearance Fluid WBC /uL Fluid RBC /uL Fluid Mononuclear Cell % Fl Polymorphonucl Cell % Fluid Glucose mg/dL Fluid Total Protein g/dL Urine Opiates Screen (NEGATIVE) Ur Oxycodone Screen (NEGATIVE) Urine Methadone Screen (NEGATIVE) Ur Barbiturates Screen (NEGATIVE) Ur Phencyclidine Scrn (NEGATIVE) Ur Amphetamine Screen (NEGATIVE) U Methamphetamines Scrn (NEGATIVE) U Benzodiazepines Scrn (NEGATIVE) U Cocaine Metab Screen (NEGATIVE) U Marijuana (THC) Screen (NEGATIVE) Ethyl Alcohol mg/dL SARS CoV-2 RNA Rapid CLAUDIA NEGATIVE (NEGATIVE) 04/01/20 04/01/20 04/01/20 Range/Units 20:25 20:25 22:03 WBC (4.0-11.0) K/uL RBC (4.30-5.90) M/uL Hgb (12.0-16.0) g/dL Hct (36.0-46.0) % MCV (80.0-98.0) fL MCH (27.0-32.0) pg MCHC (31.0-37.0) g/dL RDW Std Deviation (28.0-62.0) fl RDW Coeff of Tea (11.0-15.0) % Plt Count (150-400) K/uL MPV (7.40-12.00) fL Add Manual Diff Neutrophils % (Manual) (48.0-80.0) % Band Neutrophils % % Lymphocytes % (Manual) (16.0-40.0) % Monocytes % (Manual) (0.0-15.0) % Nucleated RBC % /100WBC Absolute Seg Neuts (1.4-5.7) Band Neutrophils # Lymphocytes # (Manual) (0.6-2.4) Monocytes # (Manual) (0.0-0.8) Nucleated RBCs # K/uL INR APTT (18.6-31.3) SEC ABG pH (7.35-7.45) ABG pCO2 (35-45) mmHG ABG pO2 (75-100) mmHG ABG HCO3 (22-26) mEq/L ABG Total CO2 ABG Base Excess (-2.0-2.0) Lactate (0.20-2.00) mmol/L Sodium (136-145) mmol/L Potassium (3.5-5.1) mmol/L Chloride (98-107) mmol/L Carbon Dioxide (21.0-32.0) mmol/L BUN (7.0-18.0) mg/dL Creatinine (0.6-1.0) mg/dL Est Cr Clr Drug Dosing mL/min Estimated GFR (MDRD) ml/min Glucose (74-106) mg/dL Calcium (8.5-10.1) mg/dL Magnesium (1.8-2.4) mg/dL Total Bilirubin (0.2-1.0) mg/dL AST (15-37) IU/L ALT (14-63) IU/L Alkaline Phosphatase (46-116) U/L Ammonia 80 H (19-54) ug/dL Troponin I (0.000-0.056) ng/mL Total Protein (6.4-8.2) g/dL Albumin (3.4-5.0) g/dL Globulin (2.6-4.0) g/dL Albumin/Globulin Ratio (0.9-1.6) Lipase (73-393) U/L HCG, Qual (NEG) Urine Color YELLOW Urine Appearance CLEAR Urine pH 6.0 (5.0-8.0) Ur Specific [place] 1.020 (1.001-1.035) Urine Protein NEGATIVE (NEGATIVE) mg/dL Urine Glucose (UA) NEGATIVE (NEGATIVE) mg/dL Urine Ketones NEGATIVE (NEGATIVE) mg/dL Urine Occult Blood TRACE-INTACT H (NEGATIVE) Urine Nitrite POSITIVE H (NEGATIVE) Urine Bilirubin MODERATE H (NEGATIVE) Urine Ictotest POSITIVE Urine Urobilinogen 0.2 (<2.0) EU/dL Ur Leukocyte Esterase SMALL H (NEGATIVE) Urine RBC 1-2 (0-2/HPF) Urine WBC 8-10 (0-5/HPF) Ur Epithelial Cells MODERATE (NONE-FEW) Urine Bacteria 2+ H (NEGATIVE) Fluid Type Fluid Color Fluid Appearance Fluid WBC /uL Fluid RBC /uL Fluid Mononuclear Cell % Fl Polymorphonucl Cell % Fluid Glucose mg/dL Fluid Total Protein g/dL Urine Opiates Screen NEGATIVE (NEGATIVE) Ur Oxycodone Screen NEGATIVE (NEGATIVE) Urine Methadone Screen NEGATIVE (NEGATIVE) Ur Barbiturates Screen NEGATIVE (NEGATIVE) Ur Phencyclidine Scrn NEGATIVE (NEGATIVE) Ur Amphetamine Screen NEGATIVE (NEGATIVE) U Methamphetamines Scrn NEGATIVE (NEGATIVE) U Benzodiazepines Scrn NEGATIVE (NEGATIVE) U Cocaine Metab Screen NEGATIVE (NEGATIVE) U Marijuana (THC) Screen NEGATIVE (NEGATIVE) Ethyl Alcohol mg/dL SARS CoV-2 RNA Rapid CLAUDIA (NEGATIVE) Result Diagrams: 04/05/20 06:00 04/05/20 06:00 Cricket Results Last 24 hrs: Microbiology 04/01/20 17:35 Gram Stain - Preliminary Perineal Fluid Sepsis Event Note - Evaluation Sepsis Screening Result: No Definite Risk Current Stage of Sepsis: Sepsis Possible Source of Sepsis: GI Tract/Intra-abdominal - Focused Exam Sepsis Event Note Statement: Focused Sepsis Exam Completed Vital Signs: Vital Signs Temp Temp Pulse Resp BP Pulse Ox 04/01/20 22:29 36.4 C 114 H 18 97/44 L 96 04/01/20 20:33 118 H 20 104/55 L 96 04/01/20 19:15 37.0 C 114 H 20 98/49 L 96 04/01/20 18:11 119 H 20 106/51 L 96 04/01/20 18:01 117 H 18 92/42 L 97 04/01/20 17:40 113 H 18 99/48 L 98 04/01/20 17:35 112 H 18 85/52 L 95 04/01/20 17:28 85/52 L 04/01/20 16:41 123 H 18 95/53 L 96 04/01/20 16:38 36.4 C 120 H 20 95/53 L 96 Capillary Refill, Detail: Less than/Equal to (</=) 2 Seconds Pulse Description: 2+ Normal Peripheral Pulse Location: Carotid Skin Exam (Focused Sepsis): Normal Turgor Date Exam was Performed: 04/01/20 Time Exam was Performed: 23:00 - Problem List (1) Sepsis SNOMED Code(s): 58050926 ICD Code: A41.9 - SEPSIS, UNSPECIFIED ORGANISM Status: Acute Priority: High Current Visit: Yes Qualifiers: Sepsis type: sepsis due to unspecified organism Sepsis acute organ dysfunction status: with acute organ dysfunction Severe sepsis acute organ dysfunction type: encephalopathy (2) Cirrhosis of liver SNOMED Code(s): 55659974 ICD Code: K74.60 - UNSPECIFIED CIRRHOSIS OF LIVER Status: Acute Priority: High Current Visit: Yes Qualifiers: Hepatic cirrhosis type: alcoholic cirrhosis Ascites presence: with ascites Qualified Code(s): K70.31 - Alcoholic cirrhosis of liver with ascites (3) SBP (spontaneous bacterial peritonitis) SNOMED Code(s): 31929102 ICD Code: K65.2 - SPONTANEOUS BACTERIAL PERITONITIS Status: Acute Prior ity: High Current Visit: Yes (4) Ileus SNOMED Code(s): 043275712 ICD Code: K56.7 - ILEUS, UNSPECIFIED Status: Acute Priority: Medium Current Visit: Yes (5) UTI (urinary tract infection) SNOMED Code(s): 94556791 ICD Code: N39.0 - URINARY TRACT INFECTION, SITE NOT SPECIFIED Status: Acute Current Visit: Yes (6) DVT (deep venous thrombosis) SNOMED Code(s): 253709756 ICD Code: I82.409 - ACUTE EMBOLISM AND THOMBOS UNSP DEEP VN UNSP LOWER EXTREMITY Status: Chronic Priority: Medium Current Visit: Yes (7) Ascites due to alcoholic cirrhosis SNOMED Code(s): 1241157458583667 ICD Code: K70.31 - ALCOHOLIC CIRRHOSIS OF LIVER WITH ASCITES Status: Chronic Priority: High Current Visit: Yes (8) Pseudocyst of pancreas SNOMED Code(s): 900565420 ICD Code: K86.3 - PSEUDOCYST OF PANCREAS Status: Chronic Priority: Medium Current Visit: Yes (9) Acute kidney failure SNOMED Code(s): 01232863 ICD Code: N17.9 - ACUTE KIDNEY FAILURE, UNSPECIFIED Status: Acute Current Visit: Yes (10) Hypoalbuminemia SNOMED Code(s): 679501065 ICD Code: E88.09 - OTH DISORDERS OF PLASMA-PROTEIN METABOLISM, NEC Status: Chronic Priority: High Current Visit: Yes Problem List Initiated/Reviewed/Updated: Yes Orders Last 24hrs: Active Orders 24 hr Category Date Time Status Admission Status [Patient Status] [ADT] Stat ADT 04/01/20 22:14 Active Blood Glucose Check, Bedside [RC] ONETIME Care 04/01/20 16:40 Active EKG Documentation Completion [RC] STAT Care 04/01/20 16:40 Active Enema [RC] ASDIRECTED Care 04/01/20 23:10 Ordered Insert Urinary Catheter [OM.PC] Q24H Care 04/01/20 20:45 Ordered Urinary Catheter Assessment [RC] ASDIRECTED Care 04/01/20 20:38 Active CORONAVIRUS COVID-19 CLAUDIA [MOLEC] Stat Lab 04/01/20 22:40 Received CORONAVIRUS COVID-19 PCR PHL Stat Lab 04/01/20 18:28 Received CULTURE BLOOD [BC] Stat Lab 04/01/20 17:07 Received CULTURE BLOOD [BC] Stat Lab 04/01/20 17:17 Received CULTURE BODY FLUID + SMEAR [RM] Stat Lab 04/01/20 17:35 Results CULTURE URINE [RM] Routine Lab 04/01/20 22:34 Ordered Cefotaxime [Claforan] 2 gm Med 04/02/20 06:00 Ordered Sodium Chloride 0.9% [Normal Saline] 100 ml IV Q8HR Enoxaparin [Lovenox] Med 04/01/20 23:15 Ordered 40 mg SUBCUT BID Lactulose [Chronulac] Med 04/01/20 22:30 Ordered 10 gm PO BID Lipase/Protease/Amylase [[place] 36,000 Units Capsule] Med 04/02/20 06:00 Ordered 2 each PO TID Pantoprazole [ProTONIX] Med 04/02/20 09:00 Ordered 40 mg PO DAILY Rifaximin [Xifaxan] Med 04/02/20 09:00 Ordered 550 mg PO BID Sodium Chloride 0.9% [Normal Saline] 1,000 ml Med 04/01/20 20:15 Active IV ASDIRECTED Sodium Chloride 0.9% [Saline Flush] Med 04/01/20 16:40 Active 10 ml FLUSH ASDIRECTED PRN Sodium Chloride 0.9% [Saline Flush] Med 04/01/20 16:40 Active 2.5 ml FLUSH ASDIRECTED PRN Blood Culture x2 Reflex Set [OM.PC] Stat Oth 04/01/20 16:41 Ordered Saline Lock Insert [OM.PC] Stat Oth 04/01/20 16:40 Ordered Medication Orders Lipase/Protease/Amylase ([place] 24,000 Units) 3 cap PO TIDMEALS LESLY Enoxaparin Sodium (Lovenox) 40 mg SUBCUT BID LESLY Sodium Chloride (Normal Saline) 1,000 mls @ 75 mls/hr IV ASDIRECTED LESLY Last Admin: 04/01/20 20:07 Dose: 75 mls/hr Documented by: ALFREDO Cefotaxime Sodium 2 gm/ Sodium (Chloride) 100 mls @ 200 mls/hr IV Q8HR LESLY Lactulose (Chronulac) 10 gm PO BID LESLY Pantoprazole Sodium (Protonix) 40 mg PO DAILY LESLY Rifaximin (Xifaxan) 550 mg PO BID LESLY Sodium Chloride (Saline Flush) 10 ml FLUSH ASDIRECTED PRN PRN Reason: Keep Vein Open Last Admin: 04/01/20 16:56 Dose: 10 ml Documented by: EUGENE Sodium Chloride (Saline Flush) 2.5 ml FLUSH ASDIRECTED PRN PRN Reason: Keep Vein Open Last Admin: 04/01/20 16:55 Dose: 2.5 ml Documented by: EUGENE Assessment/Plan Comment:: 39 yo female with history of liver cirrhosis admitted for sepsis from SBP Sepsis: After 2L NS fluid bolus lactic acid has lowered to 6, on reexamination patient appears to be perfusing well. We will continue IV fluids and trend lactic acid SBP/UTI: will treat with cefotaxime, cultures pending CALLY: will give albumin Hepatic encephalopathy: continue rifaximin, lactulose constipation: will give enema reports history of DVT, will continue lovenox.
[2020-04-02] MEDS ORDERED: Albumin 25% 12.5 GM/50 ML BAG IV ONE
[2020-04-02] MEDS: Enoxaparin 40 MG/0.4 ML Syringe SUBCUT SCH ×3 (00:20→21:09)
[2020-04-02] MEDS: Lactulose Soln 10 GM/15 ML 15 ML UD Cup PO SCH ×5 (00:22→19:06)
[2020-04-02] MEDS: Cefepime 2 GM in Premix Bag 1 BAG IV SCH ×3 (02:56→18:31)
[2020-04-02 04:50] LABS: CARBON DIOXIDE,CO2 18.8 mmol/L (21.0-32.0); POTASSIUM,K 4.3 mmol/L (3.5-5.1)
--- NOTE | 2020-04-02 08:44 | PCM.PN ---
- General Info Date of Service: 04/02/20 Admission Dx/Problem (Free Text): Admission Diagnosis/Problem Admission Diagnosis/Problem Spontaneous bacterial peritonitis Subjective Update: Pt is a 39 y/o with h/o ETOH abuse, Cirrhosis, and Pancreatitis. Was prev d/c on Mar 26 s/p stent placement for a procedure on her pancreatic pseudocyst. Was taking lactulose as prescribed, but unable to have a stool movement in 3 days despite trying an enema. Family had also noted her to be confused. Furthermore she continues to complaint of b/l lower extremity pain responsive to Advil. Yesterday in the ED pt had paracentesis, was kept NPO and started on Lovenox for DVT ppx. This morning pt states he felt like she had fevers overnight, with intermittent leg pain. There was no swelling, erythema, or tenderness to palpation, s.o.b., fever or chills noted at bedside. Pt states she is feeling better, is AOx3. Still has not had a BM, but has been given an enema and lactulose. Abdomen is soft , nontender, there is no rebound or guarding this morning. Pt states it a remarkable difference from when she was first admitted. Functional Status: Reports: Pain Controlled - Review of Systems General: Reports: No Symptoms HEENT: Reports: No Symptoms Pulmonary: Reports: No Symptoms. Denies: Shortness of Breath, Pleuritic Chest Pain Cardiovascular: Reports: No Symptoms Gastrointestinal: Reports: No Symptoms Genitourinary: Reports: No Symptoms Musculoskeletal: Reports: No Symptoms Skin: Reports: No Symptoms Neurological: Reports: No Symptoms Psychiatric: Reports: No Symptoms - Patient Data Vitals - Most Recent: Last Vital Signs Temp 96.8 F L 04/02/20 04:04 Pulse 111 H 04/02/20 04:04 Resp 17 04/02/20 04:04 BP 97/50 L 04/02/20 04:04 Pulse Ox 94 L 04/02/20 04:04 Weight - Most Recent: 123 lb 9.6 oz I&O - Last 24 Hours: Intake & Output 04/01/20 04/02/20 04/02/20 22:59 06:59 14:59 Intake Total 150 Output Total 0 Balance 150 Lab Results Last 24 Hours: Laboratory Results - last 24 hr 11/03/20 11/03/20 11/03/20 Range/Units 16:56 17:07 17:07 WBC 32.52 H (4.0-11.0) K/uL RBC 2.77 L (4.30-5.90) M/uL Hgb 9.9 L (12.0-16.0) g/dL Hct 30.7 L (36.0-46.0) % MCV 110.8 H (80.0-98.0) fL MCH 35.7 H (27.0-32.0) pg MCHC 32.2 (31.0-37.0) g/dL RDW Std Deviation 70.0 H (28.0-62.0) fl RDW Coeff of Tea 17 H (11.0-15.0) % Plt Count 263 (150-400) K/uL MPV 11.30 (7.40-12.00) fL Add Manual Diff YES Neutrophils % (Manual) 82 H (48.0-80.0) % Band Neutrophils % 4 % Lymphocytes % (Manual) 10 L (16.0-40.0) % Monocytes % (Manual) 4 (0.0-15.0) % Eosinophils % (Manual) (0.0-7.0) % Nucleated RBC % 0.2 /100WBC Absolute Seg Neuts 26.7 H (1.4-5.7) Band Neutrophils # 1.3 Lymphocytes # (Manual) 3.3 H (0.6-2.4) Monocytes # (Manual) 1.3 H (0.0-0.8) Eosinophils # (Manual) (0.0-0.7) Nucleated RBCs # 0 K/uL INR APTT (18.6-31.3) SEC ABG pH (7.35-7.45) ABG pCO2 (35-45) mmHG ABG pO2 (75-100) mmHG ABG HCO3 (22-26) mEq/L ABG Total CO2 ABG Base Excess (-2.0-2.0) Lactate 8.6 H* (0.20-2.00) mmol/L Sodium (136-145) mmol/L Potassium (3.5-5.1) mmol/L Chloride (98-107) mmol/L Carbon Dioxide (21.0-32.0) mmol/L BUN (7.0-18.0) mg/dL Creatinine (0.6-1.0) mg/dL Est Cr Clr Drug Dosing mL/min Estimated GFR (MDRD) ml/min Glucose (74-106) mg/dL POC Glucose 113 H (60-110) mg/dL Calcium (8.5-10.1) mg/dL Magnesium (1.8-2.4) mg/dL Total Bilirubin (0.2-1.0) mg/dL AST (15-37) IU/L ALT (14-63) IU/L Alkaline Phosphatase (46-116) U/L Ammonia (19-54) ug/dL Troponin I (0.000-0.056) ng/mL Total Protein (6.4-8.2) g/dL Albumin (3.4-5.0) g/dL Globulin (2.6-4.0) g/dL Albumin/Globulin Ratio (0.9-1.6) Lipase (73-393) U/L HCG, Qual (NEG) Urine Color Urine Appearance Urine pH (5.0-8.0) Ur Specific Robson (1.001-1.035) Urine Protein (NEGATIVE) mg/dL Urine Glucose (UA) (NEGATIVE) mg/dL Urine Ketones (NEGATIVE) mg/dL Urine Occult Blood (NEGATIVE) Urine Nitrite (NEGATIVE) Urine Bilirubin (NEGATIVE) Urine Ictotest Urine Urobilinogen (<2.0) EU/dL Ur Leukocyte Esterase (NEGATIVE) Urine RBC (0-2/HPF) Urine WBC (0-5/HPF) Ur Epithelial Cells (NONE-FEW) Urine Bacteria (NEGATIVE) Fluid Type Fluid Color Fluid Appearance Fluid WBC /uL Fluid RBC /uL Fluid Mononuclear Cell % Fl Polymorphonucl Cell % Fluid Glucose mg/dL Fluid Total Protein g/dL Urine Opiates Screen (NEGATIVE) Ur Oxycodone Screen (NEGATIVE) Urine Methadone Screen (NEGATIVE) Ur Barbiturates Screen (NEGATIVE) Ur Phencyclidine Scrn (NEGATIVE) Ur Amphetamine Screen (NEGATIVE) U Methamphetamines Scrn (NEGATIVE) U Benzodiazepines Scrn (NEGATIVE) U Cocaine Metab Screen (NEGATIVE) U Marijuana (THC) Screen (NEGATIVE) Ethyl Alcohol mg/dL SARS-CoV-2 RNA (CLAUDIA) (NEGATIVE) SARS CoV-2 RNA Rapid CLAUDIA (NEGATIVE) 04/01/20 04/01/20 04/01/20 Range/Units 17:07 17:07 17:07 WBC (4.0-11.0) K/uL RBC (4.30-5.90) M/uL Hgb (12.0-16.0) g/dL Hct (36.0-46.0) % MCV (80.0-98.0) fL MCH (27.0-32.0) pg MCHC (31.0-37.0) g/dL RDW Std Deviation (28.0-62.0) fl RDW Coeff of Tea (11.0-15.0) % Plt Count (150-400) K/uL MPV (7.40-12.00) fL Add Manual Diff Neutrophils % (Manual) (48.0-80.0) % Band Neutrophils % % Lymphocytes % (Manual) (16.0-40.0) % Monocytes % (Manual) (0.0-15.0) % Eosinophils % (Manual) (0.0-7.0) % Nucleated RBC % /100WBC Absolute Seg Neuts (1.4-5.7) Band Neutrophils # Lymphocytes # (Manual) (0.6-2.4) Monocytes # (Manual) (0.0-0.8) Eosinophils # (Manual) (0.0-0.7) Nucleated RBCs # K/uL INR 1.93 APTT 40.9 H (18.6-31.3) SEC ABG pH (7.35-7.45) ABG pCO2 (35-45) mmHG ABG pO2 (75-100) mmHG ABG HCO3 (22-26) mEq/L ABG Total CO2 ABG Base Excess (-2.0-2.0) Lactate (0.20-2.00) mmol/L Sodium 131 L (136-145) mmol/L Potassium 4.6 (3.5-5.1) mmol/L Chloride 94 L (98-107) mmol/L Carbon Dioxide 16.2 L (21.0-32.0) mmol/L BUN 7 (7.0-18.0) mg/dL Creatinine 1.8 H (0.6-1.0) mg/dL Est Cr Clr Drug Dosing 35.85 mL/min Estimated GFR (MDRD) 31.7 ml/min Glucose 102 (74-106) mg/dL POC Glucose (60-110) mg/dL Calcium 8.2 L (8.5-10.1) mg/dL Magnesium 2.0 (1.8-2.4) mg/dL Total Bilirubin 4.3 H (0.2-1.0) mg/dL AST 190 H (15-37) IU/L ALT 64 H (14-63) IU/L Alkaline Phosphatase 263 H (46-116) U/L Ammonia (19-54) ug/dL Troponin I < 0.050 (0.000-0.056) ng/mL Total Protein 5.7 L (6.4-8.2) g/dL Albumin 0.7 L (3.4-5.0) g/dL Globulin 5.0 H (2.6-4.0) g/dL Albumin/Globulin Ratio 0.1 L (0.9-1.6) Lipase 47 L (73-393) U/L HCG, Qual NEGATIVE (NEG) Urine Color Urine Appearance Urine pH (5.0-8.0) Ur Specific Robson (1.001-1.035) Urine Protein (NEGATIVE) mg/dL Urine Glucose (UA) (NEGATIVE) mg/dL Urine Ketones (NEGATIVE) mg/dL Urine Occult Blood (NEGATIVE) Urine Nitrite (NEGATIVE) Urine Bilirubin (NEGATIVE) Urine Ictotest Urine Urobilinogen (<2.0) EU/dL Ur Leukocyte Esterase (NEGATIVE) Urine RBC (0-2/HPF) Urine WBC (0-5/HPF) Ur Epithelial Cells (NONE-FEW) Urine Bacteria (NEGATIVE) Fluid Type Fluid Color Fluid Appearance Fluid WBC /uL Fluid RBC /uL Fluid Mononuclear Cell % Fl Polymorphonucl Cell % Fluid Glucose mg/dL Fluid Total Protein g/dL Urine Opiates Screen (NEGATIVE) Ur Oxycodone Screen (NEGATIVE) Urine Methadone Screen (NEGATIVE) Ur Barbiturates Screen (NEGATIVE) Ur Phencyclidine Scrn (NEGATIVE) Ur Amphetamine Screen (NEGATIVE) U Methamphetamines Scrn (NEGATIVE) U Benzodiazepines Scrn (NEGATIVE) U Cocaine Metab Screen (NEGATIVE) U Marijuana (THC) Screen (NEGATIVE) Ethyl Alcohol < 3.0 mg/dL SARS-CoV-2 RNA (CLAUDIA) (NEGATIVE) SARS CoV-2 RNA Rapid CLAUDIA (NEGATIVE) 04/01/20 04/01/20 04/01/20 Range/Units 17:35 18:28 19:31 WBC (4.0-11.0) K/uL RBC (4.30-5.90) M/uL Hgb (12.0-16.0) g/dL Hct (36.0-46.0) % MCV (80.0-98.0) fL MCH (27.0-32.0) pg MCHC (31.0-37.0) g/dL RDW Std Deviation (28.0-62.0) fl RDW Coeff of Tea (11.0-15.0) % Plt Count (150-400) K/uL MPV (7.40-12.00) fL Add Manual Diff Neutrophils % (Manual) (48.0-80.0) % Band Neutrophils % % Lymphocytes % (Manual) (16.0-40.0) % Monocytes % (Manual) (0.0-15.0) % Eosinophils % (Manual) (0.0-7.0) % Nucleated RBC % /100WBC Absolute Seg Neuts (1.4-5.7) Band Neutrophils # Lymphocytes # (Manual) (0.6-2.4) Monocytes # (Manual) (0.0-0.8) Eosinophils # (Manual) (0.0-0.7) Nucleated RBCs # K/uL INR APTT (18.6-31.3) SEC ABG pH 7.347 L (7.35-7.45) ABG pCO2 29 L (35-45) mmHG ABG pO2 71 L (75-100) mmHG ABG HCO3 16 L (22-26) mEq/L ABG Total CO2 15.2 ABG Base Excess -8.6 L (-2.0-2.0) Lactate (0.20-2.00) mmol/L Sodium (136-145) mmol/L Potassium (3.5-5.1) mmol/L Chloride (98-107) mmol/L Carbon Dioxide (21.0-32.0) mmol/L BUN (7.0-18.0) mg/dL Creatinine (0.6-1.0) mg/dL Est Cr Clr Drug Dosing mL/min Estimated GFR (MDRD) ml/min Glucose (74-106) mg/dL POC Glucose (60-110) mg/dL Calcium (8.5-10.1) mg/dL Magnesium (1.8-2.4) mg/dL Total Bilirubin (0.2-1.0) mg/dL AST (15-37) IU/L ALT (14-63) IU/L Alkaline Phosphatase (46-116) U/L Ammonia (19-54) ug/dL Troponin I (0.000-0.056) ng/mL Total Protein (6.4-8.2) g/dL Albumin (3.4-5.0) g/dL Globulin (2.6-4.0) g/dL Albumin/Globulin Ratio (0.9-1.6) Lipase (73-393) U/L HCG, Qual (NEG) Urine Color Urine Appearance Urine pH (5.0-8.0) Ur Specific Robson (1.001-1.035) Urine Protein (NEGATIVE) mg/dL Urine Glucose (UA) (NEGATIVE) mg/dL Urine Ketones (NEGATIVE) mg/dL Urine Occult Blood (NEGATIVE) Urine Nitrite (NEGATIVE) Urine Bilirubin (NEGATIVE) Urine Ictotest Urine Urobilinogen (<2.0) EU/dL Ur Leukocyte Esterase (NEGATIVE) Urine RBC (0-2/HPF) Urine WBC (0-5/HPF) Ur Epithelial Cells (NONE-FEW) Urine Bacteria (NEGATIVE) Fluid Type PER Fluid Color YELLOW Fluid Appearance CLOUDY Fluid WBC 1094 /uL Fluid RBC < 3000 /uL Fluid Mononuclear Cell 29 % Fl Polymorphonucl Cell 71 % Fluid Glucose 101 mg/dL Fluid Total Protein 0.4 g/dL Urine Opiates Screen (NEGATIVE) Ur Oxycodone Screen (NEGATIVE) Urine Methadone Screen (NEGATIVE) Ur Barbiturates Screen (NEGATIVE) Ur Phencyclidine Scrn (NEGATIVE) Ur Amphetamine Screen (NEGATIVE) U Methamphetamines Scrn (NEGATIVE) U Benzodiazepines Scrn (NEGATIVE) U Cocaine Metab Screen (NEGATIVE) U Marijuana (THC) Screen (NEGATIVE) Ethyl Alcohol mg/dL SARS-CoV-2 RNA (CLAUDIA) (NEGATIVE) SARS CoV-2 RNA Rapid CLAUDIA NEGATIVE (NEGATIVE) 04/01/20 04/01/20 04/01/20 Range/Units 19:31 20:25 20:25 WBC (4.0-11.0) K/uL RBC (4.30-5.90) M/uL Hgb (12.0-16.0) g/dL Hct (36.0-46.0) % MCV (80.0-98.0) fL MCH (27.0-32.0) pg MCHC (31.0-37.0) g/dL RDW Std Deviation (28.0-62.0) fl RDW Coeff of Tea (11.0-15.0) % Plt Count (150-400) K/uL MPV (7.40-12.00) fL Add Manual Diff Neutrophils % (Manual) (48.0-80.0) % Band Neutrophils % % Lymphocytes % (Manual) (16.0-40.0) % Monocytes % (Manual) (0.0-15.0) % Eosinophils % (Manual) (0.0-7.0) % Nucleated RBC % /100WBC Absolute Seg Neuts (1.4-5.7) Band Neutrophils # Lymphocytes # (Manual) (0.6-2.4) Monocytes # (Manual) (0.0-0.8) Eosinophils # (Manual) (0.0-0.7) Nucleated RBCs # K/uL INR APTT (18.6-31.3) SEC ABG pH (7.35-7.45) ABG pCO2 (35-45) mmHG ABG pO2 (75-100) mmHG ABG HCO3 (22-26) mEq/L ABG Total CO2 ABG Base Excess (-2.0-2.0) Lactate 6.0 H* (0.20-2.00) mmol/L Sodium (136-145) mmol/L Potassium (3.5-5.1) mmol/L Chloride (98-107) mmol/L Carbon Dioxide (21.0-32.0) mmol/L BUN (7.0-18.0) mg/dL Creatinine (0.6-1.0) mg/dL Est Cr Clr Drug Dosing mL/min Estimated GFR (MDRD) ml/min Glucose (74-106) mg/dL POC Glucose (60-110) mg/dL Calcium (8.5-10.1) mg/dL Magnesium (1.8-2.4) mg/dL Total Bilirubin (0.2-1.0) mg/dL AST (15-37) IU/L ALT (14-63) IU/L Alkaline Phosphatase (46-116) U/L Ammonia (19-54) ug/dL Troponin I (0.000-0.056) ng/mL Total Protein (6.4-8.2) g/dL Albumin (3.4-5.0) g/dL Globulin (2.6-4.0) g/dL Albumin/Globulin Ratio (0.9-1.6) Lipase (73-393) U/L HCG, Qual (NEG) Urine Color YELLOW Urine Appearance CLEAR Urine pH 6.0 (5.0-8.0) Ur Specific Robson 1.020 (1.001-1.035) Urine Protein NEGATIVE (NEGATIVE) mg/dL Urine Glucose (UA) NEGATIVE (NEGATIVE) mg/dL Urine Ketones NEGATIVE (NEGATIVE) mg/dL Urine Occult Blood TRACE-INTACT H (NEGATIVE) Urine Nitrite POSITIVE H (NEGATIVE) Urine Bilirubin MODERATE H (NEGATIVE) Urine Ictotest POSITIVE Urine Urobilinogen 0.2 (<2.0) EU/dL Ur Leukocyte Esterase SMALL H (NEGATIVE) Urine RBC 1-2 (0-2/HPF) Urine WBC 8-10 (0-5/HPF) Ur Epithelial Cells MODERATE (NONE-FEW) Urine Bacteria 2+ H (NEGATIVE) Fluid Type Fluid Color Fluid Appearance Fluid WBC /uL Fluid RBC /uL Fluid Mononuclear Cell % Fl Polymorphonucl Cell % Fluid Glucose mg/dL Fluid Total Protein g/dL Urine Opiates Screen NEGATIVE (NEGATIVE) Ur Oxycodone Screen NEGATIVE (NEGATIVE) Urine Methadone Screen NEGATIVE (NEGATIVE) Ur Barbiturates Screen NEGATIVE (NEGATIVE) Ur Phencyclidine Scrn NEGATIVE (NEGATIVE) Ur Amphetamine Screen NEGATIVE (NEGATIVE) U Methamphetamines Scrn NEGATIVE (NEGATIVE) U Benzodiazepines Scrn NEGATIVE (NEGATIVE) U Cocaine Metab Screen NEGATIVE (NEGATIVE) U Marijuana (THC) Screen NEGATIVE (NEGATIVE) Ethyl Alcohol mg/dL SARS-CoV-2 RNA (CLAUDIA) (NEGATIVE) SARS CoV-2 RNA Rapid CLAUDIA (NEGATIVE) 04/01/20 04/01/20 04/01/20 Range/Units 22:03 22:40 23:38 WBC (4.0-11.0) K/uL RBC (4.30-5.90) M/uL Hgb (12.0-16.0) g/dL Hct (36.0-46.0) % MCV (80.0-98.0) fL MCH (27.0-32.0) pg MCHC (31.0-37.0) g/dL RDW Std Deviation (28.0-62.0) fl RDW Coeff of Tea (11.0-15.0) % Plt Count (150-400) K/uL MPV (7.40-12.00) fL Add Manual Diff Neutrophils % (Manual) (48.0-80.0) % Band Neutrophils % % Lymphocytes % (Manual) (16.0-40.0) % Monocytes % (Manual) (0.0-15.0) % Eosinophils % (Manual) (0.0-7.0) % Nucleated RBC % /100WBC Absolute Seg Neuts (1.4-5.7) Band Neutrophils # Lymphocytes # (Manual) (0.6-2.4) Monocytes # (Manual) (0.0-0.8) Eosinophils # (Manual) (0.0-0.7) Nucleated RBCs # K/uL INR APTT (18.6-31.3) SEC ABG pH (7.35-7.45) ABG pCO2 (35-45) mmHG ABG pO2 (75-100) mmHG ABG HCO3 (22-26) mEq/L ABG Total CO2 ABG Base Excess (-2.0-2.0) Lactate 5.1 H* (0.20-2.00) mmol/L Sodium (136-145) mmol/L Potassium (3.5-5.1) mmol/L Chloride (98-107) mmol/L Carbon Dioxide (21.0-32.0) mmol/L BUN (7.0-18.0) mg/dL Creatinine (0.6-1.0) mg/dL Est Cr Clr Drug Dosing mL/min Estimated GFR (MDRD) ml/min Glucose (74-106) mg/dL POC Glucose (60-110) mg/dL Calcium (8.5-10.1) mg/dL Magnesium (1.8-2.4) mg/dL Total Bilirubin (0.2-1.0) mg/dL AST (15-37) IU/L ALT (14-63) IU/L Alkaline Phosphatase (46-116) U/L Ammonia 80 H (19-54) ug/dL Troponin I (0.000-0.056) ng/mL Total Protein (6.4-8.2) g/dL Albumin (3.4-5.0) g/dL Globulin (2.6-4.0) g/dL Albumin/Globulin Ratio (0.9-1.6) Lipase (73-393) U/L HCG, Qual (NEG) Urine Color Urine Appearance Urine pH (5.0-8.0) Ur Specific Robson (1.001-1.035) Urine Protein (NEGATIVE) mg/dL Urine Glucose (UA) (NEGATIVE) mg/dL Urine Ketones (NEGATIVE) mg/dL Urine Occult Blood (NEGATIVE) Urine Nitrite (NEGATIVE) Urine Bilirubin (NEGATIVE) Urine Ictotest Urine Urobilinogen (<2.0) EU/dL Ur Leukocyte Esterase (NEGATIVE) Urine RBC (0-2/HPF) Urine WBC (0-5/HPF) Ur Epithelial Cells (NONE-FEW) Urine Bacteria (NEGATIVE) Fluid Type Fluid Color Fluid Appearance Fluid WBC /uL Fluid RBC /uL Fluid Mononuclear Cell % Fl Polymorphonucl Cell % Fluid Glucose mg/dL Fluid Total Protein g/dL Urine Opiates Screen (NEGATIVE) Ur Oxycodone Screen (NEGATIVE) Urine Methadone Screen (NEGATIVE) Ur Barbiturates Screen (NEGATIVE) Ur Phencyclidine Scrn (NEGATIVE) Ur Amphetamine Screen (NEGATIVE) U Methamphetamines Scrn (NEGATIVE) U Benzodiazepines Scrn (NEGATIVE) U Cocaine Metab Screen (NEGATIVE) U Marijuana (THC) Screen (NEGATIVE) Ethyl Alcohol mg/dL SARS-CoV-2 RNA (CLAUDIA) NEGATIVE (NEGATIVE) SARS CoV-2 RNA Rapid CLAUDIA (NEGATIVE) 04/02/20 04/02/20 04/02/20 Range/Units 04:16 04:16 04:16 WBC 30.35 H (4.0-11.0) K/uL RBC 2.31 L (4.30-5.90) M/uL Hgb 8.2 L (12.0-16.0) g/dL Hct 25.1 L (36.0-46.0) % MCV 108.7 H (80.0-98.0) fL MCH 35.5 H (27.0-32.0) pg MCHC 32.7 (31.0-37.0) g/dL RDW Std Deviation 68.7 H (28.0-62.0) fl RDW Coeff of Tea 17 H (11.0-15.0) % Plt Count 239 (150-400) K/uL MPV 11.50 (7.40-12.00) fL Add Manual Diff YES Neutrophils % (Manual) 79 (48.0-80.0) % Band Neutrophils % 6 % Lymphocytes % (Manual) 8 L (16.0-40.0) % Monocytes % (Manual) 6 (0.0-15.0) % Eosinophils % (Manual) 1 (0.0-7.0) % Nucleated RBC % 0.3 /100WBC Absolute Seg Neuts 24.0 H (1.4-5.7) Band Neutrophils # 1.8 Lymphocytes # (Manual) 2.4 (0.6-2.4) Monocytes # (Manual) 1.8 H (0.0-0.8) Eosinophils # (Manual) 0.3 (0.0-0.7) Nucleated RBCs # 0 K/uL INR 2.21 APTT (18.6-31.3) SEC ABG pH (7.35-7.45) ABG pCO2 (35-45) mmHG ABG pO2 (75-100) mmHG ABG HCO3 (22-26) mEq/L ABG Total CO2 ABG Base Excess (-2.0-2.0) Lactate (0.20-2.00) mmol/L Sodium 134 L (136-145) mmol/L Potassium 4.3 (3.5-5.1) mmol/L Chloride 99 (98-107) mmol/L Carbon Dioxide 18.8 L (21.0-32.0) mmol/L BUN 7 (7.0-18.0) mg/dL Creatinine 1.7 H (0.6-1.0) mg/dL Est Cr Clr Drug Dosing 40.10 mL/min Estimated GFR (MDRD) 33.8 ml/min Glucose 63 L (74-106) mg/dL POC Glucose (60-110) mg/dL Calcium 7.7 L (8.5-10.1) mg/dL Magnesium (1.8-2.4) mg/dL Total Bilirubin 4.2 H (0.2-1.0) mg/dL AST 152 H (15-37) IU/L ALT 50 (14-63) IU/L Alkaline Phosphatase 200 H (46-116) U/L Ammonia (19-54) ug/dL Troponin I (0.000-0.056) ng/mL Total Protein 5.1 L (6.4-8.2) g/dL Albumin 1.3 L (3.4-5.0) g/dL Globulin 3.8 (2.6-4.0) g/dL Albumin/Globulin Ratio 0.3 L (0.9-1.6) Lipase (73-393) U/L HCG, Qual (NEG) Urine Color Urine Appearance Urine pH (5.0-8.0) Ur Specific Robson (1.001-1.035) Urine Protein (NEGATIVE) mg/dL Urine Glucose (UA) (NEGATIVE) mg/dL Urine Ketones (NEGATIVE) mg/dL Urine Occult Blood (NEGATIVE) Urine Nitrite (NEGATIVE) Urine Bilirubin (NEGATIVE) Urine Ictotest Urine Urobilinogen (<2.0) EU/dL Ur Leukocyte Esterase (NEGATIVE) Urine RBC (0-2/HPF) Urine WBC (0-5/HPF) Ur Epithelial Cells (NONE-FEW) Urine Bacteria (NEGATIVE) Fluid Type Fluid Color Fluid Appearance Fluid WBC /uL Fluid RBC /uL Fluid Mononuclear Cell % Fl Polymorphonucl Cell % Fluid Glucose mg/dL Fluid Total Protein g/dL Urine Opiates Screen (NEGATIVE) Ur Oxycodone Screen (NEGATIVE) Urine Methadone Screen (NEGATIVE) Ur Barbiturates Screen (NEGATIVE) Ur Phencyclidine Scrn (NEGATIVE) Ur Amphetamine Screen (NEGATIVE) U Methamphetamines Scrn (NEGATIVE) U Benzodiazepines Scrn (NEGATIVE) U Cocaine Metab Screen (NEGATIVE) U Marijuana (THC) Screen (NEGATIVE) Ethyl Alcohol mg/dL SARS-CoV-2 RNA (CLAUDIA) (NEGATIVE) SARS CoV-2 RNA Rapid CLAUDIA (NEGATIVE) 04/02/20 Range/Units 04:16 WBC (4.0-11.0) K/uL RBC (4.30-5.90) M/uL Hgb (12.0-16.0) g/dL Hct (36.0-46.0) % MCV (80.0-98.0) fL MCH (27.0-32.0) pg MCHC (31.0-37.0) g/dL RDW Std Deviation (28.0-62.0) fl RDW Coeff of Tea (11.0-15.0) % Plt Count (150-400) K/uL MPV (7.40-12.00) fL Add Manual Diff Neutrophils % (Manual) (48.0-80.0) % Band Neutrophils % % Lymphocytes % (Manual) (16.0-40.0) % Monocytes % (Manual) (0.0-15.0) % Eosinophils % (Manual) (0.0-7.0) % Nucleated RBC % /100WBC Absolute Seg Neuts (1.4-5.7) Band Neutrophils # Lymphocytes # (Manual) (0.6-2.4) Monocytes # (Manual) (0.0-0.8) Eosinophils # (Manual) (0.0-0.7) Nucleated RBCs # K/uL INR APTT (18.6-31.3) SEC ABG pH (7.35-7.45) ABG pCO2 (35-45) mmHG ABG pO2 (75-100) mmHG ABG HCO3 (22-26) mEq/L ABG Total CO2 ABG Base Excess (-2.0-2.0) Lactate 4.0 H* (0.20-2.00) mmol/L Sodium (136-145) mmol/L Potassium (3.5-5.1) mmol/L Chloride (98-107) mmol/L Carbon Dioxide (21.0-32.0) mmol/L BUN (7.0-18.0) mg/dL Creatinine (0.6-1.0) mg/dL Est Cr Clr Drug Dosing mL/min Estimated GFR (MDRD) ml/min Glucose (74-106) mg/dL POC Glucose (60-110) mg/dL Calcium (8.5-10.1) mg/dL Magnesium (1.8-2.4) mg/dL Total Bilirubin (0.2-1.0) mg/dL AST (15-37) IU/L ALT (14-63) IU/L Alkaline Phosphatase (46-116) U/L Ammonia (19-54) ug/dL Troponin I (0.000-0.056) ng/mL Total Protein (6.4-8.2) g/dL Albumin (3.4-5.0) g/dL Globulin (2.6-4.0) g/dL Albumin/Globulin Ratio (0.9-1.6) Lipase (73-393) U/L HCG, Qual (NEG) Urine Color Urine Appearance Urine pH (5.0-8.0) Ur Specific Robson (1.001-1.035) Urine Protein (NEGATIVE) mg/dL Urine Glucose (UA) (NEGATIVE) mg/dL Urine Ketones (NEGATIVE) mg/dL Urine Occult Blood (NEGATIVE) Urine Nitrite (NEGATIVE) Urine Bilirubin (NEGATIVE) Urine Ictotest Urine Urobilinogen (<2.0) EU/dL Ur Leukocyte Esterase (NEGATIVE) Urine RBC (0-2/HPF) Urine WBC (0-5/HPF) Ur Epithelial Cells (NONE-FEW) Urine Bacteria (NEGATIVE) Fluid Type Fluid Color Fluid Appearance Fluid WBC /uL Fluid RBC /uL Fluid Mononuclear Cell % Fl Polymorphonucl Cell % Fluid Glucose mg/dL Fluid Total Protein g/dL Urine Opiates Screen (NEGATIVE) Ur Oxycodone Screen (NEGATIVE) Urine Methadone Screen (NEGATIVE) Ur Barbiturates Screen (NEGATIVE) Ur Phencyclidine Scrn (NEGATIVE) Ur Amphetamine Screen (NEGATIVE) U Methamphetamines Scrn (NEGATIVE) U Benzodiazepines Scrn (NEGATIVE) U Cocaine Metab Screen (NEGATIVE) U Marijuana (THC) Screen (NEGATIVE) Ethyl Alcohol mg/dL SARS-CoV-2 RNA (CLAUDIA) (NEGATIVE) SARS CoV-2 RNA Rapid CLAUDIA (NEGATIVE) Cricket Results Last 24 Hours: Microbiology 04/01/20 17:35 Gram Stain - Preliminary Perineal Fluid Med Orders - Current: Current Medications Lipase/Protease/Amylase (Creon Dr 24,000 Units) 3 cap PO TIDMEALS [facility] Enoxaparin Sodium (Lovenox) 40 mg SUBCUT BID [facility] Last Admin: 04/02/20 00:20 Dose: 40 mg Documented by: Sodium Chloride (Normal Saline) 1,000 mls @ 75 mls/hr IV ASDIRECTED [facility] Last Admin: 04/01/20 20:07 Dose: 75 mls/hr Documented by: Cefepime HCl 2 gm/ Premix 50 mls @ 100 mls/hr IV Q8H [facility] Last Admin: 04/02/20 02:56 Dose: 100 mls/hr Documented by: Lactulose (Chronulac) 10 gm PO BID [facility] Last Admin: 04/02/20 00:22 Dose: 10 gm Documented by: Pantoprazole Sodium (Protonix) 40 mg PO DAILY [facility] Rifaximin (Xifaxan) 550 mg PO BID [facility] Sodium Chloride (Saline Flush) 10 ml FLUSH ASDIRECTED PRN PRN Reason: Keep Vein Open Last Admin: 04/01/20 16:56 Dose: 10 ml Documented by: Sodium Chloride (Saline Flush) 2.5 ml FLUSH ASDIRECTED PRN PRN Reason: Keep Vein Open Last Admin: 04/01/20 16:55 Dose: 2.5 ml Documented by: Discontinued Medications Hydromorphone HCl (Dilaudid) 1 mg IVPUSH ONETIME ONE Stop: 04/01/20 16:41 Last Admin: 04/01/20 16:55 Dose: 1 mg Documented by: Hydromorphone HCl (Dilaudid) 1 mg IVPUSH ONETIME ONE Stop: 04/01/20 18:00 Last Admin: 04/01/20 18:08 Dose: 1 mg Documented by: Albumin Human (Flexbumin 25%) 12.5 gm in 50 mls @ 100 mls/hr IV ONETIME ONE Stop: 04/01/20 17:26 Last Admin: 04/01/20 17:56 Dose: Not Given Documented by: Albumin Human (Flexbumin 25%) 12.5 gm in 50 mls @ 100 mls/hr IV ONETIME ONE Stop: 04/01/20 17:28 Last Admin: 04/01/20 17:25 Dose: 100 mls/hr Documented by: Sodium Chloride (Normal Saline) 1,000 mls @ 999 mls/hr IV .Bolus ONE Stop: 04/01/20 18:05 Last Admin: 04/01/20 17:24 Dose: 999 mls/hr Documented by: Piperacillin Sod/Tazobactam (Sod 3.375 gm/ Sodium Chloride) 50 mls @ 100 mls/hr IV ONETIME ONE Stop: 04/01/20 18:39 Last Admin: 04/01/20 18:48 Dose: 100 mls/hr Documented by: Cefotaxime Sodium 2 gm/ Sodium (Chloride) 100 mls @ 200 mls/hr IV Q8HR [facility] Albumin Human (Flexbumin 25%) 12.5 gm in 50 mls @ 100 mls/hr IV ONETIME ONE Stop: 04/01/20 23:59 Last Admin: 04/02/20 00:14 Dose: 100 mls/hr Documented by: Albumin Human (Flexbumin 25%) 12.5 gm in 50 mls @ 100 mls/hr IV ONETIME ONE Stop: 04/02/20 00:29 Last Admin: 04/02/20 01:02 Dose: 100 mls/hr Documented by: Lactulose (Chronulac) 10 gm PO ONETIME ONE Stop: 04/01/20 22:07 Last Admin: 04/01/20 22:25 Dose: 10 gm Documented by: - Exam Quality Assessment: DVT Prophylaxis General: Alert, Oriented, Cooperative, No Acute Distress HEENT: Pupils Equal, Pupils Reactive, EOMI, Mucous Membr. Moist/[place]. No: Scleral Icterus Neck: Supple, Trachea Midline, No JVD. No: Lymphadenopathy Lungs: Clear to Auscultation, Normal Respiratory Effort Cardiovascular: Regular Rate, Regular Rhythm GI/Abdominal Exam: Normal Bowel Sounds, Soft, Distended (mild improved from last night s/p paracentesis), Tender. No: Guarding, Rigid, Rebound Extremities: Normal Inspection, Normal Range of Motion, Non-Tender, No Pedal Edema, Normal Capillary Refill Peripheral Pulses: 2+: Dorsalis Pedis (L), Dorsalis Pedis (R) Skin: Warm, Dry, Intact Wound/Incisions: Healing Well Neurological: No New Focal Deficit Psy/Mental Status: Alert, Normal Affect, Normal Mood Sepsis Event Note - Evaluation Sepsis Screening Result: Severe Sepsis Risk - Focused Exam Vital Signs: Vital Signs Temp Temp Pulse Resp BP Pulse Ox 04/02/20 04:04 96.8 F L 111 H 17 97/50 L 94 L 04/02/20 00:08 97.6 F 114 H 18 101/50 L 99 04/01/20 22:29 97.5 F 114 H 18 97/44 L 96 - Problem List & Annotations (1) Ileus SNOMED Code(s): 548439651 Code(s): K56.7 - ILEUS, UNSPECIFIED Status: Acute Current Visit: Yes (2) SBP (spontaneous bacterial peritonitis) SNOMED Code(s): 19030242 Code(s): K65.2 - SPONTANEOUS BACTERIAL PERITONITIS Status: Acute Current Visit: Yes (3) Sepsis SNOMED Code(s): 30844955 Code(s): A41.9 - SEPSIS, UNSPECIFIED ORGANISM Status: Acute Current Visit: Yes Qualifiers: Sepsis type: sepsis due to unspecified organism Severe sepsis acute organ dysfunction type: encephalopathy (4) UTI (urinary tract infection) SNOMED Code(s): 28598089 Code(s): N39.0 - URINARY TRACT INFECTION, SITE NOT SPECIFIED Status: Acute Current Visit: Yes (5) Ascites due to alcoholic cirrhosis SNOMED Code(s): 2025314319912004 Code(s): K70.31 - ALCOHOLIC CIRRHOSIS OF LIVER WITH ASCITES Status: Chronic Current Visit: Yes (6) Hepatic encephalopathy SNOMED Code(s): 90065764 Code(s): K72.90 - HEPATIC FAILURE, UNSPECIFIED WITHOUT COMA Status: Acute Current Visit: Yes - Problem List Review Problem List Initiated/Reviewed/Updated: Yes - Plan Plan:: 39 yo female with history of liver cirrhosis admitted for sepsis from SBP 1. Sepsis: After 2L NS fluid bolus lactic acid has lowered to 6, on reexamination patient appears to be perfusing well. We will continue IV fluids and trend lactic acid. 2. SBP/UTI: will treat with cefepime, wbc trending down , otherwise may have considered gram positive coverage with Vancomycin as well. Pt appears to be responding well, vitals have improved. Will adjust abx based on cultures pending that are pending. 3. CALLY: on fluids, trending down, continue to monitor. Low albumin therefore replete until lactic acidosis resolves. 4. Hepatic encephalopathy: continue rifaximin, increased lactulose dose to BID. Pt is AOx3, much improved from last night when initially admitted per report. 5. Constipation: on lactulose, possible ileus per Abdo/CT, given fleet enema. Clear liquid diet 6. History of Portal vein thrombus; is being kept on DVT ppx with SCD's and 40 SubQ Q24 lovenox ppx. 7.Acute Cystitis: + UA with leuk esterase and bacteria. Cultures pending, currently being treated with cefipime. Will narrow abx based on cultures. No dysuria, or CVA/ suprabubic tenderness on exam. 8. PMHx of fungal infection of Pseudocyt therefore will continue with Fluconazole, could consider micrafungin. Hx of liver Cirrhosis and alcohol abuse; therefore continue with electrolyte supplementation.
[2020-04-02] MEDS ORDERED: Rifaximin 550 MG Tab PO SCH (09:00)
[2020-04-02] MEDS: Pantoprazole 40 MG Tab.CR PO SCH (09:22)
[2020-04-02] MEDS ORDERED: Fluconazole 100 MG Tab PO SCH (09:45)
[2020-04-02] MEDS: Amylase/Lipase/Protease 24,000 Unit Cap.CR PO SCH ×2 (10:10→14:02)
[2020-04-02] MEDS: Albumin 25% 12.5 GM/50 ML BAG IV SCH ×2 (10:12→11:22)
[2020-04-02] MEDS: NORMAL SALINE IV SCH (11:26)
[2020-04-02] MEDS: FLUCONAZOLE IV SCH (11:26)
[2020-04-02] MEDS ORDERED: Morphine 2 MG/ML SYRINGE IVPUSH ONE (12:06)
[2020-04-02] MEDS: Sodium Chloride 0.9% 1,000 ML IV SCH (13:27)
[2020-04-02] MEDS: Gabapentin 300 MG Cap PO SCH ×2 (13:47→21:11)
[2020-04-02] MEDS: LIPASE PO SCH (17:26)
[2020-04-02] MEDS: PROTEASE PO SCH (17:26)
[2020-04-02] MEDS: AMYLASE PO SCH (17:26)
[2020-04-02] MEDS ORDERED: Sodium Chloride 0.9% 1,000 ML IV SCH (19:00)
[2020-04-02] MEDS ORDERED: Lactated Ringers 1,000 ML IV ONE (19:16)
[2020-04-02 19:17] LABS: CARBON DIOXIDE,CO2 20.1 mmol/L (21.0-32.0); POTASSIUM,K 4.8 mmol/L (3.5-5.1)
[2020-04-02] MEDS: QUEtiapine 100 MG Tab PO SCH (21:09)
[2020-04-02] MEDS: Rifaximin 550 MG Tab PO SCH (21:10)
[2020-04-03] MEDS: Lactulose Soln 10 GM/15 ML 15 ML UD Cup PO SCH ×6 (01:46→22:46)
[2020-04-03] MEDS: Cefepime 2 GM in Premix Bag 1 BAG IV SCH ×3 (03:25→18:28)
[2020-04-03] MEDS: Gabapentin 300 MG Cap PO SCH ×3 (06:14→21:02)
[2020-04-03 06:55] LABS: CARBON DIOXIDE,CO2 19.6 mmol/L (21.0-32.0); POTASSIUM,K 3.8 mmol/L (3.5-5.1)
[2020-04-03] MEDS ORDERED: Spironolactone 25 MG Tab PO SCH (09:00)
[2020-04-03] MEDS ORDERED: Furosemide 20 MG Tab PO SCH (09:00)
[2020-04-03] MEDS: Folic Acid 1 MG Tab PO SCH (09:13)
[2020-04-03] MEDS: Potassium Chloride 20 MEQ Tab.ER PO SCH (09:14)
[2020-04-03] MEDS: Ferrous Sulfate 325 MG Tab PO SCH (09:14)
[2020-04-03] MEDS: Pantoprazole 40 MG Tab.CR PO SCH (09:15)
[2020-04-03] MEDS: Magnesium Oxide 400 MG Tab PO SCH (09:15)
[2020-04-03] MEDS: Enoxaparin 40 MG/0.4 ML Syringe SUBCUT SCH (09:16)
[2020-04-03] MEDS: Thiamine 100 MG Tab PO SCH (09:24)
[2020-04-03] MEDS: AMYLASE PO SCH ×4 (09:28→18:22)
[2020-04-03] MEDS: LIPASE PO SCH ×4 (09:28→18:22)
[2020-04-03] MEDS: PROTEASE PO SCH ×4 (09:28→18:22)
[2020-04-03] MEDS: Rifaximin 550 MG Tab PO SCH ×2 (09:29→21:02)
[2020-04-03] MEDS: FLUCONAZOLE IV SCH (10:27)
[2020-04-03] MEDS: NORMAL SALINE IV SCH (10:27)
[2020-04-03] MEDS ORDERED: Albumin 25% 12.5 GM/50 ML BAG IV STA (10:39)
[2020-04-03] MEDS ORDERED: Albumin 25% 12.5 GM/50 ML BAG IV ONE ×2 (10:40→17:08)
[2020-04-03] MEDS: Morphine 2 MG/ML SYRINGE IVPUSH PRN ×3 (11:28→21:01)
--- NOTE | 2020-04-03 13:17 | PCM.PN ---
- General Info Date of Service: 04/03/20 Admission Dx/Problem (Free Text): Admission Diagnosis/Problem Admission Diagnosis/Problem Spontaneous bacterial peritonitis Subjective Update: Pt is a 39 y/o with h/o ETOH abuse, Cirrhosis, and Pancreatitis. Was prev d/c on Mar 26 s/p stent placement for a procedure on her pancreatic pseudocyst. Overnight, she remained afebrile, but remains hypotensive and tachicardic. Hypotension has imoprved with fluids. Patient states she slept well but is complaining of leg pain and discomfort. There was no swelling, erythema, or tenderness to palpation, s.o.b., fever or chills noted at bedside. She is AOx3. Still has not had a BM, but has been given an enema and lactulose was increased. Abdomen is soft , but tender to palpation this morning, but there is no rebound or guarding. Functional Status: Reports: Tolerating Diet - Review of Systems General: Denies: Fever, Weakness, Chills, Night Sweats HEENT: Reports: No Symptoms Pulmonary: Reports: No Symptoms Cardiovascular: Reports: No Symptoms Gastrointestinal: Reports: Abdominal Pain, Flatus. Denies: Nausea, Vomiting Genitourinary: Reports: No Symptoms. Denies: Dysuria, Frequency, Burning, Hematuria, Flank Pain Musculoskeletal: Reports: Back Pain, Leg Pain. Denies: Joint Swelling Skin: Reports: No Symptoms Neurological: Reports: No Symptoms Psychiatric: Reports: No Symptoms - Patient Data Vitals - Most Recent: Last Vital Signs Temp 99 F 04/03/20 11:00 Pulse 103 H 04/03/20 11:00 Resp 16 04/03/20 11:00 BP 93/48 L 04/03/20 11:00 Pulse Ox 90 L 04/03/20 11:00 Weight - Most Recent: 123 lb 9.6 oz I&O - Last 24 Hours: Intake & Output 04/02/20 04/03/20 04/03/20 22:59 06:59 14:59 Intake Total 2460 2268 Balance 2460 2268 Lab Results Last 24 Hours: Laboratory Results - last 24 hr 04/02/20 04/02/20 04/02/20 Range/Units 18:45 18:45 18:59 WBC 37.66 H (4.0-11.0) K/uL RBC 2.32 L (4.30-5.90) M/uL Hgb 8.4 L (12.0-16.0) g/dL Hct 25.3 L (36.0-46.0) % MCV 109.1 H (80.0-98.0) fL MCH 36.2 H (27.0-32.0) pg MCHC 33.2 (31.0-37.0) g/dL RDW Std Deviation 68.7 H (28.0-62.0) fl RDW Coeff of Tea 17 H (11.0-15.0) % Plt Count 224 (150-400) K/uL MPV 11.40 (7.40-12.00) fL Add Manual Diff YES Neutrophils % (Manual) 85 H (48.0-80.0) % Band Neutrophils % 7 % Lymphocytes % (Manual) 5 L (16.0-40.0) % Monocytes % (Manual) 3 (0.0-15.0) % Eosinophils % (Manual) (0.0-7.0) % Metamyelocytes % % Nucleated RBC % 0.2 /100WBC Absolute Seg Neuts 32.0 H (1.4-5.7) Band Neutrophils # 2.6 Lymphocytes # (Manual) 1.9 (0.6-2.4) Monocytes # (Manual) 1.1 H (0.0-0.8) Eosinophils # (Manual) (0.0-0.7) Absolute Metamyelocyte Nucleated RBCs # 0 K/uL Lactate 4.6 H* (0.20-2.00) mmol/L Sodium 136 (136-145) mmol/L Potassium 4.8 (3.5-5.1) mmol/L Chloride 101 (98-107) mmol/L Carbon Dioxide 20.1 L (21.0-32.0) mmol/L BUN 7 (7.0-18.0) mg/dL Creatinine 1.6 H (0.6-1.0) mg/dL Est Cr Clr Drug Dosing 42.61 mL/min Estimated GFR (MDRD) 36.3 ml/min Glucose 71 L (74-106) mg/dL Calcium 7.5 L (8.5-10.1) mg/dL Magnesium (1.8-2.4) mg/dL Total Bilirubin 4.6 H (0.2-1.0) mg/dL AST 141 H (15-37) IU/L ALT 48 (14-63) IU/L Alkaline Phosphatase 202 H (46-116) U/L Total Protein 5.3 L (6.4-8.2) g/dL Albumin 1.6 L (3.4-5.0) g/dL Globulin 3.7 (2.6-4.0) g/dL Albumin/Globulin Ratio 0.4 L (0.9-1.6) 04/03/20 04/03/20 04/03/20 Range/Units 00:25 06:25 06:25 WBC 35.96 H (4.0-11.0) K/uL RBC 2.42 L (4.30-5.90) M/uL Hgb 8.6 L (12.0-16.0) g/dL Hct 26.2 L (36.0-46.0) % MCV 108.3 H (80.0-98.0) fL MCH 35.5 H (27.0-32.0) pg MCHC 32.8 (31.0-37.0) g/dL RDW Std Deviation 69.8 H (28.0-62.0) fl RDW Coeff of Tea 18 H (11.0-15.0) % Plt Count 225 (150-400) K/uL MPV 11.60 (7.40-12.00) fL Add Manual Diff YES Neutrophils % (Manual) 73 (48.0-80.0) % Band Neutrophils % 8 % Lymphocytes % (Manual) 12 L (16.0-40.0) % Monocytes % (Manual) 5 (0.0-15.0) % Eosinophils % (Manual) 1 (0.0-7.0) % Metamyelocytes % 1 % Nucleated RBC % 0.2 /100WBC Absolute Seg Neuts 26.3 H (1.4-5.7) Band Neutrophils # 2.9 Lymphocytes # (Manual) 4.3 H (0.6-2.4) Monocytes # (Manual) 1.8 H (0.0-0.8) Eosinophils # (Manual) 0.4 (0.0-0.7) Absolute Metamyelocyte 0.4 Nucleated RBCs # 0 K/uL Lactate 3.2 H* (0.20-2.00) mmol/L Sodium 136 (136-145) mmol/L Potassium 3.8 (3.5-5.1) mmol/L Chloride 102 (98-107) mmol/L Carbon Dioxide 19.6 L (21.0-32.0) mmol/L BUN 7 (7.0-18.0) mg/dL Creatinine 1.6 H (0.6-1.0) mg/dL Est Cr Clr Drug Dosing 42.61 mL/min Estimated GFR (MDRD) 36.3 ml/min Glucose 62 L (74-106) mg/dL Calcium 7.3 L (8.5-10.1) mg/dL Magnesium 1.8 (1.8-2.4) mg/dL Total Bilirubin 4.4 H (0.2-1.0) mg/dL AST 113 H (15-37) IU/L ALT 45 (14-63) IU/L Alkaline Phosphatase 194 H (46-116) U/L Total Protein 4.8 L (6.4-8.2) g/dL Albumin 1.3 L (3.4-5.0) g/dL Globulin 3.5 (2.6-4.0) g/dL Albumin/Globulin Ratio 0.4 L (0.9-1.6) 04/03/20 04/03/20 Range/Units 06:25 12:27 WBC (4.0-11.0) K/uL RBC (4.30-5.90) M/uL Hgb (12.0-16.0) g/dL Hct (36.0-46.0) % MCV (80.0-98.0) fL MCH (27.0-32.0) pg MCHC (31.0-37.0) g/dL RDW Std Deviation (28.0-62.0) fl RDW Coeff of Tea (11.0-15.0) % Plt Count (150-400) K/uL MPV (7.40-12.00) fL Add Manual Diff Neutrophils % (Manual) (48.0-80.0) % Band Neutrophils % % Lymphocytes % (Manual) (16.0-40.0) % Monocytes % (Manual) (0.0-15.0) % Eosinophils % (Manual) (0.0-7.0) % Metamyelocytes % % Nucleated RBC % /100WBC Absolute Seg Neuts (1.4-5.7) Band Neutrophils # Lymphocytes # (Manual) (0.6-2.4) Monocytes # (Manual) (0.0-0.8) Eosinophils # (Manual) (0.0-0.7) Absolute Metamyelocyte Nucleated RBCs # K/uL Lactate 3.1 H* 2.9 H* (0.20-2.00) mmol/L Sodium (136-145) mmol/L Potassium (3.5-5.1) mmol/L Chloride (98-107) mmol/L Carbon Dioxide (21.0-32.0) mmol/L BUN (7.0-18.0) mg/dL Creatinine (0.6-1.0) mg/dL Est Cr Clr Drug Dosing mL/min Estimated GFR (MDRD) ml/min Glucose (74-106) mg/dL Calcium (8.5-10.1) mg/dL Magnesium (1.8-2.4) mg/dL Total Bilirubin (0.2-1.0) mg/dL AST (15-37) IU/L ALT (14-63) IU/L Alkaline Phosphatase (46-116) U/L Total Protein (6.4-8.2) g/dL Albumin (3.4-5.0) g/dL Globulin (2.6-4.0) g/dL Albumin/Globulin Ratio (0.9-1.6) Cricket Results Last 24 Hours: Microbiology 04/01/20 17:35 Gram Stain - Final Perineal Fluid Body Fluid Culture - Final No Growth 04/01/20 20:25 Urine Culture - Final Urine, Clean Catch [place] Alvei 04/01/20 17:17 Aerobic Blood Culture - Preliminary Blood - Venous - Lab Draw NO GROWTH AFTER 1 DAY Anaerobic Blood Culture - Preliminary NO GROWTH AFTER 1 DAY 04/01/20 17:07 Aerobic Blood Culture - Preliminary Blood - Venous NO GROWTH AFTER 1 DAY Anaerobic Blood Culture - Preliminary NO GROWTH AFTER 1 DAY Med Orders - Current: Current Medications Enoxaparin Sodium (Lovenox) 40 mg SUBCUT BID [facility] Last Admin: 04/03/20 09:16 Dose: 40 mg Documented by: Ferrous Sulfate (Ferrous Sulfate) 325 mg PO DAILY [facility] Last Admin: 04/03/20 09:14 Dose: 325 mg Documented by: Folic Acid (Folic Acid) 1 mg PO DAILY [facility] Last Admin: 04/03/20 09:13 Dose: 1 mg Documented by: Gabapentin (Neurontin) 300 mg PO TID [facility] Last Admin: 04/03/20 06:14 Dose: 300 mg Documented by: Cefepime HCl 2 gm/ Premix 50 mls @ 100 mls/hr IV Q8H [facility] Last Admin: 04/03/20 12:19 Dose: 100 mls/hr Documented by: Fluconazole/Sodium Chloride (400 mg/ Premix) 200 mls @ 100 mls/hr IV Q24H [facility] Last Admin: 04/03/20 10:27 Dose: 100 mls/hr Documented by: Sodium Chloride (Normal Saline) 1,000 mls @ 75 mls/hr IV ASDIRECTED [facility] Last Admin: 04/03/20 03:23 Dose: 75 mls/hr Documented by: Vancomycin HCl 1 gm/ Sodium (Chloride) 250 mls @ 250 mls/hr IV Q12H [facility] Last Admin: 04/03/20 09:20 Dose: 250 mls/hr Documented by: Lactulose (Chronulac) 10 gm PO Q4H [facility] Last Admin: 04/03/20 10:58 Dose: 10 gm Documented by: Magnesium Oxide (Magnesium Oxide) 400 mg PO DAILY [facility] Last Admin: 04/03/20 09:15 Dose: 400 mg Documented by: Morphine Sulfate (Morphine) 2 mg IVPUSH Q4H PRN PRN Reason: Pain Last Admin: 04/03/20 11:28 Dose: 2 mg Documented by: Pantoprazole Sodium (Protonix) 40 mg PO DAILY [facility] Last Admin: 04/03/20 09:15 Dose: 40 mg Documented by: Rifaximin 550 Mg Tab 1 each PO BID [facility] Last Admin: 04/03/20 09:29 Dose: 1 each Documented by: Amylase/Lipase/Protease 36,000 Unit Cap.Cr 2 each PO TIDMEALS [facility] Last Admin: 04/03/20 12:58 Dose: 2 each Documented by: Potassium Chloride (Klor-Con M20) 20 meq PO DAILY [facility] Last Admin: 04/03/20 09:14 Dose: 20 meq Documented by: Quetiapine Fumarate (Seroquel) 100 mg PO BEDTIME [facility] Last Admin: 04/02/20 21:09 Dose: 100 mg Documented by: Sodium Chloride (Saline Flush) 10 ml FLUSH ASDIRECTED PRN PRN Reason: Keep Vein Open Last Admin: 04/01/20 16:56 Dose: 10 ml Documented by: Sodium Chloride (Saline Flush) 2.5 ml FLUSH ASDIRECTED PRN PRN Reason: Keep Vein Open Last Admin: 04/01/20 16:55 Dose: 2.5 ml Documented by: Thiamine HCl (Vitamin B-1) 100 mg PO DAILY [facility] Last Admin: 04/03/20 09:24 Dose: 100 mg Documented by: Vancomycin HCl (Pharmacy To Dose - Vancomycin) 1 dose .XX ASDIRECTED L[facility] Discontinued Medications Lipase/Protease/Amylase ([place] 24,000 Units) 3 cap PO TIDMEALS [facility] Last Admin: 04/02/20 14:02 Dose: Not Given Documented by: Hydromorphone HCl (Dilaudid) 1 mg IVPUSH ONETIME ONE Stop: 04/01/20 16:41 Last Admin: 04/01/20 16:55 Dose: 1 mg Documented by: Hydromorphone HCl (Dilaudid) 1 mg IVPUSH ONETIME ONE Stop: 04/01/20 18:00 Last Admin: 04/01/20 18:08 Dose: 1 mg Documented by: Albumin Human (Flexbumin 25%) 12.5 gm in 50 mls @ 100 mls/hr IV ONETIME ONE Stop: 04/01/20 17:26 Last Admin: 04/01/20 17:56 Dose: Not Given Documented by: Albumin Human (Flexbumin 25%) 12.5 gm in 50 mls @ 100 mls/hr IV ONETIME ONE Stop: 04/01/20 17:28 Last Admin: 04/01/20 17:25 Dose: 100 mls/hr Documented by: Sodium Chloride (Normal Saline) 1,000 mls @ 999 mls/hr IV .Bolus ONE Stop: 04/01/20 18:05 Last Admin: 04/01/20 17:24 Dose: 999 mls/hr Documented by: Piperacillin Sod/Tazobactam (Sod 3.375 gm/ Sodium Chloride) 50 mls @ 100 mls/hr IV ONETIME ONE Stop: 04/01/20 18:39 Last Admin: 04/01/20 18:48 Dose: 100 mls/hr Documented by: Sodium Chloride (Normal Saline) 1,000 mls @ 75 mls/hr IV ASDIRECTED [facility] Last Admin: 04/02/20 13:27 Dose: 75 mls/hr Documented by: Cefotaxime Sodium 2 gm/ Sodium (Chloride) 100 mls @ 200 mls/hr IV Q8HR [facility] Albumin Human (Flexbumin 25%) 12.5 gm in 50 mls @ 100 mls/hr IV ONETIME ONE Stop: 04/01/20 23:59 Last Admin: 04/02/20 00:14 Dose: 100 mls/hr Documented by: Albumin Human (Flexbumin 25%) 12.5 gm in 50 mls @ 100 mls/hr IV ONETIME ONE Stop: 04/02/20 00:29 Last Admin: 04/02/20 01:02 Dose: 100 mls/hr Documented by: Albumin Human (Flexbumin 25%) 12.5 gm in 50 mls @ 100 mls/hr IV ASDIRECTED [facility] Stop: 04/03/20 09:59 Last Admin: 04/02/20 11:22 Dose: 100 mls/hr Documented by: Vancomycin HCl 1.5 gm/ Premix 300 mls @ 300 mls/hr IV ONETIME ONE Stop: 04/02/20 20:59 Last Admin: 04/02/20 19:42 Dose: 300 mls/hr Documented by: Lactated Ringer's (Ringers, Lactated) 1,000 mls @ 999 mls/hr IV .BOLUS ONE Stop: 04/02/20 20:16 Last Admin: 04/02/20 19:38 Dose: 999 mls/hr Documented by: Albumin Human (Flexbumin 25%) 12.5 gm in 50 mls @ 100 mls/hr IV NOW STA Stop: 04/03/20 11:08 Last Admin: 04/03/20 10:59 Dose: 100 mls/hr Documented by: Albumin Human (Flexbumin 25%) 12.5 gm in 50 mls @ 100 mls/hr IV ONETIME ONE Stop: 04/03/20 11:09 Last Admin: 04/03/20 11:38 Dose: 100 mls/hr Documented by: Lactulose (Chronulac) 10 gm PO ONETIME ONE Stop: 04/01/20 22:07 Last Admin: 04/01/20 22:25 Dose: 10 gm Documented by: Lactulose (Chronulac) 10 gm PO BID [facility] Last Admin: 04/02/20 09:22 Dose: 10 gm Documented by: Lactulose (Chronulac) 10 gm PO TID [facility] Last Admin: 04/02/20 13:48 Dose: 10 gm Documented by: Lactulose (Chronulac) 10 gm PO Q6H [facility] Last Admin: 04/03/20 06:14 Dose: 10 gm Documented by: Morphine Sulfate (Morphine) 1 mg IVPUSH ONETIME ONE Stop: 04/02/20 12:07 Last Admin: 04/02/20 12:37 Dose: 1 mg Documented by: Rifaximin (Xifaxan) 550 mg PO BID [facility] Last Admin: 04/02/20 10:10 Dose: Not Given Documented by: Spironolactone (Aldactone) 50 mg PO DAILY [facility] - Exam Quality Assessment: DVT Prophylaxis General: Alert, Oriented HEENT: Pupils Equal, Pupils Reactive, EOMI, Mucous Membr. Moist/[place] Neck: Supple, No JVD. No: Lymphadenopathy Lungs: Clear to Auscultation, Normal Respiratory Effort Cardiovascular: Regular Rate, Regular Rhythm GI/Abdominal Exam: Normal Bowel Sounds, Soft, Distended, Tender. No: Guarding, Rigid, Rebound, Mass Back Exam: Normal Inspection, Full Range of Motion. No: CVA Tenderness (L), CVA Tenderness (R) Extremities: Normal Inspection, Normal Range of Motion, Non-Tender, No Pedal Edema, Normal Capillary Refill Peripheral Pulses: 2+: Dorsalis Pedis (L), Dorsalis Pedis (R) Skin: Warm, Dry, Intact Neurological: No New Focal Deficit Psy/Mental Status: Alert, Normal Affect, Normal Mood Sepsis Event Note - Evaluation Sepsis Screening Result: Severe Sepsis Risk - Focused Exam Vital Signs: Vital Signs Temp Pulse Resp BP Pulse Ox 04/03/20 11:00 99 F 103 H 16 93/48 L 90 L 04/03/20 07:15 98.8 F 108 H 17 87/39 L 91 L 04/03/20 03:34 98.5 F 111 H 16 91/50 L 91 L - Problem List & Annotations (1) Ileus SNOMED Code(s): 567270756 Code(s): K56.7 - ILEUS, UNSPECIFIED Status: Acute Current Visit: Yes (2) SBP (spontaneous bacterial peritonitis) SNOMED Code(s): 85036387 Code(s): K65.2 - SPONTANEOUS BACTERIAL PERITONITIS Status: Acute Current Visit: Yes (3) Sepsis SNOMED Code(s): 28513419 Code(s): A41.9 - SEPSIS, UNSPECIFIED ORGANISM Status: Acute Current Visit: Yes Qualifiers: Sepsis type: sepsis due to unspecified organism Severe sepsis acute organ dysfunction type: encephalopathy (4) UTI (urinary tract infection) SNOMED Code(s): 75063783 Code(s): N39.0 - URINARY TRACT INFECTION, SITE NOT SPECIFIED Status: Acute Current Visit: Yes (5) Ascites due to alcoholic cirrhosis SNOMED Code(s): 6986601016342290 Code(s): K70.31 - ALCOHOLIC CIRRHOSIS OF LIVER WITH ASCITES Status: Chronic Current Visit: Yes (6) Hepatic encephalopathy SNOMED Code(s): 19192436 Code(s): K72.90 - HEPATIC FAILURE, UNSPECIFIED WITHOUT COMA Status: Acute Current Visit: Yes - Problem List Review Problem List Initiated/Reviewed/Updated: Yes - My Orders Last 24 Hours: My Active Orders 04/02/20 14:00 Gabapentin [Neurontin] 300 mg PO TID 04/02/20 18:45 Pharmacy to Dose - Vancomycin 1 dose .XX ASDIRECTED 04/02/20 19:00 Sodium Chloride 0.9% [Normal Saline] 1,000 ml IV ASDIRECTED 04/02/20 21:00 QUEtiapine [SEROqueL] 100 mg PO BEDTIME 04/03/20 09:00 Ferrous Sulfate 325 mg PO DAILY Folic Acid 1 mg PO DAILY Magnesium Oxide 400 mg PO DAILY Potassium Chloride [Klor-Con M20] 20 meq PO DAILY Thiamine [Vitamin B-1] 100 mg PO DAILY 04/04/20 05:11 CBC WITH AUTO DIFF [HEME] AM CMP [COMPREHENSIVE METABOLIC PN,CMP] [CHEM] AM MAGNESIUM [CHEM] AM 04/05/20 05:11 CBC WITH AUTO DIFF [HEME] AM CMP [COMPREHENSIVE METABOLIC PN,CMP] [CHEM] AM MAGNESIUM [CHEM] AM 04/06/20 05:11 CBC WITH AUTO DIFF [HEME] AM CMP [COMPREHENSIVE METABOLIC PN,CMP] [CHEM] AM - Plan Plan:: 39 yo female with history of liver cirrhosis admitted for sepsis from SBP 1. Sepsis: lactic acid 2.9 this morning, on reexamination patient appears to be perfusing well. We will continue IV fluids at maintenance rate of 75 cc/hr and continue to trend lactic acid level Q6H. 2. SBP/UTI: [place] Alvei grown on UC, susceptible to cefepime, therefore continue, deneies any dysuria, flank/ cva tenderness b/l/ or suprpubic tenderness. WBC count remains elevated but trending down. Continue on Vancomycin for braod coverage for SBP. Pseudocyts previoulsy found to have paul thereofre continue with fluconazole since the abscess appears to have decreased in size. Pt appears to be responding well, vitals have improved. No growth on BC/ peritoneal culture. Will adjust abx based on cultures pending. 3. CALLY: on fluids, trending down, continue to monitor. 4. Hypoalbuminemia: 1.3 today, replace 25% now and again this afternoon. Recheck level at 1600. Continue to replete until lactic acidosis resolves. 5. Hepatic encephalopathy: continue rifaximin, increased lactulose dose to Q4H, start Zinc. Pt is AOx3, continue to monitor closely. 6. Constipation: on lactulose increased from QID to every 4 hours until she has at least 2 bowel movements, possible ileus per Abdo/CT, has been given fleet enema. Remains on Clear liquid diet until passage of stool. 7. History of Portal vein thrombus; is being kept on DVT ppx with SCD's and 40 SubQ Q24H lovenox ppx. 8. PMHx of fungal infection of Pseudocyst therefore will continue with Fluconazole, could consider micrafungin but was cultured in [place] and found to be susceptible to Fluconazole, will continue for now. Hx of liver Cirrhosis and alcohol abuse; therefore continue with electrolyte supplementation.
[2020-04-03] MEDS: Sodium Chloride 0.9% 2.5 ML Syringe FLUSH PRN ×2 (20:09→20:10)
[2020-04-03] MEDS: QUEtiapine 100 MG Tab PO SCH (20:14)
[2020-04-04] MEDS: Sodium Chloride 0.9% 2.5 ML Syringe FLUSH PRN ×2 (02:55→02:56)
[2020-04-04] MEDS: Lactulose Soln 10 GM/15 ML 15 ML UD Cup PO SCH ×6 (02:56→23:38)
[2020-04-04] MEDS: Cefepime 2 GM in Premix Bag 1 BAG IV SCH ×3 (02:57→20:23)
[2020-04-04] MEDS: Gabapentin 300 MG Cap PO SCH ×3 (06:42→21:32)
[2020-04-04 06:47] LABS: CARBON DIOXIDE,CO2 19.1 mmol/L (21.0-32.0); POTASSIUM,K 3.4 mmol/L (3.5-5.1)
[2020-04-04] MEDS: PROTEASE PO SCH ×3 (08:37→20:13)
[2020-04-04] MEDS: Rifaximin 550 MG Tab PO SCH ×2 (08:37→21:33)
[2020-04-04] MEDS: LIPASE PO SCH ×3 (08:37→20:13)
[2020-04-04] MEDS: AMYLASE PO SCH ×3 (08:37→20:13)
[2020-04-04] MEDS: Folic Acid 1 MG Tab PO SCH (08:41)
[2020-04-04] MEDS: Thiamine 100 MG Tab PO SCH (08:41)
[2020-04-04] MEDS: Potassium Chloride 20 MEQ Tab.ER PO SCH (08:41)
[2020-04-04] MEDS: Ferrous Sulfate 325 MG Tab PO SCH (08:41)
[2020-04-04] MEDS: Magnesium Oxide 400 MG Tab PO SCH (08:41)
[2020-04-04] MEDS: Pantoprazole 40 MG Tab.CR PO SCH (08:41)
--- NOTE | 2020-04-04 09:25 | PCM.PN ---
- General Info Date of Service: 04/04/20 Admission Dx/Problem (Free Text): Admission Diagnosis/Problem Admission Diagnosis/Problem Spontaneous bacterial peritonitis Subjective Update: Pt is a 39 y/o with h/o ETOH abuse, Cirrhosis, and Pancreatitis. Was prev d/c on Mar 26 s/p stent placement for a procedure on her pancreatic pseudocyst. Currently being treated for Sepsis 2/2 SBP. Last night had a very small amount of bloody spit up. Was vitally stable, and in no distress at the time. In fact requested we stop bothering her as she felt this is normal due to h/o her gums bleeding. Regardless, I consulted Dr. Bar Lawn Specialist in [place] who suggested we hold her Lovenox and continue to monitor her while being kept on Pantoprazole for GI prophylaxis. At that time patient was annoyed but still AOx3 but easily irritated and crying but consolable. Overnight, she remained afebrile, and vitally stable, with her Hgb stable and her lactate trending down. She was given another rectal enema, but did not pass any bowel except for brown coloured fluid. This morning pt was seen by bedside, easily arousable, stating she has no pain or discomfort. She was AOx2- as she was not able to identify the time of day. Upon further discussion she appeared to be somewhat confused thinking she had been outside to smoke. Pt denied any pain, stated she was voiding and passing gas regularly, but still unable to have a bowel movement. Abdomen remained distended but less distended from last night, soft, non tender, without rebound or guarding. Functional Status: Reports: Pain Controlled - Review of Systems General: Reports: No Symptoms, Other (mildly confused) HEENT: Reports: No Symptoms Pulmonary: Reports: No Symptoms Cardiovascular: Reports: No Symptoms Gastrointestinal: Reports: Constipation, Decreased Appetite, Flatus. Denies: Abdominal Pain, Diarrhea, Hematochezia, Melena, Nausea, Vomiting Genitourinary: Reports: Incontinence. Denies: Dysuria, Frequency, Burning, Pain, Urgency, Retention, Flank Pain Musculoskeletal: Reports: No Symptoms Skin: Reports: No Symptoms Neurological: Reports: Confusion (intermitantly resumes since admission ), Weakness (previosuly noted since prior to admission- currently stable). Denies: Dizziness, Headache, Numbness, Paresthesia, Syncope, Tingling, Tremors Psychiatric: Reports: Agitation - Patient Data Vitals - Most Recent: Last Vital Signs Temp 98.6 F 04/04/20 04:42 Pulse 91 04/04/20 04:42 Resp 16 04/04/20 04:42 BP 109/57 L 04/04/20 04:42 Pulse Ox 92 L 04/04/20 04:42 Weight - Most Recent: 123 lb 9.6 oz I&O - Last 24 Hours: Intake & Output 04/03/20 04/04/20 04/04/20 22:59 06:59 14:59 Intake Total 600 1100 Output Total 710 Balance 600 390 Lab Results Last 24 Hours: Laboratory Results - last 24 hr 04/03/20 04/03/20 04/03/20 Range/Units 12:27 16:08 18:10 WBC (4.0-11.0) K/uL RBC (4.30-5.90) M/uL Hgb (12.0-16.0) g/dL Hct (36.0-46.0) % MCV (80.0-98.0) fL MCH (27.0-32.0) pg MCHC (31.0-37.0) g/dL RDW Std Deviation (28.0-62.0) fl RDW Coeff of Tea (11.0-15.0) % Plt Count (150-400) K/uL MPV (7.40-12.00) fL Add Manual Diff Neutrophils % (Manual) (48.0-80.0) % Band Neutrophils % % Lymphocytes % (Manual) (16.0-40.0) % Monocytes % (Manual) (0.0-15.0) % Metamyelocytes % % Myelocytes % % Nucleated RBC % /100WBC Absolute Seg Neuts (1.4-5.7) Band Neutrophils # Lymphocytes # (Manual) (0.6-2.4) Monocytes # (Manual) (0.0-0.8) Absolute Metamyelocyte Absolute Myelocytes Nucleated RBCs # K/uL INR Lactate 2.9 H* 2.7 H* (0.20-2.00) mmol/L Sodium (136-145) mmol/L Potassium (3.5-5.1) mmol/L Chloride (98-107) mmol/L Carbon Dioxide (21.0-32.0) mmol/L BUN (7.0-18.0) mg/dL Creatinine (0.6-1.0) mg/dL Est Cr Clr Drug Dosing mL/min Estimated GFR (MDRD) ml/min Glucose (74-106) mg/dL Calcium (8.5-10.1) mg/dL Magnesium (1.8-2.4) mg/dL Total Bilirubin (0.2-1.0) mg/dL AST (15-37) IU/L ALT (14-63) IU/L Alkaline Phosphatase (46-116) U/L Total Protein (6.4-8.2) g/dL Albumin 1.7 L (3.4-5.0) g/dL Globulin (2.6-4.0) g/dL Albumin/Globulin Ratio (0.9-1.6) Vancomycin Trough (5.0-10.0) ug/mL 04/04/20 04/04/20 04/04/20 Range/Units 00:05 00:05 06:04 WBC 26.30 H (4.0-11.0) K/uL RBC 2.32 L (4.30-5.90) M/uL Hgb 8.3 L 8.1 L (12.0-16.0) g/dL Hct 25.3 L (36.0-46.0) % MCV 109.1 H (80.0-98.0) fL MCH 34.9 H (27.0-32.0) pg MCHC 32.0 (31.0-37.0) g/dL RDW Std Deviation 70.8 H (28.0-62.0) fl RDW Coeff of Tea 18 H (11.0-15.0) % Plt Count 213 (150-400) K/uL MPV 11.80 (7.40-12.00) fL Add Manual Diff YES Neutrophils % (Manual) 78 (48.0-80.0) % Band Neutrophils % 10 % Lymphocytes % (Manual) 8 L (16.0-40.0) % Monocytes % (Manual) 2 (0.0-15.0) % Metamyelocytes % 1 % Myelocytes % 1 % Nucleated RBC % 0.2 /100WBC Absolute Seg Neuts 20.5 H (1.4-5.7) Band Neutrophils # 2.6 Lymphocytes # (Manual) 2.1 (0.6-2.4) Monocytes # (Manual) 0.5 (0.0-0.8) Absolute Metamyelocyte 0.3 Absolute Myelocytes 0.3 Nucleated RBCs # 0 K/uL INR Lactate 2.5 H* (0.20-2.00) mmol/L Sodium (136-145) mmol/L Potassium (3.5-5.1) mmol/L Chloride (98-107) mmol/L Carbon Dioxide (21.0-32.0) mmol/L BUN (7.0-18.0) mg/dL Creatinine (0.6-1.0) mg/dL Est Cr Clr Drug Dosing mL/min Estimated GFR (MDRD) ml/min Glucose (74-106) mg/dL Calcium (8.5-10.1) mg/dL Magnesium (1.8-2.4) mg/dL Total Bilirubin (0.2-1.0) mg/dL AST (15-37) IU/L ALT (14-63) IU/L Alkaline Phosphatase (46-116) U/L Total Protein (6.4-8.2) g/dL Albumin (3.4-5.0) g/dL Globulin (2.6-4.0) g/dL Albumin/Globulin Ratio (0.9-1.6) Vancomycin Trough (5.0-10.0) ug/mL 04/04/20 04/04/20 04/04/20 Range/Units 06:04 06:04 06:04 WBC (4.0-11.0) K/uL RBC (4.30-5.90) M/uL Hgb (12.0-16.0) g/dL Hct (36.0-46.0) % MCV (80.0-98.0) fL MCH (27.0-32.0) pg MCHC (31.0-37.0) g/dL RDW Std Deviation (28.0-62.0) fl RDW Coeff of Tea (11.0-15.0) % Plt Count (150-400) K/uL MPV (7.40-12.00) fL Add Manual Diff Neutrophils % (Manual) (48.0-80.0) % Band Neutrophils % % Lymphocytes % (Manual) (16.0-40.0) % Monocytes % (Manual) (0.0-15.0) % Metamyelocytes % % Myelocytes % % Nucleated RBC % /100WBC Absolute Seg Neuts (1.4-5.7) Band Neutrophils # Lymphocytes # (Manual) (0.6-2.4) Monocytes # (Manual) (0.0-0.8) Absolute Metamyelocyte Absolute Myelocytes Nucleated RBCs # K/uL INR 2.32 Lactate 2.7 H* (0.20-2.00) mmol/L Sodium 135 L (136-145) mmol/L Potassium 3.4 L (3.5-5.1) mmol/L Chloride 103 (98-107) mmol/L Carbon Dioxide 19.1 L (21.0-32.0) mmol/L BUN 7 (7.0-18.0) mg/dL Creatinine 1.4 H (0.6-1.0) mg/dL Est Cr Clr Drug Dosing 48.69 mL/min Estimated GFR (MDRD) 42.3 ml/min Glucose 94 (74-106) mg/dL Calcium 8.0 L (8.5-10.1) mg/dL Magnesium 2.1 (1.8-2.4) mg/dL Total Bilirubin 4.5 H (0.2-1.0) mg/dL AST 109 H (15-37) IU/L ALT 43 (14-63) IU/L Alkaline Phosphatase 182 H (46-116) U/L Total Protein 4.9 L (6.4-8.2) g/dL Albumin 1.7 L (3.4-5.0) g/dL Globulin 3.2 (2.6-4.0) g/dL Albumin/Globulin Ratio 0.5 L (0.9-1.6) Vancomycin Trough (5.0-10.0) ug/mL 04/04/20 Range/Units 07:37 WBC (4.0-11.0) K/uL RBC (4.30-5.90) M/uL Hgb (12.0-16.0) g/dL Hct (36.0-46.0) % MCV (80.0-98.0) fL MCH (27.0-32.0) pg MCHC (31.0-37.0) g/dL RDW Std Deviation (28.0-62.0) fl RDW Coeff of Tea (11.0-15.0) % Plt Count (150-400) K/uL MPV (7.40-12.00) fL Add Manual Diff Neutrophils % (Manual) (48.0-80.0) % Band Neutrophils % % Lymphocytes % (Manual) (16.0-40.0) % Monocytes % (Manual) (0.0-15.0) % Metamyelocytes % % Myelocytes % % Nucleated RBC % /100WBC Absolute Seg Neuts (1.4-5.7) Band Neutrophils # Lymphocytes # (Manual) (0.6-2.4) Monocytes # (Manual) (0.0-0.8) Absolute Metamyelocyte Absolute Myelocytes Nucleated RBCs # K/uL INR Lactate (0.20-2.00) mmol/L Sodium (136-145) mmol/L Potassium (3.5-5.1) mmol/L Chloride (98-107) mmol/L Carbon Dioxide (21.0-32.0) mmol/L BUN (7.0-18.0) mg/dL Creatinine (0.6-1.0) mg/dL Est Cr Clr Drug Dosing mL/min Estimated GFR (MDRD) ml/min Glucose (74-106) mg/dL Calcium (8.5-10.1) mg/dL Magnesium (1.8-2.4) mg/dL Total Bilirubin (0.2-1.0) mg/dL AST (15-37) IU/L ALT (14-63) IU/L Alkaline Phosphatase (46-116) U/L Total Protein (6.4-8.2) g/dL Albumin (3.4-5.0) g/dL Globulin (2.6-4.0) g/dL Albumin/Globulin Ratio (0.9-1.6) Vancomycin Trough 26.8 H (5.0-10.0) ug/mL [facility] Results Last 24 Hours: Microbiology 04/01/20 17:17 Aerobic Blood Culture - Preliminary Blood - Venous - Lab Draw NO GROWTH AFTER 2 DAYS Anaerobic Blood Culture - Preliminary NO GROWTH AFTER 2 DAYS 04/01/20 17:07 Aerobic Blood Culture - Preliminary Blood - Venous NO GROWTH AFTER 2 DAYS Anaerobic Blood Culture - Preliminary NO GROWTH AFTER 2 DAYS 04/01/20 17:35 Gram Stain - Final Perineal Fluid Body Fluid Culture - Final No Growth 04/01/20 20:25 Urine Culture - Final Urine, Clean Catch Hafnia Alvei Med Orders - Current: Current Medications Ferrous Sulfate (Ferrous Sulfate) 325 mg PO DAILY [facility] Last Admin: 04/04/20 08:41 Dose: 325 mg Documented by: Folic Acid (Folic Acid) 1 mg PO DAILY [facility] Last Admin: 04/04/20 08:41 Dose: 1 mg Documented by: Gabapentin (Neurontin) 300 mg PO TID [facility] Last Admin: 04/04/20 06:42 Dose: 300 mg Documented by: Cefepime HCl 2 gm/ Premix 50 mls @ 100 mls/hr IV Q8H [facility] Last Admin: 04/04/20 02:57 Dose: 100 mls/hr Documented by: Fluconazole/Sodium Chloride (400 mg/ Premix) 200 mls @ 100 mls/hr IV Q24H [facility] Last Admin: 04/03/20 10:27 Dose: 100 mls/hr Documented by: Vancomycin HCl 1 gm/ Sodium (Chloride) 250 mls @ 250 mls/hr IV Q24H [facility] Lactulose (Chronulac) 10 gm PO Q4H [facility] Last Admin: 04/04/20 06:42 Dose: 10 gm Documented by: Magnesium Oxide (Magnesium Oxide) 400 mg PO DAILY [facility] Last Admin: 04/04/20 08:41 Dose: 400 mg Documented by: Morphine Sulfate (Morphine) 2 mg IVPUSH Q4H PRN PRN Reason: Pain Last Admin: 04/03/20 21:01 Dose: 2 mg Documented by: Zinc 50mg Elemental (Tablet) 1 each PO DAILY [facility] Pantoprazole Sodium (Protonix) 40 mg PO DAILY [facility] Last Admin: 04/04/20 08:41 Dose: 40 mg Documented by: Rifaximin 550 Mg Tab 1 each PO BID [facility] Last Admin: 04/04/20 08:37 Dose: 1 each Documented by: Amylase/Lipase/Protease 36,000 Unit Cap.Cr 2 each PO TIDMEALS [facility] Last Admin: 04/04/20 08:37 Dose: 2 each Documented by: Potassium Chloride (Klor-Con M20) 20 meq PO DAILY [facility] Last Admin: 11/06/20 08:41 Dose: 20 meq Documented by: Quetiapine Fumarate (Seroquel) 100 mg PO BEDTIME [facility] Last Admin: 04/03/20 20:14 Dose: 100 mg Documented by: Sodium Chloride (Saline Flush) 10 ml FLUSH ASDIRECTED PRN PRN Reason: Keep Vein Open Last Admin: 04/01/20 16:56 Dose: 10 ml Documented by: Sodium Chloride (Saline Flush) 2.5 ml FLUSH ASDIRECTED PRN PRN Reason: Keep Vein Open Last Admin: 04/04/20 02:56 Dose: 2.5 ml Documented by: Thiamine HCl (Vitamin B-1) 100 mg PO DAILY [facility] Last Admin: 04/04/20 08:41 Dose: 100 mg Documented by: Vancomycin HCl (Pharmacy To Dose - Vancomycin) 1 dose .XX ASDIRECTED [facility] Discontinued Medications Lipase/Protease/Amylase (Creon Dr 24,000 Units) 3 cap PO TIDMEALS [facility] Last Admin: 04/02/20 14:02 Dose: Not Given Documented by: Enoxaparin Sodium (Lovenox) 40 mg SUBCUT BID [facility] Last Admin: 04/03/20 09:16 Dose: 40 mg Documented by: Hydromorphone HCl (Dilaudid) 1 mg IVPUSH ONETIME ONE Stop: 04/01/20 16:41 Last Admin: 04/01/20 16:55 Dose: 1 mg Documented by: Hydromorphone HCl (Dilaudid) 1 mg IVPUSH ONETIME ONE Stop: 04/01/20 18:00 Last Admin: 04/01/20 18:08 Dose: 1 mg Documented by: Albumin Human (Flexbumin 25%) 12.5 gm in 50 mls @ 100 mls/hr IV ONETIME ONE Stop: 04/01/20 17:26 Last Admin: 04/01/20 17:56 Dose: Not Given Documented by: Albumin Human (Flexbumin 25%) 12.5 gm in 50 mls @ 100 mls/hr IV ONETIME ONE Stop: 04/01/20 17:28 Last Admin: 04/01/20 17:25 Dose: 100 mls/hr Documented by: Sodium Chloride (Normal Saline) 1,000 mls @ 999 mls/hr IV .Bolus ONE Stop: 04/01/20 18:05 Last Admin: 04/01/20 17:24 Dose: 999 mls/hr Documented by: Piperacillin Sod/Tazobactam (Sod 3.375 gm/ Sodium Chloride) 50 mls @ 100 mls/hr IV ONETIME ONE Stop: 04/01/20 18:39 Last Admin: 04/01/20 18:48 Dose: 100 mls/hr Documented by: Sodium Chloride (Normal Saline) 1,000 mls @ 75 mls/hr IV ASDIRECTED [facility] Last Admin: 04/02/20 13:27 Dose: 75 mls/hr Documented by: Cefotaxime Sodium 2 gm/ Sodium (Chloride) 100 mls @ 200 mls/hr IV Q8HR [facility] Albumin Human (Flexbumin 25%) 12.5 gm in 50 mls @ 100 mls/hr IV ONETIME ONE Stop: 04/01/20 23:59 Last Admin: 04/02/20 00:14 Dose: 100 mls/hr Documented by: Albumin Human (Flexbumin 25%) 12.5 gm in 50 mls @ 100 mls/hr IV ONETIME ONE Stop: 04/02/20 00:29 Last Admin: 04/02/20 01:02 Dose: 100 mls/hr Documented by: Albumin Human (Flexbumin 25%) 12.5 gm in 50 mls @ 100 mls/hr IV ASDIRECTED [facility] Stop: 04/03/20 09:59 Last Admin: 04/02/20 11:22 Dose: 100 mls/hr Documented by: Vancomycin HCl 1.5 gm/ Premix 300 mls @ 300 mls/hr IV ONETIME ONE Stop: 04/02/20 20:59 Last Admin: 04/02/20 19:42 Dose: 300 mls/hr Documented by: Sodium Chloride (Normal Saline) 1,000 mls @ 75 mls/hr IV ASDIRECTED [facility] Last Admin: 04/03/20 03:23 Dose: 75 mls/hr Documented by: Lactated Ringer's (Ringers, Lactated) 1,000 mls @ 999 mls/hr IV .BOLUS ONE Stop: 04/02/20 20:16 Last Admin: 04/02/20 19:38 Dose: 999 mls/hr Documented by: Vancomycin HCl 1 gm/ Sodium (Chloride) 250 mls @ 250 mls/hr IV Q12H [facility] Last Admin: 04/03/20 20:15 Dose: 250 mls/hr Documented by: Albumin Human (Flexbumin 25%) 12.5 gm in 50 mls @ 100 mls/hr IV NOW STA Stop: 04/03/20 11:08 Last Admin: 04/03/20 10:59 Dose: 100 mls/hr Documented by: Albumin Human (Flexbumin 25%) 12.5 gm in 50 mls @ 100 mls/hr IV ONETIME ONE Stop: 04/03/20 11:09 Last Admin: 04/03/20 11:38 Dose: 100 mls/hr Documented by: Albumin Human (Flexbumin 25%) 12.5 gm in 50 mls @ 100 mls/hr IV ONETIME ONE Stop: 04/03/20 17:37 Last Admin: 04/03/20 18:22 Dose: 100 mls/hr Documented by: Lactulose (Chronulac) 10 gm PO ONETIME ONE Stop: 04/01/20 22:07 Last Admin: 04/01/20 22:25 Dose: 10 gm Documented by: Lactulose (Chronulac) 10 gm PO BID [facility] Last Admin: 04/02/20 09:22 Dose: 10 gm Documented by: Lactulose (Chronulac) 10 gm PO TID [facility] Last Admin: 04/02/20 13:48 Dose: 10 gm Documented by: Lactulose (Chronulac) 10 gm PO Q6H [facility] Last Admin: 04/03/20 06:14 Dose: 10 gm Documented by: Morphine Sulfate (Morphine) 1 mg IVPUSH ONETIME ONE Stop: 04/02/20 12:07 Last Admin: 04/02/20 12:37 Dose: 1 mg Documented by: Rifaximin (Xifaxan) 550 mg PO BID [facility] Last Admin: 04/02/20 10:10 Dose: Not Given Documented by: Spironolactone (Aldactone) 50 mg PO DAILY [facility] - Exam Quality Assessment: No: DVT Prophylaxis (d/c last night due to concerns for possible clots ) General: Alert, Oriented, Cooperative, No Acute Distress HEENT: Pupils Equal, EOMI, Mucous Membr. Moist/[place] Neck: Supple, Trachea Midline, No JVD, No Thyromegaly Lungs: Clear to Auscultation, Normal Respiratory Effort Cardiovascular: Regular Rate, Regular Rhythm, No Murmurs GI/Abdominal Exam: Normal Bowel Sounds, Soft, Non-Tender, Distended. No: Guarding, Rigid, Rebound, Tender, Hernia, Mass, Hepatomegaly, Splenomegaly Extremities: Normal Inspection, Normal Range of Motion, No Pedal Edema, Normal Capillary Refill. No: Leg Pain (prev noted b/l leg pain controlled well this morning ) Peripheral Pulses: 2+: Dorsalis Pedis (L), Dorsalis Pedis (R) Skin: Warm, Dry, Intact Neurological: No New Focal Deficit Psy/Mental Status: Alert, Normal Affect, Normal Mood Sepsis Event Note - Evaluation Sepsis Screening Result: Severe Sepsis Risk - Focused Exam Vital Signs: Vital Signs Temp Pulse Resp BP Pulse Ox 04/04/20 04:42 98.6 F 91 16 109/57 L 92 L 04/04/20 00:33 99.0 F 107 H 16 102/56 L 92 L - Problem List & Annotations (1) Ileus SNOMED Code(s): 638179939 Code(s): K56.7 - ILEUS, UNSPECIFIED Status: Acute Priority: Medium Current Visit: Yes (2) SBP (spontaneous bacterial peritonitis) SNOMED Code(s): 38273345 Code(s): K65.2 - SPONTANEOUS BACTERIAL PERITONITIS Status: Acute Priority: High Current Visit: Yes (3) Sepsis SNOMED Code(s): 15948725 Code(s): A41.9 - SEPSIS, UNSPECIFIED ORGANISM Status: Acute Priority: High Current Visit: Yes Qualifiers: Sepsis type: sepsis due to unspecified organism Sepsis acute organ dysfunction status: with acute organ dysfunction Severe sepsis acute organ dysfunction type: encephalopathy (4) UTI (urinary tract infection) SNOMED Code(s): 64118282 Code(s): N39.0 - URINARY TRACT INFECTION, SITE NOT SPECIFIED Status: Acute Current Visit: Yes (5) Ascites due to alcoholic cirrhosis SNOMED Code(s): 4911896705580853 Code(s): K70.31 - ALCOHOLIC CIRRHOSIS OF LIVER WITH ASCITES Status: Chronic Priority: High Current Visit: Yes (6) Hepatic encephalopathy SNOMED Code(s): 24037882 Code(s): K72.90 - HEPATIC FAILURE, UNSPECIFIED WITHOUT COMA Status: Acute Priority: Medium Current Visit: Yes (7) Small bowel obstruction SNOMED Code(s): 435270445 Code(s): K56.609 - UNSP INTESTNL OBST, UNSP TO PARTIAL VERSUS COMPLETE OBST Status: Acute Current Visit: Yes - Problem List Review Problem List Initiated/Reviewed/Updated: Yes - My Orders Last 24 Hours: My Active Orders 04/03/20 09:00 Ferrous Sulfate 325 mg PO DAILY Folic Acid 1 mg PO DAILY Magnesium Oxide 400 mg PO DAILY Potassium Chloride [Klor-Con M20] 20 meq PO DAILY Thiamine [Vitamin B-1] 100 mg PO DAILY 04/03/20 19:22 Intake and Output Strict [RC] ASDIRECTED 04/04/20 11:52 LACTIC ACID,WHOLE BLOOD [BG] Q6H 04/04/20 14:00 Non-Formulary Medication [NF Drug] 1 each PO DAILY 04/04/20 17:52 LACTIC ACID,WHOLE BLOOD [BG] Q6H 04/04/20 23:52 LACTIC ACID,WHOLE BLOOD [BG] Q6H 04/05/20 05:11 CBC WITH AUTO DIFF [HEME] AM CMP [COMPREHENSIVE METABOLIC PN,CMP] [CHEM] AM INR,PT,PROTHROMBIN TIME [COAG] AM MAGNESIUM [CHEM] AM 04/06/20 05:11 CBC WITH AUTO DIFF [HEME] AM CMP [COMPREHENSIVE METABOLIC PN,CMP] [CHEM] AM INR,PT,PROTHROMBIN TIME [COAG] AM 04/07/20 05:11 INR,PT,PROTHROMBIN TIME [COAG] AM - Plan Plan:: 39 yo female with history of liver cirrhosis admitted for sepsis from SBP, continues to be intermittently confused, still has not had a bowel movement. 1. Sepsis: lactic acid 2.7 this morning, on reexamination patient appears to be perfusing well. We will continue IV antibiotics Cefepime and vancomycin. We will continue to trend lactic acid level Q6H. 2. SBP/UTI: Hafina Alvei grown on UC, susceptible to cefepime, therefore continue, deneies any dysuria, flank/ cva tenderness b/l/ or suprpubic tenderness. WBC count remains elevated but trending down. Continue on Vancomycin for braod coverage for SBP. Pseudocyts previoulsy found to have paul thereofre continue with fluconazole since the abscess appears to have decreased in size. Pt appears to be responding well, vitals have improved. No growth on BC/ peritoneal culture. Will adjust abx based on cultures pending. 3. CALLY: on fluids, trending down, continue to monitor. 4. Hypoalbuminemia: 1.3 today, replace 25% now and again this afternoon. Recheck level at 1600. Continue to replete until lactic acidosis resolves. 5. Hepatic encephalopathy: continue rifaximin, increased lactulose dose to Q4H, started Zinc yesterday. Pt is AOx2, intermittent confusion will continue to monitor closely. 6. Constipation 2/2 small bowel obstruction: on lactulose increased from QID to every 4 hours until she has at least 2 bowel movements, per Abdominal Xray this morning pt may have a small bowel obstruction versus Ileus per who was consults in surgery. His recommendations are very much appreciated; will give 10mg of Reglan Q4hrs via NG tube to help with decompressing the bowel. In the interm pt will remains on Clear liquid diet until passage of stool.After the bowel has been decompressed the NG tube could also be used to give her lactulose and/or MiraLAX to help with her constipation/obstipation issue. 7. History of Portal vein thrombus; is being kept on DVT ppx with SCD's and 40 SubQ Q24H lovenox ppx. 8. PMHx of fungal infection of Pseudocyst therefore will continue with Fluconazole, could consider micrafungin but was cultured in [place] and found to be susceptible to Fluconazole, will continue for now. Hx of liver Cirrhosis and alcohol abuse; therefore continue with electrolyte supplementation.
--- NOTE | 2020-04-04 11:12 | CR ---
Indication: Assess for possible obstruction. Constipation Technique: Upright and supine views the were acquired Comparison: There are no prior plain films for comparison Findings: There are significantly dilated loops of small bowel with air-fluid levels in a pattern consistent with a small-bowel obstruction. There is diffuse fecal retention throughout the colon. A drainage device is noted in the left upper quadrant. This appears to be internalized device. The osseous structures are unremarkable. There is no visible free air Impression: 1. Findings most consistent with a small-bowel obstruction. 2. There is no visible free air to suggest a perforated hollow viscus. 3. Diffuse fecal retention throughout the colon Dictated by Gus Daigle MD @ Apr 04 2020 11:06AM Signed by Dr. Gus Daigle @ Apr 04 2020 11:10AM
[2020-04-04] MEDS ORDERED: Metoclopramide 10 MG/2 ML SDV IVPUSH PRN ×2 (11:42→19:08)
[2020-04-04] MEDS ORDERED: Lidocaine 4% Top Soln 50 ML Bottle MUCMEM ONE (12:02)
--- NOTE | 2020-04-04 12:21 | PCM.CONS ---
H&P History of Present Illness - General Date of Service: 04/04/20 Admit Problem/Dx: Admission Diagnosis/Problem Admission Diagnosis/Problem Spontaneous bacterial peritonitis Source of Information: Patient History Limitations: Reports: Altered Mental Status (Cirrhosis with encephalopathy) - History of Present Illness Initial Comments - Free Text/Narative: Patient is a 39-year-old female with a long-standing history of alcohol abuse to the point of having severe cirrhosis. She was recently hospitalized and sounds like she had pancreatitis with a pseudocyst that was drained internally. She presented here on April 01 and was admitted to the hospitalist service with wh at was thought to be spontaneous bacterial peritonitis. She was found have a significant leukocytosis, and a markedly elevated serum lactate. That is gradually responding to antibiotic therapy. She has not had a bowel movement for several days. She also has complained of her abdomen becoming more and more swollen and uncomfortable. Duration of Symptoms: Reports: Week(s):, Chronic, Getting Worse Location: Reports: Abdomen Quality: Reports: Pressure Severity: Severe Improves with: Reports: None Worsens with: Reports: None Associated Symptoms: Reports: Confusion, Loss of Appetite, Malaise. Denies: Nausea/Vomiting Bilateral Leg Pain Score (Numeric/FACES): 10 Generalized Pain Score (Numeric/FACES): 10 - Related Data Allergies/Adverse Reactions: Allergies Allergy/AdvReac Type Severity Reaction Status Date / Time No Known Allergies Allergy Verified 04/01/20 16:48 Home Medications: Home Meds Cholecalciferol (Vitamin D3) [Vitamin D] 5,000 unit PO DAILY 04/01/20 [History] Enoxaparin [Lovenox] 40 mg SQ BID 04/01/20 [History] Ferrous Sulfate [Iron] 325 mg PO DAILY 04/01/20 [History] Fluconazole [Diflucan] 400 mg PO DAILY 04/01/20 [History] Folic Acid 1 mg PO DAILY 04/01/20 [History] Furosemide 20 mg PO DAILY 04/01/20 [History] Hydrocodone/Acetaminophen [Colome 5-325 Tablet] 1 each PO BID PRN 04/01/20 [History] Lactulose 10 gm PO BID 04/01/20 [History] Lipase/Protease/Amylase [Creon Dr 36,000 Units Capsule] 2 each PO TID 04/01/20 [History] Magnesium Oxide 400 mg PO DAILY 04/01/20 [History] Pantoprazole [ProTONIX] 40 mg PO DAILY 04/01/20 [History] Potassium Chloride [Klor-Con 10] 20 meq PO DAILY 04/01/20 [History] QUEtiapine [SEROquel] 100 mg PO BEDTIME 04/01/20 [History] Rifaximin [Xifaxan] 550 mg PO BID 04/01/20 [History] Spironolactone [Aldactone] 50 mg PO DAILY 04/01/20 [History] Thiamine [Vitamin B-1] 100 mg PO DAILY 04/01/20 [History] Past Medical History HEENT History: Reports: None Cardiovascular History: Reports: None Respiratory History: Reports: None Gastrointestinal History: Reports: Cirrhosis, Hepatitis, Pancreatitis Genitourinary History: Reports: None [employer] History: Reports: Other OB/BYN History: X2 Musculoskeletal History: Reports: None Neurological History: Reports: None Psychiatric History: Reports: Anxiety, Depression Endocrine/Metabolic History: Reports: None Hematologic History: Reports: None Immunologic History: Reports: None Oncologic (Cancer) History: Reports: None Dermatologic History: Reports: None - Infectious Disease History Infectious Disease History: Reports: Chicken Pox, Hepatitis non A,B,C - Past Surgical History Head Surgeries/Procedures: Reports: None GI Surgical History: Reports: Abdominal paracentesis Other GI Surgeries/Procedures: internal drainage, pancreatic pseudocyst Female Surgical History: Reports: Tubal Ligation Social & Family History - Family History Family Medical History: Noncontributory - Tobacco Use Tobacco Use Status *Q: Current Every Day Tobacco User Years of Tobacco use: 10 Packs/Tins Daily: 0.3 - Caffeine Use Caffeine Use: Reports: Coffee, Tea - Alcohol Use Alcohol Use History: Yes Alcohol Use Comment: chronic alcohol abuse with late state cirrhosis - Recreational Drug Use Recreational Drug Use: No H&P Review of Systems - Review of Systems: Review Of Systems: See Below General: Reports: Malaise, Weakness, Fatigue. Denies: Fever, Chills HEENT: Reports: No Symptoms Pulmonary: Denies: Shortness of Breath, Wheezing Cardiovascular: Reports: Dyspnea on Exertion, Edema. Denies: Chest Pain, Palpitations, Orthopnea, PND Gastrointestinal: Reports: Abdominal Pain, Anorexia, Constipation, Decreased Appetite, Distension, Flatus. Denies: Black Stool, Bloody Stool, Diarrhea, Hematemesis, Hematochezia, Melena, Nausea, Vomiting Genitourinary: Denies: Dysuria, Frequency, Burning, Pain, Urgency Musculoskeletal: Reports: Shoulder Pain. Denies: Neck Pain, Arm Pain, Back Pain, Muscle Stiffness Skin: Reports: Jaundice, Pallor. Denies: Cyanosis, Mottled, Diaphoresis, Dryness, Bruising Psychiatric: Reports: Confusion. Denies: Depression, Anxiety Neurological: Reports: Confusion. Denies: Dizziness, Headache, Numbness, Paresthesia, Tremors Hematologic/Lymphatic: Reports: Anemia, Easy Bruising Immunologic: Reports: No Symptoms Exam - Exam Exam: See Below - Vital Signs Vital Signs: Last Vital Signs Temp 97.9 F 04/04/20 08:00 Pulse 108 H 04/04/20 08:00 Resp 18 04/04/20 08:00 BP 92/51 L 04/04/20 08:00 Pulse Ox 91 L 04/04/20 08:00 Weight: 123 lb 9.6 oz - Exam Quality Assessment: Supplemental Oxygen, DVT Prophylaxis. No: Central Line/PICC General: Lethargic HEENT: Conjunctiva Clear, Nares Patent, Pupils Equal, Pupils Reactive, Scleral Icterus Neck: Supple, Trachea Midline Lungs: Clear to Auscultation, Normal Respiratory Effort Cardiovascular: Regular Rate, Regular Rhythm GI/Abdominal Exam: Soft, Tender, Abnormal Bowel Sounds, Other (pronounced ascites with caput medusae). No: Guarding, Rigid, Rebound, Hernia, Mass (Female) Exam: Deferred Rectal (Female) Exam: Deferred Back Exam: Normal Inspection Extremities: Normal Inspection, Pedal Edema, Mottled, Pallor. No: Joint Swelling, Arm Pain, Dallas's Sign, Redness Peripheral Pulses: 3+: Posterior Tibial (L), Posterior Tibial (R), Dorsalis Pedis (L), Dorsalis Pedis (R) Skin: Dry, Cool, Petechia Neuro Extensive - Mental Status: Other (Lethargic, slow to respond and seems unsure of situation) Psychiatric: Other (lethargic) - Patient Data Lab Results Last 24 hrs: Laboratory Results - last 24 hr 04/03/20 04/03/20 04/03/20 Range/Units 12:27 16:08 18:10 WBC (4.0-11.0) K/uL RBC (4.30-5.90) M/uL Hgb (12.0-16.0) g/dL Hct (36.0-46.0) % MCV (80.0-98.0) fL MCH (27.0-32.0) pg MCHC (31.0-37.0) g/dL RDW Std Deviation (28.0-62.0) fl RDW Coeff of Tea (11.0-15.0) % Plt Count (150-400) K/uL MPV (7.40-12.00) fL Add Manual Diff Neutrophils % (Manual) (48.0-80.0) % Band Neutrophils % % Lymphocytes % (Manual) (16.0-40.0) % Monocytes % (Manual) (0.0-15.0) % Metamyelocytes % % Myelocytes % % Nucleated RBC % /100WBC Absolute Seg Neuts (1.4-5.7) Band Neutrophils # Lymphocytes # (Manual) (0.6-2.4) Monocytes # (Manual) (0.0-0.8) Absolute Metamyelocyte Absolute Myelocytes Nucleated RBCs # K/uL INR Lactate 2.9 H* 2.7 H* (0.20-2.00) mmol/L Sodium (136-145) mmol/L Potassium (3.5-5.1) mmol/L Chloride (98-107) mmol/L Carbon Dioxide (21.0-32.0) mmol/L BUN (7.0-18.0) mg/dL Creatinine (0.6-1.0) mg/dL Est Cr Clr Drug Dosing mL/min Estimated GFR (MDRD) ml/min Glucose (74-106) mg/dL Calcium (8.5-10.1) mg/dL Magnesium (1.8-2.4) mg/dL Total Bilirubin (0.2-1.0) mg/dL AST (15-37) IU/L ALT (14-63) IU/L Alkaline Phosphatase (46-116) U/L Total Protein (6.4-8.2) g/dL Albumin 1.7 L (3.4-5.0) g/dL Globulin (2.6-4.0) g/dL Albumin/Globulin Ratio (0.9-1.6) Vancomycin Trough (5.0-10.0) ug/mL 04/04/20 04/04/20 04/04/20 Range/Units 00:05 00:05 06:04 WBC 26.30 H (4.0-11.0) K/uL RBC 2.32 L (4.30-5.90) M/uL Hgb 8.3 L 8.1 L (12.0-16.0) g/dL Hct 25.3 L (36.0-46.0) % MCV 109.1 H (80.0-98.0) fL MCH 34.9 H (27.0-32.0) pg MCHC 32.0 (31.0-37.0) g/dL RDW Std Deviation 70.8 H (28.0-62.0) fl RDW Coeff of Tea 18 H (11.0-15.0) % Plt Count 213 (150-400) K/uL MPV 11.80 (7.40-12.00) fL Add Manual Diff YES Neutrophils % (Manual) 78 (48.0-80.0) % Band Neutrophils % 10 % Lymphocytes % (Manual) 8 L (16.0-40.0) % Monocytes % (Manual) 2 (0.0-15.0) % Metamyelocytes % 1 % Myelocytes % 1 % Nucleated RBC % 0.2 /100WBC Absolute Seg Neuts 20.5 H (1.4-5.7) Band Neutrophils # 2.6 Lymphocytes # (Manual) 2.1 (0.6-2.4) Monocytes # (Manual) 0.5 (0.0-0.8) Absolute Metamyelocyte 0.3 Absolute Myelocytes 0.3 Nucleated RBCs # 0 K/uL INR Lactate 2.5 H* (0.20-2.00) mmol/L Sodium (136-145) mmol/L Potassium (3.5-5.1) mmol/L Chloride (98-107) mmol/L Carbon Dioxide (21.0-32.0) mmol/L BUN (7.0-18.0) mg/dL Creatinine (0.6-1.0) mg/dL Est Cr Clr Drug Dosing mL/min Estimated GFR (MDRD) ml/min Glucose (74-106) mg/dL Calcium (8.5-10.1) mg/dL Magnesium (1.8-2.4) mg/dL Total Bilirubin (0.2-1.0) mg/dL AST (15-37) IU/L ALT (14-63) IU/L Alkaline Phosphatase (46-116) U/L Total Protein (6.4-8.2) g/dL Albumin (3.4-5.0) g/dL Globulin (2.6-4.0) g/dL Albumin/Globulin Ratio (0.9-1.6) Vancomycin Trough (5.0-10.0) ug/mL 04/04/20 04/04/20 04/04/20 Range/Units 06:04 06:04 06:04 WBC (4.0-11.0) K/uL RBC (4.30-5.90) M/uL Hgb (12.0-16.0) g/dL Hct (36.0-46.0) % MCV (80.0-98.0) fL MCH (27.0-32.0) pg MCHC (31.0-37.0) g/dL RDW Std Deviation (28.0-62.0) fl RDW Coeff of Tea (11.0-15.0) % Plt Count (150-400) K/uL MPV (7.40-12.00) fL Add Manual Diff Neutrophils % (Manual) (48.0-80.0) % Band Neutrophils % % Lymphocytes % (Manual) (16.0-40.0) % Monocytes % (Manual) (0.0-15.0) % Metamyelocytes % % Myelocytes % % Nucleated RBC % /100WBC Absolute Seg Neuts (1.4-5.7) Band Neutrophils # Lymphocytes # (Manual) (0.6-2.4) Monocytes # (Manual) (0.0-0.8) Absolute Metamyelocyte Absolute Myelocytes Nucleated RBCs # K/uL INR 2.32 Lactate 2.7 H* (0.20-2.00) mmol/L Sodium 135 L (136-145) mmol/L Potassium 3.4 L (3.5-5.1) mmol/L Chloride 103 (98-107) mmol/L Carbon Dioxide 19.1 L (21.0-32.0) mmol/L BUN 7 (7.0-18.0) mg/dL Creatinine 1.4 H (0.6-1.0) mg/dL Est Cr Clr Drug Dosing 48.69 mL/min Estimated GFR (MDRD) 42.3 ml/min Glucose 94 (74-106) mg/dL Calcium 8.0 L (8.5-10.1) mg/dL Magnesium 2.1 (1.8-2.4) mg/dL Total Bilirubin 4.5 H (0.2-1.0) mg/dL AST 109 H (15-37) IU/L ALT 43 (14-63) IU/L Alkaline Phosphatase 182 H (46-116) U/L Total Protein 4.9 L (6.4-8.2) g/dL Albumin 1.7 L (3.4-5.0) g/dL Globulin 3.2 (2.6-4.0) g/dL Albumin/Globulin Ratio 0.5 L (0.9-1.6) Vancomycin Trough (5.0-10.0) ug/mL 04/04/20 04/04/20 Range/Units 07:37 12:05 WBC (4.0-11.0) K/uL RBC (4.30-5.90) M/uL Hgb (12.0-16.0) g/dL Hct (36.0-46.0) % MCV (80.0-98.0) fL MCH (27.0-32.0) pg MCHC (31.0-37.0) g/dL RDW Std Deviation (28.0-62.0) fl RDW Coeff of Tea (11.0-15.0) % Plt Count (150-400) K/uL MPV (7.40-12.00) fL Add Manual Diff Neutrophils % (Manual) (48.0-80.0) % Band Neutrophils % % Lymphocytes % (Manual) (16.0-40.0) % Monocytes % (Manual) (0.0-15.0) % Metamyelocytes % % Myelocytes % % Nucleated RBC % /100WBC Absolute Seg Neuts (1.4-5.7) Band Neutrophils # Lymphocytes # (Manual) (0.6-2.4) Monocytes # (Manual) (0.0-0.8) Absolute Metamyelocyte Absolute Myelocytes Nucleated RBCs # K/uL INR Lactate 3.6 H* (0.20-2.00) mmol/L Sodium (136-145) mmol/L Potassium (3.5-5.1) mmol/L Chloride (98-107) mmol/L Carbon Dioxide (21.0-32.0) mmol/L BUN (7.0-18.0) mg/dL Creatinine (0.6-1.0) mg/dL Est Cr Clr Drug Dosing mL/min Estimated GFR (MDRD) ml/min Glucose (74-106) mg/dL Calcium (8.5-10.1) mg/dL Magnesium (1.8-2.4) mg/dL Total Bilirubin (0.2-1.0) mg/dL AST (15-37) IU/L ALT (14-63) IU/L Alkaline Phosphatase (46-116) U/L Total Protein (6.4-8.2) g/dL Albumin (3.4-5.0) g/dL Globulin (2.6-4.0) g/dL Albumin/Globulin Ratio (0.9-1.6) Vancomycin Trough 26.8 H (5.0-10.0) ug/mL Result Diagrams: 04/04/20 06:04 04/04/20 06:04 Cricket Results Last 24 hrs: Microbiology 04/01/20 17:17 Aerobic Blood Culture - Preliminary Blood - Venous - Lab Draw NO GROWTH AFTER 2 DAYS Anaerobic Blood Culture - Preliminary NO GROWTH AFTER 2 DAYS 04/01/20 17:07 Aerobic Blood Culture - Preliminary Blood - Venous NO GROWTH AFTER 2 DAYS Anaerobic Blood Culture - Preliminary NO GROWTH AFTER 2 DAYS 04/01/20 17:35 Gram Stain - Final Perineal Fluid Body Fluid Culture - Final No Growth 04/01/20 20:25 Urine Culture - Final Urine, Clean Catch Hafnia Alvei Sepsis Event Note - Evaluation Sepsis Screening Result: Severe Sepsis Risk - Focused Exam Vital Signs: Vital Signs Temp Pulse Resp BP Pulse Ox 04/04/20 08:00 97.9 F 108 H 18 92/51 L 91 L 04/04/20 04:42 98.6 F 91 16 109/57 L 92 L 04/04/20 00:33 99.0 F 107 H 16 102/56 L 92 L Consult PN Assessment/Plan Procedures: Procedures ASSAY OF AMMONIA (03/03/20) ASSAY OF LACTIC ACID (03/03/20) ASSAY OF LIPASE (03/03/20) ASSAY OF MAGNESIUM (03/03/20) ASSAY THYROID STIM HORMONE (03/03/20) BLOOD CULTURE FOR BACTERIA (03/03/20) COMPLETE CBC W/AUTO DIFF WBC (03/03/20) COMPREHEN METABOLIC PANEL (03/03/20) CT ABD & PELV W/CONTRAST (03/03/20) CT HEAD/BRAIN W/O DYE (03/03/20) DRUG TEST PRSMV CHEM ANLYZR (03/03/20) DRUG TEST PRSMV DIR OPT OBS (03/03/20) ECHO EXAM OF ABDOMEN (03/03/20) ELECTROCARDIOGRAM TRACING (03/03/20) EMERGENCY DEPT VISIT (03/03/20) EMERGENCY DEPT VISIT (10/17/19) GLUCOSE BLOOD TEST (03/03/20) MICROBE SUSCEPTIBLE CRICKET (03/03/20) PROTHROMBIN TIME (03/03/20) ROUTINE VENIPUNCTURE (03/03/20) SARS-COV2 COVID-19 AMP PRB (03/03/20) THER/PROPH/DIAG IV INF ADDON (03/03/20) THER/PROPH/DIAG IV INF INIT (03/03/20) TX/PRO/DX INJ NEW DRUG ADDON (03/03/20) TX/PROPH/DG ADDL SEQ IV INF (03/03/20) URINALYSIS AUTO W/SCOPE (03/03/20) URINE BACTERIA CULTURE (03/03/20) URINE CULTURE/COLONY COUNT (03/03/20) URINE TEST (03/03/20) X-RAY EXAM CHEST 1 VIEW (03/03/20) (1) Cirrhosis of liver SNOMED Code(s): 67755729 Code(s): K74.60 - UNSPECIFIED CIRRHOSIS OF LIVER Priority: High Current Visit: Yes Qualifiers: Hepatic cirrhosis type: alcoholic cirrhosis Ascites presence: with ascites Qualified Code(s): K70.31 - Alcoholic cirrhosis of liver with ascites (2) Hepatic encephalopathy SNOMED Code(s): 87966998 Code(s): K72.90 - HEPATIC FAILURE, UNSPECIFIED WITHOUT COMA Priority: Medium Current Visit: Yes (3) Ileus SNOMED Code(s): 554676831 Code(s): K56.7 - ILEUS, UNSPECIFIED Priority: Medium Current Visit: Yes (4) SBP (spontaneous bacterial peritonitis) SNOMED Code(s): 98246291 Code(s): K65.2 - SPONTANEOUS BACTERIAL PERITONITIS Priority: High Current Visit: Yes (5) Sepsis SNOMED Code(s): 85449550 Code(s): A41.9 - SEPSIS, UNSPECIFIED ORGANISM Priority: High Current Visit: Yes Qualifiers: Sepsis type: sepsis due to unspecified organism Sepsis acute organ dysfunction status: with acute organ dysfunction Severe sepsis acute organ dysfunction type: encephalopathy (6) Ascites due to alcoholic cirrhosis SNOMED Code(s): 8313423575485831 Code(s): K70.31 - ALCOHOLIC CIRRHOSIS OF LIVER WITH ASCITES Priority: High Current Visit: Yes (7) DVT (deep venous thrombosis) SNOMED Code(s): 040498153 Code(s): I82.409 - ACUTE EMBOLISM AND THOMBOS UNSP DEEP VN UNSP LOWER EXTREMITY Priority: Medium Current Visit: Yes (8) Hypoalbuminemia SNOMED Code(s): 301493786 Code(s): E88.09 - OTH DISORDERS OF PLASMA-PROTEIN METABOLISM, NEC Priority: High Current Visit: Yes (9) Pseudocyst of pancreas SNOMED Code(s): 944559964 Code(s): K86.3 - PSEUDOCYST OF PANCREAS Priority: Medium Current Visit: Yes (10) Acute alcoholic hepatitis SNOMED Code(s): 6652528 Code(s): K70.10 - ALCOHOLIC HEPATITIS WITHOUT ASCITES Current Visit: No (11) Alcohol abuse SNOMED Code(s): 59602305 Code(s): F10.10 - ALCOHOL ABUSE, UNCOMPLICATED Priority: Medium Current Visit: Yes (12) Altered mental status SNOMED Code(s): 826324243 Code(s): R41.82 - ALTERED MENTAL STATUS, UNSPECIFIED Priority: High Current Visit: Yes Qualifiers: Altered mental status type: unspecified Qualified Code(s): R41.82 - Altered mental status, unspecified (13) Lactic acidosis SNOMED Code(s): 58006349 Code(s): E87.2 - ACIDOSIS Priority: Medium Current Visit: No Problem List Initiated/Reviewed/Updated: Yes Plan: Patient has late stage severe alcoholic liver disease with encephalopathy, pancreatitis, kidney injury and new onset spontaneous bacterial peritonitis. She is severely protein calorie malnourished, with pronounced hypoalbuminemia with a serum albumin of 1.7. Given the severity of her liver disease, I would certainly keep her on antibiotics as treatment for her spontaneous bacterial peritonitis. She clearly has severe ascites, which will contribute to her hypoalbuminemia. At this point there is no obvious surgical indication. Given her ileus and the appearance of her abdominal films today, I would consider placing an NG tube to decompress her stomach. Once that is decompressed the NG tube could also be used to give her lactulose and/or MiraLAX to help with her constipation/obstipation issue. One might also consider adding metoclopramide.
[2020-04-04] MEDS ORDERED: Albumin 25% 12.5 GM/50 ML BAG IV SCH (13:30)
[2020-04-04] MEDS ORDERED: Lidocaine 2% Jelly 30 ML Tube GTUBE PRN (13:41)
[2020-04-04] MEDS: NORMAL SALINE IV SCH (14:00)
[2020-04-04] MEDS: FLUCONAZOLE IV SCH (14:00)
--- NOTE | 2020-04-04 15:25 | CR ---
Indication: Hypoxia Comparison: Single view chest April 01, 2020 Technique: Single AP view chest Findings: There are extensive airspace opacities the bilateral lung bases new from comparison exam likely representing developing multifocal infiltrates. The cardiac silhouette is stable. The bony thorax is grossly intact. Impression: Developing extensive airspace opacities of the visualized lung bases likely representing developing infiltrates. Dictated by Alexander Barriga MD @ Apr 04 2020 3:22PM Signed by Dr. Alexander Barriga @ Apr 04 2020 3:24PM
[2020-04-04] MEDS ORDERED: Furosemide 40 MG/4 ML VIAL IVPUSH ONE (15:51)
[2020-04-04] MEDS: ZINC 50 MG PO SCH (15:56)
--- NOTE | 2020-04-04 16:44 | PCM.SN.2 ---
- Free Text/Narrative Note: Patient is refusing NG tube, patient became hypoxic this afternoon. CXR shows bilateral opacities. Will repeat test for COVID, Will add Levaquin for possible pneumonia. Lactic acid remains elevated. Will hold of on giving additional fluids.
[2020-04-04] MEDS: Levofloxacin/Dextrose 5%-Water 750 MG in Premix Bag 1 BAG IV SCH (18:04)
[2020-04-04] MEDS: Polyethylene Glycol 3350 Powder 17 GM Packet PO SCH (20:23)
[2020-04-04] MEDS: QUEtiapine 100 MG Tab PO SCH (21:32)
[2020-04-05] MEDS: Cefepime 2 GM in Premix Bag 1 BAG IV SCH ×3 (03:19→18:06)
[2020-04-05] MEDS: Lactulose Soln 10 GM/15 ML 15 ML UD Cup PO SCH ×7 (03:28→23:17)
[2020-04-05 06:56] LABS: POTASSIUM,K 4.1 mmol/L (3.5-5.1)
[2020-04-05] MEDS: Magnesium Oxide 400 MG Tab PO SCH (09:33)
--- NOTE | 2020-04-05 09:33 | PCM.PN ---
- General Info Date of Service: 04/05/20 Subjective Update: Reports abdominal pain at bedside this AM. Per nursing, patient has small smeared bowel movement last night. - Patient Data Vitals - Most Recent: Last Vital Signs Temp 36.9 C 04/05/20 04:00 Pulse 102 H 04/05/20 04:00 Resp 20 04/05/20 04:00 BP 97/47 L 04/05/20 04:00 Pulse Ox 90 L 04/05/20 04:00 Weight - Most Recent: 56.064 kg I&O - Last 24 Hours: Intake & Output 04/04/20 04/05/20 04/05/20 22:59 06:59 14:59 Intake Total 350 Output Total 560 Balance -210 Lab Results Last 24 Hours: Laboratory Results - last 24 hr 04/01/20 04/04/20 04/04/20 Range/Units 18:28 12:05 16:25 WBC (4.0-11.0) K/uL RBC (4.30-5.90) M/uL Hgb (12.0-16.0) g/dL Hct (36.0-46.0) % MCV (80.0-98.0) fL MCH (27.0-32.0) pg MCHC (31.0-37.0) g/dL RDW Std Deviation (28.0-62.0) fl RDW Coeff of Tea (11.0-15.0) % Plt Count (150-400) K/uL MPV (7.40-12.00) fL Add Manual Diff Neutrophils % (Manual) (48.0-80.0) % Band Neutrophils % % Lymphocytes % (Manual) (16.0-40.0) % Monocytes % (Manual) (0.0-15.0) % Eosinophils % (Manual) (0.0-7.0) % Basophils % (Manual) (0.0-1.5) % Nucleated RBC % /100WBC Absolute Seg Neuts (1.4-5.7) Band Neutrophils # Lymphocytes # (Manual) (0.6-2.4) Monocytes # (Manual) (0.0-0.8) Eosinophils # (Manual) (0.0-0.7) Basophils # (Manual) (0.0-0.1) Nucleated RBCs # K/uL INR Lactate 3.6 H* (0.20-2.00) mmol/L Sodium (136-145) mmol/L Potassium (3.5-5.1) mmol/L Chloride (98-107) mmol/L Carbon Dioxide (21.0-32.0) mmol/L BUN (7.0-18.0) mg/dL Creatinine (0.6-1.0) mg/dL Est Cr Clr Drug Dosing mL/min Estimated GFR (MDRD) ml/min Glucose (74-106) mg/dL Calcium (8.5-10.1) mg/dL Magnesium (1.8-2.4) mg/dL Total Bilirubin (0.2-1.0) mg/dL AST (15-37) IU/L ALT (14-63) IU/L Alkaline Phosphatase (46-116) U/L Total Protein (6.4-8.2) g/dL Albumin (3.4-5.0) g/dL Globulin (2.6-4.0) g/dL Albumin/Globulin Ratio (0.9-1.6) SARS-CoV-2 (PCR) NOT DETECTED (NOT DETECT) SARS-CoV-2 RNA (CLAUDIA) NEGATIVE (NEGATIVE) 04/04/20 04/04/20 04/05/20 Range/Units 17:59 23:52 06:00 WBC 31.73 H (4.0-11.0) K/uL RBC 2.41 L (4.30-5.90) M/uL Hgb 8.4 L (12.0-16.0) g/dL Hct 26.1 L (36.0-46.0) % MCV 108.3 H (80.0-98.0) fL MCH 34.9 H (27.0-32.0) pg MCHC 32.2 (31.0-37.0) g/dL RDW Std Deviation 70.0 H (28.0-62.0) fl RDW Coeff of Tea 18 H (11.0-15.0) % Plt Count 167 (150-400) K/uL MPV 11.90 (7.40-12.00) fL Add Manual Diff YES Neutrophils % (Manual) 74 (48.0-80.0) % Band Neutrophils % 6 % Lymphocytes % (Manual) 10 L (16.0-40.0) % Monocytes % (Manual) 8 (0.0-15.0) % Eosinophils % (Manual) 1 (0.0-7.0) % Basophils % (Manual) 1 (0.0-1.5) % Nucleated RBC % 0.0 /100WBC Absolute Seg Neuts 23.5 H (1.4-5.7) Band Neutrophils # 1.9 Lymphocytes # (Manual) 3.2 H (0.6-2.4) Monocytes # (Manual) 2.5 H (0.0-0.8) Eosinophils # (Manual) 0.3 (0.0-0.7) Basophils # (Manual) 0.3 H (0.0-0.1) Nucleated RBCs # 0 K/uL INR Lactate 2.9 H* 3.3 H* (0.20-2.00) mmol/L Sodium (136-145) mmol/L Potassium (3.5-5.1) mmol/L Chloride (98-107) mmol/L Carbon Dioxide (21.0-32.0) mmol/L BUN (7.0-18.0) mg/dL Creatinine (0.6-1.0) mg/dL Est Cr Clr Drug Dosing mL/min Estimated GFR (MDRD) ml/min Glucose (74-106) mg/dL Calcium (8.5-10.1) mg/dL Magnesium (1.8-2.4) mg/dL Total Bilirubin (0.2-1.0) mg/dL AST (15-37) IU/L ALT (14-63) IU/L Alkaline Phosphatase (46-116) U/L Total Protein (6.4-8.2) g/dL Albumin (3.4-5.0) g/dL Globulin (2.6-4.0) g/dL Albumin/Globulin Ratio (0.9-1.6) SARS-CoV-2 (PCR) (NOT DETECT) SARS-CoV-2 RNA (CLAUDIA) (NEGATIVE) 04/05/20 04/05/20 04/05/20 Range/Units 06:00 06:00 06:00 WBC (4.0-11.0) K/uL RBC (4.30-5.90) M/uL Hgb (12.0-16.0) g/dL Hct (36.0-46.0) % MCV (80.0-98.0) fL MCH (27.0-32.0) pg MCHC (31.0-37.0) g/dL RDW Std Deviation (28.0-62.0) fl RDW Coeff of Tea (11.0-15.0) % Plt Count (150-400) K/uL MPV (7.40-12.00) fL Add Manual Diff Neutrophils % (Manual) (48.0-80.0) % Band Neutrophils % % Lymphocytes % (Manual) (16.0-40.0) % Monocytes % (Manual) (0.0-15.0) % Eosinophils % (Manual) (0.0-7.0) % Basophils % (Manual) (0.0-1.5) % Nucleated RBC % /100WBC Absolute Seg Neuts (1.4-5.7) Band Neutrophils # Lymphocytes # (Manual) (0.6-2.4) Monocytes # (Manual) (0.0-0.8) Eosinophils # (Manual) (0.0-0.7) Basophils # (Manual) (0.0-0.1) Nucleated RBCs # K/uL INR 2.70 Lactate 2.9 H* (0.20-2.00) mmol/L Sodium 134 L (136-145) mmol/L Potassium 4.1 (3.5-5.1) mmol/L Chloride 102 (98-107) mmol/L Carbon Dioxide 17.0 L (21.0-32.0) mmol/L BUN 9 (7.0-18.0) mg/dL Creatinine 1.3 H (0.6-1.0) mg/dL Est Cr Clr Drug Dosing 52.44 mL/min Estimated GFR (MDRD) 46.1 ml/min Glucose 74 (74-106) mg/dL Calcium 7.8 L (8.5-10.1) mg/dL Magnesium 2.2 (1.8-2.4) mg/dL Total Bilirubin 4.5 H (0.2-1.0) mg/dL AST 113 H (15-37) IU/L ALT 44 (14-63) IU/L Alkaline Phosphatase 197 H (46-116) U/L Total Protein 5.0 L (6.4-8.2) g/dL Albumin 1.5 L (3.4-5.0) g/dL Globulin 3.5 (2.6-4.0) g/dL Albumin/Globulin Ratio 0.4 L (0.9-1.6) SARS-CoV-2 (PCR) (NOT DETECT) SARS-CoV-2 RNA (CLAUDIA) (NEGATIVE) Cricket Results Last 24 Hours: Microbiology 04/01/20 17:17 Aerobic Blood Culture - Preliminary Blood - Venous - Lab Draw NO GROWTH AFTER 3 DAYS Anaerobic Blood Culture - Preliminary NO GROWTH AFTER 3 DAYS 04/01/20 17:07 Aerobic Blood Culture - Preliminary Blood - Venous NO GROWTH AFTER 3 DAYS Anaerobic Blood Culture - Preliminary NO GROWTH AFTER 3 DAYS Med Orders - Current: Current Medications Ferrous Sulfate (Ferrous Sulfate) 325 mg PO DAILY [facility] Last Admin: 04/04/20 08:41 Dose: 325 mg Documented by: Folic Acid (Folic Acid) 1 mg PO DAILY [facility] Last Admin: 04/04/20 08:41 Dose: 1 mg Documented by: Gabapentin (Neurontin) 300 mg PO TID [facility] Last Admin: 04/04/20 21:32 Dose: 300 mg Documented by: Cefepime HCl 2 gm/ Premix 50 mls @ 100 mls/hr IV Q8H [facility] Last Admin: 04/05/20 03:19 Dose: 100 mls/hr Documented by: Fluconazole/Sodium Chloride (400 mg/ Premix) 200 mls @ 100 mls/hr IV Q24H [facility] Last Admin: 04/04/20 14:00 Dose: 100 mls/hr Documented by: Vancomycin HCl 1 gm/ Sodium (Chloride) 250 mls @ 250 mls/hr IV Q24H [facility] Last Admin: 04/04/20 21:14 Dose: 250 mls/hr Documented by: Levofloxacin/Dextrose 750 mg/ (Premix) 150 mls @ 100 mls/hr IV Q48H [facility] Last Admin: 04/04/20 18:04 Dose: 100 mls/hr Documented by: Lactulose (Chronulac) 10 gm PO Q4H [facility] Last Admin: 04/05/20 03:28 Dose: 10 gm Documented by: Lidocaine HCl (Xylocaine 2% Jelly) 30 ml GTUBE ASDIRECTED PRN PRN Reason: PAIN Last Admin: 04/04/20 14:05 Dose: 1 applic Documented by: Magnesium Oxide (Magnesium Oxide) 400 mg PO DAILY [facility] Last Admin: 04/04/20 08:41 Dose: 400 mg Documented by: Metoclopramide HCl (Reglan) 10 mg IVPUSH Q8H PRN PRN Reason: Constipation Morphine Sulfate (Morphine) 2 mg IVPUSH Q4H PRN PRN Reason: Pain Last Admin: 04/03/20 21:01 Dose: 2 mg Documented by: Zinc 50mg Elemental (Tablet) 1 each PO DAILY [facility] Last Admin: 04/04/20 15:56 Dose: Not Given Documented by: Pantoprazole Sodium (Protonix) 40 mg PO DAILY [facility] Last Admin: 04/04/20 08:41 Dose: 40 mg Documented by: Rifaximin 550 Mg Tab 1 each PO BID [facility] Last Admin: 04/04/20 21:33 Dose: 1 each Documented by: Amylase/Lipase/Protease 36,000 Unit Cap.Cr 2 each PO TIDMEALS [facility] Last Admin: 04/04/20 20:13 Dose: 2 each Documented by: Polyethylene Glycol (Miralax) 17 gm PO DAILY [facility] Last Admin: 04/04/20 20:23 Dose: 17 gm Documented by: Potassium Chloride (Klor-Con M20) 20 meq PO DAILY [facility] Last Admin: 04/04/20 08:41 Dose: 20 meq Documented by: Quetiapine Fumarate (Seroquel) 100 mg PO BEDTIME [facility] Last Admin: 04/04/20 21:32 Dose: 100 mg Documented by: Sodium Chloride (Saline Flush) 10 ml FLUSH ASDIRECTED PRN PRN Reason: Keep Vein Open Last Admin: 04/01/20 16:56 Dose: 10 ml Documented by: Sodium Chloride (Saline Flush) 2.5 ml FLUSH ASDIRECTED PRN PRN Reason: Keep Vein Open Last Admin: 04/04/20 02:56 Dose: 2.5 ml Documented by: Thiamine HCl (Vitamin B-1) 100 mg PO DAILY [facility] Last Admin: 04/04/20 08:41 Dose: 100 mg Documented by: Vancomycin HCl (Pharmacy To Dose - Vancomycin) 1 dose .XX ASDIRECTED [facility] Discontinued Medications Lipase/Protease/Amylase (Creon Dr 24,000 Units) 3 cap PO TIDMEALS [facility] Last Admin: 04/02/20 14:02 Dose: Not Given Documented by: Enoxaparin Sodium (Lovenox) 40 mg SUBCUT BID [facility] Last Admin: 04/03/20 09:16 Dose: 40 mg Documented by: Furosemide (Lasix) 40 mg IVPUSH NOW ONE Stop: 04/04/20 15:52 Hydromorphone HCl (Dilaudid) 1 mg IVPUSH ONETIME ONE Stop: 04/01/20 16:41 Last Admin: 04/01/20 16:55 Dose: 1 mg Documented by: Hydromorphone HCl (Dilaudid) 1 mg IVPUSH ONETIME ONE Stop: 04/01/20 18:00 Last Admin: 04/01/20 18:08 Dose: 1 mg Documented by: Albumin Human (Flexbumin 25%) 12.5 gm in 50 mls @ 100 mls/hr IV ONETIME ONE Stop: 04/01/20 17:26 Last Admin: 04/01/20 17:56 Dose: Not Given Documented by: Albumin Human (Flexbumin 25%) 12.5 gm in 50 mls @ 100 mls/hr IV ONETIME ONE Stop: 04/01/20 17:28 Last Admin: 04/01/20 17:25 Dose: 100 mls/hr Documented by: Sodium Chloride (Normal Saline) 1,000 mls @ 999 mls/hr IV .Bolus ONE Stop: 04/01/20 18:05 Last Admin: 04/01/20 17:24 Dose: 999 mls/hr Documented by: Piperacillin Sod/Tazobactam (Sod 3.375 gm/ Sodium Chloride) 50 mls @ 100 mls/hr IV ONETIME ONE Stop: 04/01/20 18:39 Last Admin: 04/01/20 18:48 Dose: 100 mls/hr Documented by: Sodium Chloride (Normal Saline) 1,000 mls @ 75 mls/hr IV ASDIRECTED [facility] Last Admin: 04/02/20 13:27 Dose: 75 mls/hr Documented by: Cefotaxime Sodium 2 gm/ Sodium (Chloride) 100 mls @ 200 mls/hr IV Q8HR [facility] Albumin Human (Flexbumin 25%) 12.5 gm in 50 mls @ 100 mls/hr IV ONETIME ONE Stop: 04/01/20 23:59 Last Admin: 04/02/20 00:14 Dose: 100 mls/hr Documented by: Albumin Human (Flexbumin 25%) 12.5 gm in 50 mls @ 100 mls/hr IV ONETIME ONE Stop: 04/02/20 00:29 Last Admin: 04/02/20 01:02 Dose: 100 mls/hr Documented by: Albumin Human (Flexbumin 25%) 12.5 gm in 50 mls @ 100 mls/hr IV ASDIRECTED [facility] Stop: 04/03/20 09:59 Last Admin: 04/02/20 11:22 Dose: 100 mls/hr Documented by: Vancomycin HCl 1.5 gm/ Premix 300 mls @ 300 mls/hr IV ONETIME ONE Stop: 04/02/20 20:59 Last Admin: 04/02/20 19:42 Dose: 300 mls/hr Documented by: Sodium Chloride (Normal Saline) 1,000 mls @ 75 mls/hr IV ASDIRECTED [facility] Last Admin: 04/03/20 03:23 Dose: 75 mls/hr Documented by: Lactated Ringer's (Ringers, Lactated) 1,000 mls @ 999 mls/hr IV .BOLUS ONE Stop: 04/02/20 20:16 Last Admin: 04/02/20 19:38 Dose: 999 mls/hr Documented by: Vancomycin HCl 1 gm/ Sodium (Chloride) 250 mls @ 250 mls/hr IV Q12H [facility] Last Admin: 04/03/20 20:15 Dose: 250 mls/hr Documented by: Albumin Human (Flexbumin 25%) 12.5 gm in 50 mls @ 100 mls/hr IV NOW STA Stop: 04/03/20 11:08 Last Admin: 04/03/20 10:59 Dose: 100 mls/hr Documented by: Albumin Human (Flexbumin 25%) 12.5 gm in 50 mls @ 100 mls/hr IV ONETIME ONE Stop: 04/03/20 11:09 Last Admin: 04/03/20 11:38 Dose: 100 mls/hr Documented by: Albumin Human (Flexbumin 25%) 12.5 gm in 50 mls @ 100 mls/hr IV ONETIME ONE Stop: 04/03/20 17:37 Last Admin: 04/03/20 18:22 Dose: 100 mls/hr Documented by: Albumin Human (Flexbumin 25%) 12.5 gm in 50 mls @ 100 mls/hr IV ONETIME [facility] Stop: 04/05/20 13:59 Lactulose (Chronulac) 10 gm PO ONETIME ONE Stop: 04/01/20 22:07 Last Admin: 04/01/20 22:25 Dose: 10 gm Documented by: Lactulose (Chronulac) 10 gm PO BID [facility] Last Admin: 04/02/20 09:22 Dose: 10 gm Documented by: Lactulose (Chronulac) 10 gm PO TID [facility] Last Admin: 04/02/20 13:48 Dose: 10 gm Documented by: Lactulose (Chronulac) 10 gm PO Q6H [facility] Last Admin: 04/03/20 06:14 Dose: 10 gm Documented by: Lidocaine HCl (Xylocaine 4% Top Soln) 1 ml MUCMEM ONETIME ONE Stop: 04/04/20 12:03 Last Admin: 04/04/20 14:12 Dose: Not Given Documented by: Metoclopramide HCl (Reglan) 10 mg IVPUSH Q4H PRN PRN Reason: Other Morphine Sulfate (Morphine) 1 mg IVPUSH ONETIME ONE Stop: 04/02/20 12:07 Last Admin: 04/02/20 12:37 Dose: 1 mg Documented by: Rifaximin (Xifaxan) 550 mg PO BID [facility] Last Admin: 04/02/20 10:10 Dose: Not Given Documented by: Spironolactone (Aldactone) 50 mg PO DAILY [facility] - Exam General: Alert, No Acute Distress Lungs: Clear to Auscultation, Normal Respiratory Effort Cardiovascular: Regular Rate, Regular Rhythm GI/Abdominal Exam: Distended, Other (non-ttp, no guarding) Extremities: Normal Inspection, No Pedal Edema Sepsis Event Note - Evaluation Sepsis Screening Result: Severe Sepsis Risk - Focused Exam Vital Signs: Vital Signs Temp Pulse Resp BP Pulse Ox Pulse Ox 04/05/20 04:00 36.9 C 102 H 20 97/47 L 90 L 04/05/20 00:00 36.4 C 104 H 18 90/57 L 90 L 92 L - Problem List & Annotations (1) SBP (spontaneous bacterial peritonitis) SNOMED Code(s): 55848790 Code(s): K65.2 - SPONTANEOUS BACTERIAL PERITONITIS Status: Acute Priority: High Current Visit: Yes (2) Acute kidney failure SNOMED Code(s): 62013271 Code(s): N17.9 - ACUTE KIDNEY FAILURE, UNSPECIFIED Status: Acute Current Visit: Yes (3) Cirrhosis of liver SNOMED Code(s): 18712899 Code(s): K74.60 - UNSPECIFIED CIRRHOSIS OF LIVER Status: Acute Priority: High Current Visit: Yes Qualifiers: Hepatic cirrhosis type: alcoholic cirrhosis Ascites presence: with ascites Qualified Code(s): K70.31 - Alcoholic cirrhosis of liver with ascites (4) Hepatic encephalopathy SNOMED Code(s): 45775807 Code(s): K72.90 - HEPATIC FAILURE, UNSPECIFIED WITHOUT COMA Status: Acute Priority: Medium Current Visit: Yes (5) Ileus SNOMED Code(s): 111842631 Code(s): K56.7 - ILEUS, UNSPECIFIED Status: Acute Priority: Medium Current Visit: Yes (6) Sepsis SNOMED Code(s): 44566540 Code(s): A41.9 - SEPSIS, UNSPECIFIED ORGANISM Status: Acute Priority: High Current Visit: Yes Qualifiers: Sepsis type: sepsis due to unspecified organism Sepsis acute organ dysfunction status: with acute organ dysfunction Severe sepsis acute organ dysfunction type: encephalopathy (7) DVT (deep venous thrombosis) SNOMED Code(s): 863921666 Code(s): I82.409 - ACUTE EMBOLISM AND THOMBOS UNSP DEEP VN UNSP LOWER EXTREMITY Status: Chronic Priority: Medium Current Visit: Yes (8) Hypoalbuminemia SNOMED Code(s): 546009281 Code(s): E88.09 - OTH DISORDERS OF PLASMA-PROTEIN METABOLISM, NEC Status: Chronic Priority: High Current Visit: Yes (9) Pseudocyst of pancreas SNOMED Code(s): 737824184 Code(s): K86.3 - PSEUDOCYST OF PANCREAS Status: Chronic Priority: Medium Current Visit: Yes - Problem List Review Problem List Initiated/Reviewed/Updated: Yes - Plan Plan:: Assessment and Plan: 1. Sepsis secondary to SBP: - Patient on IV vancomycin and cefepime. Blood cultures negative. Continue to trend lactate. Leukocytosis increased since yesterday. - Called and spoke to Dr. Bar thread roller at [facility] for recomm endations. Per gastroenterology, give albumin 1 mg/kg qd for the next 3-4 days, continue Rifaximin, hold miralax and can try lactulose enema. Patient may need therapeutic paracentesis but does not need to be done urgently at this time. Per gastroenterology, transfer not indicated at this time, however, closely monitor patient for the next 24 hours and if condition does not improve then call back. 2. Acute hypoxic respiratory failure secondary to pneumonia: - Continue supplemental oxygen. CXR showed extensive airspace opacities in lung bases. COVID-19 test repeated and was negative. Levaquin added to antibiotic regimen. 3. Ileus: - General surgery consulted and recommended NG tube, Reglan, lactulose and miralax. Patient did not tolerate NG tube yesterday. Patient currently on CLD and per nursing had small smear of a bowel movement overnight. Repeat abdominal x-ray today showed improved in gas distention of small bowel and colon. 4. Hepatic encephalopathy: - Continue rifaximin and lactulose. 5. Pancreatic pseudocyst: - Patient had internal drainage of pancreatic pseudocyst at [facility]. Culture grew fungi susceptible to fluconazole. Will continue fluconazole. 6. UTI: - Urine culture grew Hafina Alvei, susceptible to cefepime. 7. Hypoalbuminemia: - Per thread roller Dr. Bar at [facility], will give albumin 1 mg/kg qd. 8. CALLY, improving. 9. History of portal vein thrombus: - Lovenox held currently due to concerns of bleeding. - Patient on SCD's. 10. Past medical history of alcoholic liver cirrhosis.
[2020-04-05] MEDS: Folic Acid 1 MG Tab PO SCH (09:34)
[2020-04-05] MEDS: Gabapentin 300 MG Cap PO SCH ×3 (09:34→21:06)
[2020-04-05] MEDS: Ferrous Sulfate 325 MG Tab PO SCH (09:34)
[2020-04-05] MEDS: Thiamine 100 MG Tab PO SCH (09:34)
[2020-04-05] MEDS: Rifaximin 550 MG Tab PO SCH ×2 (09:35→20:52)
[2020-04-05] MEDS: Pantoprazole 40 MG Tab.CR PO SCH (09:35)
[2020-04-05] MEDS: Potassium Chloride 20 MEQ Tab.ER PO SCH (09:35)
[2020-04-05] MEDS: PROTEASE PO SCH ×3 (09:36→17:54)
[2020-04-05] MEDS: AMYLASE PO SCH ×3 (09:36→17:54)
[2020-04-05] MEDS: Polyethylene Glycol 3350 Powder 17 GM Packet PO SCH (09:36)
[2020-04-05] MEDS: LIPASE PO SCH ×3 (09:36→17:54)
[2020-04-05] MEDS: FLUCONAZOLE IV SCH (09:51)
[2020-04-05] MEDS: ZINC 50 MG PO SCH (09:51)
[2020-04-05] MEDS: NORMAL SALINE IV SCH (09:51)
[2020-04-05] MEDS ORDERED: Lactulose Soln 10 GM/15 ML 15 ML UD Cup ONE (10:51)
--- NOTE | 2020-04-05 12:10 | CR ---
HISTORY: Abdominal distention and pain. TECHNIQUE: One view of the abdomen. COMPARISON: 04/04/2020. FINDINGS: There is mild gas distention of the stomach and also gas distention of a few small bowel loops. Overall degree of distention is improved from the prior radiographs. A stent is present within the left upper quadrant. There are patchy opacities within the lower lung zones which may relate to infiltrates or atelectasis. IMPRESSION: 1. Improvement in gas distention of small bowel and colon. 2. Patchy areas of infiltrate or atelectasis within the lung bases. Dictated by Saúl Self MD @ 04/05/2020 12:09:00 PM Dictated by: Saúl Self MD @ 04/05/2020 12:09:02 (Electronically Signed)
[2020-04-05] MEDS ORDERED: ALBUMIN IV ONE (13:30)
[2020-04-05] MEDS: Morphine 2 MG/ML SYRINGE IVPUSH PRN (18:01)
[2020-04-05] MEDS: QUEtiapine 100 MG Tab PO SCH (20:52)
[2020-04-06 03:07] LABS: CARBON DIOXIDE,CO2 18.3 mmol/L (21.0-32.0); POTASSIUM,K 3.8 mmol/L (3.5-5.1)
[2020-04-06] MEDS: Lactulose Soln 10 GM/15 ML 15 ML UD Cup PO SCH ×4 (03:45→14:44)
[2020-04-06] MEDS: Cefepime 2 GM in Premix Bag 1 BAG IV SCH ×2 (03:49→11:51)
--- NOTE | 2020-04-06 04:40 | CT ---
Indication: Shortness of breath. End-stage liver disease. Technique: CT chest without contrast. Comparison: 04/04/2020 chest x-ray. 04/01/2020 CT abdomen and pelvis. Findings: Imaged thyroid gland is unremarkable. Bilateral breast implants. No enlarged lymph nodes identified in the chest. No pericardial effusion. Heart size is within normal limits. Severe hepatic steatosis is again noted. Perihepatic ascites is again present. Drainage device previously draining left upper quadrant collection has retracted and is now within the stomach lumen (series 201, image 81). Left upper quadrant gas and fluid collection measures approximately 6.2 x 2.4 cm (series 201, image 99) previously 4.5 x 2.2 cm. Anasarca. Small bilateral pleural effusions are new from prior CT. Bibasilar atelectasis/consolidations with air bronchograms. Extensive bilateral patchy ground-glass opacities and interlobular septal thickening. No pneumothorax is seen. Mucus/aspirated secretions in the trachea. Impression : 1. Small bilateral pleural effusions are new from prior CT. Extensive bilateral patchy ground-glass opacities and interlobular septal thickening. Differential includes infection or pulmonary edema. 2. Dense bibasilar atelectasis/consolidation with air bronchograms. Infection/pneumonia is a consideration. 3. Left upper quadrant fluid collection has increased in size. Device in stomach wall seen on prior exam, has now retracted into the stomach lumen. 4. Severe hepatic steatosis and perihepatic ascites, similar to prior. Please note that all CT scans at this facility use dose modulation, iterative reconstruction, and/or weight-based dosing when appropriate to reduce radiation dose to as low as reasonably achievable. Dictated by Heri Kelly MD @ Apr 06 2020 4:24AM Signed by Dr. Heri Kelly @ Apr 06 2020 4:38AM
[2020-04-06] MEDS: Pantoprazole 40 MG in Sodium Chloride 0.9% 10 ML IV SCH ×2 (06:08→09:17)
[2020-04-06] MEDS: AMYLASE PO SCH ×2 (08:31→12:55)
[2020-04-06] MEDS: PROTEASE PO SCH ×2 (08:31→12:55)
[2020-04-06] MEDS: LIPASE PO SCH ×2 (08:31→12:55)
[2020-04-06] MEDS: Rifaximin 550 MG Tab PO SCH (09:18)
[2020-04-06] MEDS: ZINC 50 MG PO SCH (09:18)
[2020-04-06] MEDS: Potassium Chloride 20 MEQ Tab.ER PO SCH (09:18)
[2020-04-06] MEDS: Folic Acid 1 MG Tab PO SCH (09:18)
[2020-04-06] MEDS: Thiamine 100 MG Tab PO SCH (09:19)
[2020-04-06] MEDS: FLUCONAZOLE IV SCH (09:20)
[2020-04-06] MEDS: NORMAL SALINE IV SCH (09:20)
[2020-04-06] MEDS: Morphine 2 MG/ML SYRINGE IVPUSH PRN ×2 (09:53→14:22)
--- NOTE | 2020-04-06 10:01 | PCM.PN ---
- General Info Date of Service: 04/06/20 Admission Dx/Problem (Free Text): Admission Diagnosis/Problem Admission Diagnosis/Problem Spontaneous bacterial peritonitis Subjective Update: Reports abdominal pain at bedside this AM. Per nursing, patient has small smeared bowel movement last night. Functional Status: Reports: Incentive Spirometry. Denies: Tolerating Diet - Review of Systems Pulmonary: Reports: Shortness of Breath. Denies: Pleuritic Chest Pain, Cough, Sputum, Hemoptysis, Wheezing Cardiovascular: Denies: Chest Pain, Palpitations, Dyspnea on Exertion Gastrointestinal: Reports: No Symptoms Genitourinary: Reports: No Symptoms Musculoskeletal: Reports: No Symptoms Neurological: Reports: Confusion - Patient Data Vitals - Most Recent: Last Vital Signs Temp 98.9 F 04/06/20 08:32 Pulse 111 H 04/06/20 08:32 Resp 25 H 04/06/20 08:32 BP 105/52 L 04/06/20 08:32 Pulse Ox 92 L 04/06/20 08:32 Weight - Most Recent: 117 lb I&O - Last 24 Hours: Intake & Output 04/05/20 04/06/20 04/06/20 22:59 06:59 14:59 Intake Total 890 660 0 Balance 890 660 0 Lab Results Last 24 Hours: Laboratory Results - last 24 hr 04/05/20 04/05/20 04/05/20 Range/Units 12:05 12:11 18:07 WBC (4.0-11.0) K/uL RBC (4.30-5.90) M/uL Hgb (12.0-16.0) g/dL Hct (36.0-46.0) % MCV (80.0-98.0) fL MCH (27.0-32.0) pg MCHC (31.0-37.0) g/dL RDW Std Deviation (28.0-62.0) fl RDW Coeff of Tea (11.0-15.0) % Plt Count (150-400) K/uL MPV (7.40-12.00) fL Add Manual Diff Neutrophils % (Manual) (48.0-80.0) % Band Neutrophils % % Lymphocytes % (Manual) (16.0-40.0) % Atypical Lymphs % Monocytes % (Manual) (0.0-15.0) % Nucleated RBC % /100WBC Absolute Seg Neuts (1.4-5.7) Band Neutrophils # Lymphocytes # (Manual) (0.6-2.4) Monocytes # (Manual) (0.0-0.8) Nucleated RBCs # K/uL INR ABG pH 7.443 (7.35-7.45) ABG pCO2 25 L (35-45) mmHG ABG pO2 52 L (75-100) mmHG ABG HCO3 17 L (22-26) mEq/L ABG Total CO2 16.1 ABG Base Excess -6.4 L (-2.0-2.0) Lactate 3.3 H* 2.9 H* (0.20-2.00) mmol/L Sodium (136-145) mmol/L Potassium (3.5-5.1) mmol/L Chloride (98-107) mmol/L Carbon Dioxide (21.0-32.0) mmol/L BUN (7.0-18.0) mg/dL Creatinine (0.6-1.0) mg/dL Est Cr Clr Drug Dosing mL/min Estimated GFR (MDRD) ml/min Glucose (74-106) mg/dL Calcium (8.5-10.1) mg/dL Total Bilirubin (0.2-1.0) mg/dL AST (15-37) IU/L ALT (14-63) IU/L Alkaline Phosphatase (46-116) U/L Ammonia (19-54) ug/dL Total Protein (6.4-8.2) g/dL Albumin (3.4-5.0) g/dL Globulin (2.6-4.0) g/dL Albumin/Globulin Ratio (0.9-1.6) Blood Type Antibody Screen Crossmatch 04/06/20 04/06/20 04/06/20 Range/Units 00:17 02:43 02:43 WBC 26.90 H (4.0-11.0) K/uL RBC 2.15 L (4.30-5.90) M/uL Hgb 7.6 L (12.0-16.0) g/dL Hct 23.0 L (36.0-46.0) % MCV 107.0 H (80.0-98.0) fL MCH 35.3 H (27.0-32.0) pg MCHC 33.0 (31.0-37.0) g/dL RDW Std Deviation 69.2 H (28.0-62.0) fl RDW Coeff of Tea 18 H (11.0-15.0) % Plt Count 150 (150-400) K/uL MPV 12.40 H (7.40-12.00) fL Add Manual Diff YES Neutrophils % (Manual) 85 H (48.0-80.0) % Band Neutrophils % 4 % Lymphocytes % (Manual) 7 L (16.0-40.0) % Atypical Lymphs % 3 Monocytes % (Manual) 1 (0.0-15.0) % Nucleated RBC % 0.0 /100WBC Absolute Seg Neuts 22.9 H (1.4-5.7) Band Neutrophils # 1.1 Lymphocytes # (Manual) 1.9 (0.6-2.4) Monocytes # (Manual) 0.3 (0.0-0.8) Nucleated RBCs # 0 K/uL INR ABG pH (7.35-7.45) ABG pCO2 (35-45) mmHG ABG pO2 (75-100) mmHG ABG HCO3 (22-26) mEq/L ABG Total CO2 ABG Base Excess (-2.0-2.0) Lactate 2.5 H* (0.20-2.00) mmol/L Sodium 134 L (136-145) mmol/L Potassium 3.8 (3.5-5.1) mmol/L Chloride 103 (98-107) mmol/L Carbon Dioxide 18.3 L (21.0-32.0) mmol/L BUN 10 (7.0-18.0) mg/dL Creatinine 1.3 H (0.6-1.0) mg/dL Est Cr Clr Drug Dosing 49.64 mL/min Estimated GFR (MDRD) 46.1 ml/min Glucose 71 L (74-106) mg/dL Calcium 7.9 L (8.5-10.1) mg/dL Total Bilirubin 4.3 H (0.2-1.0) mg/dL AST 76 H (15-37) IU/L ALT 34 (14-63) IU/L Alkaline Phosphatase 161 H (46-116) U/L Ammonia (19-54) ug/dL Total Protein 5.1 L (6.4-8.2) g/dL Albumin 2.0 L (3.4-5.0) g/dL Globulin 3.1 (2.6-4.0) g/dL Albumin/Globulin Ratio 0.7 L (0.9-1.6) Blood Type Antibody Screen Crossmatch 04/06/20 04/06/20 04/06/20 Range/Units 02:43 02:43 04:55 WBC (4.0-11.0) K/uL RBC (4.30-5.90) M/uL Hgb (12.0-16.0) g/dL Hct (36.0-46.0) % MCV (80.0-98.0) fL MCH (27.0-32.0) pg MCHC (31.0-37.0) g/dL RDW Std Deviation (28.0-62.0) fl RDW Coeff of Tea (11.0-15.0) % Plt Count (150-400) K/uL MPV (7.40-12.00) fL Add Manual Diff Neutrophils % (Manual) (48.0-80.0) % Band Neutrophils % % Lymphocytes % (Manual) (16.0-40.0) % Atypical Lymphs % Monocytes % (Manual) (0.0-15.0) % Nucleated RBC % /100WBC Absolute Seg Neuts (1.4-5.7) Band Neutrophils # Lymphocytes # (Manual) (0.6-2.4) Monocytes # (Manual) (0.0-0.8) Nucleated RBCs # K/uL INR 2.65 ABG pH (7.35-7.45) ABG pCO2 (35-45) mmHG ABG pO2 (75-100) mmHG ABG HCO3 (22-26) mEq/L ABG Total CO2 ABG Base Excess (-2.0-2.0) Lactate 2.7 H* (0.20-2.00) mmol/L Sodium (136-145) mmol/L Potassium (3.5-5.1) mmol/L Chloride (98-107) mmol/L Carbon Dioxide (21.0-32.0) mmol/L BUN (7.0-18.0) mg/dL Creatinine (0.6-1.0) mg/dL Est Cr Clr Drug Dosing mL/min Estimated GFR (MDRD) ml/min Glucose (74-106) mg/dL Calcium (8.5-10.1) mg/dL Total Bilirubin (0.2-1.0) mg/dL AST (15-37) IU/L ALT (14-63) IU/L Alkaline Phosphatase (46-116) U/L Ammonia 62 H (19-54) ug/dL Total Protein (6.4-8.2) g/dL Albumin (3.4-5.0) g/dL Globulin (2.6-4.0) g/dL Albumin/Globulin Ratio (0.9-1.6) Blood Type Antibody Screen Crossmatch 04/06/20 04/06/20 04/06/20 Range/Units 04:55 04:55 06:59 WBC (4.0-11.0) K/uL RBC (4.30-5.90) M/uL Hgb (12.0-16.0) g/dL Hct (36.0-46.0) % MCV (80.0-98.0) fL MCH (27.0-32.0) pg MCHC (31.0-37.0) g/dL RDW Std Deviation (28.0-62.0) fl RDW Coeff of Tea (11.0-15.0) % Plt Count (150-400) K/uL MPV (7.40-12.00) fL Add Manual Diff Neutrophils % (Manual) (48.0-80.0) % Band Neutrophils % % Lymphocytes % (Manual) (16.0-40.0) % Atypical Lymphs % Monocytes % (Manual) (0.0-15.0) % Nucleated RBC % /100WBC Absolute Seg Neuts (1.4-5.7) Band Neutrophils # Lymphocytes # (Manual) (0.6-2.4) Monocytes # (Manual) (0.0-0.8) Nucleated RBCs # K/uL INR ABG pH (7.35-7.45) ABG pCO2 (35-45) mmHG ABG pO2 (75-100) mmHG ABG HCO3 (22-26) mEq/L ABG Total CO2 ABG Base Excess (-2.0-2.0) Lactate 2.4 H* 2.3 H* (0.20-2.00) mmol/L Sodium (136-145) mmol/L Potassium (3.5-5.1) mmol/L Chloride (98-107) mmol/L Carbon Dioxide (21.0-32.0) mmol/L BUN (7.0-18.0) mg/dL Creatinine (0.6-1.0) mg/dL Est Cr Clr Drug Dosing mL/min Estimated GFR (MDRD) ml/min Glucose (74-106) mg/dL Calcium (8.5-10.1) mg/dL Total Bilirubin (0.2-1.0) mg/dL AST (15-37) IU/L ALT (14-63) IU/L Alkaline Phosphatase (46-116) U/L Ammonia (19-54) ug/dL Total Protein (6.4-8.2) g/dL Albumin (3.4-5.0) g/dL Globulin (2.6-4.0) g/dL Albumin/Globulin Ratio (0.9-1.6) Blood Type A POSITIVE Antibody Screen NEGATIVE Crossmatch See Detail Cricket Results Last 24 Hours: Microbiology 04/01/20 17:17 Aerobic Blood Culture - Preliminary Blood - Venous - Lab Draw NO GROWTH AFTER 4 DAYS Anaerobic Blood Culture - Preliminary NO GROWTH AFTER 4 DAYS 04/01/20 17:07 Aerobic Blood Culture - Preliminary Blood - Venous NO GROWTH AFTER 4 DAYS Anaerobic Blood Culture - Preliminary NO GROWTH AFTER 4 DAYS Med Orders - Current: Current Medications Folic Acid (Folic Acid) 1 mg PO DAILY [facility] Last Admin: 04/05/20 09:34 Dose: 1 mg Documented by: Cefepime HCl 2 gm/ Premix 50 mls @ 100 mls/hr IV Q8H [facility] Last Admin: 04/06/20 03:49 Dose: 100 mls/hr Documented by: Fluconazole/Sodium Chloride (400 mg/ Premix) 200 mls @ 100 mls/hr IV Q24H [facility] Last Admin: 04/05/20 09:51 Dose: 100 mls/hr Documented by: Vancomycin HCl 1 gm/ Sodium (Chloride) 250 mls @ 250 mls/hr IV Q24H [facility] Last Admin: 04/05/20 20:47 Dose: 250 mls/hr Documented by: Levofloxacin/Dextrose 750 mg/ (Premix) 150 mls @ 100 mls/hr IV Q48H [facility] Last Admin: 04/04/20 18:04 Dose: 100 mls/hr Documented by: Pantoprazole Sodium 40 mg/ (Sodium Chloride) 10 mls @ 300 mls/hr IV BID [facility] Last Admin: 04/06/20 06:08 Dose: 300 mls/hr Documented by: Lactulose (Chronulac) 10 gm PO Q4H [facility] Last Admin: 04/06/20 06:12 Dose: Not Given Documented by: Lidocaine HCl (Xylocaine 2% Jelly) 30 ml GTUBE ASDIRECTED PRN PRN Reason: PAIN Last Admin: 04/04/20 14:05 Dose: 1 applic Documented by: Metoclopramide HCl (Reglan) 10 mg IVPUSH Q8H PRN PRN Reason: Constipation Morphine Sulfate (Morphine) 2 mg IVPUSH Q4H PRN PRN Reason: Pain Last Admin: 04/05/20 18:01 Dose: 2 mg Documented by: Zinc 50mg Elemental (Tablet) 1 each PO DAILY [facility] Last Admin: 04/05/20 09:51 Dose: 1 each Documented by: Rifaximin 550 Mg Tab 1 each PO BID [facility] Last Admin: 04/05/20 20:52 Dose: 1 each Documented by: Amylase/Lipase/Protease 36,000 Unit Cap.Cr 2 each PO TIDMEALS [facility] Last Admin: 04/06/20 08:31 Dose: Not Given Documented by: Potassium Chloride (Klor-Con M20) 20 meq PO DAILY [facility] Last Admin: 04/05/20 09:35 Dose: 20 meq Documented by: Quetiapine Fumarate (Seroquel) 100 mg PO BEDTIME [facility] Last Admin: 04/05/20 20:52 Dose: 100 mg Documented by: Sodium Chloride (Saline Flush) 10 ml FLUSH ASDIRECTED PRN PRN Reason: Keep Vein Open Last Admin: 04/01/20 16:56 Dose: 10 ml Documented by: Sodium Chloride (Saline Flush) 2.5 ml FLUSH ASDIRECTED PRN PRN Reason: Keep Vein Open Last Admin: 04/04/20 02:56 Dose: 2.5 ml Documented by: Thiamine HCl (Vitamin B-1) 100 mg PO DAILY [facility] Last Admin: 04/05/20 09:34 Dose: 100 mg Documented by: Vancomycin HCl (Pharmacy To Dose - Vancomycin) 1 dose .XX ASDIRECTED [facility] Discontinued Medications Lipase/Protease/Amylase ([place] 24,000 Units) 3 cap PO TIDMEALS [facility] Last Admin: 04/02/20 14:02 Dose: Not Given Documented by: Enoxaparin Sodium (Lovenox) 40 mg SUBCUT BID [facility] Last Admin: 04/03/20 09:16 Dose: 40 mg Documented by: Ferrous Sulfate (Ferrous Sulfate) 325 mg PO DAILY [facility] Last Admin: 04/05/20 09:34 Dose: 325 mg Documented by: Furosemide (Lasix) 40 mg IVPUSH NOW ONE Stop: 04/04/20 15:52 Last Admin: 04/05/20 14:24 Dose: Not Given Documented by: Gabapentin (Neurontin) 300 mg PO TID [facility] Last Admin: 04/05/20 21:06 Dose: 300 mg Documented by: Hydromorphone HCl (Dilaudid) 1 mg IVPUSH ONETIME ONE Stop: 04/01/20 16:41 Last Admin: 04/01/20 16:55 Dose: 1 mg Documented by: Hydromorphone HCl (Dilaudid) 1 mg IVPUSH ONETIME ONE Stop: 04/01/20 18:00 Last Admin: 04/01/20 18:08 Dose: 1 mg Documented by: Albumin Human (Flexbumin 25%) 12.5 gm in 50 mls @ 100 mls/hr IV ONETIME ONE Stop: 04/01/20 17:26 Last Admin: 04/01/20 17:56 Dose: Not Given Documented by: Albumin Human (Flexbumin 25%) 12.5 gm in 50 mls @ 100 mls/hr IV ONETIME ONE Stop: 04/01/20 17:28 Last Admin: 04/01/20 17:25 Dose: 100 mls/hr Documented by: Sodium Chloride (Normal Saline) 1,000 mls @ 999 mls/hr IV .Bolus ONE Stop: 04/01/20 18:05 Last Admin: 04/01/20 17:24 Dose: 999 mls/hr Documented by: Piperacillin Sod/Tazobactam (Sod 3.375 gm/ Sodium Chloride) 50 mls @ 100 mls/hr IV ONETIME ONE Stop: 04/01/20 18:39 Last Admin: 04/01/20 18:48 Dose: 100 mls/hr Documented by: Sodium Chloride (Normal Saline) 1,000 mls @ 75 mls/hr IV ASDIRECTED [facility] Last Admin: 04/02/20 13:27 Dose: 75 mls/hr Documented by: Cefotaxime Sodium 2 gm/ Sodium (Chloride) 100 mls @ 200 mls/hr IV Q8HR [facility] Albumin Human (Flexbumin 25%) 12.5 gm in 50 mls @ 100 mls/hr IV ONETIME ONE Stop: 04/01/20 23:59 Last Admin: 04/02/20 00:14 Dose: 100 mls/hr Documented by: Albumin Human (Flexbumin 25%) 12.5 gm in 50 mls @ 100 mls/hr IV ONETIME ONE Stop: 04/02/20 00:29 Last Admin: 04/02/20 01:02 Dose: 100 mls/hr Documented by: Albumin Human (Flexbumin 25%) 12.5 gm in 50 mls @ 100 mls/hr IV ASDIRECTED [facility] Stop: 04/03/20 09:59 Last Admin: 04/02/20 11:22 Dose: 100 mls/hr Documented by: Vancomycin HCl 1.5 gm/ Premix 300 mls @ 300 mls/hr IV ONETIME ONE Stop: 04/02/20 20:59 Last Admin: 04/02/20 19:42 Dose: 300 mls/hr Documented by: Sodium Chloride (Normal Saline) 1,000 mls @ 75 mls/hr IV ASDIRECTED [facility] Last Admin: 04/03/20 03:23 Dose: 75 mls/hr Documented by: Lactated Ringer's (Ringers, Lactated) 1,000 mls @ 999 mls/hr IV .BOLUS ONE Stop: 04/02/20 20:16 Last Admin: 04/02/20 19:38 Dose: 999 mls/hr Documented by: Vancomycin HCl 1 gm/ Sodium (Chloride) 250 mls @ 250 mls/hr IV Q12H [facility] Last Admin: 04/03/20 20:15 Dose: 250 mls/hr Documented by: Albumin Human (Flexbumin 25%) 12.5 gm in 50 mls @ 100 mls/hr IV NOW STA Stop: 04/03/20 11:08 Last Admin: 04/03/20 10:59 Dose: 100 mls/hr Documented by: Albumin Human (Flexbumin 25%) 12.5 gm in 50 mls @ 100 mls/hr IV ONETIME ONE Stop: 04/03/20 11:09 Last Admin: 04/03/20 11:38 Dose: 100 mls/hr Documented by: Albumin Human (Flexbumin 25%) 12.5 gm in 50 mls @ 100 mls/hr IV ONETIME ONE Stop: 04/03/20 17:37 Last Admin: 04/03/20 18:22 Dose: 100 mls/hr Documented by: Albumin Human (Flexbumin 25%) 12.5 gm in 50 mls @ 100 mls/hr IV ONETIME [facility] Stop: 04/05/20 13:59 Albumin Human (Flexbumin 25%) 12.5 gm in 200 mls @ 100 mls/hr IV ONETIME ONE Stop: 04/05/20 15:29 Last Admin: 04/05/20 14:47 Dose: 100 mls/hr Documented by: Lactulose (Chronulac) 10 gm PO ONETIME ONE Stop: 04/01/20 22:07 Last Admin: 04/01/20 22:25 Dose: 10 gm Documented by: Lactulose (Chronulac) 10 gm PO BID [facility] Last Admin: 04/02/20 09:22 Dose: 10 gm Documented by: Lactulose (Chronulac) 10 gm PO TID [facility] Last Admin: 04/02/20 13:48 Dose: 10 gm Documented by: Lactulose (Chronulac) 10 gm PO Q6H [facility] Last Admin: 04/03/20 06:14 Dose: 10 gm Documented by: Lactulose (Chronulac) 10 gm .XX ONETIME ONE Stop: 04/05/20 10:52 Last Admin: 04/06/20 04:24 Dose: Not Given Documented by: Lidocaine HCl (Xylocaine 4% Top Soln) 1 ml MUCMEM ONETIME ONE Stop: 04/04/20 12:03 Last Admin: 04/04/20 14:12 Dose: Not Given Documented by: Magnesium Oxide (Magnesium Oxide) 400 mg PO DAILY [facility] Last Admin: 04/05/20 09:33 Dose: 400 mg Documented by: Metoclopramide HCl (Reglan) 10 mg IVPUSH Q4H PRN PRN Reason: Other Morphine Sulfate (Morphine) 1 mg IVPUSH ONETIME ONE Stop: 11/04/20 12:07 Last Admin: 04/02/20 12:37 Dose: 1 mg Documented by: Pantoprazole Sodium (Protonix) 40 mg PO DAILY [facility] Last Admin: 04/05/20 09:35 Dose: 40 mg Documented by: Polyethylene Glycol (Miralax) 17 gm PO DAILY [facility] Last Admin: 04/05/20 09:36 Dose: 17 gm Documented by: Rifaximin (Xifaxan) 550 mg PO BID [facility] Last Admin: 04/02/20 10:10 Dose: Not Given Documented by: Spironolactone (Aldactone) 50 mg PO DAILY [facility] - Exam Quality Assessment: Supplemental Oxygen General: Alert (knows who and where she is , responsive to stimuli, but confuses day and year. Some confabulation vs hallucinations and confusion ), Cooperative, No Acute Distress HEENT: Pupils Equal, Pupils Reactive, EOMI, Mucous Membr. Moist/[place] Neck: Supple, No JVD Lungs: Normal Respiratory Effort, Decreased Breath Sounds Cardiovascular: Regular Rate, Regular Rhythm, No Murmurs GI/Abdominal Exam: Soft, Distended, Rebound, Tender, Hepatomegaly. No: Guarding, Rigid Extremities: Normal Inspection, Normal Range of Motion, No Pedal Edema, Normal Capillary Refill Peripheral Pulses: 2+: Radial (L), Radial (R), Dorsalis Pedis (L), Dorsalis Pedis (R) Skin: Warm, Dry, Intact Neurological: No New Focal Deficit, Strength Equal Bilateral Psy/Mental Status: Alert Sepsis Event Note - Evaluation Sepsis Screening Result: Severe Sepsis Risk - Focused Exam Vital Signs: Vital Signs Temp Temp Temp Pulse Resp BP Pulse Ox 04/06/20 08:32 98.9 F 111 H 25 H 105/52 L 92 L 04/06/20 08:17 98.6 F 58 L 31 H 100/53 L 92 L 04/06/20 07:45 107 H 24 H 100/54 L 92 L 04/06/20 07:20 97.7 F 112 H 22 H 99/56 L 94 L 04/06/20 04:20 92 H 04/06/20 04:14 91 L 04/06/20 04:08 90 L 04/06/20 04:04 92 L 04/06/20 03:58 98.4 F 104 H 18 98/52 L 92 L 04/06/20 00:00 97.2 F 112 H 20 106/47 L 90 L 04/05/20 20:43 96.2 F L 109 H 18 102/56 L 91 L - Problem List & Annotations (1) Ileus SNOMED Code(s): 261958826 Code(s): K56.7 - ILEUS, UNSPECIFIED Status: Acute Priority: Medium Current Visit: Yes (2) SBP (spontaneous bacterial peritonitis) SNOMED Code(s): 71938973 Code(s): K65.2 - SPONTANEOUS BACTERIAL PERITONITIS Status: Acute Priority: High Current Visit: Yes (3) Sepsis SNOMED Code(s): 84129420 Code(s): A41.9 - SEPSIS, UNSPECIFIED ORGANISM Status: Acute Priority: High Current Visit: Yes Qualifiers: Sepsis type: sepsis due to unspecified organism Sepsis acute organ dysfunction status: with acute organ dysfunction Severe sepsis acute organ dysfunction type: encephalopathy (4) UTI (urinary tract infection) SNOMED Code(s): 67875648 Code(s): N39.0 - URINARY TRACT INFECTION, SITE NOT SPECIFIED Status: Acute Current Visit: Yes (5) Ascites due to alcoholic cirrhosis SNOMED Code(s): 5037296219080740 Code(s): K70.31 - ALCOHOLIC CIRRHOSIS OF LIVER WITH ASCITES Status: Chronic Priority: High Current Visit: Yes (6) Hepatic encephalopathy SNOMED Code(s): 46718365 Code(s): K72.90 - HEPATIC FAILURE, UNSPECIFIED WITHOUT COMA Status: Acute Priority: Medium Current Visit: Yes (7) Small bowel obstruction SNOMED Code(s): 867392319 Code(s): K56.609 - UNSP INTESTNL OBST, UNSP TO PARTIAL VERSUS COMPLETE OBST Status: Acute Current Visit: Yes (8) Hypoxic SNOMED Code(s): 940320251 Code(s): R09.02 - HYPOXEMIA Status: Acute Current Visit: Yes (9) Acute kidney failure SNOMED Code(s): 61070968 Code(s): N17.9 - ACUTE KIDNEY FAILURE, UNSPECIFIED Status: Acute Current Visit: Yes (10) Altered mental status SNOMED Code(s): 937336647 Code(s): R41.82 - ALTERED MENTAL STATUS, UNSPECIFIED Status: Acute Priority: High Current Visit: Yes Qualifiers: Altered mental status type: unspecified Qualified Code(s): R41.82 - Altered mental status, unspecified (11) Pancreatic pseudocyst SNOMED Code(s): 160337714 Code(s): K86.3 - PSEUDOCYST OF PANCREAS Status: Acute Current Visit: Yes - Problem List Review Problem List Initiated/Reviewed/Updated: Yes - My Orders Last 24 Hours: My Active Orders 04/06/20 12:00 LACTIC ACID,WHOLE BLOOD [BG] Q6H 04/07/20 05:11 INR,PT,PROTHROMBIN TIME [COAG] AM - Plan Plan:: Assessment and Plan: 1. Sepsis secondary to SBP: - Patient on IV vancomycin and cefepime. Blood cultures negative. Continue to trend lactate. Leukocytosis improved since yesterday 26.9. - Called and spoke to Dr. Bar advisory software engineer at [facility] for recommendations. Per gastroenterology, give albumin 1 mg/kg qd for the next 3-4 days, continue Rifaximin, hold miralax and can try lactulose enema. Patient likely needs therapeutic paracentesis. - will require transfer since she needs a therapeutic paracentesis. Spoke with E.R doctor who has agreed to accept her care in [place], [place]. 2. Acute hypoxic respiratory failure secondary to pneumonia: - Increasing oxygen demand therefore placed on BiPAP early this morning. Continue supplemental oxygen. CXR showed extensive airspace opacities in lung bases. COVID-19 test repeated and was negative. Levaquin added to antibiotic regimen. 3. Ileus: - Resolved, 2 X large bowel movements. 4. Hepatic encephalopathy: - Continue rifaximin and lactulose, xinc. 5. Pancreatic pseudocyst: - Patient had internal drainage of pancreatic pseudocyst at [facility]. Culture grew fungi susceptible to fluconazole. Will continue fluconazole. Drain has retracted into stomach lumen, contacted [facility], Awaiting transfer where it will be revised/ corrected. 6. UTI: - Urine culture grew Hafina Alvei, susceptible to cefepime. 7. Hypoalbuminemia: - Per advisory software engineer Dr. Bar at [facility], will give albumin 1 mg/kg qd. 8. CALLY, improving. 9. History of portal vein thrombus: - Lovenox held currently due to concerns of bleeding. - Patient on SCD's. 10. Past medical history of alcoholic liver cirrhosis.
[2020-04-06] MEDS: Levofloxacin/Dextrose 5%-Water 750 MG in Premix Bag 1 BAG IV SCH (15:27)
--- NOTE | 2020-04-06 16:15 | PCM.DCSUM1 ---
Discharge Summary - Hospital Course Brief History: Pt is a 39 y/o with h/o ETOH abuse, Cirrhosis, and Pancreatitis. Was prev d/c on Mar 26 s/p stent placement for a procedure on her pancreatic pseudocyst. Was taking lactulose as prescribed, but unable to have a stool movement in 3 days despite trying an enema. Family had also noted her to be confused. Furthermore she continues to complaint of b/l lower extremity pain responsive to Advil. Yesterday in the ED pt had paracentesis, was kept NPO and started on Lovenox for DVT ppx. This morning pt states he felt like she had fevers overnight, with intermittent leg pain. There was no swelling, erythema, or tenderness to palpation, s.o.b., fever or chills noted at bedside. Pt states she is feeling better, is AOx3. Still has not had a BM, but has been given an enema and lactulose. Abdomen is soft , nontender, there is no rebound or guarding this morning. Pt states it a remarkable difference from when she was first admitted. Diagnosis: Stroke: No - Discharge Data Discharge Date: 04/06/20 Discharge Disposition: DC/Tfer to Acute Hospital 02 Condition: Stable - Referral to Home Health Primary Care Physician: PCP None - Discharge Diagnosis/Problem(s) (1) Ileus SNOMED Code(s): 966278816 ICD Code: K56.7 - ILEUS, UNSPECIFIED Status: Acute Priority: Medium Current Visit: Yes (2) SBP (spontaneous bacterial peritonitis) SNOMED Code(s): 40935772 ICD Code: K65.2 - SPONTANEOUS BACTERIAL PERITONITIS Status: Acute Priority: High Current Visit: Yes (3) Sepsis SNOMED Code(s): 81079810 ICD Code: A41.9 - SEPSIS, UNSPECIFIED ORGANISM Status: Acute Priority: High Current Visit: Yes Qualifiers: Sepsis type: sepsis due to unspecified organism Sepsis acute organ dysfunction status: with acute organ dysfunction Severe sepsis acute organ dysfunction type: encephalopathy (4) UTI (urinary tract infection) SNOMED Code(s): 91783141 ICD Code: N39.0 - URINARY TRACT INFECTION, SITE NOT SPECIFIED Status: Acute Current Visit: Yes Qualifiers: Indwelling urinary catheter type: indwelling urethral catheter (5) Ascites due to alcoholic cirrhosis SNOMED Code(s): 9364994423602914 ICD Code: K70.31 - ALCOHOLIC CIRRHOSIS OF LIVER WITH ASCITES Status: Chronic Priority: High Current Visit: Yes (6) Hepatic encephalopathy SNOMED Code(s): 93296969 ICD Code: K72.90 - HEPATIC FAILURE, UNSPECIFIED WITHOUT COMA Status: Acute Priority: Medium Current Visit: Yes (7) Small bowel obstruction SNOMED Code(s): 896808202 ICD Code: K56.609 - UNSP INTESTNL OBST, UNSP TO PARTIAL VERSUS COMPLETE OBST Status: Acute Current Visit: Yes (8) Hypoxic SNOMED Code(s): 607571054 ICD Code: R09.02 - HYPOXEMIA Status: Acute Current Visit: Yes (9) Acute kidney failure SNOMED Code(s): 56712765 ICD Code: N17.9 - ACUTE KIDNEY FAILURE, UNSPECIFIED Status: Acute Current Visit: Yes (10) Altered mental status SNOMED Code(s): 113307215 ICD Code: R41.82 - ALTERED MENTAL STATUS, UNSPECIFIED Status: Acute Priority: High Current Visit: Yes Qualifiers: Altered mental status type: unspecified Qualified Code(s): R41.82 - Altered mental status, unspecified (11) Pancreatic pseudocyst SNOMED Code(s): 165273960 ICD Code: K86.3 - PSEUDOCYST OF PANCREAS Status: Acute Current Visit: Yes - Patient Summary/Data Consults: Consultations 04/04/20 09:58 PT Evaluation and Treatment [CONS] Routine 04/04/20 11:33 Consult to Physician [CONS] Urgent Hospital Course: -Treating for Sepsis secondary to SBP with Cefepime and Vancomycin. Per prajapati culture found to have UTI- species Hafina Alvei cefepime sensitive. 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 Continue to trend Lactic Acid. For Hepatic encephalopathy; increased lactulose frequency to Q4, continuing on rifaximin and zinc. Had ileus, which had now resolved. 2x days ago developed hypoxia, found to have infiltrates therefore also started on Levaquin. Worsening ascites; pt will need therapeutic paracentesis and pseudocyst on recent CT shows increase in size as the drain has retracted to the stomach lumen. Will need revision in [place]. We appreciate them accepting the transfer of this patient who now requires a higher level of care. - Discharge Plan *PRESCRIPTION DRUG MONITORING PROGRAM REVIEWED*: Not Applicable *COPY OF PRESCRIPTION DRUG MONITORING REPORT IN PATIENT PASCUAL: Not Applicable Prescriptions/Med Rec: Pharmacy to Dose - Vancomycin 1 dose .XX ASDIRECTED 10 Days each Home Medications: Home Meds Cholecalciferol (Vitamin D3) [Vitamin D] 5,000 unit PO DAILY 04/01/20 [History] Enoxaparin [Lovenox] 40 mg SQ BID 04/01/20 [History] Ferrous Sulfate [Iron] 325 mg PO DAILY 04/01/20 [History] Fluconazole [Diflucan] 400 mg PO DAILY 04/01/20 [History] Folic Acid 1 mg PO DAILY 04/01/20 [History] Furosemide 20 mg PO DAILY 04/01/20 [History] Hydrocodone/Acetaminophen [Ward 5-325 Tablet] 1 each PO BID PRN 04/01/20 [History] Lactulose 10 gm PO BID 04/01/20 [History] Lipase/Protease/Amylase [Creon Dr 36,000 Units Capsule] 2 each PO TID 04/01/20 [History] Magnesium Oxide 400 mg PO DAILY 04/01/20 [History] Pantoprazole [ProTONIX] 40 mg PO DAILY 04/01/20 [History] Potassium Chloride [Klor-Con 10] 20 meq PO DAILY 04/01/20 [History] QUEtiapine [SEROquel] 100 mg PO BEDTIME 04/01/20 [History] Rifaximin [Xifaxan] 550 mg PO BID 04/01/20 [History] Spironolactone [Aldactone] 50 mg PO DAILY 04/01/20 [History] Thiamine [Vitamin B-1] 100 mg PO DAILY 04/01/20 [History] Lactulose [Chronulac] 10 gm PO Q4H cup 04/06/20 [Rx] Morphine 2 mg IVPUSH Q4H PRN syringe 04/06/20 [Rx] Pharmacy to Dose - Vancomycin 1 dose .XX ASDIRECTED 10 Days each 04/06/20 [Rx] Oxygen Therapy Mode: BiPAP Forms: ED Department Discharge Referrals: Purvi Orozco PA [Physician [facility] [employer]] - 04/10/20 9:00 am (Please arrive 15mins early, bring ID, insurance information and own mask.) - Discharge Summary/Plan Comment DC Time >30 min.: Yes (due to arranging transfer and flights in bad weather ) - Patient Data Vitals - Most Recent: Last Vital Signs Temp 99 F 04/06/20 15:33 Pulse 112 H 04/06/20 15:33 Resp 30 H 04/06/20 15:33 BP 97/44 L 04/06/20 15:33 Pulse Ox 90 L 04/06/20 15:33 Weight - Most Recent: 117 lb I&O - Last 24 hours: Intake & Output 04/06/20 04/06/20 04/06/20 06:59 14:59 22:59 Intake Total 660 350 435 Output Total 475 Balance 660 350 -40 Lab Results - Last 24 hrs: Laboratory Results - last 24 hr 04/05/20 04/06/20 04/06/20 Range/Units 18:07 00:17 02:43 WBC 26.90 H (4.0-11.0) K/uL RBC 2.15 L (4.30-5.90) M/uL Hgb 7.6 L (12.0-16.0) g/dL Hct 23.0 L (36.0-46.0) % MCV 107.0 H (80.0-98.0) fL MCH 35.3 H (27.0-32.0) pg MCHC 33.0 (31.0-37.0) g/dL RDW Std Deviation 69.2 H (28.0-62.0) fl RDW Coeff of Tea 18 H (11.0-15.0) % Plt Count 150 (150-400) K/uL MPV 12.40 H (7.40-12.00) fL Add Manual Diff YES Neutrophils % (Manual) 85 H (48.0-80.0) % Band Neutrophils % 4 % Lymphocytes % (Manual) 7 L (16.0-40.0) % Atypical Lymphs % 3 Monocytes % (Manual) 1 (0.0-15.0) % Nucleated RBC % 0.0 /100WBC Absolute Seg Neuts 22.9 H (1.4-5.7) Band Neutrophils # 1.1 Lymphocytes # (Manual) 1.9 (0.6-2.4) Monocytes # (Manual) 0.3 (0.0-0.8) Nucleated RBCs # 0 K/uL INR ABG pH (7.35-7.45) ABG pCO2 (35-45) mmHG ABG pO2 (75-100) mmHG ABG HCO3 (22-26) mEq/L ABG Total CO2 ABG Base Excess (-2.0-2.0) Lactate 2.9 H* 2.5 H* (0.20-2.00) mmol/L Sodium (136-145) mmol/L Potassium (3.5-5.1) mmol/L Chloride (98-107) mmol/L Carbon Dioxide (21.0-32.0) mmol/L BUN (7.0-18.0) mg/dL Creatinine (0.6-1.0) mg/dL Est Cr Clr Drug Dosing mL/min Estimated GFR (MDRD) ml/min Glucose (74-106) mg/dL Calcium (8.5-10.1) mg/dL Total Bilirubin (0.2-1.0) mg/dL AST (15-37) IU/L ALT (14-63) IU/L Alkaline Phosphatase (46-116) U/L Ammonia (19-54) ug/dL Total Protein (6.4-8.2) g/dL Albumin (3.4-5.0) g/dL Globulin (2.6-4.0) g/dL Albumin/Globulin Ratio (0.9-1.6) Blood Type Antibody Screen Crossmatch 04/06/20 04/06/20 04/06/20 Range/Units 02:43 02:43 02:43 WBC (4.0-11.0) K/uL RBC (4.30-5.90) M/uL Hgb (12.0-16.0) g/dL Hct (36.0-46.0) % MCV (80.0-98.0) fL MCH (27.0-32.0) pg MCHC (31.0-37.0) g/dL RDW Std Deviation (28.0-62.0) fl RDW Coeff of Tea (11.0-15.0) % Plt Count (150-400) K/uL MPV (7.40-12.00) fL Add Manual Diff Neutrophils % (Manual) (48.0-80.0) % Band Neutrophils % % Lymphocytes % (Manual) (16.0-40.0) % Atypical Lymphs % Monocytes % (Manual) (0.0-15.0) % Nucleated RBC % /100WBC Absolute Seg Neuts (1.4-5.7) Band Neutrophils # Lymphocytes # (Manual) (0.6-2.4) Monocytes # (Manual) (0.0-0.8) Nucleated RBCs # K/uL INR 2.65 ABG pH (7.35-7.45) ABG pCO2 (35-45) mmHG ABG pO2 (75-100) mmHG ABG HCO3 (22-26) mEq/L ABG Total CO2 ABG Base Excess (-2.0-2.0) Lactate 2.7 H* (0.20-2.00) mmol/L Sodium 134 L (136-145) mmol/L Potassium 3.8 (3.5-5.1) mmol/L Chloride 103 (98-107) mmol/L Carbon Dioxide 18.3 L (21.0-32.0) mmol/L BUN 10 (7.0-18.0) mg/dL Creatinine 1.3 H (0.6-1.0) mg/dL Est Cr Clr Drug Dosing 49.64 mL/min Estimated GFR (MDRD) 46.1 ml/min Glucose 71 L (74-106) mg/dL Calcium 7.9 L (8.5-10.1) mg/dL Total Bilirubin 4.3 H (0.2-1.0) mg/dL AST 76 H (15-37) IU/L ALT 34 (14-63) IU/L Alkaline Phosphatase 161 H (46-116) U/L Ammonia (19-54) ug/dL Total Protein 5.1 L (6.4-8.2) g/dL Albumin 2.0 L (3.4-5.0) g/dL Globulin 3.1 (2.6-4.0) g/dL Albumin/Globulin Ratio 0.7 L (0.9-1.6) Blood Type Antibody Screen Crossmatch 04/06/20 04/06/20 04/06/20 Range/Units 04:55 04:55 04:55 WBC (4.0-11.0) K/uL RBC (4.30-5.90) M/uL Hgb (12.0-16.0) g/dL Hct (36.0-46.0) % MCV (80.0-98.0) fL MCH (27.0-32.0) pg MCHC (31.0-37.0) g/dL RDW Std Deviation (28.0-62.0) fl RDW Coeff of Tea (11.0-15.0) % Plt Count (150-400) K/uL MPV (7.40-12.00) fL Add Manual Diff Neutrophils % (Manual) (48.0-80.0) % Band Neutrophils % % Lymphocytes % (Manual) (16.0-40.0) % Atypical Lymphs % Monocytes % (Manual) (0.0-15.0) % Nucleated RBC % /100WBC Absolute Seg Neuts (1.4-5.7) Band Neutrophils # Lymphocytes # (Manual) (0.6-2.4) Monocytes # (Manual) (0.0-0.8) Nucleated RBCs # K/uL INR ABG pH (7.35-7.45) ABG pCO2 (35-45) mmHG ABG pO2 (75-100) mmHG ABG HCO3 (22-26) mEq/L ABG Total CO2 ABG Base Excess (-2.0-2.0) Lactate 2.4 H* (0.20-2.00) mmol/L Sodium (136-145) mmol/L Potassium (3.5-5.1) mmol/L Chloride (98-107) mmol/L Carbon Dioxide (21.0-32.0) mmol/L BUN (7.0-18.0) mg/dL Creatinine (0.6-1.0) mg/dL Est Cr Clr Drug Dosing mL/min Estimated GFR (MDRD) ml/min Glucose (74-106) mg/dL Calcium (8.5-10.1) mg/dL Total Bilirubin (0.2-1.0) mg/dL AST (15-37) IU/L ALT (14-63) IU/L Alkaline Phosphatase (46-116) U/L Ammonia 62 H (19-54) ug/dL Total Protein (6.4-8.2) g/dL Albumin (3.4-5.0) g/dL Globulin (2.6-4.0) g/dL Albumin/Globulin Ratio (0.9-1.6) Blood Type A POSITIVE Antibody Screen NEGATIVE Crossmatch See Detail 04/06/20 04/06/20 04/06/20 Range/Units 06:59 10:00 10:30 WBC (4.0-11.0) K/uL RBC (4.30-5.90) M/uL Hgb (12.0-16.0) g/dL Hct (36.0-46.0) % MCV (80.0-98.0) fL MCH (27.0-32.0) pg MCHC (31.0-37.0) g/dL RDW Std Deviation (28.0-62.0) fl RDW Coeff of Tea (11.0-15.0) % Plt Count (150-400) K/uL MPV (7.40-12.00) fL Add Manual Diff Neutrophils % (Manual) (48.0-80.0) % Band Neutrophils % % Lymphocytes % (Manual) (16.0-40.0) % Atypical Lymphs % Monocytes % (Manual) (0.0-15.0) % Nucleated RBC % /100WBC Absolute Seg Neuts (1.4-5.7) Band Neutrophils # Lymphocytes # (Manual) (0.6-2.4) Monocytes # (Manual) (0.0-0.8) Nucleated RBCs # K/uL INR ABG pH 7.404 (7.35-7.45) ABG pCO2 28 L (35-45) mmHG ABG pO2 57 L (75-100) mmHG ABG HCO3 18 L (22-26) mEq/L ABG Total CO2 16.8 ABG Base Excess -6.4 L (-2.0-2.0) Lactate 2.3 H* 2.5 H* (0.20-2.00) mmol/L Sodium (136-145) mmol/L Potassium (3.5-5.1) mmol/L Chloride (98-107) mmol/L Carbon Dioxide (21.0-32.0) mmol/L BUN (7.0-18.0) mg/dL Creatinine (0.6-1.0) mg/dL Est Cr Clr Drug Dosing mL/min Estimated GFR (MDRD) ml/min Glucose (74-106) mg/dL Calcium (8.5-10.1) mg/dL Total Bilirubin (0.2-1.0) mg/dL AST (15-37) IU/L ALT (14-63) IU/L Alkaline Phosphatase (46-116) U/L Ammonia (19-54) ug/dL Total Protein (6.4-8.2) g/dL Albumin (3.4-5.0) g/dL Globulin (2.6-4.0) g/dL Albumin/Globulin Ratio (0.9-1.6) Blood Type Antibody Screen Crossmatch 04/06/20 Range/Units 12:15 WBC (4.0-11.0) K/uL RBC (4.30-5.90) M/uL Hgb (12.0-16.0) g/dL Hct (36.0-46.0) % MCV (80.0-98.0) fL MCH (27.0-32.0) pg MCHC (31.0-37.0) g/dL RDW Std Deviation (28.0-62.0) fl RDW Coeff of Tea (11.0-15.0) % Plt Count (150-400) K/uL MPV (7.40-12.00) fL Add Manual Diff Neutrophils % (Manual) (48.0-80.0) % Band Neutrophils % % Lymphocytes % (Manual) (16.0-40.0) % Atypical Lymphs % Monocytes % (Manual) (0.0-15.0) % Nucleated RBC % /100WBC Absolute Seg Neuts (1.4-5.7) Band Neutrophils # Lymphocytes # (Manual) (0.6-2.4) Monocytes # (Manual) (0.0-0.8) Nucleated RBCs # K/uL INR ABG pH (7.35-7.45) ABG pCO2 (35-45) mmHG ABG pO2 (75-100) mmHG ABG HCO3 (22-26) mEq/L ABG Total CO2 ABG Base Excess (-2.0-2.0) Lactate 2.3 H* (0.20-2.00) mmol/L Sodium (136-145) mmol/L Potassium (3.5-5.1) mmol/L Chloride (98-107) mmol/L Carbon Dioxide (21.0-32.0) mmol/L BUN (7.0-18.0) mg/dL Creatinine (0.6-1.0) mg/dL Est Cr Clr Drug Dosing mL/min Estimated GFR (MDRD) ml/min Glucose (74-106) mg/dL Calcium (8.5-10.1) mg/dL Total Bilirubin (0.2-1.0) mg/dL AST (15-37) IU/L ALT (14-63) IU/L Alkaline Phosphatase (46-116) U/L Ammonia (19-54) ug/dL Total Protein (6.4-8.2) g/dL Albumin (3.4-5.0) g/dL Globulin (2.6-4.0) g/dL Albumin/Globulin Ratio (0.9-1.6) Blood Type Antibody Screen Crossmatch RENE Results - Last 24 hrs: Microbiology 04/01/20 17:17 Aerobic Blood Culture - Preliminary Blood - Venous - Lab Draw NO GROWTH AFTER 4 DAYS Anaerobic Blood Culture - Preliminary NO GROWTH AFTER 4 DAYS 04/01/20 17:07 Aerobic Blood Culture - Preliminary Blood - Venous NO GROWTH AFTER 4 DAYS Anaerobic Blood Culture - Preliminary NO GROWTH AFTER 4 DAYS Med Orders - Current: Current Medications Folic Acid (Folic Acid) 1 mg PO DAILY [facility] Last Admin: 04/06/20 09:18 Dose: Not Given Documented by: Cefepime HCl 2 gm/ Premix 50 mls @ 100 mls/hr IV Q8H [facility] Last Admin: 04/06/20 11:51 Dose: 100 mls/hr Documented by: Fluconazole/Sodium Chloride (400 mg/ Premix) 200 mls @ 100 mls/hr IV Q24H [facility] Last Admin: 04/06/20 09:20 Dose: 100 mls/hr Documented by: Vancomycin HCl 1 gm/ Sodium (Chloride) 250 mls @ 250 mls/hr IV Q24H [facility] Last Admin: 04/05/20 20:47 Dose: 250 mls/hr Documented by: Levofloxacin/Dextrose 750 mg/ (Premix) 150 mls @ 100 mls/hr IV Q48H [facility] Last Admin: 04/06/20 15:27 Dose: 100 mls/hr Documented by: Pantoprazole Sodium 40 mg/ (Sodium Chloride) 10 mls @ 300 mls/hr IV BID [facility] Last Admin: 04/06/20 09:17 Dose: 300 mls/hr Documented by: Lactulose (Chronulac) 10 gm PO Q4H [facility] Last Admin: 04/06/20 14:44 Dose: Not Given Documented by: Lidocaine HCl (Xylocaine 2% Jelly) 30 ml GTUBE ASDIRECTED PRN PRN Reason: PAIN Last Admin: 04/04/20 14:05 Dose: 1 applic Documented by: Metoclopramide HCl (Reglan) 10 mg IVPUSH Q8H PRN PRN Reason: Constipation Morphine Sulfate (Morphine) 2 mg IVPUSH Q4H PRN PRN Reason: Pain Last Admin: 04/06/20 14:22 Dose: 2 mg Documented by: Zinc 50mg Elemental (Tablet) 1 each PO DAILY [facility] Last Admin: 04/06/20 09:18 Dose: Not Given Documented by: Rifaximin 550 Mg Tab 1 each PO BID [facility] Last Admin: 04/06/20 09:18 Dose: Not Given Documented by: Amylase/Lipase/Protease 36,000 Unit Cap.Cr 2 each PO TIDMEALS [facility] Last Admin: 04/06/20 12:55 Dose: Not Given Documented by: Potassium Chloride (Klor-Con M20) 20 meq PO DAILY [facility] Last Admin: 04/06/20 09:18 Dose: Not Given Documented by: Quetiapine Fumarate (Seroquel) 100 mg PO BEDTIME [facility] Last Admin: 04/05/20 20:52 Dose: 100 mg Documented by: Sodium Chloride (Saline Flush) 10 ml FLUSH ASDIRECTED PRN PRN Reason: Keep Vein Open Last Admin: 04/01/20 16:56 Dose: 10 ml Documented by: Sodium Chloride (Saline Flush) 2.5 ml FLUSH ASDIRECTED PRN PRN Reason: Keep Vein Open Last Admin: 04/04/20 02:56 Dose: 2.5 ml Documented by: Thiamine HCl (Vitamin B-1) 100 mg PO DAILY [facility] Last Admin: 04/06/20 09:19 Dose: Not Given Documented by: Vancomycin HCl (Pharmacy To Dose - Vancomycin) 1 dose .XX ASDIRECTED [facility] Discontinued Medications Lipase/Protease/Amylase (Creon Dr 24,000 Units) 3 cap PO TIDMEALS [facility] Last Admin: 04/02/20 14:02 Dose: Not Given Documented by: Enoxaparin Sodium (Lovenox) 40 mg SUBCUT BID [facility] Last Admin: 04/03/20 09:16 Dose: 40 mg Documented by: Ferrous Sulfate (Ferrous Sulfate) 325 mg PO DAILY [facility] Last Admin: 04/05/20 09:34 Dose: 325 mg Documented by: Furosemide (Lasix) 40 mg IVPUSH NOW ONE Stop: 04/04/20 15:52 Last Admin: 04/05/20 14:24 Dose: Not Given Documented by: Gabapentin (Neurontin) 300 mg PO TID [facility] Last Admin: 04/05/20 21:06 Dose: 300 mg Documented by: Hydromorphone HCl (Dilaudid) 1 mg IVPUSH ONETIME ONE Stop: 04/01/20 16:41 Last Admin: 04/01/20 16:55 Dose: 1 mg Documented by: Hydromorphone HCl (Dilaudid) 1 mg IVPUSH ONETIME ONE Stop: 04/01/20 18:00 Last Admin: 04/01/20 18:08 Dose: 1 mg Documented by: Albumin Human (Flexbumin 25%) 12.5 gm in 50 mls @ 100 mls/hr IV ONETIME ONE Stop: 04/01/20 17:26 Last Admin: 04/01/20 17:56 Dose: Not Given Documented by: Albumin Human (Flexbumin 25%) 12.5 gm in 50 mls @ 100 mls/hr IV ONETIME ONE Stop: 04/01/20 17:28 Last Admin: 04/01/20 17:25 Dose: 100 mls/hr Documented by: Sodium Chloride (Normal Saline) 1,000 mls @ 999 mls/hr IV .Bolus ONE Stop: 04/01/20 18:05 Last Admin: 04/01/20 17:24 Dose: 999 mls/hr Documented by: Piperacillin Sod/Tazobactam (Sod 3.375 gm/ Sodium Chloride) 50 mls @ 100 mls/hr IV ONETIME ONE Stop: 04/01/20 18:39 Last Admin: 04/01/20 18:48 Dose: 100 mls/hr Documented by: Sodium Chloride (Normal Saline) 1,000 mls @ 75 mls/hr IV ASDIRECTED [facility] Last Admin: 04/02/20 13:27 Dose: 75 mls/hr Documented by: Cefotaxime Sodium 2 gm/ Sodium (Chloride) 100 mls @ 200 mls/hr IV Q8HR [facility] Albumin Human (Flexbumin 25%) 12.5 gm in 50 mls @ 100 mls/hr IV ONETIME ONE Stop: 04/01/20 23:59 Last Admin: 04/02/20 00:14 Dose: 100 mls/hr Documented by: Albumin Human (Flexbumin 25%) 12.5 gm in 50 mls @ 100 mls/hr IV ONETIME ONE Stop: 04/02/20 00:29 Last Admin: 04/02/20 01:02 Dose: 100 mls/hr Documented by: Albumin Human (Flexbumin 25%) 12.5 gm in 50 mls @ 100 mls/hr IV ASDIRECTED [facility] Stop: 04/03/20 09:59 Last Admin: 04/02/20 11:22 Dose: 100 mls/hr Documented by: Vancomycin HCl 1.5 gm/ Premix 300 mls @ 300 mls/hr IV ONETIME ONE Stop: 04/02/20 20:59 Last Admin: 04/02/20 19:42 Dose: 300 mls/hr Documented by: Sodium Chloride (Normal Saline) 1,000 mls @ 75 mls/hr IV ASDIRECTED [facility] Last Admin: 04/03/20 03:23 Dose: 75 mls/hr Documented by: Lactated Ringer's (Ringers, Lactated) 1,000 mls @ 999 mls/hr IV .BOLUS ONE Stop: 04/02/20 20:16 Last Admin: 04/02/20 19:38 Dose: 999 mls/hr Documented by: Vancomycin HCl 1 gm/ Sodium (Chloride) 250 mls @ 250 mls/hr IV Q12H [facility] Last Admin: 04/03/20 20:15 Dose: 250 mls/hr Documented by: Albumin Human (Flexbumin 25%) 12.5 gm in 50 mls @ 100 mls/hr IV NOW STA Stop: 04/03/20 11:08 Last Admin: 04/03/20 10:59 Dose: 100 mls/hr Documented by: Albumin Human (Flexbumin 25%) 12.5 gm in 50 mls @ 100 mls/hr IV ONETIME ONE Stop: 04/03/20 11:09 Last Admin: 04/03/20 11:38 Dose: 100 mls/hr Documented by: Albumin Human (Flexbumin 25%) 12.5 gm in 50 mls @ 100 mls/hr IV ONETIME ONE Stop: 04/03/20 17:37 Last Admin: 04/03/20 18:22 Dose: 100 mls/hr Documented by: Albumin Human (Flexbumin 25%) 12.5 gm in 50 mls @ 100 mls/hr IV ONETIME LESLY Stop: 04/05/20 13:59 Albumin Human (Flexbumin 25%) 12.5 gm in 200 mls @ 100 mls/hr IV ONETIME ONE Stop: 04/05/20 15:29 Last Admin: 04/05/20 14:47 Dose: 100 mls/hr Documented by: Lactulose (Chronulac) 10 gm PO ONETIME ONE Stop: 04/01/20 22:07 Last Admin: 04/01/20 22:25 Dose: 10 gm Documented by: Lactulose (Chronulac) 10 gm PO BID [facility] Last Admin: 04/02/20 09:22 Dose: 10 gm Documented by: Lactulose (Chronulac) 10 gm PO TID [facility] Last Admin: 04/02/20 13:48 Dose: 10 gm Documented by: Lactulose (Chronulac) 10 gm PO Q6H [facility] Last Admin: 04/03/20 06:14 Dose: 10 gm Documented by: Lactulose (Chronulac) 10 gm .XX ONETIME ONE Stop: 04/05/20 10:52 Last Admin: 04/06/20 04:24 Dose: Not Given Documented by: Lidocaine HCl (Xylocaine 4% Top Soln) 1 ml MUCMEM ONETIME ONE Stop: 04/04/20 12:03 Last Admin: 04/04/20 14:12 Dose: Not Given Documented by: Magnesium Oxide (Magnesium Oxide) 400 mg PO DAILY [facility] [place] Last Admin: 04/05/20 09:33 Dose: 400 mg Documented by: Metoclopramide HCl (Reglan) 10 mg IVPUSH Q4H PRN PRN Reason: Other Morphine Sulfate (Morphine) 1 mg IVPUSH ONETIME ONE Stop: 04/02/20 12:07 Last Admin: 04/02/20 12:37 Dose: 1 mg Documented by: Pantoprazole Sodium (Protonix) 40 mg PO DAILY [facility] [place] Last Admin: 04/05/20 09:35 Dose: 40 mg Documented by: Polyethylene Glycol (Miralax) 17 gm PO DAILY [facility] [place] Last Admin: 04/05/20 09:36 Dose: 17 gm Documented by: Rifaximin (Xifaxan) 550 mg PO BID [facility] [place] Last Admin: 04/02/20 10:10 Dose: Not Given Documented by: Spironolactone (Aldactone) 50 mg PO DAILY [facility] [place] Discharge Operative/Procedures - Procedures Performed Paracentesis Indication: ascites, peritoneal fluid analysis
== END 2020-04-06 17:15 | DRG 720 ==
LOC: MW.ED 16:29 → MW.MS 22:14
PROVIDERS: ADMIT Internal Medicine; ATTEND Internal Medicine
PROC: 0W9G30Z Drainage of Peritoneal Cavity with Drainage Device, Percutaneous Approach (ICD-10-PCS; principal; 2020-04-01)
DX: A41.9 Sepsis, unspecified organism (principal); K56.7 Ileus, unspecified; K65.2 Spontaneous bacterial peritonitis; R65.20 Severe sepsis without septic shock; N39.0 Urinary tract infection, site not specified; K70.31 Alcoholic cirrhosis of liver with ascites; K72.90 Hepatic failure, unspecified without coma; K56.609 Unspecified intestinal obstruction, unspecified as to partial versus complete obstruction; N17.9 Acute kidney failure, unspecified; R41.82 Altered mental status, unspecified; K86.3 Pseudocyst of pancreas; E87.2 Acidosis; Z79.01 Long term (current) use of anticoagulants; K85.90 Acute pancreatitis without necrosis or infection, unspecified; F10.10 Alcohol abuse, uncomplicated; F17.210 Nicotine dependence, cigarettes, uncomplicated; I82.409 Acute embolism and thrombosis of unspecified deep veins of unspecified lower extremity; E88.09 Other disorders of plasma-protein metabolism, not elsewhere classified; D72.829 Elevated white blood cell count, unspecified; Z87.19 Personal history of other diseases of the digestive system; Z86.59 Personal history of other mental and behavioral disorders; E43 Unspecified severe protein-calorie malnutrition; J96.01 Acute respiratory failure with hypoxia; Z20.828 Contact with and (suspected) exposure to other viral communicable diseases; Z99.81 Dependence on supplemental oxygen; J12.9 Viral pneumonia, unspecified; K59.00 Constipation, unspecified; I48.20 Chronic atrial fibrillation, unspecified; I95.9 Hypotension, unspecified
CPT/HCPCS: 36415; 36430; 36600; 51702; 71045; 71045-26; 71250; 71250-26; 74018; 74018-26; 74019; 74019-26; 74176; 74176-26; 80053; 80202; 80305-QW; 80307; 81001; 82040; 82140; 82803; 82945; 82962; 83605; 83690; 83735; 84157; 84484; 84703; 85018; 85025; 85610; 85730; 86850; 86900; 86901; 86920; 86921; 86922; 87040; 87070; 87086; 87088; 87186; 87205; 89050; 93005; 94660; 97161-GP; A9270-GY; C9113; J0692; J1170; J1450; J1650; J1956; J2270; J2543; J3370; J7030; J7050; J7120; P9016; P9047; U0002